=== PATIENT | male | born 1950 | race Caucasian/White ===

== ENCOUNTER 2017-03-16 08:22 | Emergency (ER) | payer OTHER ==
[~2017-03-16] VITALS: Ht 185.4 cm; Wt 96.0 kg
[~2017-03-16 08:22] MED LIST: CYAN100048 PO; FOLI1POW10 PO; LEVO50TA PO; LOSA1TAB PO; METO25TA56 PO; SPIR25TA PO; TORS20TA2 PO; VTMD400 PO; WARF5TAB90 PO
[2017-03-16 08:26] VITALS: TEMP 36.7; Ht 185.4 cm; Wt 96.0 kg
[2017-03-16] MEDS ORDERED: MPRUDL PO (08:55)
[2017-03-16] MEDS ORDERED: OMEP40CA41 PO (08:55)
[2017-03-16] MEDS ORDERED: MYCO500T4 PO (08:55)
[2017-03-16] MEDS ORDERED: AMLO-110 PO (08:55)
[2017-03-16] MEDS ORDERED: TACR1CAP14 PO (08:55)
[2017-03-16] MEDS ORDERED: PRAV40TA PO (09:01)
[2017-03-16] MEDS ORDERED: WARF2.5T8 PO (09:01)
[2017-03-16] MEDS ORDERED: HYDROmorphone INJ 0.5 MG/0.5 ML SYR IV STA ×2 (09:14→10:59)
[2017-03-16 09:39] LABS: HEMATOCRIT 34.1 % (42-52); MEAN CELL VOLUME 89.7 fL (80-100); MEAN CORPUSCULAR HEMOGLOBIN 28.7 pg (25-34); PLATELET COUNT 322 K/uL (130-400)
[2017-03-16 09:52] LABS: INR 2.2 (0.9-1.1); PARTIAL THROMBOPLASTIN RATIO 1.7; PROTHROMBIN TIME (PATIENT) 24.2 SECONDS (9.0-12.0)
[2017-03-16] MEDS ORDERED: SODIUM CHLORIDE 0.9% 1000ML 1,000 ML IV STA (09:54)
[2017-03-16 09:56] LABS: BUN/CREATININE RATIO 14.5 (10-20); C-REACTIVE PROTEIN 8.86 mg/dl (0-0.29); CREATININE 2.6 mg/dl (0.60-1.40)
[2017-03-16 09:59] LABS: ALB/GLOB RATIO 0.8 (0.9-2)
--- NOTE | 2017-03-16 10:00 | EMERGENCY ROOM VISIT NOTE ---
History First contact with patient: 08:29 Chief Complaint: FALL Stated Complaint: FALL X 3 DAYS, RT HIP AND LEG PAIN History of Present Illness The patient is a 66 year old male who presents to the Emergency Room with complaints of right leg pain. The patient tripped and fell 3 days ago. The patient states that he landed on his hip and right knee. He states that he has had significant and increasing pain in the right knee over the last 3 days. He states that he has been so painful he is not able to bear weight or walk. He states that there is redness, swelling and pain. He rates his discomfort a 10/ 10. He denies any fevers. He states he has also had some low back pain. He also reports some pain in the right hip. The patient denies any loss of bowel or bladder control, saddle paresthesias. The patient had a heart transplant and does take immunosuppressants. The patient also takes Coumadin for coagulopathy and history of PE. He denies any headache, dizziness. He denies any pain in his chest or trouble breathing. He denies any numbness, tingling, weakness. He denies any swelling or pain in the calf. Review of Systems A 10 system review of systems was completed with positives and pertinent negatives listed in the HPI. 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 (6) Depression (7) DVT, lower extremity (8) Dyslipidemia (9) Hypothyroidism (10) Left ventricular hypertrophy (11) Prothrombin gene mutation (12) Pulmonary embolism (13) Pulmonary hypertension (14) RBBB Surgical Problems: (1) Heart transplanted (2) History of carpal tunnel surgery of right wrist (3) S/p removal of knee cartilage (4) Status post total knee replacement Social History Smoking Status: Never Smoker Alcohol Use: occasionally Drug Use: none Marital Status: Housing Status: lives with significant other Occupation Status: employed Current/Historical Medications Scheduled Amlodipine (Norvasc), 5 MG PO DAILY Atovaquone (Mepron), 10 ML PO QAM Cholecalciferol (Vitamin D3), 1 TAB PO DAILY Levothyroxine Sodium (Synthroid), 50 MCG PO DAILY Mycophenolate Mofetil (Cellcept), 1,000 MG PO BID Omeprazole (Prilosec), 40 MG PO DAILY Pravastatin Sodium (Pravachol), 40 MG PO DAILY Tacrolimus (Tacrolimus), 6 MG PO BID Warfarin Sod (Jantoven), 2.5 MG PO UD Warfarin Sodium (Coumadin), 5 MG PO DIRECTED Scheduled PRN Oxycodone/Acetaminophen 5MG/325MG (Percocet 5MG/325MG), 1-2 TABS PO Q4 PRN for Pain Allergies Coded Allergies: Morphine (Unverified Allergy, Unknown, Nausea/vomiting, 03/16/17) Physical Exam Vital Signs Date Time Temp Pulse Resp B/P (MAP) Pulse Ox O2 Delivery O2 Flow Rate FiO2 03/16/17 15:15 122 21 148/101 97 Room Air 03/16/17 14:31 118 20 155/107 03/16/17 13:59 117 16 163/102 03/16/17 13:23 120 03/16/17 13:00 118 20 146/108 03/16/17 11:30 119 20 162/102 03/16/17 10:18 119 20 150/104 98 Room Air 03/16/17 09:36 123 03/16/17 09:33 120 16 97 Room Air 03/16/17 08:26 36.7 131 18 131/81 96 Room Air Physical Exam VITALS: Vitals are noted on the nurse's note and reviewed by myself. Vital signs stable. GENERAL: This is a 66-year-old male, in no acute distress, nondiaphoretic, well- developed well-nourished. SKIN: There is effusion, erythema, warmth and tenderness to the right knee, particularly on the lateral aspect. There is no tenting of the skin. Capillary reflex less than 2 seconds. HEAD: Normocephalic atraumatic. EARS: The external ears are normal in appearance. EYES: Pupils equal round and reactive to light and accommodation. Conjunctivae without injection, sclerae without icterus. Extraocular movements intact. NOSE: Patent, turbinates without inflammation or discharge. MOUTH: Mucous membranes moist. Tonsils are not enlarged. Pharynx without erythema or exudate. Uvula midline. Airway patent. Tongue does not deviate. NECK: Supple without nuchal rigidity. No JVD. HEART: Fast, Regular rate and rhythm without murmurs gallops or rubs. LUNGS: Clear to auscultation bilaterally without wheezes, rales or rhonchi. No retractions or accessory muscle use. MUSCULOSKELETAL: There is effusion, erythema, warmth, and edema to the right knee. There is pain with joint loading. The patient is able to extend the leg off the bed. There is tenderness to palpation over the left foot there is no erythema, ecchymosis or edema to the left foot. There is no significant tenderness to the right hip. There is mild tenderness to palpation to the lumbar spine. There are many extremities are otherwise unremarkable. NEURO: Patient was alert and oriented to person place and time. No focal neurological deficits. Medical Decision & Procedures ER Provider Diagnostic Interpretation: RIGHT FEMUR 2 VIEWS ROUTINE CLINICAL HISTORY: Right leg pain following fall. COMPARISON: None FINDINGS: Incidental note is made of scrotal surgical clips. Alignment of the right hip is anatomic. There is no right femur fracture. There is joint space narrowing within the medial compartment of the right knee. There is moderate vascular calcification. IMPRESSION: No acute fracture of the right femur. LEFT FOOT 3 VIEWS CLINICAL HISTORY: Left foot pain. FINDINGS: 3 views of left foot are obtained. No prior studies are available for comparison at the time of dictation. The skeletal structures are well mineralized. No fracture is seen. Mild arthritic change is present at the first metatarsophalangeal joint. The joint spaces are otherwise maintained. The overlying soft tissues are within normal limits. Atherosclerotic calcification is noted in the regional arteries. Linear calcifications are seen along the course of the plantar fascia an at the Achilles tendon insertion. IMPRESSION: No acute bony abnormality is seen in the left foot. LUMBAR SPINE 5 VIEWS CLINICAL HISTORY: Fall with low back pain. FINDINGS: Five views of the lumbar spine are obtained. No prior studies are available for comparison at the time of dictation. The skeletal structures are osteopenic. There is no radiographic evidence of fracture or malalignment. Vertebral body height is maintained throughout the lumbar spine. There is minimal anterolisthesis at L4-L5. Alignment is otherwise preserved. Small anterior osteophytes are seen throughout. The transverse and spinous processes appear intact. There is no evidence of spondylolysis. Facet arthropathy is seen in the mid to lower lumbar region. The disc spaces appear preserved. The bony pelvis is intact as imaged. Mild sclerotic change is noted in the sacroiliac joints. There is atherosclerotic calcification of the abdominal aorta. The abdominal bowel gas pattern is nonobstructed. IMPRESSION: 1. No acute bony abnormality is seen involving the lumbosacral spine. 2. Osteopenia and spondylosis as above. [~ rep ct add3]] PELVIS 1 OR 2 VIEW ROUTINE CLINICAL HISTORY: Fall. Right hip pain. COMPARISON STUDY: No previous studies for comparison. FINDINGS: There are scrotal surgical clips. The sacroiliac joints and symphysis pubis are intact. There is no acute fracture within the pelvis or hips. There is mild joint space narrowing and osteophytosis of both hips with chondrocalcinosis. IMPRESSION: 1. No acute fracture within the pelvis or hips. 2. Mild osteoarthritis of the hips. Laboratory Results 03/16/17 09:19 Red Blood Count 3.80, Mean Corpuscular Volume 89.7, Mean Corpuscular Hemoglobin 28.7, Mean Corpuscular Hemoglobin Concent 32.0, Mean Platelet Volume 10.0, Neutrophils (%) (Auto) 56.6, Lymphocytes (%) (Auto) 17.1, Monocytes (%) (Auto) 24.3, Eosinophils (%) (Auto) 0.6, Basophils (%) (Auto) 0.4, Neutrophils # (Auto ) 4.76, Lymphocytes # (Auto) 1.44, Monocytes # (Auto) 2.04, Eosinophils # (Auto ) 0.05, Basophils # (Auto) 0.03 03/16/17 09:19 Test 03/16/17 09:19 03/16/17 12:05 White Blood Count 8.40 K/uL (4.8-10.8) Red Blood Count 3.80 M/uL (4.7-6.1) Hemoglobin 10.9 g/dL (14.0-18.0) Hematocrit 34.1 % (42-52) Mean Corpuscular Volume 89.7 fL (80-100) Mean Corpuscular Hemoglobin 28.7 pg (25-34) Mean Corpuscular Hemoglobin Concent 32.0 g/dl (32-36) Platelet Count 322 K/uL (130-400) Mean Platelet Volume 10.0 fL (7.4-10.4) Neutrophils (%) (Auto) 56.6 % Lymphocytes (%) (Auto) 17.1 % Monocytes (%) (Auto) 24.3 % Eosinophils (%) (Auto) 0.6 % Basophils (%) (Auto) 0.4 % Neutrophils # (Auto) 4.76 K/uL (1.4-6.5) Lymphocytes # (Auto) 1.44 K/uL (1.2-3.4) Monocytes # (Auto) 2.04 K/uL (0.11-0.59) Eosinophils # (Auto) 0.05 K/uL (0-0.5) Basophils # (Auto) 0.03 K/uL (0-0.2) RDW Standard Deviation 48.0 fL (36.4-46.3) RDW Coefficient of Variation 14.6 % (11.5-14.5) Immature Granulocyte % (Auto) 1.0 % Immature Granulocyte # (Auto) 0.08 K/uL (0.00-0.02) Giant Platelets 1+ Tear Drop Cells 1+ Echinocytes 1+ Erythrocyte Sedimentation Rate 88 mm/hr (0-14) Prothrombin Time 24.2 SECONDS (9.0-12.0) Prothromb Time International Ratio 2.2 (0.9-1.1) Activated Partial Thromboplast Time 44.1 SECONDS (21.0-31.0) Partial Thromboplastin Ratio 1.7 Anion Gap 13.0 mmol/L (3-11) Est Creatinine Clear Calc Drug Dose 34.1 ml/min Estimated GFR () 28.5 Estimated GFR (Non- 24.6 BUN/Creatinine Ratio 14.5 (10-20) Lactic Acid Level 1.1 mmol/L (0.4-2.0) Calcium Level 9.6 mg/dl (8.5-10.1) Total Bilirubin 0.5 mg/dl (0.2-1) Aspartate Amino Transf (AST/SGOT) 14 U/L (15-37) Alanine Aminotransferase (ALT/SGPT) 20 U/L (12-78) Alkaline Phosphatase 96 U/L (45-117) C-Reactive Protein 8.86 mg/dl (0-0.29) Total Protein 7.9 gm/dl (6.4-8.2) Albumin 3.5 gm/dl (3.4-5.0) Globulin 4.4 gm/dl (2.5-4.0) Albumin/Globulin Ratio 0.8 (0.9-2) Synovial Fluid Source KNEE Synovial Fluid Color YELLOW Synovial Fluid Appearance HAZY Synovial Fluid WBC 4696 /uL (0-200) Synovial Fluid RBC 4000 /uL Synovial Fluid Polynuclear WBCs % 91.8 % Synovial Fluid Mononuclear WBCs % 8.2 % Synovial Fluid Crystals Medications Administered Medications (Trade) Dose Ordered Sig/Rosette Route Start Time Stop Time Status Last Admin Dose Admin Hydromorphone HCl (Dilaudid Inj) 0.5 mg ONE STAT IV 03/16/17 09:14 03/16/17 09:15 DC 03/16/17 09:33 0.5 MG Sodium Chloride 1,000 ml @ 125 mls/hr Q8H STAT IV 03/16/17 09:54 03/16/17 15:55 DC 03/16/17 10:20 125 MLS/HR Hydromorphone HCl (Dilaudid Inj) 0.5 mg NOW STAT IV 03/16/17 10:59 03/16/17 11:00 DC 03/16/17 11:09 0.5 MG ED Course The patient was seen and examined. Previous visits were reviewed. The patient does not have a fever. He does not have a leukocytosis. He has a very mild anemia. His sedimentation rate is elevated at 88 and his CRP is also elevated. His BUN/creatinine creatinine are 38 and 2.6, respectively. He believes that this is near baseline for him and states that he is in need of a kidney transplant. Lactic acid was not elevated. INR was 2.2. The patient does take Coumadin. Imaging was obtained as above. The patient was given a total of 1 mg IV Dilaudid. The patient presents to the emergency department with pain, redness, swelling, warmth in the right knee. He does have elevated inflammatory markers. He is immunocompromised. I am not certain if this represents an inflammatory, infectious process or a hematoma. I discussed the case [facility] as he has seen them in the past. The patient was evaluated by Benito Kong PA-C in the emergency department. He performed joint aspiration. [facility] Christiana Mcdaniel PA-C. I felt that the patient will require inpatient management if this represents a septic joint. She reviewed the patient's previous EKG and an EKG from today. It was very similar compared to the most recent EKG performed after the heart transplant. The patient has been tachycardic but he states that his baseline heart rate is between 110 and 120 since the transplant. The patient has also had hypertension. He states that it has also been elevated since the transplant. He states he is not taking any of his medications today. He was advised to take his medications as prescribed and follow-up with his family doctor for further evaluation and management of his blood pressure. The joint aspiration revealed approximately 5000 white blood cells. There are also calcium pyrophosphate crystals. This likely represents a pseudogout and not truly a septic joint. I again spoke with orthopedics. The patient cannot take NSAIDs. He is already on his own. They recommend trying pain medication and a follow-up in the office. The patient was given a prescription for Percocet. Case management was able to make an appointment for him with orthopedics tomorrow. The patient was advised of this. The patient should return to the ER with any chest pain, trouble breathing, fever, worsening pain, worsening swelling. The patient was also seen and examined by who agrees with the assessment and treatment plan. Medication Reconciliation: I attest that I have personally reviewed the patient' s current medication list. Blood pressure screening: The patient was found to have an elevated blood pressure and was referred to their primary care doctor for recheck and further treatment Medical Decision The differential diagnosis includes septic arthritis, gout, traumatic effusion, bursitis, sepsis, dehydration, Lumbar strain, degenerative disc disease, spondylolisthesis, herniated disc, spinal stenosis, osteoporosis, fracture, cauda equina syndrome, neoplasm, infection, inflammatory arthritis, among others. [place] Drug Monitoring Program Search Results: patient reviewed within database, no issues identified Impression Primary Impression: Pseudogout Additional Impressions: Knee effusion, right Fall Low back pain Departure Information Dispostion Home / Self-Care Condition GOOD Prescriptions Oxycodone/Acetaminophen 5MG/325MG (PERCOCET 5MG/325MG) Tab 1-2 TABS PO Q4 Y for Pain, #36 TAB For Initial Treatment Prov: Monica Leo PA-C 03/16/17 Referrals Chavez Enciso D.OAida (PCP) Choco Guerrier D.O. Patient Instructions ED Diet Gout, ED Effusion Knee, My [facility] Additional Instructions Continue your current medications as prescribed Percocet 1-2 tablet every 4-6 hours as needed for severe pain. No driving or alcohol use with Percocet and do not take with Tylenol. Follow-up with orthopedics tomorrow as scheduled for further evaluation and management Return with any fevers or worsening symptoms Problem Qualifiers
[2017-03-16 10:02] LABS: BASO % 0.4 %; BASO ABS # 0.03 K/uL (0-0.2); COMPLETE YES; ECHINOCYTES 1+; EOS % 0.6 %; GIANT PLATELETS 1+; LYMPH % 17.1 %; LYMPH ABS # 1.44 K/uL (1.2-3.4); MONO % 24.3 %; NEUT % 56.6 %; TEAR DROP CELLS 1+
--- NOTE | 2017-03-16 10:22 | DIAGNOSTIC IMAGING REPORT ---
PELVIS 1 OR 2 VIEW ROUTINE CLINICAL HISTORY: Fall. Right hip pain. COMPARISON STUDY: No previous studies for comparison. FINDINGS: There are scrotal surgical clips. The sacroiliac joints and symphysis pubis are intact. There is no acute fracture within the pelvis or hips. There is mild joint space narrowing and osteophytosis of both hips with chondrocalcinosis. IMPRESSION: 1. No acute fracture within the pelvis or hips. 2. Mild osteoarthritis of the hips. Electronically signed by: Nomi Meneses M.D. 03/16/2017 10:17 AM Dictated Date/Time: 03/16/2017 10:16 AM
--- NOTE | 2017-03-16 10:22 | DIAGNOSTIC IMAGING REPORT ---
RIGHT FEMUR 2 VIEWS ROUTINE CLINICAL HISTORY: Right leg pain following fall. COMPARISON: None FINDINGS: Incidental note is made of scrotal surgical clips. Alignment of the right hip is anatomic. There is no right femur fracture. There is joint space narrowing within the medial compartment of the right knee. There is moderate vascular calcification. IMPRESSION: No acute fracture of the right femur. Electronically signed by: Nomi Meneses M.D. 03/16/2017 10:18 AM Dictated Date/Time: 03/16/2017 10:17 AM
--- NOTE | 2017-03-16 10:22 | DIAGNOSTIC IMAGING REPORT ---
LEFT FOOT 3 VIEWS CLINICAL HISTORY: Left foot pain. FINDINGS: 3 views of left foot are obtained. No prior studies are available for comparison at the time of dictation. The skeletal structures are well mineralized. No fracture is seen. Mild arthritic change is present at the first metatarsophalangeal joint. The joint spaces are otherwise maintained. The overlying soft tissues are within normal limits. Atherosclerotic calcification is noted in the regional arteries. Linear calcifications are seen along the course of the plantar fascia an at the Achilles tendon insertion. IMPRESSION: No acute bony abnormality is seen in the left foot. Electronically signed by: Henri Reynolds M.D. 03/16/2017 10:17 AM Dictated Date/Time: 03/16/2017 10:16 AM
--- NOTE | 2017-03-16 10:22 | EMERGENCY ROOM VISIT NOTE ---
ED Visit Note First contact with patient: 08:29 This Patient was discussed with the physician assistant branch operations manager, Leelee Leo PA-C. The pertinent historical and physical exam findings were confirmed. I agree with the studies ordered and with the interpretations of these studies. I agree with the disposition and care plan.
--- NOTE | 2017-03-16 11:06 | DIAGNOSTIC IMAGING REPORT ---
LUMBAR SPINE 5 VIEWS CLINICAL HISTORY: Fall with low back pain. FINDINGS: Five views of the lumbar spine are obtained. No prior studies are available for comparison at the time of dictation. The skeletal structures are osteopenic. There is no radiographic evidence of fracture or malalignment. Vertebral body height is maintained throughout the lumbar spine. There is minimal anterolisthesis at L4-L5. Alignment is otherwise preserved. Small anterior osteophytes are seen throughout. The transverse and spinous processes appear intact. There is no evidence of spondylolysis. Facet arthropathy is seen in the mid to lower lumbar region. The disc spaces appear preserved. The bony pelvis is intact as imaged. Mild sclerotic change is noted in the sacroiliac joints. There is atherosclerotic calcification of the abdominal aorta. The abdominal bowel gas pattern is nonobstructed. IMPRESSION: 1. No acute bony abnormality is seen involving the lumbosacral spine. 2. Osteopenia and spondylosis as above. Dictated: 03/16/2017 10:18 AM Transcribed: 03/16/2017 11:06 AM Joi Electronically signed by: Herni Reynolds M.D. 03/16/2017 11:14 AM Dictated Date/Time: 03/16/2017 10:18 AM
[2017-03-16] MEDS ORDERED: ETHYL CHLORIDE AER PER SPRAY 100 ML CAN ONE (11:36)
[2017-03-16 12:08] LABS: CALCIUM 9.6 mg/dl (8.5-10.1)
--- NOTE | 2017-03-16 13:11 | Orthopedic Progress Note ---
Orthopedic Progress Note Date of Service Mar 16, 2017. Subjective Additional Notes: 66 yo wm know to our practice who came to the ER today due to right knee pain. The patient has a h/o heart transplant and being on Immunosuppressant drugs. Also h/o coagulopathy on Coumadin with h/o PE. Also h/o CKD with need for Kidney transplant, AFib, Dyslipidemia, and LVH. Pt states that he fell at home approximately 3 days ago hurting his right hip and knee. He fell mostly onto the lateral aspect of both. He had just started taking his Coumadin at that time. He initially was able to ambulate at home without much difficulty but as the days passed, he noticed increased pain and swelling in the right knee that continued to worsen. He was having a lot of difficulty getting around the house and felt he should come to the ER to be seen. He denies fevers , chills, N/V. He has some residual pain in the right hip but nothing like the knee. Denies CP/SOB. PMH - as noted above, h/o gout in past due to certain medications given. [place]KA [place] [address] Guerrier. Current/Historical Medications Scheduled Amlodipine (Norvasc), 5 MG PO DAILY Atovaquone (Mepron), 10 ML PO QAM Cholecalciferol (Vitamin D3), 1 TAB PO DAILY Levothyroxine Sodium (Synthroid), 50 MCG PO DAILY Mycophenolate Mofetil (Cellcept), 1,000 MG PO BID Omeprazole (Prilosec), 40 MG PO DAILY Pravastatin Sodium (Pravachol), 40 MG PO DAILY Tacrolimus (Tacrolimus), 6 MG PO BID Warfarin Sod (Jantoven), 2.5 MG PO UD Warfarin Sodium (Coumadin), 5 MG PO DIRECTED Allergies - Morphine Objective On entering the room, patient is lying on his right side with the right knee flexed to approximately 80 degrees. Hip is flexed to about the same. He looks comfortable but just received some pain medication prior to my visit. On examination of the right knee, he is capable of actively flexing and extending the knee although he has some loss of ROM. He is unable to fully extend the knee. Hip ROM essentially normal with mild discomfort. The itself is notably swollen compared to the left knee. Effusion is not tense but moderate. I am able to palpate the area which causes some pain in the knee but not overtly so. Active flexion/extension does not cause overt pain. He states it hurts but not grossly so. The knee is warm to touch, more so than the left. Slight erythema? over the lateral aspect? Palpation of the patella is nontender. He has more tenderness around the medial joint line on palpation. Suprapatellar pouch has a moderate effusion. Collateral ligaments feel stable. ACL/PCL seem to have a solid end point. General knee discomfort with ROM. NV intact Date Time Temp Pulse Resp B/P (MAP) Pulse Ox O2 Delivery O2 Flow Rate FiO2 03/16/17 11:30 119 20 162/102 03/16/17 10:18 119 20 150/104 98 Room Air 03/16/17 09:36 123 03/16/17 09:33 120 16 97 Room Air 03/16/17 08:26 36.7 131 18 131/81 96 Room Air Laboratory Results 24 Hours: Test 03/16/17 09:19 White Blood Count 8.40 K/uL Red Blood Count 3.80 M/uL Hemoglobin 10.9 g/dL Hematocrit 34.1 % Mean Corpuscular Volume 89.7 fL Mean Corpuscular Hemoglobin 28.7 pg Mean Corpuscular Hemoglobin Concent 32.0 g/dl Platelet Count 322 K/uL Mean Platelet Volume 10.0 fL Neutrophils (%) (Auto) 56.6 % Lymphocytes (%) (Auto) 17.1 % Monocytes (%) (Auto) 24.3 % Eosinophils (%) (Auto) 0.6 % Basophils (%) (Auto) 0.4 % Neutrophils # (Auto) 4.76 K/uL Lymphocytes # (Auto) 1.44 K/uL Monocytes # (Auto) 2.04 K/uL Eosinophils # (Auto) 0.05 K/uL Basophils # (Auto) 0.03 K/uL Prothromb Time International Ratio 2.2 Prothrombin Time 24.2 SECONDS Last 24 Hours Test 03/16/17 09:19 03/16/17 12:05 White Blood Count 8.40 K/uL Red Blood Count 3.80 M/uL Hemoglobin 10.9 g/dL Hematocrit 34.1 % Mean Corpuscular Volume 89.7 fL Mean Corpuscular Hemoglobin 28.7 pg Mean Corpuscular Hemoglobin Concent 32.0 g/dl Platelet Count 322 K/uL Mean Platelet Volume 10.0 fL Neutrophils (%) (Auto) 56.6 % Lymphocytes (%) (Auto) 17.1 % Monocytes (%) (Auto) 24.3 % Eosinophils (%) (Auto) 0.6 % Basophils (%) (Auto) 0.4 % Neutrophils # (Auto) 4.76 K/uL Lymphocytes # (Auto) 1.44 K/uL Monocytes # (Auto) 2.04 K/uL Eosinophils # (Auto) 0.05 K/uL Basophils # (Auto) 0.03 K/uL RDW Standard Deviation 48.0 fL RDW Coefficient of Variation 14.6 % Immature Granulocyte % (Auto) 1.0 % Immature Granulocyte # (Auto) 0.08 K/uL Giant Platelets 1+ Tear Drop Cells 1+ Echinocytes 1+ Erythrocyte Sedimentation Rate 88 mm/hr Prothrombin Time 24.2 SECONDS Prothromb Time International Ratio 2.2 Activated Partial Thromboplast Time 44.1 SECONDS Partial Thromboplastin Ratio 1.7 Sodium Level 138 mmol/L Potassium Level 4.0 mmol/L Chloride Level 107 mmol/L Carbon Dioxide Level 18 mmol/L Anion Gap 13.0 mmol/L Blood Urea Nitrogen 38 mg/dl Creatinine 2.60 mg/dl Est Creatinine Clear Calc Drug Dose 34.1 ml/min Estimated GFR () 28.5 Estimated GFR (Non- 24.6 BUN/Creatinine Ratio 14.5 Random Glucose 99 mg/dl Lactic Acid Level 1.1 mmol/L Calcium Level 9.6 mg/dl Total Bilirubin 0.5 mg/dl Aspartate Amino Transf (AST/SGOT) 14 U/L Alanine Aminotransferase (ALT/SGPT) 20 U/L Alkaline Phosphatase 96 U/L C-Reactive Protein 8.86 mg/dl Total Protein 7.9 gm/dl Albumin 3.5 gm/dl Globulin 4.4 gm/dl Albumin/Globulin Ratio 0.8 Additional Notes: RIGHT FEMUR 2 VIEWS ROUTINE CLINICAL HISTORY: Right leg pain following fall. COMPARISON: None FINDINGS: Incidental note is made of scrotal surgical clips. Alignment of the right hip is anatomic. There is no right femur fracture. There is joint space narrowing within the medial compartment of the right knee. There is moderate vascular calcification. IMPRESSION: No acute fracture of the right femur. LEFT FOOT 3 VIEWS CLINICAL HISTORY: Left foot pain. FINDINGS: 3 views of left foot are obtained. No prior studies are available for comparison at the time of dictation. The skeletal structures are well mineralized. No fracture is seen. Mild arthritic change is present at the first metatarsophalangeal joint. The joint spaces are otherwise maintained. The overlying soft tissues are within normal limits. Atherosclerotic calcification is noted in the regional arteries. Linear calcifications are seen along the course of the plantar fascia an at the Achilles tendon insertion. IMPRESSION: No acute bony abnormality is seen in the left foot. PELVIS 1 OR 2 VIEW ROUTINE CLINICAL HISTORY: Fall. Right hip pain. COMPARISON STUDY: No previous studies for comparison. FINDINGS: There are scrotal surgical clips. The sacroiliac joints and symphysis pubis are intact. There is no acute fracture within the pelvis or hips. There is mild joint space narrowing and osteophytosis of both hips with chondrocalcinosis. IMPRESSION: 1. No acute fracture within the pelvis or hips. 2. Mild osteoarthritis of the hips. LUMBAR SPINE 5 VIEWS CLINICAL HISTORY: Fall with low back pain. FINDINGS: Five views of the lumbar spine are obtained. No prior studies are available for comparison at the time of dictation. The skeletal structures are osteopenic. There is no radiographic evidence of fracture or malalignment. Vertebral body height is maintained throughout the lumbar spine. There is minimal anterolisthesis at L4-L5. Alignment is otherwise preserved. Small anterior osteophytes are seen throughout. The transverse and spinous processes appear intact. There is no evidence of spondylolysis. Facet arthropathy is seen in the mid to lower lumbar region. The disc spaces appear preserved. The bony pelvis is intact as imaged. Mild sclerotic change is noted in the sacroiliac joints. There is atherosclerotic calcification of the abdominal aorta. The abdominal bowel gas pattern is nonobstructed. IMPRESSION: 1. No acute bony abnormality is seen involving the lumbosacral spine. 2. Osteopenia and spondylosis as above. Assessment & Plan Assessment: r/o infected right knee; possible hemarthrosis; possible gouty flare. Plan: Currently, his white count is normal and ESR/CRP are elevated. INR 2.2. Normal temp. Tachycardic which patient states is normal for him. He doesn't examine as a true joint infection. I've discussed the case with Dr Guerrier. Aspiration of the knee is warranted. Risks were explained to the patient including but not inclusive to bleeding, infection of the knee joint. He agreed to the aspiration. Pt was placed lying supine on his bed. An aspiration site was chose at the suprapatellar pouch and marked. This area was cleansed with 2 alcohol swabs and 3 betadine swabs and let to dry. Ethyl Chloride was used on the site for skin anesthesia. An 18 ga needle was inserted into the suprapatellar pouch without difficulty and 42 cc of straw colored fluid was removed. The needle was removed and pressure was placed over the site for approximately one minute. A bandaid was placed over the injection site. Pt tolerated the procedure well. Aspirate will be sent for Cell count with diff; Crystal analysis; and Gram stain with Aerobic/Anaerobic cultures. If this is a gouty flare, the patient is already on daily prednisone and will be treated conservatively with pain medication; ice pack and or heat packs as needed. He is unable to take NSAID's due to his CKD. If gram stain is positive , he obviously will need to be admitted for IV antibx and likely arthroscopic washout. Pat Travis PA-C aware and has reviewed his EKG. Plan will be to wait on current labs to see what they show and proceed from there. Inhouse Planning Pain Management: Aleshia
[2017-03-16 13:35] LABS: SYNOVIAL FLUID APPEARANCE HAZY; SYNOVIAL FLUID COLOR YELLOW
[2017-03-16 13:36] LABS: SYNOVIAL FLUID MONONUC RELAT 8.2 %; SYNOVIAL FLUID POLYNUC RELAT 91.8 %
[2017-03-16] MEDS ORDERED: OXYC-57 PO (14:29)
[2017-03-16 15:15] VITALS: BP 148/101; PULSE 122; O2SAT 97
== END 2017-03-16 15:26 | disposition home or self-care (01) ==
LOC: C.EDB 08:25 → C.EDA 15:26
DX: M11.261 Other chondrocalcinosis, right knee (principal); M25.461 Effusion, right knee; M54.5 Low back pain; W01.0XXA Fall on same level from slipping, tripping and stumbling without subsequent striking against object, initial encounter; I48.91 Unspecified atrial fibrillation; N18.3 Chronic kidney disease, stage 3 (moderate); E78.5 Hyperlipidemia, unspecified; E03.9 Hypothyroidism, unspecified; F32.9 Major depressive disorder, single episode, unspecified; Z86.711 Personal history of pulmonary embolism; Z86.718 Personal history of other venous thrombosis and embolism; Z96.659 Presence of unspecified artificial knee joint; Z94.1 Heart transplant status; Z79.01 Long term (current) use of anticoagulants; Z79.899 Other long term (current) drug therapy; Z88.5 Allergy status to narcotic agent

== ENCOUNTER 2017-04-21 21:50 | Inpatient (IN) | payer OTHER ==
[~2017-04-21] VITALS: Ht 185.4 cm; Wt 99.2 kg
[~2017-04-21 21:50] MED LIST changes: +AMLO-110 PO; -CYAN100048 PO; -FOLI1POW10 PO; -LOSA1TAB PO; -METO25TA56 PO; +MPRUDL PO; +MYCO500T4 PO; +OMEP40CA41 PO; +OXYC-57 PO; +PRAV40TA PO; +PRG1 PO; -SPIR25TA PO; -TORS20TA2 PO; +WARF2.5T8 PO
[2017-04-21] MEDS ORDERED: WARF-280 PO (22:32)
[2017-04-21] MEDS ORDERED: VALG1TAB PO (22:32)
[2017-04-21] MEDS ORDERED: HYDROmorphone INJ 2 MG/ML SYR/VIAL IV STA (23:20)
[2017-04-22] VITALS (18 sets, daily range): BP systolic 125–171; BP diastolic 76–101; PULSE 98–110; TEMP 36.6–36.9; O2SAT 93–99; Ht 185.4 cm; Wt 99.2 kg
[2017-04-22 00:07] LABS: URINE APPEARANCE CLEAR (CLEAR); URINE COLOR YELLOW; URINE SPECIFIC GRAVITY 1.024 (1.000-1.030)
[2017-04-22 00:08] LABS: URINE BILIRUBIN NEG (NEG); URINE NITRITE NEG (NEG); UROBILINOGEN NEG (NEG)
[2017-04-22 00:09] LABS: MANUAL MICROSCOPIC REQUIRED? NO; REVIEW REQ? NO
--- NOTE | 2017-04-22 01:11 | EMERGENCY ROOM VISIT NOTE ---
History Report prepared by Yung: Aden Rosenberg Under the Supervision of: Dr. Ana Rosa Vargas D.O. First contact with patient: 23:03 Chief Complaint: SYNCOPE Stated Complaint: KNEE PAIN Nursing Triage Summary: patient brought in by ems patient reports syncopial episode around [id number] patient reports left knee pain patient reports heart transplant in may 2016 History of Present Illness The patient is a 66 year old male who presents to the Emergency Room with complaints of a sudden syncopal episode that occurred around 1500 today. He rates his discomfort as a 7/10 in severity. The patient states that he was by his sink when he felt a "strange feeling happening in my head". He states that he had never had this feeling or experience before. He is accompanied his who states that about three seconds after he reported this he fell onto the ground on his knees due to a syncopal episode. She states that she tried to catch him, but he still hit "hard" on the ground. The reports that he was passed out for about three seconds when he suddenly opened his eyes with the eyes rolling to the back of his head. She states that about ten seconds following this incident he was able to talk and return his eyes to normal again. His states that during his syncopal episode he appeared to not be able to breathe, causing her to breathe into his nose. The patient states that following the incident he felt pain in his knees and feels as if his muscles are tight. He states that he felt lethargic following the episode, which caused him to sleep for a couple of hours. The patient states that after his nap, he tried to ice his knees to alleviate the pain for a couple of hours. He reports that he was not able to alleviate pain, which prompted him to visit the ED. The patient states that he still is experiencing knee pain and rates it as a 10/10 in severity in his left knee and a 9/10 in severity in his right knee. The patient admits that his pain is better with rest and worsened with movement. He states that he has not been able to ambulate or put weight on his legs due to the pain. The patient states that he felt fine throughout the day and had eaten breakfast early in the morning, but denies eating any lunch. He states that he usually eats lunch and tries not to skip meals. The patient states that he has a history of injuries to his knee, which occurred about a month ago. He states that during this incident, he was at the bottom of the steps and went to step, but fell over onto his knees. The patient states that he had severe knee pain and had to get his knee drained. He states that he was able to return to normal shortly after the incident. The patient states that he is also concerned that he has neuropathy in his feet bilaterally due to his constant feet pain. He states that the pain is relieved with walking barefoot. 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 He states that he has a biopsy appointment on May 04 due to a large nodule in his lungs. The patient also admits that his left knee is normally more swollen than his right and his heart rate is normally in the 100s following the transplant. He admits that he can not take aspirin due to his current medication and can not take Morphine due to an allergy. He denies any abnormal activities or dehydration. Source of History: patient Onset: 1499 Position: other (global) Symptom Intensity: 03/29 Timing: other (sudden) Modifying Factors (Relieving): rest Review of Systems See HPI for pertinent positives & negatives. A total of 10 systems reviewed and were otherwise negative. 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 Social History Smoking Status: Unknown if Ever Smoked Alcohol Use: occasionally Drug Use: none Marital Status: Housing Status: lives with significant other Occupation Status: employed Current/Historical Medications Scheduled Amlodipine (Norvasc), 5 MG PO DAILY Atovaquone (Mepron), 10 ML PO QAM Cholecalciferol (Vitamin D3), 1 TAB PO DAILY Levothyroxine Sodium (Synthroid), 50 MCG PO DAILY Mycophenolate Mofetil (Cellcept), 1,000 MG PO BID Omeprazole (Prilosec), 40 MG PO DAILY Pravastatin Sodium (Pravachol), 40 MG PO DAILY Tacrolimus (Tacrolimus), 6 MG PO BID Valganciclovir HCl (Valganciclovir), 1 CAP PO BID Warfarin Sodium (Warfarin Sodium), 1 TAB PO DAILY Scheduled PRN Oxycodone/Acetaminophen 5MG/325MG (Percocet 5MG/325MG), 1-2 TABS PO Q4 PRN for Pain Allergies Coded Allergies: Morphine (Unverified Allergy, Unknown, Nausea/vomiting, 04/21/17) Physical Exam Vital Signs Date Time Temp Pulse Resp B/P (MAP) Pulse Ox O2 Delivery O2 Flow Rate FiO2 04/22/17 02:08 100 04/22/17 02:00 97 18 165/108 96 Room Air 04/22/17 01:00 100 18 140/99 95 Room Air 04/22/17 00:00 102 18 155/99 94 Room Air 04/21/17 23:04 104 20 132/87 98 Room Air 04/21/17 22:08 36.8 111 18 138/94 95 Room Air 04/21/17 22:04 105 Physical Exam HEENT: Head - normocephalic and atraumatic Pupils are equal, round, and reactive to light. Extraocular eye muscles are intact, and sclera are anicteric. Nose - moist nasal mucosa without discharge. Mouth - moist buccal mucosa. Oropharynx is nonerythematous and there is no tonsillar exudate or edema noted. Neck: Supple; no JVD, nuchal rigidity, cervical lymphadenopathy, or auscultated bruits. Heart: Tachycardic rate and Regular rhythm. There is a normal S1 and S2 with no murmurs, clicks, or gallops appreciated. Lungs: Clear to auscultation bilaterally with no wheezes, rales, or rhonchi. Abdomen: Soft, completely nontender, nondistended, with good bowel sounds. There are no palpable pulsatile masses or hepatosplenomegaly. There is no guarding, rigidity, or rebound noted. Extremities: No evidence of cyanosis, clubbing. Edema to superior aspect of left knee There are easily palpable peripheral pulses. Skin: warm and dry with good turgor and no rashes. Medical Decision & Procedures ER Provider Diagnostic Interpretation: X-ray results as stated below per interpretation by me: CHEST: Cardiomegaly. No pulmonary infiltrate or pleural effusions. Sternotomy wires in place. KNEE: Hardware in place no obvious loosening, No obvious fracture. RIGHT KNEE: No obvious fracture. Mild degenerative changes. Laboratory Results 04/21/17 22:04 Red Blood Count 3.71, Mean Corpuscular Volume 87.1, Mean Corpuscular Hemoglobin 26.1, Mean Corpuscular Hemoglobin Concent 30.0, Mean Platelet Volume 10.5, Neutrophils (%) (Auto) 83.9, Lymphocytes (%) (Auto) 8.6, Monocytes (%) (Auto) 6.2, Eosinophils (%) (Auto) 0.3, Basophils (%) (Auto) 0.2, Neutrophils # (Auto) 7.98, Lymphocytes # (Auto) 0.82, Monocytes # (Auto) 0.59, Eosinophils # (Auto) 0.03, Basophils # (Auto) 0.02 04/21/17 22:04 Test 04/21/17 22:04 04/21/17 23:40 White Blood Count 9.52 K/uL (4.8-10.8) Red Blood Count 3.71 M/uL (4.7-6.1) Hemoglobin 9.7 g/dL (14.0-18.0) Hematocrit 32.3 % (42-52) Mean Corpuscular Volume 87.1 fL (80-100) Mean Corpuscular Hemoglobin 26.1 pg (25-34) Mean Corpuscular Hemoglobin Concent 30.0 g/dl (32-36) Platelet Count 326 K/uL (130-400) Mean Platelet Volume 10.5 fL (7.4-10.4) Neutrophils (%) (Auto) 83.9 % Lymphocytes (%) (Auto) 8.6 % Monocytes (%) (Auto) 6.2 % Eosinophils (%) (Auto) 0.3 % Basophils (%) (Auto) 0.2 % Neutrophils # (Auto) 7.98 K/uL (1.4-6.5) Lymphocytes # (Auto) 0.82 K/uL (1.2-3.4) Monocytes # (Auto) 0.59 K/uL (0.11-0.59) Eosinophils # (Auto) 0.03 K/uL (0-0.5) Basophils # (Auto) 0.02 K/uL (0-0.2) RDW Standard Deviation 46.0 fL (36.4-46.3) RDW Coefficient of Variation 14.3 % (11.5-14.5) Immature Granulocyte % (Auto) 0.8 % Immature Granulocyte # (Auto) 0.08 K/uL (0.00-0.02) Prothrombin Time 24.2 SECONDS (9.0-12.0) Prothromb Time International Ratio 2.2 (0.9-1.1) Activated Partial Thromboplast Time 32.0 SECONDS (21.0-31.0) Partial Thromboplastin Ratio 1.2 Anion Gap 10.0 mmol/L (3-11) Est Creatinine Clear Calc Drug Dose 29.1 ml/min Estimated GFR () 23.0 Estimated GFR (Non- 19.9 BUN/Creatinine Ratio 15.6 (10-20) Calcium Level 9.1 mg/dl (8.5-10.1) Total Bilirubin 0.3 mg/dl (0.2-1) Aspartate Amino Transf (AST/SGOT) 15 U/L (15-37) Alanine Aminotransferase (ALT/SGPT) 19 U/L (12-78) Alkaline Phosphatase 95 U/L (45-117) Total Creatine Kinase 63 U/L (39-308) Creatine Kinase MB 1.0 ng/ml (0.5-3.6) Creatine Kinase MB Ratio 1.6 (0-3.0) Troponin I < 0.015 ng/ml (0-0.045) Total Protein 7.2 gm/dl (6.4-8.2) Albumin 3.6 gm/dl (3.4-5.0) Globulin 3.6 gm/dl (2.5-4.0) Albumin/Globulin Ratio 1.0 (0.9-2) Urine Color YELLOW Urine Appearance CLEAR (CLEAR) Urine pH 5.0 (4.5-7.5) Urine Specific [place] 1.024 (1.000-1.030) Urine Protein 1+ (NEG) Urine Glucose (UA) NEG (NEG) Urine Ketones NEG (NEG) Urine Occult Blood NEG (NEG) Urine Nitrite NEG (NEG) Urine Bilirubin NEG (NEG) Urine Urobilinogen NEG (NEG) Urine Leukocyte Esterase NEG (NEG) Urine WBC (Auto) 1-5 /hpf (0-5) Urine RBC (Auto) 5-10 /hpf (0-4) Urine Hyaline Casts (Auto) 1-5 /lpf (0-5) Urine Epithelial Cells (Auto) 10-20 /lpf (0-5) Urine Bacteria (Auto) NEG (NEG) Laboratory results per my review. Medications Administered Medications (Trade) Dose Ordered Sig/Rosette Route Start Time Stop Time Status Last Admin Dose Admin Hydromorphone HCl (Dilaudid Inj) 2 mg NOW STAT IV 04/21/17 23:20 04/21/17 23:21 DC 04/21/17 23:41 2 MG Sodium Chloride 500 ml @ 999 mls/hr Q31M STAT IV 04/22/17 02:12 04/22/17 02:42 DC 04/22/17 02:26 999 MLS/HR Procedure Dilaudid Injection 2 mg IV, Sodium Chloride 1000 ml @ 250 mls/hr IV, Sodium Chloride 500 ml @ 999 mls/hr IV. ECG Indication: syncope Rate (beats per minute): 109 Rhythm: sinus tachycardia Findings: RBBB, no ectopy Comparison ECG Date: 03/16/17 Change: no significant change ED Course 2305: Past medical records reviewed. The patient was evaluated in room A09B. A complete history and physical exam was performed. Laboratory studies were drawn as above. A twelve-lead EKG was obtained as described above. 2320: Dilaudid Injection 2 mg IV. The patient went for plain x-rays of both knees as well as a chest x-ray. He was observing the front desk monitor and pulse oximeter. He had no further episodes of near syncope. 0157: I reevaluated the patient and he is feeling fine. His knees feel better after the Dilaudid. 0158: I discussed the patient's case with Dr. Smalls, [facility]. He understands the patient's condition and agrees to accept the patient. The patient will be further evaluated. 0212: Sodium chloride 1000 ml @ 250 mls/hr IV, Sodium Chloride 500 ml @ 999 mls/ hr IV. Medical Decision The patient is a 66 year old male who presents to the ED with complaints of a sudden syncopal episode that occurred around 1500. Differential diagnosis includes syncope, cardiac dysrhythmia, dehydration, seizure. Labs showed: Hemoglobin 9.7 down from 10.9 one month ago, no leukocytosis, BUN 48, Creatinine 3.1, Glucose 115, LFTs normal, Cardiac enzymes negative, INR 2.2 , Urine is unremarkable. Patient had a heart transplant less than 1 year ago in [place]. He denies any previous history of syncope. He did have a syncopal event earlier today. His creatinine has elevated above 3. He believes this may be secondary to the medications that he is currently taking for CMV. Also, the patient is anemic. His hemoglobin has dropped by more than 1 g in the past month. Both of these findings could have contributed to his episode of syncope today. The patient does complain of severe knee pain bilaterally but no obvious fractures were identified. I have discussed the case with the [facility] Hospitalist and they will evaluate for further management. Medication Reconcilliation Current Medication List: was personally reviewed by me Blood Pressure Screening Patient's blood pressure: Elevated blood pressure Blood pressure disposition: Elevated BP felt to be situational Consults Time Called: 0158 Consulting Physician: Dr. Smalls, [facility] Returned Call: [phone] I discussed the patient's case with Dr. Smalls, [facility]. He understands the patient's condition and agrees to accept the patient. The patient will be further evaluated. Impression Primary Impression: Syncope Additional Impressions: Anemia Renal insufficiency Scribe Attestation The scribe's documentation has been prepared under my direction and personally reviewed by me in its entirety. I confirm that the note above accurately reflects all work, treatment, procedures, and medical decision making performed by me. Departure Information Dispostion Being Evaluated By Hospitalist (Dr. Smalls) Referrals Chavez Enciso D.O. (PCP) Patient Instructions [facility] Problem Qualifiers Primary Impression: Syncope Syncope type: unspecified Qualified Codes: R55 - Syncope and collapse Additional Impressions: Anemia Anemia type: unspecified type Qualified Codes: D64.9 - Anemia, unspecified
[2017-04-22 01:13] LABS: INR 2.2 (0.9-1.1); PARTIAL THROMBOPLASTIN RATIO 1.2; PROTHROMBIN TIME (PATIENT) 24.2 SECONDS (9.0-12.0)
[2017-04-22 01:14] LABS: BASO % 0.2 %; BASO ABS # 0.02 K/uL (0-0.2); COMPLETE YES; EOS % 0.3 %; HEMATOCRIT 32.3 % (42-52); IG% 0.8 %; LYMPH % 8.6 %; LYMPH ABS # 0.82 K/uL (1.2-3.4); MEAN CELL VOLUME 87.1 fL (80-100); MEAN CORPUSCULAR HEMOGLOBIN 26.1 pg (25-34); MEAN PLATELET VOLUME 10.5 fL (7.4-10.4); MONO % 6.2 %; NEUT % 83.9 %; PLATELET COUNT 326 K/uL (130-400); RED BLOOD COUNT 3.71 M/uL (4.7-6.1); WHITE BLOOD COUNT 9.52 K/uL (4.8-10.8)
[2017-04-22 01:22] LABS: ALT/SGPT 19 U/L (12-78); AST/SGOT 15 U/L (15-37); BLOOD UREA NITROGEN 48 mg/dl (7-18); BUN/CREATININE RATIO 15.6 (10-20); CALCIUM 9.1 mg/dl (8.5-10.1); CARBON DIOXIDE 21 mmol/L (21-32); CHLORIDE 110 mmol/L (98-107); GLUCOSE 115 mg/dl (70-99); POTASSIUM 3.7 mmol/L (3.5-5.1); SODIUM 141 mmol/L (136-145)
[2017-04-22 01:27] LABS: ALKALINE PHOSPHATASE 95 U/L (45-117); CKMB/CK RATIO 1.6 (0-3.0)
[2017-04-22] MEDS ORDERED: SODIUM CHLORIDE 0.9% 500ML 500 ML IV STA (02:12)
[2017-04-22] MEDS ORDERED: SODIUM CHLORIDE 0.9% 1000ML 1,000 ML IV STA (02:12)
[2017-04-22] MEDS ORDERED: ONDANSETRON INJ 2 MG/ML 2 ML VIAL IV PRN (04:00)
[2017-04-22] MEDS ORDERED: NITROGLYCERIN 0.4 MG SL PER TAB CHARGE SL PRN (04:00)
[2017-04-22] MEDS ORDERED: LACTATED RINGER'S 1000ML 1,000 ML IV ONE (04:00)
[2017-04-22] MEDS ORDERED: ACETAMINOPHEN 325 MG TAB PO PRN (04:00)
[2017-04-22] MEDS ORDERED: IV FLUIDS COMPLETED PRN (04:00)
[2017-04-22] MEDS: HYDROmorphone INJ 0.5 MG/0.5 ML SYR IV PRN ×2 (04:53→19:49)
[2017-04-22 05:51] LABS: BASO % 0.3 %; BASO ABS # 0.02 K/uL (0-0.2); COMPLETE YES; EOS % 0.9 %; HEMATOCRIT 29.8 % (42-52); IG% 0.6 %; LYMPH % 10.9 %; LYMPH ABS # 0.86 K/uL (1.2-3.4); MEAN CELL VOLUME 87.9 fL (80-100); MEAN CORPUSCULAR HEMOGLOBIN 27.4 pg (25-34); MEAN CORPUSCULAR HGB CONC 31.2 g/dl (32-36); MEAN PLATELET VOLUME 10.1 fL (7.4-10.4); NEUT % 78.3 %; PLATELET COUNT 286 K/uL (130-400); RED BLOOD COUNT 3.39 M/uL (4.7-6.1)
[2017-04-22] MEDS: LEVOTHYROXINE 50 MCG TAB PO SCH (06:08)
[2017-04-22 06:09] LABS: INR 2.4 (0.9-1.1); PROTHROMBIN TIME (PATIENT) 26.1 SECONDS (9.0-12.0)
[2017-04-22 06:21] LABS: BLOOD UREA NITROGEN 44 mg/dl (7-18); BUN/CREATININE RATIO 16.4 (10-20); CALCIUM 8.9 mg/dl (8.5-10.1); CARBON DIOXIDE 22 mmol/L (21-32); CHLORIDE 112 mmol/L (98-107); GLUCOSE 92 mg/dl (70-99); POTASSIUM 3.7 mmol/L (3.5-5.1); SODIUM 142 mmol/L (136-145)
[2017-04-22 06:26] LABS: FERRITIN 39.1 ng/ml (8.0-388.0); TOTAL IRON BINDING CAPACITY 339 mcg/dl (250-450)
[2017-04-22] MEDS ORDERED: POTASSIUM CHLORIDE 10 MEQ TABCR PO ONE (07:00)
--- NOTE | 2017-04-22 07:14 | DIAGNOSTIC IMAGING REPORT ---
SINGLE VIEW CHEST CLINICAL HISTORY: Syncope. FINDINGS: 2 AP, portable, upright chest radiographs are compared to study dated 10/02/2013 and correlated with chest CT dated 10/02/2013. The patient is status post midline sternotomy. The heart is mildly enlarged. The pulmonary vasculature is noncongested. Enlargement of the central pulmonary arteries suggests pulmonary artery hypertension. Chronic interstitial thickening is similar to previous. No airspace consolidation or large pleural effusion is identified. No pneumothorax is seen. The bony thorax is grossly intact. IMPRESSION: Cardiomegaly with no acute cardiopulmonary abnormality. Electronically signed by: Henri Reynolds M.D. 04/22/2017 7:13 AM Dictated Date/Time: 04/22/2017 7:11 AM
--- NOTE | 2017-04-22 07:20 | DIAGNOSTIC IMAGING REPORT ---
LEFT KNEE 2 VIEWS CLINICAL HISTORY: Left knee pain. FINDINGS: AP and crosstable lateral views of the left knee are obtained. No prior studies are available for comparison at the time of dictation. The skeletal structures are osteopenic. There is no radiographic evidence of fracture. A left knee arthroplasty is in near-anatomic alignment. There has been undersurface remodeling of the patella. No periprosthetic lucency is suggested. A calcified fabella is incidentally noted. There is a joint effusion. Several calcified joint bodies are suspected. A bone island is incidentally noted in the fibular head. Mild soft tissue swelling is noted around the knee. IMPRESSION: 1. Mild soft tissue swelling with no no acute bony abnormality seen in the left knee. 2. Joint effusion and suspect calcified joint bodies. 3. A left knee arthroplasty is in near-anatomic alignment. Electronically signed by: Henri Reynolds M.D. 04/22/2017 7:19 AM Dictated Date/Time: 04/22/2017 7:17 AM
--- NOTE | 2017-04-22 07:46 | DIAGNOSTIC IMAGING REPORT ---
RIGHT KNEE 2 VIEWS CLINICAL HISTORY: Right knee injury. FINDINGS: AP and crosstable lateral views of the right knee are obtained. No prior studies are available for comparison at the time of dictation. The skeletal structures are osteopenic. No fracture is seen. There is moderate tricompartmental degenerative joint space narrowing, greatest in the medial and patellofemoral compartments. There are marginal osteophytes, patellar enthesophytes, and degenerative beaking of the tibial spine. A calcified fabella is incidentally noted. There is chondrocalcinosis of the medial and lateral compartments. A joint effusion is identified. Mild overlying soft tissue edema is noted. Atherosclerotic calcification is observed in the popliteal artery. IMPRESSION: 1. Soft tissue swelling and joint effusion. There is no radiographic evidence of right knee fracture. 2. Osteopenia, arthritic change, and chondrocalcinosis as above. Electronically signed by: Henri Reynolds M.D. 04/22/2017 7:45 AM Dictated Date/Time: 04/22/2017 7:43 AM
[2017-04-22] MEDS: OXYCODONE/ACETAMINOPHEN 5-325 TAB PO PRN ×4 (08:36→20:28)
--- NOTE | 2017-04-22 09:08 | HISTORY & PHYSICAL EXAMINATION ---
DATE OF ADMISSION: 04/22/2017 PRIMARY CARE PHYSICIAN: Dr. Enciso (Although patient has not met him.) CHIEF COMPLAINT: Syncope. HISTORY OF PRESENT ILLNESS: History obtained from patient and records. 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 as per 11/2016 [facility] records) Hx recurrent CMV infection ongoing ganciclovir Rx, chronic anemia (baseline hemoglobin 8.9 from November, [facility] ) HCV as per records , hypothyroidism Patient underwent cardiac transplantation for amyloidosis at [facility] last [address] Steven Kingston. Subsequently discharged on tacrolimus, prednisone, CellCept. Subsequent admission at [facility] last November 2016 for 2 weeks hx of diarrhea, poor p.o. intake and acute kidney injury. Found to be CMV positive. Started on IV ganciclovir. Two new lung nodules also discovered on workup. PTLD versus infection. Lung biopsy attempted but nodule size increased. Subsequently discharged. About 2 months ago patient was seen at the Emergency Room for increased pain, swelling on the right knee after a fall. Hemoglobin noted to be 10.9 at that time, creatinine noted to be 2.6. Px seen by Orthopedics in the Emergency Room. Right knee x-ray just showed joint space narrowing. Orthopedics impression was right knee pain, hemarthrosis versus gouty flare. Straw colored fluid removed. WBC noted to be 4696, yellow and hazy. Patient subsequently discharged from the emergency room. Improved right knee pain after outpatient follow-up with Orthopedics. Last week, patient restarted on Gancyclovir with increasing CMV levels. Last night the patient was walking around the kitchen. Px felt dizzy, lightheadedness. Subsequently passed out for a few moments, witnessed by partner. No chest pain, no shortness of breath. No incontinence. Complaining of bilateral knee pain more on the left after falling at the Emergency Room. MEDICAL HISTORY: As above. SURGERIES: Cardiac transplant, knee surgery, carpal tunnel surgery. HOME MEDICATIONS: Include Mepron, Norvasc, Synthroid, CellCept, Prilosec, Pravachol, tacrolimus, Coumadin. ALLERGIES: MORPHINE. FAMILY HISTORY: Diabetes. PERSONAL AND SOCIAL HISTORY: Nonsmoker. No chronic EtOH intake. 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 REVIEW OF SYSTEMS: As per HPI, bilateral foot numbness, pain of one month duration. all other ROS negative. PHYSICAL EXAMINATION: VITAL SIGNS: Blood pressure was noted to be 140/99, pulse rate 100, RR 18, temperature 37, sats 95 on room air. GENERAL: Noted to be slightly uncomfortable, no respiratory distress. SKIN: Pallor. HEAD, EYES, EARS, NOSE, AND THROAT: Pale palpebral conjunctivae. Dry mucosa. NECK: Supple. CHEST: Clear to auscultation. HEART: Regular rate and rhythm. ABDOMEN: Soft. RECTAL EXAMINATION: Intact sphincter. Brown stool, heme negative. EXTREMITIES: Tender swelling on both knees, left greater than right. Some limitation in ROM, Superficial incisional scar scar on the left knee. NEUROLOGIC EXAMINATION: No gross focality. LABORATORY DATA: Hemoglobin was noted to be 9.7, platelets 326 Sodium 137, K 3.7, chloride 110, CO2 21, BUN 48, creatinine 3.1, glucose 115. INR was noted to be 2.2. trop 0 Chest x-ray as per my interpretation, atelectasis, hilar prominence. EKG as per my interpretation, rate 110, sinus tachycardia, right bundle branch block, T-wave inversion in inferolateral leads UA RBC 5-10 hyaline casts, epithelial cells. R/L Knee x-rays. Possible joint effusions. ASSESSMENT AND PLAN: 1. Syncope possible orthostasis. Rule out cardiac dysfunction. 2. Acute renal failure on chronic renal insufficiency Mild clinical dehydration ? meds as a contributory factor (ganciclovir recently initiated outpatient for recurrent CMV infection) 3. Cardiac amyloidosis sp cardiac transplantation (May 2016) on chronic immunosuppression/prophylaxis for opportunistic infections. 5. Bilateral knee pain, left worse than right secondary to fall. 6. chronic anemia possibly from CKD Hemoglobin better than baseline of 8.26 November 2016 [facility] 7. HTN, slightly elevated 8. Pulmonary thrombo-embolism, hypercoagulable state on Coumadin, INR therapeutic. 9. History of PAF, patient normal sinus rhythm status post cardioversion. 10. Chronic systolic/diastolic failure. Patient on dry side. 11. Chronic diarrhea. Rule out C. diff. 12. HCV as per records 13. Bipedal pain of one month duration possible neuropathy ? secondary to home meds initiated following organ transplant ? HCV neuropathy OBS PCU orthostatic vitals 2D echo RE syncope monitor creatinine response to IV fluids. Renal dosing for Ganciclovir Consider renal ultrasound, Nephrology eval if no improvement of kidney function. Orthopedics consult. RE bilateral post traumatic knee pain, left greater than the right (Px known to Dr. Guerrier, [facility].) Anemia workup, follow H&H, transfuse packed RBC if hemoglobin less than 7 and/ or symptomatic anemia Stool C. difficile Inpatient Neurology consult as per patient request RE bipedal pain of one month , possible neuropathy Further management pending workup results. DVT prophylaxis, Coumadin INR 2-3 if no concerns from Orthopedics. FULL CODE. (The patient has provided contact number for his foot orthopedist at [facility] for any queries regarding his cardiac regimen : Dr. Pat Macias at [phone]) [facility]
--- NOTE | 2017-04-22 09:58 | ECHOCARDIOGRAM REPORT ---
*NOTICE TO RECEIVING [employer] AGENCY This information is strictly Confidential and protected under [place] law. [place] law prohibits you from making any further disclosure of this information unless further disclosure is expressly permitted by the written consent of the person to whom it pertains or is authorized by law. A general authorization for the release of medical or other information is not sufficient for this purpose. Hospital accepts no responsibility if the information is made available to any other person, INCLUDING THE PATIENT. Interpretation Summary * Name: SLAVA BROWN Study Date: 04/22/2017 06:34 AM BP: 171/91 mmHg * Patient Location: C.2T\S\S229\S\2 HR: 100 * : 1950 (M/d/yyyy) Gender: Male Height: 73 in * Age: 66 yrs Ethnicity: [place] Weight: 219 lb * Ordering Physician: Diogo Smalls * Referring Physician: Self, Referred * Performed By: Patricia Newman RCS * * Reason For Study: SYNCOPE * BSA: 2.2 m2 * -- Conclusions -- * Normal LV chamber size with mild concentric LVH. * Hyperdynamic LV systolic function, EF >70%. * No segmental left ventricular wall motion abnormalities are noted. * Normal RV chamber size and systolic function. * No significant valvular pathology. * Mild left atrial enlargement. Procedure Details * A complete two-dimensional transthoracic echocardiogram was performed (2D, M-mode, Doppler and color flow Doppler). Left Ventricle * The left ventricle is normal in size. * There is mild concentric left ventricular hypertrophy. * The left ventricle is hyperdynamic. * No segmental left ventricular wall motion abnormalities are noted. * Ejection Fraction = >70 %. * The left ventricular wall motion is normal. Right Ventricle * The right ventricular cavity size is normal (basal dimension <4.2 cm in right ventricular apical 4-chamber view). * The right ventricular systolic function is normal. Atria * The left atrium is mildly dilated. * Right atrial size is normal. * No ASD detected; PFO is not assessed. Mitral Valve * The mitral valve is normal in structure and function. Tricuspid Valve * The tricuspid valve is normal in structure and function. Aortic Valve * The aortic valve is normal in structure and function. Pulmonic Valve * The pulmonary valve is not well seen, but the Doppler examination is normal without significant regurgitation or stenosis. Great Vessels * The aortic root and proximal ascending aorta are normal sized. Pericardium/Pleural * There is no pericardial effusion. Left Ventricular Diastolic Function * Pulse wave TDI of the anterior and posterior mitral annulas demonstrates normal LV relaxation MMode 2D Measurements and Calculations IVSd 1.9 cm IVSs 2.5 cm LVIDd 3.2 cm LVIDs 2.0 cm LVPWd 1.6 cm LVPWs 1.7 cm IVS/LVPW 1.2 FS 37.6 % EDV(Teich) 41.9 ml ESV(Teich) 13.0 ml EF(Teich) 69.0 % EDV(cubed) 33.7 ml ESV(cubed) 8.2 ml EF(cubed) 75.7 % % IVS thick 30.1 % % LVPW thick 10.7 % LV mass(C)d 223.0 grams LV mass(C)dI 99.7 grams/m\S\2 LV mass(C)s 195.1 grams LV mass(C)sI 87.2 grams/m\S\2 SV(Teich) 28.9 ml SI(Teich) 12.9 ml/m\S\2 SV(cubed) 25.5 ml SI(cubed) 11.4 ml/m\S\2 Ao root diam 3.3 cm Ao root area 8.4 cm\S\2 ACS 2.5 cm LA dimension 5.0 cm LA/Ao 1.5 LVOT diam 2.2 cm LVOT area 3.8 cm\S\2 LVAd ap4 45.6 cm\S\2 LVLd ap4 9.6 cm EDV(MOD-sp4) 175.6 ml EDV(sp4-el) 183.3 ml LVAs ap4 29.0 cm\S\2 LVLs ap4 8.5 cm ESV(MOD-sp4) 84.7 ml ESV(sp4-el) 84.0 ml EF(MOD-sp4) 51.8 % EF(sp4-el) 54.1 % LVAd ap2 43.5 cm\S\2 LVLd ap2 9.6 cm EDV(MOD-sp2) 157.9 ml EDV(sp2-el) 167.8 ml LVAs ap2 29.9 cm\S\2 LVLs ap2 8.8 cm ESV(MOD-sp2) 82.8 ml ESV(sp2-el) 86.4 ml EF(MOD-sp2) 47.5 % EF(sp2-el) 48.5 % LVLd %diff -0.78 % EDV(MOD-bp) 165.9 ml LVLs %diff 2.9 % ESV(MOD-bp) 84.9 ml EF(MOD-bp) 48.8 % SV(MOD-sp4) 90.9 ml SI(MOD-sp4) 40.6 ml/m\S\2 SV(MOD-sp2) 75.1 ml SI(MOD-sp2) 33.6 ml/m\S\2 SV(MOD-bp) 81.0 ml SI(MOD-bp) 36.2 ml/m\S\2 SV(sp4-el) 99.2 ml SI(sp4-el) 44.4 ml/m\S\2 SV(sp2-el) 81.4 ml SI(sp2-el) 36.4 ml/m\S\2 Doppler Measurements and Calculations MV E max cathy 101.4 cm/sec MV P1/2t max cathy 136.5 cm/sec MV P1/2t 61.6 msec MVA(P1/2t) 3.6 cm\S\2 MV dec slope 649.7 cm/sec\S\2 MV dec time 0.23 sec Ao V2 max 111.8 cm/sec Ao max PG 5.0 mmHg Ao max PG (full) 2.0 mmHg JOY(V,A) 2.9 cm\S\2 JOY(V,D) 2.9 cm\S\2 LV V1 max PG 3.0 mmHg LV V1 max 86.1 cm/sec PA V2 max 134.2 cm/sec PA max PG 7.2 mmHg TR max cathy 254.2 cm/sec
[2017-04-22] MEDS ORDERED: POTASSIUM CHLORIDE 10 MEQ TABCR PO STA (10:28)
[2017-04-22 10:31] LABS: HEMATOCRIT 28.9 % (42-52)
[2017-04-22] MEDS: PRAVASTATIN SOD 40 MG TAB PO SCH (11:08)
[2017-04-22] MEDS: AMLODIPINE BESYLATE 5 MG TAB PO SCH (11:08)
[2017-04-22] MEDS: ATOVAQUONE 750 MG/5 ML UDC PO SCH (11:08)
[2017-04-22] MEDS: TACROLIMUS 1 MG CAP PO SCH ×2 (11:09→21:20)
[2017-04-22] MEDS: PANTOprazole SOD 40 MG TAB PO SCH (11:09)
[2017-04-22] MEDS: MYCOPHENOLATE MOFETIL 250 MG CAP (CELLCEPT) PO SCH ×2 (11:09→21:21)
--- NOTE | 2017-04-22 11:15 | Critical Care Consultation ---
Critical Care Consultation Date of Consultation: Apr 22, 2017. Attending Physician: Chris Gleason MD Reason for Consultation: Syncope History of Present Illness 66 yo M w/ hx of Amyloidosis s/p Heart Transplant 05/2016( [facility]), currently on Prednisone, Cellcept, Tacrolimus , hx of CKD Stage III, CMV, HTN, DVT on Coumadin at home, presented with syncopal episode. Patient was walking around in his kitchen around 3 pm on 04/21/16 and felt sensation of lightheadedness that lasted about 3 seconds followed by LOC x 5 secs during the process in which he grabbed hold of the kitchen counter and fell on his knees. He was assisted by his girlfriends. Patient denies preceding Chest pain, palpitation, SOB, . He denies any previous syncopal episode in the past . Patient does report 5 days worth of non-bloody diarrhea that he attributes to CMV. Patient denied previous fever, chills, N/V, abdominal pain, urinary symptoms.. He denies any numbness, weakness or tingling, RODRIGUEZ. Patient has not had any major medication changes other Valacyclovir which was added to his regimen on 04/17. He continues to follow with [facility] in [place] for ongoing care s /p heart transplant. His local Loadmaster is Dr. Oconnor. Patient went to ED overnight and was afebrile with sinus tachycardia with RBBB. CXR showed cardiomegaly with no acute changes. Garrett Knee XR showed Joint effusion on Left Knee w/o bony abnormality or fx. Following admission to telemetry had a second syncopal episode this morning while on Telemetry. Patient was found to have complete heart block x 12 s duration on his rhythm strip. Cardiology, Critical care was consulted at the time. Past Medical/Surgical History PMHx: Amyloidosis s/p Heart transplant Atrial Fibrillation s/p cardioversion (2009) [facility] HTN CKD Stage II DVT PSHx Heart Transplant (05/2016) L Knee Replacement Family History Patient reports no known family medical history. Social History Smoking Status: Never Smoker Alcohol Use: occasionally Drug Use: none Marital Status: Housing Status: lives with significant other Occupation Status: employed Allergies Coded Allergies: Morphine (Unverified Allergy, Unknown, Nausea/vomiting, 04/21/17) Home Medications Scheduled Amlodipine (Norvasc), 5 MG PO DAILY Atovaquone (Mepron), 10 ML PO QAM Cholecalciferol (Vitamin D3), 1 TAB PO DAILY Levothyroxine Sodium (Synthroid), 50 MCG PO DAILY Mycophenolate Mofetil (Cellcept), 1,000 MG PO BID Omeprazole (Prilosec), 40 MG PO DAILY Pravastatin Sodium (Pravachol), 40 MG PO DAILY Tacrolimus (Tacrolimus), 6 MG PO BID Valganciclovir HCl (Valganciclovir), 1 CAP PO BID Warfarin Sodium (Warfarin Sodium), 1 TAB PO DAILY Scheduled PRN Oxycodone/Acetaminophen 5MG/325MG (Percocet 5MG/325MG), 1-2 TABS PO Q4 PRN for Pain Current Inpatient Medications Current Inpatient Medications Medications (Trade) Dose Ordered Sig/Rosette Route Start Time Stop Time Status Last Admin Dose Admin Miscellaneous (Iv Fluids Completed) 1 ea PRN PRN N/A 04/22/17 04:00 04/22/18 03:59 Acetaminophen (Tylenol Tab) 650 mg Q4H PRN PO 04/22/17 04:00 05/22/17 03:59 Nitroglycerin (Nitrostat Tab) 0.4 mg UD PRN SL 04/22/17 04:00 05/22/17 03:59 Hydromorphone HCl (Dilaudid Inj) 0.5 mg Q3H PRN IV 04/22/17 04:00 05/06/17 03:59 04/22/17 04:53 0.5 MG Ondansetron HCl (Zofran Inj) 4 mg Q6H PRN IV 04/22/17 04:00 05/22/17 03:59 Amlodipine Besylate (Norvasc Tab) 5 mg DAILY PO 04/22/17 09:00 05/22/17 08:59 Levothyroxine Sodium (Synthroid Tab) 50 mcg DAILYBB PO 04/22/17 06:00 05/22/17 05:59 04/22/17 06:08 50 MCG Mycophenolate Mofetil (Cellcept Cap) 1,000 mg BID PO 04/22/17 09:00 05/22/17 08:59 Oxycodone/ Acetaminophen (Percocet 5-325mg Tab) Q4 PRN PO 04/22/17 04:00 05/06/17 03:59 8/3/17 08:36 2 TAB Pravastatin Sodium (Pravachol Tab) 40 mg DAILY PO 04/22/17 09:00 05/22/17 08:59 Tacrolimus (Prograf Cap) 6 mg BID PO 04/22/17 09:00 05/22/17 08:59 Atovaquone (Mepron Susp) 1,500 mg DAILY PO 04/22/17 09:00 05/22/17 08:59 Pantoprazole Sodium (Protonix Tab) 40 mg QAM PO 04/22/17 09:00 05/22/17 08:59 Lactated Ringer's 1,000 ml @ 75 mls/hr [id number] ONCE IV 04/22/17 04:00 04/22/17 17:19 04/22/17 04:52 75 MLS/HR Miscellaneous Information (Order Awaiting Action) 1 ea QS N/A 04/22/17 08:00 05/22/17 07:59 Review of Systems Constitutional: + weakness, No fever, No chills Eyes: No worsening of vision, No diplopia Respiratory: No cough, No sputum, No shortness of breath Cardiovascular: No chest pain, No edema, No palpitations Abdomen: + diarrhea, No pain, No nausea, No vomiting Musculoskeletal: + joint pain (Garrett Knee) Genitourinary - Male: No dysuria, No urinary frequency, No urinary urgency Neurologic: No paralysis, No numbness/tingling, No vertigo Psychiatric: No substance abuse Endocrine: No excessive thirst, No excessive urination Integumentary: No rash Allergic / Immunologic: No environmental allergies, No seasonal allergies, No food allergies Physical Exam Date Time Temp Pulse Resp B/P (MAP) Pulse Ox O2 Delivery O2 Flow Rate FiO2 04/22/17 08:00 Room Air 04/22/17 06:58 36.6 98 20 131/79 (96) 97 Room Air 04/22/17 04:43 163/99 (120) 156/94 (114) 171/91 (117) 04/22/17 04:31 36.9 99 20 163/99 99 Room Air 04/22/17 04:25 101 18 166/115 96 04/22/17 02:08 100 04/22/17 02:00 97 18 165/108 96 Room Air 04/22/17 01:00 100 18 140/99 95 Room Air 04/22/17 00:00 102 18 155/99 94 Room Air 04/21/17 23:04 104 20 132/87 98 Room Air 04/21/17 22:08 36.8 111 18 138/94 95 Room Air 04/21/17 22:04 105 GENERAL: alert, well appearing, well nourished, no distress, non-toxic EYE EXAM: normal conjunctiva, PERRL and EOM's grossly intact OROPHARYNX: no exudate, no erythema, lips, buccal mucosa, and tongue normal and mucous membranes are moist NECK: supple, no nuchal rigidity, no adenopathy, non-tender LUNGS: Clear to auscultation. Normal chest wall mechanics HEART: no murmurs, S1 normal and S2 normal ABDOMEN: abdomen soft, non-tender, normo-active bowel sounds, no masses, no rebound or guarding. BACK: Back is symmetrical on inspection and there is no deformity, no midline tenderness, no CVA tenderness. SKIN: no rashes and no bruising UPPER EXTREMITIES: upper extremities are grossly normal. LOWER EXTREMITIES: Left Knee edematous, superior to patella, with associated tenderness to palpation, no erythema, dec'd ROM secondary to pain garrett. NEURO EXAM: Normal sensorium, cranial nerves II-XII grossly intact, normal speech, no gross weakness of arms, no gross weakness of legs. Laboratory Results Last 24 Hours Test 04/21/17 22:04 04/21/17 23:40 04/22/17 05:15 04/22/17 08:55 White Blood Count 9.52 K/uL 7.90 K/uL Red Blood Count 3.71 M/uL 3.39 M/uL Hemoglobin 9.7 g/dL 9.3 g/dL Hematocrit 32.3 % 29.8 % Mean Corpuscular Volume 87.1 fL 87.9 fL Mean Corpuscular Hemoglobin 26.1 pg 27.4 pg Mean Corpuscular Hemoglobin Concent 30.0 g/dl 31.2 g/dl Platelet Count 326 K/uL 286 K/uL Mean Platelet Volume 10.5 fL 10.1 fL Neutrophils (%) (Auto) 83.9 % 78.3 % Lymphocytes (%) (Auto) 8.6 % 10.9 % Monocytes (%) (Auto) 6.2 % 9.0 % Eosinophils (%) (Auto) 0.3 % 0.9 % Basophils (%) (Auto) 0.2 % 0.3 % Neutrophils # (Auto) 7.98 K/uL 6.19 K/uL Lymphocytes # (Auto) 0.82 K/uL 0.86 K/uL Monocytes # (Auto) 0.59 K/uL 0.71 K/uL Eosinophils # (Auto) 0.03 K/uL 0.07 K/uL Basophils # (Auto) 0.02 K/uL 0.02 K/uL RDW Standard Deviation 46.0 fL 46.5 fL RDW Coefficient of Variation 14.3 % 14.4 % Immature Granulocyte % (Auto) 0.8 % 0.6 % Immature Granulocyte # (Auto) 0.08 K/uL 0.05 K/uL Prothrombin Time 24.2 SECONDS 26.1 SECONDS Prothromb Time International Ratio 2.2 2.4 Activated Partial Thromboplast Time 32.0 SECONDS Partial Thromboplastin Ratio 1.2 Sodium Level 141 mmol/L 142 mmol/L Potassium Level 3.7 mmol/L 3.7 mmol/L Chloride Level 110 mmol/L 112 mmol/L Carbon Dioxide Level 21 mmol/L 22 mmol/L Anion Gap 10.0 mmol/L 8.0 mmol/L Blood Urea Nitrogen 48 mg/dl 44 mg/dl Creatinine 3.10 mg/dl 2.70 mg/dl Est Creatinine Clear Calc Drug Dose 29.1 ml/min 33.4 ml/min Estimated GFR () 23.0 27.2 Estimated GFR (Non- 19.9 23.5 BUN/Creatinine Ratio 15.6 16.4 Random Glucose 115 mg/dl 92 mg/dl Calcium Level 9.1 mg/dl 8.9 mg/dl Total Bilirubin 0.3 mg/dl Aspartate Amino Transf (AST/SGOT) 15 U/L Alanine Aminotransferase (ALT/SGPT) 19 U/L Alkaline Phosphatase 95 U/L Total Creatine Kinase 63 U/L Creatine Kinase MB 1.0 ng/ml Creatine Kinase MB Ratio 1.6 Troponin I < 0.015 ng/ml < 0.015 ng/ml Total Protein 7.2 gm/dl Albumin 3.6 gm/dl Globulin 3.6 gm/dl Albumin/Globulin Ratio 1.0 Urine Color YELLOW Urine Appearance CLEAR Urine pH 5.0 Urine Specific [place]ourt 1.024 Urine Protein 1+ Urine Glucose (UA) NEG Urine Ketones NEG Urine Occult Blood NEG Urine Nitrite NEG Urine Bilirubin NEG Urine Urobilinogen NEG Urine Leukocyte Esterase NEG Urine WBC (Auto) 1-5 /hpf Urine RBC (Auto) 5-10 /hpf Urine Hyaline Casts (Auto) 1-5 /lpf Urine Epithelial Cells (Auto) 10-20 /lpf Urine Bacteria (Auto) NEG Absolute Reticulocyte Count 0.04 10^6/uL Percent Reticulocyte Count 1.1 % Iron Level 29 mcg/dl Total Iron Binding Capacity 339 mcg/dl Transferrin 259 mg/dl Transferrin % Saturation 8 % Ferritin 39.1 ng/ml Vitamin B12 Level 410 pg/mL Folate 6.06 ng/mL Assessment & Plan 66 yo M w/ hx of Amyloidosis s/p Heart Transplant 05/2016( [facility]), currently on Prednisone, Cellcept, Tacrolimus , hx of CKD Stage III, CMV, HTN, DVT on Coumadin at home, presented with syncopal episode x2 second of which correlated with Complete heart block ( 12 sec duration) [employer]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 Afib Hx of heart Transplant Seen by Cardiology ( Dr. 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 Dr. Perez discussed case with [facility] , Patient Will need transfer to outside facility for further management. HTN: Continue Amlodipine, CV drips: None EKG: NSR, RBBB, QTc 487; Telemetry strip 8:17AM: 12 sec Complete Heart Block ECHO: Echo dated 04/22/17 : -Normal LV chamber size with mild concentric LVH. -Hyperdynamic LV systolic function, EF >70%. -Mild left atrial enlargement. Fluids/Renal: Acute on CKD stage III ( on Kidney transplant list) s/p 500 ml bolus , 1L maintenance fluids in ED IV Fluids: LR 75 mls/hr maintenance fluids GI/Nutrition: Feeding: NPO Prophylaxis: None Endocrine: Last 24 hour glucose: Ranging 92 to115 Insulin protocol: Yes; Drip: No Hematology: Anemia , normocytic already on warfarin for Atrial Fib. Hemoglobin 9.3 DVT prophylaxis: Heparin 5000 3 times a day Infectious Disease/Immunology: s/p Heart Transplant continue Tacrolimus, Cellcept Tmax: 36.9 Resident Physician Supervision Note: Dr. Minor was resident physician during care of patient. I separately evaluated patient and did history and exam. I discussed the case with the resident and generally agree with the findings and plan. Patient asymptomatic during my evaluation. Temporary pacer pads in place, however, not required at this time. Discussed with Dr. Perez, patient will be emergently transferred for transplant cardiology evaluation and per report team does not want temporary transvenous pacemaker placement. Patient having transient heart block, requiring ICU monitoring, this is a life threatening event. Documented By: Herbert De Leon DO Resident Tracking Resident Involvement: Resident Care Provided Care Provided: Adult Hospital Medicine
[2017-04-22 11:43] LABS: LYME DISEASE AB IGG NEG (NEG); LYME DISEASE AB IGM NEG (NEG)
--- NOTE | 2017-04-22 12:07 | CARDIOLOGY CONSULTATION ---
DATE OF CONSULTATION: 04/22/2017 CONSULTATION REQUESTED BY: Dr. Gleason. REASON FOR CONSULTATION: Complete heart block. HISTORY OF PRESENT ILLNESS: Mr. Alcocer is a very pleasant yet medically complex 66-year-old gentleman who is status post heart transplant. He presented to [facility] late in the evening of 04/21/2017 with a complaint of a syncopal episode. The patient states he was at home, he was in his normal state of health; however, he was a little agitated while being in an argument with his girlfriend. He states that while they were arguing he suddenly got lightheaded. He felt woozy and the next thing he knows he woke up on the floor. This event was witnessed by his girlfriend. She states he was out for a little over 10 seconds. When he fell he did land on his knees and he had significant knee pain. He was then transported via EMS to the Emergency Department with a complaint of knee pain. Initial evaluation in the ER was negative. He was admitted to telemetry and orthopedics was consulted. The patient was actually being evaluated by Benito Kong, the orthopedics physician process assistant on telemetry when he had another event. He states that while he was talking he suddenly became very lightheaded and lost consciousness. He woke up without any other complaints, feeling right back to normal; however, this event did correlate with a 12-second run of complete heart block on telemetry. At that point, I was emergently consulted. The patient was seen and examined at bedside. Pacer pads were placed and the patient was transferred to the ICU. At that point he had no complaints clinically. The external pacemaker was tested for capture and was successful and the patient tolerated it well. The patient gave me his contact information for [facility] transplant [facility]. I was able to talk to a Keren LEWIS of the practice and she recommended immediate transfer for urgent biopsy there to rule out rejection. PAST SURGICAL HISTORY: 1. Heart transplant May 2016. 2. Multiple followup cardiac biopsies. 3. Left total knee replacement. 4. Carpal tunnel surgery. 5. Colonoscopy. MEDICAL ILLNESSES: 1. 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 2. Mild rejection followed closely at [facility]. 3. 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 4. Prothrombin mutation on chronic anticoagulation. 5. Paroxysmal atrial fibrillation. 6. Hypothyroidism. 7. CMV positive. 8. Hypertension. 9. Hyperlipidemia. 10. Chronic renal insufficiency. FAMILY HISTORY: Noncontributory. SOCIAL HISTORY: The patient denies tobacco use. Drinks rare alcohol. Denies any recreational drug use. He is . He lives at home with his girlfriend. He just recently moved back to the [facility]. He has not reestablished with our cardiology practice since transplant. ALLERGIES: 1. MORPHINE. 2. BUPRENORPHINE. MEDICATIONS AN OUTPATIENT: 1. Amlodipine 5 mg daily. 2. Mepron 150 mg daily. 3. CellCept 1000 mg b.i.d. 4. Prednisone 7.5 mg daily. 5. Prograf as directed. 6. Prilosec daily. 7. Pravastatin 40 mg daily. 8. Levoxyl 50 mcg daily. REVIEW OF SYSTEMS: As per HPI, all other review of systems reviewed and negative at this time. PHYSICAL EXAMINATION: VITALS: T-max of 36.9, heart rate 105, respiratory rate 12, blood pressure 148/90. GENERAL: Awake, alert, oriented x3 in no acute distress. HEENT: Normocephalic, atraumatic. Pupils equal, round, and reactive to light and accommodation. Extraocular muscles intact. Anicteric sclerae. Moist mucous membranes. NECK: No JVD, no bruit. CARDIOVASCULAR: Regular. No S4. Normal S1 and S2. No S3. No murmurs, rubs or gallops. PULMONARY: Clear to auscultation bilaterally. No rales, rhonchi, or wheezing. ABDOMEN: Bowel sounds x4, soft. No rebound, guarding, tenderness. No organomegaly. EXTREMITIES: No clubbing, cyanosis or edema. +2 pedal pulses bilaterally. SKIN: Warm and dry. TEST RESULTS: Again review of telemetry monitoring shows a 12-second run of complete heart block at 8:12 a.m. that correlated with symptoms. A 12-lead EKG performed in the Emergency Department upon arrival independently reviewed at this time shows sinus tachycardia at 109 beats per minute, right bundle branch block, questionable inferior infarct, no significant change compared to previous study. A 2D echocardiogram was read as normal LV chamber size with mild concentric LVH, hyperdynamic LV systolic function, EF greater than 70%, no segmental left ventricular wall motion abnormalities were noted, normal RV chamber size and systolic function. No significant valvular pathology, mild left atrial enlargement. LABORATORY STUDIES OF SIGNIFICANCE: White count 7.9, hemoglobin 9.3, platelet count of 286. INR of 2.4. Sodium 142, potassium 3.7, BUN 44, creatinine 2.7, troponin is negative. RPR is pending. Lyme titer is pending. IMPRESSION: 1. Transient complete heart block in a patient 10 months status post heart transplant. 2. Worsening renal function. 3. Chronic immunocompromise secondary to antirejection medications. 4. Pulmonary nodules. 5. History of restrictive cardiomyopathy secondary to amyloidosis. RECOMMENDATIONS: It was my pleasure to see Mr. Alcocer in consultation today. Upon discussing with the heart transplant team, specifically Keren LEWIS at [facility] it was recommended he be transferred as soon as possible to [facility] for further care. In terms of protecting him from the heart block it was recommended we maintain external pacer pads, but hold off on permanent pacemaker or temporary pacemaker placement at this time. So currently I am discussing with the transfer center to facilitate transport; bed is available and the patient will be transferred out as soon as transport is available. The patient does understand the above recommendations and agrees with transport.
[2017-04-22] MEDS: VALGANCICLOVIR HCL 450 MG PO SCH (12:59)
--- NOTE | 2017-04-22 13:41 | Discharge Instructions ---
Discharge Instructions Date of Service Apr 22, 2017. Admission Reason for Admission: Knee Pain Discharge Discharge Diagnosis / Problem: syncope. Transient complete heart block Discharge Goals Goal(s): Decrease discomfort Activity Recommendations Activity Level: Up Ad Dory . Additional Information Patient informed of condition: Yes Advance Directives: Yes DNR: No Level of Care: Other (Transferred to acute care facility. [facility]) Communicable Disease: No Prognosis: Other (transfer to acute care facility) [place] Catheter: No Instructions / Follow-Up Instructions / Follow-Up FOLLOWUP [id number] BY [facility] Current Hospital Diet Patient's current hospital diet: Clear Liquid Diet Discharge Diet Recommended Diet: Clear Liquid Diet Pending Studies Studies pending at discharge: no Physician Orders On Transfer Vital Signs: EVERY 8HRS Medical Emergencies . Who to Call and When: Medical Emergencies: If at any time you feel your situation is an emergency, please call 911 immediately. . Non-Emergent Contact Non-Emergency issues call your: Primary Care Provider . . "Provider Documentation" section prepared by Chris Gleason. . Core Measure Problem Core Measures: None
--- NOTE | 2017-04-22 17:06 | Progress Note ---
Internal Med Progress Note Date of Service: Apr 22, 2017. Provider Documentation: SUBJECTIVE: patient had an episode of syncope and passed out for moments in am and monitor showed transient complete heart block after the episode patient is asymptomatic denies any chest pain or sob afebrile no nausea OBJECTIVE: Vital Signs-as noted below Exam: General-alert and oriented. Not in distress ENT-Normal hearing Neck-no neck masses supple Lungs-cta b/l no wheezing no crackles present Heart-s1 and s2 heard regular rate and rhythm no murmurs Abdomen-soft bowel sounds present non tender no distension Extremities- no pedal edema present no erythema Neuro-alert and oriented moves extremities Lab data as noted below. ASSESSMENT & PLAN: 1. Syncope Transient 12 second complete heart block on monitor when rashad had syncope today morning s/p heart transplant for amyloid cardiomyopathy at [facility] 10 months ago emergently seen by cardiology pacer pads were placed and transferred to ICU patient remained stable after Cardiology called [facility] and was advised to emergentkly transfer there for biopsy for question of transplant rejection] patient will be life flighted with pacers on.. Greatly appreciate cardiology help. 2. Acute renal failure on chronic renal insufficiency Mild clinical dehydration ? meds as a contributory factor (ganciclovir recently initiated outpatient for recurrent CMV infection) Cr 3.1 on admission cr 2.7 today f/u labs. 3. Cardiac amyloidosis sp cardiac transplantation (May 2016) on chronic immunosuppression/prophylaxis for opportunistic infections. 5. Bilateral knee pain, left worse than right secondary to fall. f/u with ortho when stable. 6. chronic anemia possibly from CKD Hemoglobin better than baseline of 8.26 November 2016 [facility] . 7. HTN, slightly elevated 8. Pulmonary thrombo-embolism, hypercoagulable state on Coumadin, INR therapeutic at 2.4. 9. History of PAF, patient normal sinus rhythm status post cardioversion. 10. Chronic systolic/diastolic failure. Patient on dry side. 11. Chronic diarrhea. Rule out C. diff. 12. HCV as per records 13. Bipedal pain of one month duration possible neuropathy ? secondary to home meds initiated following organ transplant ? HCV neuropathy . f/u with neurology Transferred to [facility]. Vital Signs: Date Time Temp Pulse Resp B/P (MAP) Pulse Ox O2 Delivery O2 Flow Rate FiO2 04/22/17 16:00 Room Air 04/22/17 14:00 100 18 137/91 (106) 96 Room Air 04/22/17 13:01 101 17 146/92 (110) 97 Room Air 04/22/17 12:02 100 18 125/76 (92) 98 Room Air 04/22/17 12:00 Room Air 04/22/17 11:02 103 17 135/94 (108) 04/22/17 10:01 36.7 105 18 148/90 (109) 96 Room Air 04/22/17 09:05 108 22 145/96 (112) 04/22/17 08:00 Room Air 04/22/17 06:58 36.6 98 20 131/79 (96) 97 Room Air 04/22/17 04:43 163/99 (120) 156/94 (114) 171/91 (117) 04/22/17 04:31 36.9 99 20 163/99 99 Room Air 04/22/17 04:25 101 18 166/115 96 04/22/17 02:08 100 04/22/17 02:00 97 18 165/108 96 Room Air 04/22/17 01:00 100 18 140/99 95 Room Air 04/22/17 00:00 102 18 155/99 94 Room Air 04/21/17 23:04 104 20 132/87 98 Room Air 04/21/17 22:08 36.8 111 18 138/94 95 Room Air 04/21/17 22:04 105 Lab Results: Results Past 24 Hours Test 04/21/17 22:04 04/21/17 23:40 04/22/17 05:15 04/22/17 10:04 Range/Units White Blood Count 9.52 7.90 4.8-10.8 K/uL Red Blood Count 3.71 3.39 4.7-6.1 M/uL Hemoglobin 9.7 9.3 9.2 14.0-18.0 g/dL Hematocrit 32.3 29.8 28.9 42-52 % Mean Corpuscular Volume 87.1 87.9 80-100 fL Mean Corpuscular Hemoglobin 26.1 27.4 25-34 pg Mean Corpuscular Hemoglobin Concent 30.0 31.2 32-36 g/dl Platelet Count 326 286 130-400 K/uL Mean Platelet Volume 10.5 10.1 7.4-10.4 fL Neutrophils (%) (Auto) 83.9 78.3 % Lymphocytes (%) (Auto) 8.6 10.9 % Monocytes (%) (Auto) 6.2 9.0 % Eosinophils (%) (Auto) 0.3 0.9 % Basophils (%) (Auto) 0.2 0.3 % Neutrophils # (Auto) 7.98 6.19 1.4-6.5 K/uL Lymphocytes # (Auto) 0.82 0.86 1.2-3.4 K/uL Monocytes # (Auto) 0.59 0.71 0.11-0.59 K/uL Eosinophils # (Auto) 0.03 0.07 0-0.5 K/uL Basophils # (Auto) 0.02 0.02 0-0.2 K/uL RDW Standard Deviation 46.0 46.5 36.4-46.3 fL RDW Coefficient of Variation 14.3 14.4 11.5-14.5 % Immature Granulocyte % (Auto) 0.8 0.6 % Immature Granulocyte # (Auto) 0.08 0.05 0.00-0.02 K/uL Prothrombin Time 24.2 26.1 9.0-12.0 SECONDS Prothromb Time International Ratio 2.2 2.4 0.9-1.1 Activated Partial Thromboplast Time 32.0 21.0-31.0 SECONDS Partial Thromboplastin Ratio 1.2 Sodium Level 141 142 136-145 mmol/L Potassium Level 3.7 3.7 3.5-5.1 mmol/L Chloride Level 110 112 98-107 mmol/L Carbon Dioxide Level 21 22 21-32 mmol/L Anion Gap 10.0 8.0 3-11 mmol/L Blood Urea Nitrogen 48 44 7-18 mg/dl Creatinine 3.10 2.70 0.60-1.40 mg/dl Est Creatinine Clear Calc Drug Dose 29.1 33.4 ml/min Estimated GFR () 23.0 27.2 Estimated GFR (Non- 19.9 23.5 BUN/Creatinine Ratio 15.6 16.4 10-20 Random Glucose 115 92 70-99 mg/dl Calcium Level 9.1 8.9 8.5-10.1 mg/dl Total Bilirubin 0.3 0.2-1 mg/dl Aspartate Amino Transf (AST/SGOT) 15 15-37 U/L Alanine Aminotransferase (ALT/SGPT) 19 12-78 U/L Alkaline Phosphatase 95 45-117 U/L Total Creatine Kinase 63 39-308 U/L Creatine Kinase MB 1.0 0.5-3.6 ng/ml Creatine Kinase MB Ratio 1.6 0-3.0 Troponin I < 0.015 < 0.015 0-0.045 ng/ml Total Protein 7.2 6.4-8.2 gm/dl Albumin 3.6 3.4-5.0 gm/dl Globulin 3.6 2.5-4.0 gm/dl Albumin/Globulin Ratio 1.0 0.9-2 Urine Color YELLOW Urine Appearance CLEAR CLEAR Urine pH 5.0 4.5-7.5 Urine Specific [place] 1.024 1.000-1.030 Urine Protein 1+ NEG Urine Glucose (UA) NEG NEG Urine Ketones NEG NEG Urine Occult Blood NEG NEG Urine Nitrite NEG NEG Urine Bilirubin NEG NEG Urine Urobilinogen NEG NEG Urine Leukocyte Esterase NEG NEG Urine WBC (Auto) 1-5 0-5 /hpf Urine RBC (Auto) 5-10 0-4 /hpf Urine Hyaline Casts (Auto) 1-5 0-5 /lpf Urine Epithelial Cells (Auto) 10-20 0-5 /lpf Urine Bacteria (Auto) NEG NEG Absolute Reticulocyte Count 0.04 0.02-0.10 10^6/uL Percent Reticulocyte Count 1.1 0.5-2.0 % Iron Level 29 35-175 mcg/dl Total Iron Binding Capacity 339 250-450 mcg/dl Transferrin 259 200-360 mg/dl Transferrin % Saturation 8 20-50 % Ferritin 39.1 8.0-388.0 ng/ml Vitamin B12 Level 410 211-911 pg/mL Folate 6.06 >5.38 ng/mL Lyme Disease IgG Antibody NEG NEG Lyme Disease IgM Antibody NEG NEG
--- NOTE | 2017-04-22 17:08 | Discharge Summary ---
Discharge Summary Date of Service Apr 22, 2017. Discharge Summary Admission Date: Apr 22, 2017 at 02:52 Discharge Date: Apr 22, 2017 Discharge Disposition: Acute care facility Principal Diagnosis: SYNCOPE TRANSIENT COMPLETE HEART BLOCK Secondary Diagnoses/Problems: pulmonary thromboembolism/hypercoaguable state on anticoagulation, chronic systolic/diastolic heart failure secondary to cardiac amyloidosis sp cardiac transplantation (May 2016 at [facility]) (EF of 73% from 2D echo done June 2016) on chronic immunosuppression/ infection prophylaxis, paroxysmal Afib, status post cardioversion, hypertension, hyperlipidemia, chronic renal insufficiency (baseline creatinine of 1.5 to 2.2. as per 11/2016 [facility] records) Hx recurrent CMV infection Procedures: KNEE XRAY: 1. Soft tissue swelling and joint effusion. There is no radiographic evidence of right knee fracture. 2. Osteopenia, arthritic change, and chondrocalcinosis as above. CHEST XRAY: Cardiomegaly with no acute cardiopulmonary abnormality. ECHO: Normal LV chamber size with mild concentric LVH. * Hyperdynamic LV systolic function, EF >70%. * No segmental left ventricular wall motion abnormalities are noted. * Normal RV chamber size and systolic function. * No significant valvular pathology. * Mild left atrial enlargement. Consultations: CARDIOLOGY CRITICAL CARE Medication Reconciliation Continued Medications: Amlodipine (Norvasc) 5 Mg Tab 5 MG PO DAILY, TAB Atovaquone (Mepron) 750 Mg/5 Ml Susp 10 ML PO QAM Cholecalciferol (Vitamin D3) 400 Inter.unit Tab 1 TAB PO DAILY Levothyroxine Sodium (Synthroid) 50 Mcg Tab 50 MCG PO DAILY, TAB Mycophenolate Mofetil (Cellcept) 500 Mg Tab 1000 MG PO BID, TAB Omeprazole (Prilosec) 40 Mg Cap 40 MG PO DAILY, CAP Oxycodone/Acetaminophen 5MG/325MG (Percocet 5MG/325MG) Tab 1-2 TABS PO Q4 PRN for Pain, #36 TAB For Initial Treatment Pravastatin Sodium (Pravachol) 40 Mg Tab 40 MG PO DAILY Tacrolimus (Tacrolimus) 1 Mg Cap 6 MG PO BID 6MG AM AND 5MG PM Valganciclovir HCl (Valganciclovir) 450 Mg Tab 1 CAP PO BID Warfarin Sodium (Warfarin Sodium) 2.5 Mg Tab 1 TAB PO DAILY PT THINKS HE IS ALTERNATING 2.5MG AND 1.5MG 8-2-17 Admission Information HPI (per Admitting provider): Medical history significant for pulmonary thromboembolism/hypercoaguable state on anticoagulation, chronic systolic/diastolic heart failure secondary to cardiac amyloidosis sp cardiac transplantation (May 2016 at [facility]) (EF of 73% from 2D echo done June 2016) on chronic immunosuppression/ infection prophylaxis, paroxysmal Afib, status post cardioversion, hypertension, hyperlipidemia, chronic renal insufficiency (baseline creatinine of 1.5 to 2.2. as per 11/2016 [facility] records) Hx recurrent CMV infection ongoing ganciclovir Rx, chronic anemia (baseline hemoglobin 8.9 from November, [facility] ) HCV as per records , hypothyroidism Patient underwent cardiac transplantation for amyloidosis at [facility] last May [address] Steven Kingston. Subsequently discharged on tacrolimus, prednisone, CellCept. Subsequent admission at [facility] last November 2016 for 2 weeks hx of diarrhea, poor p.o. intake and acute kidney injury. Found to be CMV positive. Started on IV ganciclovir. Two new lung nodules also discovered on workup. PTLD versus infection. Lung biopsy attempted but nodule size increased. Subsequently discharged. About 2 months ago patient was seen at the Emergency Room for increased pain, swelling on the right knee after a fall. Hemoglobin noted to be 10.9 at that time, creatinine noted to be 2.6. Px seen by Orthopedics in the Emergency Room. Right knee x-ray just showed joint space narrowing. Orthopedics impression was right knee pain, hemarthrosis versus gouty flare. Straw colored fluid removed. WBC noted to be 4696, yellow and hazy. Patient subsequently discharged from the emergency room. Improved right knee pain after outpatient follow-up with Orthopedics. Last week, patient restarted on Gancyclovir with increasing CMV levels. Last night the patient was walking around the kitchen. Px felt dizzy, lightheadedness. Subsequently passed out for a few moments, witnessed by partner. No chest pain, no shortness of breath. No incontinence. Complaining of bilateral knee pain more on the left after falling at the Emergency Room. Physical Exam (per Admitting): VITAL SIGNS: Blood pressure was noted to be 140/99, pulse rate 100, RR 18, temperature 37, sats 95 on room air. GENERAL: Noted to be slightly uncomfortable, no respiratory distress. SKIN: Pallor. HEAD, EYES, EARS, NOSE, AND THROAT: Pale palpebral conjunctivae. Dry mucosa. NECK: Supple. CHEST: Clear to auscultation. HEART: Regular rate and rhythm. ABDOMEN: Soft. RECTAL EXAMINATION: Intact sphincter. Brown stool, heme negative. EXTREMITIES: Tender swelling on both knees, left greater than right. Some limitation in ROM, Superficial incisional scar scar on the left knee. NEUROLOGIC EXAMINATION: No gross focality. Hospital Course 1. Syncope Transient 12 second complete heart block on monitor when rashad had syncope today morning s/p heart transplant for amyloid cardiomyopathy at [facility] 10 months ago emergently seen by cardiology pacer pads were placed and transferred to ICU patient remained stable after Cardiology called [facility] [place], operated by [facility] and was advised to emergentkly transfer there for biopsy for question of transplant rejection] patient will be life flighted with pacers on.. Greatly appreciate cardiology help. 2. Acute renal failure on chronic renal insufficiency Mild clinical dehydration ? meds as a contributory factor (ganciclovir recently initiated outpatient for recurrent CMV infection) Cr 3.1 on admission cr 2.7 today f/u labs. 3. Cardiac amyloidosis sp cardiac transplantation (May 2016) on chronic immunosuppression/prophylaxis for opportunistic infections. 5. Bilateral knee pain, left worse than right secondary to fall. f/u with ortho when stable. 6. chronic anemia possibly from CKD Hemoglobin better than baseline of 8.26 November 2016 [facility] . 7. HTN, slightly elevated 8. Pulmonary thrombo-embolism, hypercoagulable state on Coumadin, INR therapeutic at 2.4. 9. History of PAF, patient normal sinus rhythm status post cardioversion. 10. Chronic systolic/diastolic failure. Patient on dry side. 11. Chronic diarrhea. Rule out C. diff. 12. HCV as per records 13. Bipedal pain of one month duration possible neuropathy ? secondary to home meds initiated following organ transplant ? HCV neuropathy . f/u with neurology Transferred to [facility]. Total time spent on discharge = 35MINUTES This includes examination of the patient, discharge planning, medication reconciliation, and communication with other providers. Discharge Instructions Discharge Instructions Date of Service Apr 22, 2017. Admission Reason for Admission: Knee Pain Discharge Discharge Diagnosis / Problem: syncope. Transient complete heart block Discharge Goals Goal(s): Decrease discomfort Activity Recommendations Activity Level: Up Ad Dory . Additional Information Patient informed of condition: Yes Advance Directives: Yes DNR: No Level of Care: Other (Transferred to acute care facility. [facility]) Communicable Disease: No Prognosis: Other (transfer to acute care facility) [place] Catheter: No Instructions / Follow-Up Instructions / Follow-Up FOLLOWUP [id number] BY [facility] Current Hospital Diet Patient's current hospital diet: Clear Liquid Diet Discharge Diet Recommended Diet: Clear Liquid Diet Pending Studies Studies pending at discharge: no Physician Orders On Transfer Vital Signs: EVERY 8HRS Medical Emergencies . Who to Call and When: Medical Emergencies: If at any time you feel your situation is an emergency, please call 911 immediately. . Non-Emergent Contact Non-Emergency issues call your: Primary Care Provider . . "Provider Documentation" section prepared by Chris Gleason. . Core Measure Problem Core Measures: None
[2017-04-23] VITALS (10 sets, daily range): BP systolic 126–163; BP diastolic 90–103; PULSE 107–117; TEMP 36.7–36.9; O2SAT 94–98
[2017-04-23] MEDS: HYDROmorphone INJ 0.5 MG/0.5 ML SYR IV PRN ×2 (00:22→05:03)
[2017-04-23] MEDS: OXYCODONE/ACETAMINOPHEN 5-325 TAB PO PRN ×2 (00:22→05:03)
[2017-04-23] MEDS: LEVOTHYROXINE 50 MCG TAB PO SCH (05:02)
[2017-04-23 05:45] LABS: BASO % 0.5 %; BASO ABS # 0.04 K/uL (0-0.2); COMPLETE YES; IG% 0.9 %; LYMPH % 9.6 %; LYMPH ABS # 0.74 K/uL (1.2-3.4); MEAN CELL VOLUME 88.7 fL (80-100); MEAN CORPUSCULAR HEMOGLOBIN 27.7 pg (25-34); MEAN CORPUSCULAR HGB CONC 31.2 g/dl (32-36); MEAN PLATELET VOLUME 10.5 fL (7.4-10.4); MONO % 5.3 %; NEUT % 82.7 %; PLATELET COUNT 295 K/uL (130-400); RED BLOOD COUNT 3.72 M/uL (4.7-6.1); WHITE BLOOD COUNT 7.72 K/uL (4.8-10.8)
[2017-04-23 05:56] LABS: INR 2.4 (0.9-1.1); PROTHROMBIN TIME (PATIENT) 27.1 SECONDS (9.0-12.0)
[2017-04-23 06:22] LABS: BUN/CREATININE RATIO 13.7 (10-20); CALCIUM 9.3 mg/dl (8.5-10.1); CREATININE 2.1 mg/dl (0.60-1.40); MAGNESIUM 1.4 mg/dl (1.8-2.4); PHOSPHORUS 2.6 mg/dl (2.5-4.9); POTASSIUM 3.9 mmol/L (3.5-5.1)
--- NOTE | 2017-04-23 07:55 | Critical Care Progress Note ---
Critical Care Progress Note Date of Service Apr 23, 2017. ICU Day ICU Day Number: [address] De Leon Subjective NO acute events overnight, Patient has been complaining of Bill knee pain stemming from his fall. He was given Percocet , IV Dilaudid overnight. Objective GENERAL: alert, well appearing, well nourished, no distress, non-toxic NECK: supple, mild JVD elevation, no nuchal rigidity, no adenopathy, non-tender LUNGS: Clear to auscultation. Normal chest wall mechanics HEART: no murmurs, S1 normal and S2 normal ABDOMEN: abdomen soft, non-tender, normo-active bowel sounds, no masses, no rebound or guarding. SKIN: no rashes and no bruising UPPER EXTREMITIES: upper extremities are grossly normal. LOWER EXTREMITIES: Left/Right Knee swelling, R>L, garrett knee tenderness, limited ROM secondary to pain tender. No pitting edema. NEURO EXAM: Normal sensorium, cranial nerves II-XII grossly intact, normal speech, no gross weakness of arms, no gross weakness of legs. 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 Afib Hx of heart Transplant Seen by Cardiology ( Dr. 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 Dr. Perez discussed case with [facility] Plan for Transfer to [facility] today HTN: Sys 140's to 160's, Continue Amlodipine, Sinus Tachycardia: 100's to 110's, patient reports this is typical since transplant CV drips: None EKG: NSR, RBBB, QTc 487; Telemetry strip 8:17AM: 12 sec Complete Heart Block ECHO: Echo dated 04/22/17 : -Normal LV chamber size with mild concentric LVH. -Hyperdynamic LV systolic function, EF >70%. -Mild left atrial enlargement. Fluids/Renal: Acute on CKD stage III ( on Kidney transplant list) IV Fluids: LR maintenance fluids d/c'd GI/Nutrition: Feeding: NPO Prophylaxis: None Endocrine: Last 24 hour glucose: Ranging 130's to 170's Hematology: Anemia , normocytic already on warfarin for Atrial Fib. Hemoglobin 8.8<--8.9 Infectious Disease/Immunology: s/p Heart Transplant continue Tacrolimus, Cellcept Tmax: 36.9 Disposition: Transfer to Outside facility Resident Physician Supervision Note: Dr. Minor was resident physician during care of patient. I separately evaluated patient and did history and exam. I discussed the case with the resident and generally agree with the findings and plan. Transfer to transplant center. In AM patient was slightly bradycardic. Had temporary transcutaneous pacing for short period and HR recovered. Documented By: Herbert De Leon DO Consults & Procedures Consultants: Cardiology Procedures: N/A Data Medications: Current Inpatient Medications Medications (Trade) Dose Ordered Sig/Rosette Route Start Time Stop Time Status Last Admin Dose Admin Miscellaneous (Iv Fluids Completed) 1 ea PRN PRN N/A 04/22/17 04:00 04/22/18 03:59 Acetaminophen (Tylenol Tab) 650 mg Q4H PRN PO 04/22/17 04:00 05/22/17 03:59 Nitroglycerin (Nitrostat Tab) 0.4 mg UD PRN SL 04/22/17 04:00 05/22/17 03:59 Hydromorphone HCl (Dilaudid Inj) 0.5 mg Q3H PRN IV 04/22/17 04:00 05/06/17 03:59 04/23/17 05:03 0.5 MG Ondansetron HCl (Zofran Inj) 4 mg Q6H PRN IV 04/22/17 04:00 05/22/17 03:59 Amlodipine Besylate (Norvasc Tab) 5 mg DAILY PO 04/22/17 09:00 05/22/17 08:59 04/22/17 11:08 5 MG Levothyroxine Sodium (Synthroid Tab) 50 mcg DAILYBB PO 04/22/17 06:00 05/22/17 05:59 04/23/17 05:02 50 MCG Mycophenolate Mofetil (Cellcept Cap) 1,000 mg BID PO 04/22/17 09:00 05/22/17 08:59 04/22/17 21:21 1,000 MG Oxycodone/ Acetaminophen (Percocet 5-325mg Tab) Q4 PRN PO 04/22/17 04:00 05/06/17 03:59 04/23/17 05:03 2 TAB Pravastatin Sodium (Pravachol Tab) 40 mg DAILY PO 04/22/17 09:00 05/22/17 08:59 04/22/17 11:08 40 MG Tacrolimus (Prograf Cap) 6 mg BID PO 04/22/17 09:00 05/22/17 08:59 04/22/17 21:20 6 MG Atovaquone (Mepron Susp) 1,500 mg DAILY PO 04/22/17 09:00 05/22/17 08:59 04/22/17 11:08 1,500 MG Pantoprazole Sodium (Protonix Tab) 40 mg QAM PO 04/22/17 09:00 05/22/17 08:59 04/22/17 11:09 40 MG Magnesium Sulfate 1 gm/Prmx 100 ml @ 100 mls/hr Q1H IV 04/23/17 07:30 04/23/17 09:29 Vital Signs: Date Time Temp Pulse Resp B/P (MAP) Pulse Ox O2 Delivery O2 Flow Rate FiO2 04/23/17 06:00 114 17 163/94 (117) 97 Room Air 04/23/17 05:00 110 10 161/95 (117) 97 Room Air 04/23/17 04:00 36.8 109 17 141/93 (109) 98 Room Air 04/23/17 04:00 Room Air 04/23/17 03:08 113 15 151/103 (119) 97 Room Air 04/23/17 03:00 109 14 157/102 (120) 95 Room Air 04/23/17 02:00 110 14 155/91 (112) 94 Room Air 04/23/17 01:00 112 18 143/93 (110) 94 Room Air 04/23/17 00:01 Room Air 04/23/17 00:00 36.7 107 18 134/93 (107) 95 Room Air 04/22/17 23:40 106 15 150/94 (112) 94 Room Air 04/22/17 22:00 107 18 128/92 (104) 93 Room Air 04/22/17 21:19 108 16 149/92 (111) 97 Room Air 04/22/17 21:00 105 14 149/92 (111) 94 Room Air 04/22/17 20:00 36.6 102 16 139/101 (114) 97 Room Air 04/22/17 20:00 Room Air 04/22/17 18:00 110 16 138/88 (105) 97 Room Air 04/22/17 17:25 105 14 141/92 (108) 98 Room Air 04/22/17 16:00 Room Air 04/22/17 16:00 36.9 98 16 156/96 (116) 97 Room Air 04/22/17 15:01 101 17 125/76 (92) 99 Room Air 04/22/17 14:00 100 18 137/91 (106) 96 Room Air 04/22/17 13:01 101 17 146/92 (110) 97 Room Air 04/22/17 12:02 100 18 125/76 (92) 98 Room Air 04/22/17 12:00 Room Air 04/22/17 11:02 103 17 135/94 (108) 04/22/17 10:01 36.7 105 18 148/90 (109) 96 Room Air 04/22/17 09:05 108 22 145/96 (112) 04/22/17 08:00 Room Air Laboratory Results: Last 24 Hours Test 04/22/17 10:04 04/23/17 00:27 04/23/17 05:08 Hemoglobin 9.2 g/dL 10.3 g/dL Hematocrit 28.9 % 33.0 % Lyme Disease IgG Antibody NEG Lyme Disease IgM Antibody NEG Bedside Glucose 77 mg/dl White Blood Count 7.72 K/uL Red Blood Count 3.72 M/uL Mean Corpuscular Volume 88.7 fL Mean Corpuscular Hemoglobin 27.7 pg Mean Corpuscular Hemoglobin Concent 31.2 g/dl Platelet Count 295 K/uL Mean Platelet Volume 10.5 fL Neutrophils (%) (Auto) 82.7 % Lymphocytes (%) (Auto) 9.6 % Monocytes (%) (Auto) 5.3 % Eosinophils (%) (Auto) 1.0 % Basophils (%) (Auto) 0.5 % Neutrophils # (Auto) 6.38 K/uL Lymphocytes # (Auto) 0.74 K/uL Monocytes # (Auto) 0.41 K/uL Eosinophils # (Auto) 0.08 K/uL Basophils # (Auto) 0.04 K/uL RDW Standard Deviation 47.2 fL RDW Coefficient of Variation 14.5 % Immature Granulocyte % (Auto) 0.9 % Immature Granulocyte # (Auto) 0.07 K/uL Prothrombin Time 27.1 SECONDS Prothromb Time International Ratio 2.4 Sodium Level 141 mmol/L Potassium Level 3.9 mmol/L Chloride Level 111 mmol/L Carbon Dioxide Level 23 mmol/L Anion Gap 7.0 mmol/L Blood Urea Nitrogen 29 mg/dl Creatinine 2.10 mg/dl Est Creatinine Clear Calc Drug Dose 42.9 ml/min Estimated GFR () 36.9 Estimated GFR (Non- 31.8 BUN/Creatinine Ratio 13.7 Random Glucose 88 mg/dl Calcium Level 9.3 mg/dl Phosphorus Level 2.6 mg/dl Magnesium Level 1.4 mg/dl Resident Tracking Resident Involvement: Resident Care Provided Care Provided: Adult Hospital Medicine
[2017-04-23] MEDS ORDERED: HYDROmorphone INJ 1 MG/ML SYR ONE (08:30)
[2017-04-23] MEDS ORDERED: HYDROmorphone INJ 1 MG/ML SYR IV PRN (08:30)
[2017-04-23] MEDS: MAGNESIUM SULFATE 1GM / D5W 1 GM in PREMIXED IN D5W 100 ML IV SCH ×2 (08:40→09:51)
[2017-04-23] MEDS ORDERED: ETHYL CHLORIDE AER SPR 100 ML CAN EXT STA (08:52)
[2017-04-23] MEDS: MYCOPHENOLATE MOFETIL 250 MG CAP (CELLCEPT) PO SCH (09:00)
[2017-04-23] MEDS: TACROLIMUS 1 MG CAP PO SCH (09:00)
[2017-04-23] MEDS: PRAVASTATIN SOD 40 MG TAB PO SCH (09:00)
[2017-04-23] MEDS: PANTOprazole SOD 40 MG TAB PO SCH (09:00)
[2017-04-23] MEDS: ATOVAQUONE 750 MG/5 ML UDC PO SCH (09:01)
[2017-04-23] MEDS: VALGANCICLOVIR HCL 450 MG PO SCH (09:01)
[2017-04-23] MEDS: AMLODIPINE BESYLATE 5 MG TAB PO SCH (09:01)
--- NOTE | 2017-04-23 11:14 | Cardiology Follow-Up ---
Subjective Subjective Date of Service: Apr 23, 2017. Pt evaluation today including: conversation w/ patient, physical exam, chart review, lab review, review of studies, conversation w/ excellence consultant, review of inpatient medication list Additional Details: Pt seen and examined, states that he feels ok, main complaint is that of continued knee pain. Otherwise, no pacing overnight. No recurrence of syncope. Did have an approx 8 second run of 2:1 heart block this AM, asymptomatic. Transfer has been delayed due to insurance/transport issue. I spoke with cardiac transplant team including Dr. Pat Macias at [facility] throughout the day yesterday to keep them up to speed on patient's status. Updated this AM as well in regards to transient 2:1. Tele reviewed: sinus tach with underlying RBBB overnight. 8 second episode of 2: 1 heart block this AM at 0810. Problem List Medical Problems: (1) Anemia Status: Acute (2) Knee effusion, right Status: Acute (3) Pseudogout Status: Acute (4) Renal insufficiency Status: Acute Review of Systems Respiratory: No see HPI, No cough, No sputum, No wheezing, No shortness of breath, No dyspnea on exertion, No dyspnea at rest, No hemoptysis, No problem reported Cardiac: No see HPI, No chest pain, No orthopnea, No PND, No edema, No claudication, No palpitations, No problem reported Musculoskeletal: + joint pain Objective Vital Signs Last Vital Signs Documentation Date Time Temp Pulse Resp B/P (MAP) Pulse Ox O2 Delivery O2 Flow Rate FiO2 04/23/17 10:00 36.9 117 16 126/99 (108) 96 Room Air Physical Exam: General Appearance: WD/WN, no apparent distress Eyes: bilateral eyes normal inspection, bilateral eyes PERRL, bilateral eyes EOMI ENT: normal ENT inspection, hearing grossly normal, pharynx normal Neck: supple, no adenopathy, thyroid normal, no JVD, no carotid bruits, trachea midline Respiratory/Chest: chest non-tender, lungs clear, normal breath sounds, no respiratory distress, no accessory muscle use Cardiovascular: regular rate, rhythm, no edema, no gallop, no JVD, no murmur, + tachycardia Abdomen: normal bowel sounds, non tender, soft, no organomegaly, no pulsatile mass Extremities: normal inspection, no pedal edema, no calf tenderness 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 syncope documented episode of complete heart block on monitor given heart transplant the concern is for possible rejection transcutaneous pacer pads in place patient requiring evaluation at [facility] where he is known and all of his care has been provided transplant team is up to date on patient's condition and findings for transport via fixed wing air today coumadin held npo
--- NOTE | 2017-04-23 11:26 | ORTHOPEDIC CONSULTATION REPORT ---
DATE OF CONSULTATION: 04/23/2017 REASON FOR CONSULT: Bilateral knee pain. HISTORY OF PRESENT ILLNESS: The patient is a 66-year-old white male, known to our practice, who has a history of left total knee arthroplasty and was seen by myself at the end of February for right knee aspiration due to severe pain and swelling, which was due to pseudogout. I initially saw the patient on the morning of 04/22/2017. We began discussing his history; however, the patient then stated that he was getting that feeling again that he was going to pass out and he did indeed pass out. At that time, I called for a nurse and came back relatively quickly. By that time, the patient was cognizant and asking if he just passed out. He remembered where he was and who he was and stated he had no chest pain or shortness of breath prior to passing out. The rhythm strip showed a 12-second complete heart block and at that point in time, the orthopedic evaluation was held off and the patient was transported down to the surgical ICU for close monitoring. Basically, the patient states that prior to coming in, he was standing in his kitchen, preparing dinner with his girlfriend and he states he got a funny feeling in his head and ended up passing out. His girlfriend was present as noted and states that he dropped straight down onto the floor. She states that the impact was mainly on both knees . He came to relatively quickly, but was now having some increased knee pain and some swelling. He eventually came into the Emergency Room and then was seen by the medicine service and admitted for further care. He states currently that compared to yesterday when I first saw him that his pain has worsened on the right, but is about the same on the left. He denies any fevers or chills and states that he just has pain with range of motion of both knees, right greater than left. PAST MEDICAL HISTORY: History of restrictive cardiomyopathy with amyloidosis of the heart, status post heart transplant at [facility] in May 2017. Mild rejection followed closely at [facility]. History of DVT and PE, on chronic anticoagulation. Prothrombin mutation on chronic anticoagulation, paroxysmal atrial fibrillation, hypothyroidism, CMV positive hypertension, hyperlipidemia, and chronic renal insufficiency. PAST SURGICAL HISTORY: Heart transplant as noted above in May 2016, multiple followup cardiac biopsies, left total knee replacement, carpal tunnel surgery, and colonoscopy. FAMILY HISTORY: Noncontributory. SOCIAL HISTORY: The patient does not use tobacco. Alcohol rarely. The patient is and lives with his girlfriend. MEDICATIONS: Amlodipine 5 mg p.o. daily, Mepron 150 mg p.o. daily, CellCept 1000 mg p.o. b.i.d., prednisone 7.5 mg p.o. daily, Prograf as directed, Prilosec daily, pravastatin 40 mg p.o. daily, and Levoxyl 50 mcg p.o. daily. ALLERGIES: MORPHINE AND BUPRENORPHINE. REVIEW OF SYSTEMS: As per admitting history and physical. PHYSICAL EXAMINATION: GENERAL: This morning, the patient is awake, alert and oriented x3. The patient is very conversant and in good mood, but states that his pain has obviously worsened than his right knee compared to the left. EXTREMITIES: On examination of both knees, left knee has a well-healed scar from his previous left TKA. He does appear to have a mild to moderate effusion, which on palpation is not tense and does not seem to be painful on palpation whenever the patient is undergoing examination. The right knee, however, appeared to be swollen as last time I saw him when he was in the Emergency Room. He has a very large effusion in the right knee now compared to when I saw yesterday. It is fairly tense and is very tender on palpation. He has limited range of motion due to this effusion at this time and has pain with range of motion. Left knee has better range of motion at this time, but is somewhat painful off and on. There is no erythema over either area. He does have some mild heat in the right knee compared to the left, but not overtly so. Sensation appears to be intact. X-RAY EXAMINATION: X-rays of both knees show no fractures that I can appreciate. The left knee prosthesis appears to be in alignment and no gross loosening that I can detect at this time. He does have some calcified nodules that appear to be in and around the quadriceps tendon, but otherwise the film appears benign. The right knee film shows no evidence of fracture, but does show a joint effusion. ASSESSMENT: Traumatic effusions, right greater than left, status post syncopal fall. PLAN: At this time, the patient's right knee effusion is much larger today than it was yesterday and much more tense. The left knee as noted has a smaller effusion and seems less tender on palpation. At this point in time, I felt it was okay to go ahead and aspirate the right knee. The patient was hoping that it could be aspirated. INR was 2.4, but with the tenseness of the effusion, it was felt that aspiration is warranted. At that point in time, a superolateral aspiration site was marked and then swabbed with 2 alcohol swabs and 3 Betadine swabs and let to dry. Then, an 18-gauge needle was inserted into the suprapatellar pouch area and 95 mL of light bloody fluid was retrieved from the right knee. At that point in time, the needle was removed and a 4 x 4 gauze was placed over the injection site and pressure was held for approximately 1 minute. The area was then covered with 4 x 4 gauze and an Raj wrap. Ethyl chloride was used for skin anesthesia prior to aspiration. The aspirate will be sent down for cell count and culture, although the patient is going to be transferred to [facility] shortly to undergo further testing for his heart. Any results noted would be sent to them. The patient tolerated the procedure well and when the patient returns to the area, he can follow up with Dr. Guerrier in the office for any further problems with the right knee or left knee. LASHAY
[2017-04-23 12:00] LABS: SYNOVIAL FLUID APPEARANCE BLOODY; SYNOVIAL FLUID COLOR RED; SYNOVIAL FLUID MONONUC RELAT 8.9 %; SYNOVIAL FLUID POLYNUC RELAT 91.1 %
[2017-04-25 16:32] LABS: HEPATITIS C RNA TMA QUAL Not detected
== END 2017-04-23 11:15 | disposition short-term general hospital (02) | DRG 309 ==
LOC: EDBD 21:50 → C.EDA 21:53 → C.2T 04-22 02:52 → ENRESERV 04-22 03:07 → C.MSICU 04-22 09:00 → OBSVTOIN 04-22 18:19
PROVIDERS: ADMIT Internal Medicine; ATTEND Internal Medicine
DX: I44.2 Atrioventricular block, complete (principal); N17.9 Acute kidney failure, unspecified; E85.4 Organ-limited amyloidosis; I43 Cardiomyopathy in diseases classified elsewhere; I13.0 Hypertensive heart and chronic kidney disease with heart failure and stage 1 through stage 4 chronic kidney disease, or unspecified chronic kidney disease; Z94.1 Heart transplant status; I50.42 Chronic combined systolic (congestive) and diastolic (congestive) heart failure; A04.7 Enterocolitis due to Clostridium difficile; E72.12 Methylenetetrahydrofolate reductase deficiency; B25.9 Cytomegaloviral disease, unspecified; D68.52 Prothrombin gene mutation; R55 Syncope and collapse; N18.3 Chronic kidney disease, stage 3 (moderate); Z96.652 Presence of left artificial knee joint; M25.562 Pain in left knee; M25.561 Pain in right knee; D63.1 Anemia in chronic kidney disease; I48.0 Paroxysmal atrial fibrillation; Z86.711 Personal history of pulmonary embolism; Z86.718 Personal history of other venous thrombosis and embolism; E78.5 Hyperlipidemia, unspecified; E03.9 Hypothyroidism, unspecified; T50.905A Adverse effect of unspecified drugs, medicaments and biological substances, initial encounter; G62.9 Polyneuropathy, unspecified; I45.10 Unspecified right bundle-branch block; R91.8 Other nonspecific abnormal finding of lung field; M25.462 Effusion, left knee; M25.461 Effusion, right knee; D89.9 Disorder involving the immune mechanism, unspecified; W18.30XA Fall on same level, unspecified, initial encounter; Y92.010 Kitchen of single-family (private) house as the place of occurrence of the external cause; Z79.899 Other long term (current) drug therapy; Z79.52 Long term (current) use of systemic steroids; Z79.891 Long term (current) use of opiate analgesic; Z79.01 Long term (current) use of anticoagulants

== ENCOUNTER → 2017-09-23 | Outpatient (CLI) | payer OTHER ==
[~2017-09-23] MED LIST changes: +ACET300T3 PO; -AMLO-110 PO; +AMLO10TA3 PO; +AMLO5TAB3 PO; +CALC-354 PO; +ENOX40IN SQ; +FERR1TAB13 PO; +MAGN400T7 PO; +PRED-301 PO; -PRG1 PO; +PRLSR20 PO; +SENN-61 PO; +TACR1CAP PO; +TACR1CAP3 PO; +TRAM-10 PO; +VALG1TAB PO; +WARF-280 PO; +WARF1TAB6 PO; -WARF5TAB90 PO
[2017-09-23 11:28] LABS: BASO % 0.6 %; BASO ABS # 0.05 K/uL (0-0.2); EOS ABS # 0.09 K/uL (0-0.5); HEMATOCRIT 36.9 % (42-52); HEMOGLOBIN 11.4 g/dL (14.0-18.0); IG# 0.03 K/uL (0.00-0.02); LYMPH % 12.4 %; MEAN CELL VOLUME 80.4 fL (80-100); MEAN CORPUSCULAR HEMOGLOBIN 24.8 pg (25-34); MEAN CORPUSCULAR HGB CONC 30.9 g/dl (32-36); MEAN PLATELET VOLUME 10.4 fL (7.4-10.4); MONO % 11.8 %; MONO ABS # 1.04 K/uL (0.11-0.59); NEUT % 73.9 %; NEUT ABS # 6.53 K/uL (1.4-6.5); PLATELET COUNT 267 K/uL (130-400); RED CELL DISTRIBUTION WIDTH CV 16.2 % (11.5-14.5); RED CELL DISTRIBUTION WIDTH SD 47.8 fL (36.4-46.3); WHITE BLOOD COUNT 8.84 K/uL (4.8-10.8)
[2017-09-23 15:44] LABS: ALBUMIN 3.8 gm/dl (3.4-5.0); ALKALINE PHOSPHATASE 142 U/L (45-117); AST/SGOT 17 U/L (15-37); BLOOD UREA NITROGEN 36 mg/dl (7-18); CALCIUM 9.7 mg/dl (8.5-10.1); CARBON DIOXIDE 24 mmol/L (21-32); CHOLESTEROL 201 mg/dl (0-200); CREATININE 2.64 mg/dl (0.60-1.40); GLUCOSE 85 mg/dl (70-99); PHOSPHORUS 3.5 mg/dl (2.5-4.9); POTASSIUM 4.2 mmol/L (3.5-5.1); SODIUM 137 mmol/L (136-145)
[2017-09-23 15:55] LABS: ALT/SGPT 35 U/L (12-78); LDL CHOLESTEROL CALCULATED 136 mg/dl; TOTAL PROTEIN 8.1 gm/dl (6.4-8.2); TRANSFERRIN 290 mg/dl (200-360)
== END | disposition home or self-care (01) ==
LOC: C.LAB 10:17
PROVIDERS: ATTEND Internal Medicine
DX: N18.3 Chronic kidney disease, stage 3 (moderate) (principal); D50.8 Other iron deficiency anemias; Z94.1 Heart transplant status

== ENCOUNTER 2017-10-10 09:46 | Inpatient (IN) | payer OTHER ==
[~2017-10-10] VITALS: Ht 185.4 cm; Wt 92.8 kg
[~2017-10-10 09:46] MED LIST changes: -ACET300T3 PO; +AMLO-110 PO; -AMLO10TA3 PO; -AMLO5TAB3 PO; -CALC-354 PO; -ENOX40IN SQ; -FERR1TAB13 PO; -MAGN400T7 PO; -OXYC-57 PO; -PRED-301 PO; -PRLSR20 PO; -SENN-61 PO; -TACR1CAP PO; +TACR1CAP14 PO; -TACR1CAP3 PO; -TRAM-10 PO; -WARF1TAB6 PO; -WARF2.5T8 PO
[2017-10-10] MEDS ORDERED: SENN-61 PO (10:13)
[2017-10-10] MEDS ORDERED: TRAM-10 PO (10:13)
--- NOTE | 2017-10-10 10:30 | EMERGENCY ROOM VISIT NOTE ---
History Report prepared by Yung: Thelma Quintero Under the Supervision of: Dr. Reese Larson M.D. First contact with patient: 10:14 Chief Complaint: BACK PAIN Stated Complaint: LOWER BACK PAIN, R KNEE PAIN History of Present Illness The patient is a 67 year old male who presents to the Emergency Room with complaints of intermittent lower back pain beginning 1 week ago. The patient reports that the pain radiates down his back and to his right leg and right knee. He rates his pain at a 9/10. The patient states that six months ago he had his knee drained and had cortisone in it, which helped to alleviate his pain. He reports that after this, his knee began to swell again, so he had his knee drained again and more cortisone put in. The patient states that his knee pain came back again, along with lower back pain. He rated his back pain at this time at an 8/10 and states that it also radiated down his right leg. He reports that he also has a lump in his right inguinal region and that it resurfaced again 4 days ago. He reports that he is on steroids for a heart transplant that was done on June 07, 2016. The patient denies a history of diabetes. Source of History: patient Onset: 1 week ago Position: back (lower) Symptom Intensity: rated at a 9/10 Timing: intermittent Note: additional symptom: right leg and right knee pain Review of Systems See HPI for pertinent positives & negatives. A total of 10 systems reviewed and were otherwise negative. Past Medical & Surgical Medical Problems: (1) Atrial fibrillation (2) Cardiac amyloidosis (3) Chronic anticoagulation (4) CKD (chronic kidney disease), stage III (5) Compound heterozygous MTHFR mutation [id number] (6) Depression (7) DVT, lower extremity (8) Dyslipidemia (9) Heart block (10) Hypothyroidism (11) Left ventricular hypertrophy (12) Prothrombin gene mutation (13) Pulmonary embolism (14) Pulmonary hypertension (15) RBBB (16) Syncope Surgical Problems: (1) Heart transplanted (2) History of carpal tunnel surgery of right wrist (3) S/p removal of knee cartilage (4) Status post total knee replacement Family History Patient reports no known family medical history. Social History Smoking Status: Never Smoker Alcohol Use: occasionally Drug Use: none Marital Status: Housing Status: lives with significant other Occupation Status: employed Current/Historical Medications Scheduled Amlodipine (Norvasc), 10 MG PO DAILY Atovaquone (Mepron), 10 ML PO QAM Calcium Carbonate-Cholecalcife (Caltrate 600+D), 1 TAB PO BID Levothyroxine Sodium (Synthroid), 50 MCG PO DAILY Mycophenolate Mofetil (Cellcept), 1,000 MG PO BID Omeprazole (Prilosec), 20 MG PO DAILY Pravastatin Sodium (Pravachol), 40 MG PO DAILY Prednisone (Prednisone), 7.5 MG PO Q2D Prednisone (Prednisone), 5 MG PO Q2D Senna (Senokot), 2 TAB PO DAILY Tacrolimus (Prograf), 4 MG PO AMPM Warfarin Sod (Jantoven), 3.5 MG PO Q2D Warfarin Sod (Jantoven), 2.5 MG PO Q2D Scheduled PRN Tramadol (Ultram), 50-100 MG PO Q6H PRN for Pain Allergies Coded Allergies: Morphine (Unverified Allergy, Unknown, Nausea/vomiting, 04/21/17) Physical Exam Vital Signs Date Time Temp Pulse Resp B/P (MAP) Pulse Ox O2 Delivery O2 Flow Rate FiO2 10/10/17 14:20 101 16 127/84 96 Room Air 10/10/17 13:17 104 10/10/17 12:41 107 18 104/72 95 Room Air 10/10/17 11:06 115 18 132/93 97 Room Air 10/10/17 09:52 37.2 120 18 116/77 97 Room Air Physical Exam GENERAL: Patient is a healthy-appearing well-nourished male HEAD: Normocephalic atraumatic EYES: Ocular movements intact pupils equal and react to light OROPHARYNX mucous membranes are moist no exudates present no erythema or edema present NECK: Supple no nuchal rigidity CHEST: Good equal expansion LUNGS: Clear and equal to auscultation CARDIAC: Normal S1 and S2 ABDOMEN: Soft nontender no guarding BACK: No CVA tenderness EXTREMITIES: Tender to right SI joint, right lump in right groin area, able to walk on tip toes, normal muscle strength in all groups no clubbing cyanosis or edema NEURO: Patient is following commands and answering questions appropriately. Alert and oriented x3 Cranial Nerves 2-12 grossly intact Medical Decision & Procedures ER Provider Diagnostic Interpretation: Radiology results as stated below per my review and radiologist interpretation: PELVIS 1 OR 2 VIEW ROUTINE HISTORY: 67 years-old Male Pt c/o low back pain acute low back pain COMPARISON: Lumbar spine radiographs of same day TECHNIQUE: AP view of the pelvis FINDINGS: The bones appear mildly demineralized. Mild to moderate degenerative changes of the bilateral femoral acetabular joints. No pelvic ring fracture identified. Sacrum appears intact. Degenerative changes of the lower lumbar spine. No acute fracture or subluxation identified. IMPRESSION: 1. Mild bone demineralization without acute fracture or subluxation. 2. Mild to moderate degenerative changes of the bilateral femoral acetabular joints. The above report was generated using voice recognition software. It may contain grammatical, syntax or spelling errors. Electronically signed by: Eloy Dela Cruz M.D. 10/10/2017 11:34 AM Dictated Date/Time: 10/10/2017 11:33 AM L-SPINE MIN 4 VIEWS ROUTINE HISTORY: 67 years-old Male Pt c/o low back pain acute low back pain COMPARISON: Lumbar spine radiographs 03/16/2017, pelvis radiographs of same day TECHNIQUE: 5 views of the lumbar spine FINDINGS: Mild convex left curvature of the lumbar spine. The bones appear mildly demineralized. Ribs at T12 are hypoplastic. There is no acute fracture or subluxation identified. Severe facet arthrosis is noted at L4-L5 and L5-S1. 7 mm anterolisthesis L4 on L5 is again noted which appears unchanged. Moderate intervertebral disc space narrowing at T12-L1. Multilevel facet arthrosis throughout the remaining lumbar spine also noted which appears mostly mild and moderate. Multilevel endplate spurring. Atherosclerosis of the aorta. IMPRESSION: 1. No acute fracture or subluxation of the lumbar spine. 2. Severe facet arthrosis at L4-L5 and L5-S1. Grade 1 anterolisthesis L4 on L5 appears unchanged, likely secondary to long-standing facet disease. 3. Additional degenerative changes as above. The above report was generated using voice recognition software. It may contain grammatical, syntax or spelling errors. Electronically signed by: Eloy Del aCruz M.D. 10/10/2017 11:32 AM Dictated Date/Time: 10/10/2017 11:30 AM (TESTICULAR) SCROTUM-CONT CLINICAL HISTORY: 67 years-old Male with Pt c/o Rt testicular pain . Acute right-sided testicular pain COMPARISON STUDY: None available TECHNIQUE: Real-time, grayscale, and color Doppler sonography of the testes and scrotum is performed. Images are reviewed in the transverse and longitudinal planes. FINDINGS: RIGHT HEMISCROTUM: The right testis measures 4.4 x 2.2 x 2.9 cm and the parenchyma appears unremarkable. No intratesticular mass is seen. Normal-appearing arterial inflow is present within the right testicle. There are two subcentimeter right epididymal head cysts noted, largest measuring up to 8 mm. No varicocele or hydrocele is identified. LEFT HEMISCROTUM: The left testis measures 3.4 x 3.3 x 2.6 cm and the parenchyma appears unremarkable. No intratesticular mass is seen. Normal-appearing arterial inflow is present within the left testicle. The left epididymal head appears normal. No varicocele or hydrocele is identified. The epididymides are not well seen bilaterally. IMPRESSION: 1. Unremarkable sonographic appearance of the bilateral testicles. 2. Subcentimeter right epididymal head cysts measure up to 8 mm. The above report was generated using voice recognition software. It may contain grammatical, syntax or spelling errors. Electronically signed by: Eloy Dela Cruz M.D. 10/10/2017 12:19 PM Dictated Date/Time: 10/10/2017 12:16 PM ABDOMEN FOR HERNIA HISTORY: 67 years-old Male Pt point tender at suprapubic area on Right acute right groin and back pain COMPARISON: None available TECHNIQUE: Multiple real-time sonographic images of the right groin soft tissues and vascular structures were obtained assessing grayscale appearance, color and spectral flow FINDINGS: No right-sided inguinal hernia identified. Within the right groin inguinal tissues there is a focal round hypoechoic structure measuring 6.6 x 5.3 x 6.2 cm which demonstrates a thin neck with the adjacent common femoral artery. There are elevated peak systolic velocities with bidirectional internal flow (Yin-stringer sign) within this lesion with elevated peak systolic velocities internally measuring up to 333 cm/s. IMPRESSION: 1. 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 This may be secondary to iatrogenic or penetrating trauma. 2. No inguinal hernia identified. The above report was generated using voice recognition software. It may contain grammatical, syntax or spelling errors. Electronically signed by: Eloy Dela Cruz M.D. 10/10/2017 12:26 PM Dictated Date/Time: 10/10/2017 12:19 PM A[address]OMEN AND PELVIS CT WITH IV CONTRAST CT DOSE: 843.86 mGy.cm HISTORY: Follow-up study to assess pseudoaneurysm of the right groin psuedoaneurism R groin TECHNIQUE: Multiaxial CT images of the abdomen and pelvis were performed following the use of intravenous contrast. A dose lowering technique was utilized adhering to the principles of ALARA. COMPARISON STUDY: Abdominal ultrasound of same day at 11:39 AM, scrotal ultrasound of same day, CT chest 12/10/2016. FINDINGS: Mild dependent subsegmental bibasilar atelectasis. There is a spiculated irregular centrally necrotic mass of the basal right lower lobe abutting the pleural surface containing central foci of air overall measuring 3.1 x 2.1 cm, previously measuring 3.0 x 1.9 cm and study dated 12/10/2016. The central necrosis and central air are new from prior study. 4 mm solid nodule of the right lower lobe seen on image 67 series 3 appears new from prior study. Imaged inferior cardiac chambers are moderately enlarged. Pacer wires are noted overlying the right atrium and right ventricle. Prior median sternotomy. No pneumatosis or pneumoperitoneum identified. The liver, spleen, gallbladder, pancreas and adrenal glands are within normal limits. There is trace perisplenic fluid noted. Cleft of the mid spleen appears unchanged. Nonspecific mild perinephric edema. Areas of cortical scarring noted within the inferior pole left kidney. Low attenuating 1.8 cm lesion of the inferior pole right kidney suggests renal cyst. Punctate nonobstructing calculus of the inferior pole left kidney. No ureteral calculi or obstructive uropathy. Urinary bladder is partially decompressed with circumferential wall thickening. Prostate is mildly enlarged. Surgical clips of the upper scrotum suggest prior vascectomy. Moderate mixed plaquing of the abdominal aorta without aneurysm or dissection. No pathologic-appearing adenopathy identified. Hyperattenuating ovoid mass of the right inguinal region correlating with pseudoaneurysm seen on comparison ultrasound measures 6.3 x 5.2 x 5.4 cm and appears to be contiguous with the right femoral artery in the region of the distal common femoral and proximal portion of the superficial femoral artery. Femoral arteries appear patent with moderate atherosclerosis. Mild soft tissue swelling is noted surrounding the aneurysm which appears partially thrombosed lung the superior margin of less than 10%. No retroperitoneal hemorrhage. There is no bowel obstruction or focal bowel wall thickening. Moderate colonic diverticulosis without diverticulitis. Probable lipoma involving a loop of distal ileum measures 1.0 cm. Normal appendix. Soft tissues are otherwise unremarkable. Subcortical cystic changes involve the hips, left greater the right. Multilevel degenerative changes of the spine with grade 1 anterolisthesis L4 on L5 likely secondary to long-standing facet disease. IMPRESSION: 1. Large pseudoaneurysm of the right inguinal region measures up to 6.3 cm and appears to be contiguous with the common femoral artery just proximal to the origin of the superficial femoral artery. There is partial thrombosis of the pseudoaneurysm along the superior margin of less than 10%. Mild surrounding soft tissue edema without evidence of aneurysm rupture. No retroperitoneal hematoma. 2. Spiculated pleural-based soft tissue attenuating mass of the right lower lobe measuring up to 3.1 x 2.1 cm appears only slightly increased in size from comparison study 12/10/2016, however now demonstrates central process and central air focus. Correlate with prior pathology results. 3. Moderate colonic diverticulosis without CT evidence of acute diverticulitis. 4. Moderate wall thickening of the decompressed urinary bladder. Correlate with urinalysis to exclude cystitis. 5. Mild prostamegaly. Electronically signed by: Eloy Dela Cruz M.D. 10/10/2017 1:36 PM Dictated Date/Time: 10/10/2017 1:23 PM Laboratory Results Test 10/10/17 10:13 10/10/17 12:50 Total Bilirubin 0.5 mg/dl (0.2-1) Direct Bilirubin 0.2 mg/dl (0-0.2) Aspartate Amino Transf (AST/SGOT) 18 U/L (15-37) Alanine Aminotransferase (ALT/SGPT) 24 U/L (12-78) Alkaline Phosphatase 142 U/L (45-117) Total Protein 7.7 gm/dl (6.4-8.2) Albumin 3.5 gm/dl (3.4-5.0) Lipase 357 U/L (73-393) Urine Color DK YELLOW Urine Appearance CLOUDY (CLEAR) Urine pH 5.0 (4.5-7.5) Urine Specific [place] 1.027 (1.000-1.030) Urine Protein 1+ (NEG) Urine Glucose (UA) NEG (NEG) Urine Ketones TRACE (NEG) Urine Occult Blood 3+ (NEG) Urine Nitrite NEG (NEG) Urine Bilirubin NEG (NEG) Urine Urobilinogen NEG (NEG) Urine Leukocyte Esterase TRACE (NEG) Urine WBC (Auto) 1-5 /hpf (0-5) Urine RBC (Auto) 10-30 /hpf (0-4) Urine Hyaline Casts (Auto) /lpf (0-5) Urine Epithelial Cells (Auto) 20-30 /lpf (0-5) Urine Bacteria (Auto) NEG (NEG) Urine Crystals CALCIUM OXALATE (NONE Urine Pathogenic Casts 1-5 GRANULAR CASTS /lpf (0) Urine Yeast (Auto) (NONE PRSENT) Labs reviewed by ED physician. Medications Administered Medications (Trade) Dose Ordered Sig/Rosette Route Start Time Stop Time Status Last Admin Dose Admin Oxycodone/ Acetaminophen (Percocet 5-325mg Tab) 2 tab NOW ONCE PO 10/10/17 10:45 10/10/17 10:46 DC 10/10/17 11:05 2 TAB Sodium Chloride 1,000 ml @ 999 mls/hr Q1H1M STAT IV 10/10/17 13:05 10/10/17 14:05 DC 10/10/17 13:11 999 MLS/HR ED Course 1022: Past medical records reviewed. The patient was evaluated in room B9. A complete history and physical examination was performed. 1045: Ordered Oxycodone/Acetaminophen 2 tab PO. 1305: Ordered Sodium Chloride 1,000 ml @ 999 mls/hr IV. 1313: I discussed the patient's case with Dr. Soni, he said that the patient needs to be admitted. 1321: Upon reexamination the patient is resting. I discussed results and treatment plan with the patient. He verbalizes agreement and understanding. [facility] The patient will be evaluated for further management. Medical Decision Differential diagnosis: Etiologies such as appendicitis, diverticulitis, PUD, biliary pathology, UTI, pancreatitis, obstruction, mesenteric ischemia, aortic pathology, infections, inflammatory bowel disease, renal colic, as well as others were entertained. This is a 67-year-old male who presents to the department multiple complaints. The patient is complaining of a large amount of pain that began running down his leg along with a lump in his groin. He was sent for an ultrasound of the groin and found to have a pseudoaneurysm that is remarkably large in size. Based on this finding he was sent for CAT scan of the abdomen and pelvis. The patient is complicated due to his heart transplant. He was given IV fluid to rehydrate him to his kidney disease. I did discuss the case with the hospitalist service who agreed to admit the patient. Patient was in agreement with the treatment plan. Medication Reconcilliation Current Medication List: was personally reviewed by me Blood Pressure Screening Patient's blood pressure: Normal blood pressure Consults Time Called: 1310 Consulting Physician: Dr. Soni-[facility] Returned Call: 1313 I discussed the patient's case with Dr. Soni, he said that the patient needs to be admitted. Additional Consults: Time Called: 1320 [facility] Additional Comments: I discussed the patient's case with Dr. Gleason, he has agreed to evaluate the patient for further management and care. Impression Primary Impression: Leg pain Additional Impression: Pseudoaneurysm Scribe Attestation The scribe's documentation has been prepared under my direction and personally reviewed by me in its entirety. I confirm that the note above accurately reflects all work, treatment, procedures, and medical decision making performed by me. Departure Information Dispostion Being Evaluated By Hospitalist Referrals Chavez Enciso, Edelmira.OAida (PCP) Patient Instructions My [facility] Problem Qualifiers Primary Impression: Leg pain Laterality: right Qualified Codes: M79.604 - Pain in right leg
[2017-10-10] MEDS ORDERED: PRLSR20 PO (10:39)
[2017-10-10] MEDS ORDERED: CALC-354 PO (10:39)
[2017-10-10] MEDS ORDERED: WARF2.5T8 PO (10:39)
[2017-10-10] MEDS ORDERED: AMLO-114 PO (10:39)
[2017-10-10] MEDS ORDERED: PRED-301 PO (10:39)
[2017-10-10] MEDS ORDERED: WARF1TAB6 PO (10:39)
[2017-10-10] MEDS ORDERED: TACR1CAP PO (10:39)
[2017-10-10] MEDS ORDERED: OXYCODONE/ACETAMINOPHEN 5-325 TAB PO ONE (10:45)
--- NOTE | 2017-10-10 11:34 | DIAGNOSTIC IMAGING REPORT ---
L-SPINE MIN 4 VIEWS ROUTINE HISTORY: 67 years-old Male Pt c/o low back pain acute low back pain COMPARISON: Lumbar spine radiographs 03/16/2017, pelvis radiographs of same day TECHNIQUE: 5 views of the lumbar spine FINDINGS: Mild convex left curvature of the lumbar spine. The bones appear mildly demineralized. Ribs at T12 are hypoplastic. There is no acute fracture or subluxation identified. Severe facet arthrosis is noted at L4-L5 and L5-S1. 7 mm anterolisthesis L4 on L5 is again noted which appears unchanged. Moderate intervertebral disc space narrowing at T12-L1. Multilevel facet arthrosis throughout the remaining lumbar spine also noted which appears mostly mild and moderate. Multilevel endplate spurring. Atherosclerosis of the aorta. IMPRESSION: 1. No acute fracture or subluxation of the lumbar spine. 2. Severe facet arthrosis at L4-L5 and L5-S1. Grade 1 anterolisthesis L4 on L5 appears unchanged, likely secondary to long-standing facet disease. 3. Additional degenerative changes as above. The above report was generated using voice recognition software. It may contain grammatical, syntax or spelling errors. Electronically signed by: Eloy Dela Cruz M.D. 10/10/2017 11:32 AM Dictated Date/Time: 10/10/2017 11:30 AM
--- NOTE | 2017-10-10 11:35 | DIAGNOSTIC IMAGING REPORT ---
PELVIS 1 OR 2 VIEW ROUTINE HISTORY: 67 years-old Male Pt c/o low back pain acute low back pain COMPARISON: Lumbar spine radiographs of same day TECHNIQUE: AP view of the pelvis FINDINGS: The bones appear mildly demineralized. Mild to moderate degenerative changes of the bilateral femoral acetabular joints. No pelvic ring fracture identified. Sacrum appears intact. Degenerative changes of the lower lumbar spine. No acute fracture or subluxation identified. IMPRESSION: 1. Mild bone demineralization without acute fracture or subluxation. 2. Mild to moderate degenerative changes of the bilateral femoral acetabular joints. The above report was generated using voice recognition software. It may contain grammatical, syntax or spelling errors. Electronically signed by: Eloy Dela Cruz M.D. 10/10/2017 11:34 AM Dictated Date/Time: 10/10/2017 11:33 AM
--- NOTE | 2017-10-10 12:20 | DIAGNOSTIC IMAGING REPORT ---
(TESTICULAR) SCROTUM-CONT CLINICAL HISTORY: 67 years-old Male with Pt c/o Rt testicular pain . Acute right-sided testicular pain COMPARISON STUDY: None available TECHNIQUE: Real-time, grayscale, and color Doppler sonography of the testes and scrotum is performed. Images are reviewed in the transverse and longitudinal planes. FINDINGS: RIGHT HEMISCROTUM: The right testis measures 4.4 x 2.2 x 2.9 cm and the parenchyma appears unremarkable. No intratesticular mass is seen. Normal-appearing arterial inflow is present within the right testicle. There are two subcentimeter right epididymal head cysts noted, largest measuring up to 8 mm. No varicocele or hydrocele is identified. LEFT HEMISCROTUM: The left testis measures 3.4 x 3.3 x 2.6 cm and the parenchyma appears unremarkable. No intratesticular mass is seen. Normal-appearing arterial inflow is present within the left testicle. The left epididymal head appears normal. No varicocele or hydrocele is identified. The epididymides are not well seen bilaterally. IMPRESSION: 1. Unremarkable sonographic appearance of the bilateral testicles. 2. Subcentimeter right epididymal head cysts measure up to 8 mm. The above report was generated using voice recognition software. It may contain grammatical, syntax or spelling errors. Electronically signed by: Eloy Dela Cruz M.D. 10/10/2017 12:19 PM Dictated Date/Time: 10/10/2017 12:16 PM
--- NOTE | 2017-10-10 12:27 | DIAGNOSTIC IMAGING REPORT ---
ABDOMEN FOR HERNIA HISTORY: 67 years-old Male Pt point tender at suprapubic area on Right acute right groin and back pain COMPARISON: None available TECHNIQUE: Multiple real-time sonographic images of the right groin soft tissues and vascular structures were obtained assessing grayscale appearance, color and spectral flow FINDINGS: No right-sided inguinal hernia identified. Within the right groin inguinal tissues there is a focal round hypoechoic structure measuring 6.6 x 5.3 x 6.2 cm which demonstrates a thin neck with the adjacent common femoral artery. There are elevated peak systolic velocities with bidirectional internal flow (Yin-stringer sign) within this lesion with elevated peak systolic velocities internally measuring up to 333 cm/s. IMPRESSION: 1. 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 This may be secondary to iatrogenic or penetrating trauma. 2. No inguinal hernia identified. The above report was generated using voice recognition software. It may contain grammatical, syntax or spelling errors. Electronically signed by: Eloy Dela Cruz M.D. 10/10/2017 12:26 PM Dictated Date/Time: 10/10/2017 12:19 PM
[2017-10-10] MEDS ORDERED: OPTIRAY 320 IV PRN (12:45)
[2017-10-10 12:49] LABS: BASO % 0.4 %; BASO ABS # 0.03 K/uL (0-0.2); EOS % 0.6 %; EOS ABS # 0.04 K/uL (0-0.5); HEMATOCRIT 35.5 % (42-52); HEMOGLOBIN 11.3 g/dL (14.0-18.0); IG# 0.02 K/uL (0.00-0.02); LYMPH % 11.9 %; LYMPH ABS # 0.84 K/uL (1.2-3.4); MEAN CELL VOLUME 76.5 fL (80-100); MEAN CORPUSCULAR HEMOGLOBIN 24.4 pg (25-34); MEAN CORPUSCULAR HGB CONC 31.8 g/dl (32-36); MEAN PLATELET VOLUME 10.7 fL (7.4-10.4); MONO ABS # 0.99 K/uL (0.11-0.59); NEUT % 72.8 %; NEUT ABS # 5.16 K/uL (1.4-6.5); PLATELET COUNT 229 K/uL (130-400); RED CELL DISTRIBUTION WIDTH CV 16.1 % (11.5-14.5); RED CELL DISTRIBUTION WIDTH SD 44.5 fL (36.4-46.3); WHITE BLOOD COUNT 7.08 K/uL (4.8-10.8)
[2017-10-10 13:01] LABS: ALBUMIN 3.5 gm/dl (3.4-5.0); CALCIUM 9.9 mg/dl (8.5-10.1); CREATININE 2.44 mg/dl (0.60-1.40); POTASSIUM 3.6 mmol/L (3.5-5.1)
[2017-10-10 13:04] LABS: TOTAL PROTEIN 7.7 gm/dl (6.4-8.2)
[2017-10-10] MEDS ORDERED: SODIUM CHLORIDE 0.9% 1000ML 1,000 ML IV STA ×2 (13:05→22:55)
--- NOTE | 2017-10-10 13:37 | DIAGNOSTIC IMAGING REPORT ---
ABDOMEN AND PELVIS CT WITH IV CONTRAST CT DOSE: 843.86 mGy.cm HISTORY: Follow-up study to assess pseudoaneurysm of the right groin psuedoaneurism R groin TECHNIQUE: Multiaxial CT images of the abdomen and pelvis were performed following the use of intravenous contrast. A dose lowering technique was utilized adhering to the principles of ALARA. COMPARISON STUDY: Abdominal ultrasound of same day at 11:39 AM, scrotal ultrasound of same day, CT chest 12/10/2016. FINDINGS: Mild dependent subsegmental bibasilar atelectasis. There is a spiculated irregular centrally necrotic mass of the basal right lower lobe abutting the pleural surface containing central foci of air overall measuring 3.1 x 2.1 cm, previously measuring 3.0 x 1.9 cm and study dated 12/10/2016. The central necrosis and central air are new from prior study. 4 mm solid nodule of the right lower lobe seen on image 67 series 3 appears new from prior study. Imaged inferior cardiac chambers are moderately enlarged. Pacer wires are noted overlying the right atrium and right ventricle. Prior median sternotomy. No pneumatosis or pneumoperitoneum identified. The liver, spleen, gallbladder, pancreas and adrenal glands are within normal limits. There is trace perisplenic fluid noted. Cleft of the mid spleen appears unchanged. Nonspecific mild perinephric edema. Areas of cortical scarring noted within the inferior pole left kidney. Low attenuating 1.8 cm lesion of the inferior pole right kidney suggests renal cyst. Punctate nonobstructing calculus of the inferior pole left kidney. No ureteral calculi or obstructive uropathy. Urinary bladder is partially decompressed with circumferential wall thickening. Prostate is mildly enlarged. Surgical clips of the upper scrotum suggest prior vascectomy. Moderate mixed plaquing of the abdominal aorta without aneurysm or dissection. No pathologic-appearing adenopathy identified. Hyperattenuating ovoid mass of the right inguinal region correlating with pseudoaneurysm seen on comparison ultrasound measures 6.3 x 5.2 x 5.4 cm and appears to be contiguous with the right femoral artery in the region of the distal common femoral and proximal portion of the superficial femoral artery. Femoral arteries appear patent with moderate atherosclerosis. Mild soft tissue swelling is noted surrounding the aneurysm which appears partially thrombosed lung the superior margin of less than 10%. No retroperitoneal hemorrhage. There is no bowel obstruction or focal bowel wall thickening. Moderate colonic diverticulosis without diverticulitis. Probable lipoma involving a loop of distal ileum measures 1.0 cm. Normal appendix. Soft tissues are otherwise unremarkable. Subcortical cystic changes involve the hips, left greater the right. Multilevel degenerative changes of the spine with grade 1 anterolisthesis L4 on L5 likely secondary to long-standing facet disease. IMPRESSION: 1. Large pseudoaneurysm of the right inguinal region measures up to 6.3 cm and appears to be contiguous with the common femoral artery just proximal to the origin of the superficial femoral artery. There is partial thrombosis of the pseudoaneurysm along the superior margin of less than 10%. Mild surrounding soft tissue edema without evidence of aneurysm rupture. No retroperitoneal hematoma. 2. Spiculated pleural-based soft tissue attenuating mass of the right lower lobe measuring up to 3.1 x 2.1 cm appears only slightly increased in size from comparison study 12/10/2016, however now demonstrates central process and central air focus. Correlate with prior pathology results. 3. Moderate colonic diverticulosis without CT evidence of acute diverticulitis. 4. Moderate wall thickening of the decompressed urinary bladder. Correlate with urinalysis to exclude cystitis. 5. Mild prostamegaly. Electronically signed by: Eloy Dela Cruz M.D. 10/10/2017 1:36 PM Dictated Date/Time: 10/10/2017 1:23 PM
[2017-10-10 13:47] LABS: INR 4.7 (0.9-1.1)
[2017-10-10] MEDS ORDERED: PHYTONADIONE 5 MG TAB PO STA (14:19)
[2017-10-10] MEDS ORDERED: NITROGLYCERIN 0.4 MG SL PER TAB CHARGE SL PRN (14:30)
[2017-10-10] MEDS ORDERED: ONDANSETRON INJ 2 MG/ML 2 ML VIAL IV PRN (14:30)
[2017-10-10] MEDS ORDERED: PHYTONADIONE PED PO SCH ×3 (14:45)
[2017-10-10] MEDS ORDERED: [UNRECOGNIZED DRUG - OTHER] PO SCH ×3 (14:45)
[2017-10-10] MEDS ORDERED: ORA PO SCH ×3 (14:45)
[2017-10-10] MEDS ORDERED: ORA SWEET PO SCH ×3 (14:45)
[2017-10-10 16:21] VITALS: BP 145/95; PULSE 101; TEMP 36.7; O2SAT 96; Ht 185.4 cm; Wt 92.8 kg
--- NOTE | 2017-10-10 18:31 | HISTORY & PHYSICAL EXAMINATION ---
DATE OF ADMISSION: 10/10/2017 CHIEF COMPLAINT: Right groin pain radiating to the back. 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 The patient underwent cardiac transplantation for amyloidosis in [facility] in May 2016, currently on tacrolimus, CellCept, Prednisone. He was again admitted at [facility] in November 2016 for 2 weeks for diarrhea, poor oral intake and kidney failure and found to be CMV positive, received IV ganciclovir and 2 new lung nodules also discovered in workup. It was thought to be PTLA versus infection. His lung biopsy was attempted twice, but could not be done. He also has knee pain and is status post shots to his knee and he was seen in April here in the hospital with syncope. At that time, he was transferred back to [facility] for possible rejection, but patient says he was placed pacemaker and is doing okay since then but last 10 days he has noticed pain in his left groin radiating to back, 7-8/10 in severity. No increase in pain while ambulation. Denies any fever, chills, no cough, no chest pain, no shortness of breath, no nausea, no vomiting, no abdominal pain, no headaches, no blurred vision, no dizziness, no sore throat, no difficulty swallowing. No ear pain. Normal bowel and bladder movements. Appetite is okay. Ambulation okay. No swelling in the legs. No skin rash. Currently resting comfortably and hemodynamically stable. ALLERGIES: MORPHINE AND LIQUID BUPRENORPHINE. PAST MEDICAL HISTORY: As mentioned above. PAST SURGICAL HISTORY: Cardiac transplant, knee surgery, carpal tunnel surgery, status post pacemaker. MEDICATIONS: Currently the patient is on iron plus Vitamin C 1 tablet daily, diltiazem ER 240 mg p.o. daily, tacrolimus 4 mg p.o. b.i.d., Coumadin alternates with 3.5 mg and 2.5 mg, prednisone 5 mg alternates with 7.5 mg, omeprazole 20 mg p.o. daily, calcium carbonate plus vitamin D 2 tablets p.o. b.i.d., Mepron 1500 mg p.o. daily, CellCept 1000 mg p.o. b.i.d., pravastatin 40 mg p.o. daily, statin swish and sallow 15,000 units b.i.d., vitamin D 400 units p.o. daily, levothyroxine 50 mcg p.o. daily. FAMILY HISTORY: Significant for diabetes. SOCIAL HISTORY: Nonsmoker, no alcohol use. REVIEW OF SYMPTOMS: As per HPI. Rest of review of systems negative. PHYSICAL EXAMINATION: GENERAL: The patient is of moderate build, not in distress. VITAL SIGNS: Temperature 37.1, pulse 101, respiratory rate 16, blood pressure 127/84, oxygen 96% room air. HEENT: No pallor, no icterus. Pupils equal, round, and reactive to light. NECK: No JVD, no neck masses, no carotid bruits. CARDIOVASCULAR: S1, S2 heard, regular rate and rhythm, no murmur, no gallop. RESPIRATORY SYSTEM: Clear to auscultation bilaterally. No wheezing, no crackles. ABDOMEN: Soft, bowel sounds present, nontender, some tenderness in right groin region. No distention. CENTRAL NERVOUS SYSTEM: Cranial nerves II-XII grossly intact. Nonfocal. EXTREMITIES: No edema, no erythema. LABORATORY DATA: WBC 7, hemoglobin 11.3, hematocrit 35.5, platelets 229. Sodium 131, potassium 3.6, chloride 99, BUN 39, creatinine 2.4, serum glucose 95, calcium 9.9, total bilirubin 0.5, direct bilirubin 0.2, AST 18, ALT 24, alkaline phosphatase 142, lipase 357. PT 47.5, INR 4.7. Urinalysis reveals trace leukocyte esterase. His imaging studies shows testicular ultrasound unremarkable. Subcentimeter right epididymal head cyst of 7.8 mm. Pelvis x-ray, mild bone demineralization without acute fracture or subluxation. Lumbar spine x-ray, no acute fracture or subluxation of the lumber spine, some degenerative changes, abdominal ultrasound 6.6 cm pseudoaneurysm of the right common femoral artery demonstrates turbulent internal bidirectional flow. This seems to be secondary to iatrogenic or penetrating trauma. No inguinal hernia identified. CT of the abdomen and pelvis, large pseudoaneurysm of the right inguinal region measuring up to 6.3 cm and appears to be contagious with the common femoral artery just proximal to the origin of the superficial femoral artery. There is a partial thrombosis of the pseudoaneurysm along the superior margin of less than 10%, mild surrounding soft tissue edema without evidence of aneurysm rupture. No retroperitoneal hematoma. Spiculated pleural based soft tissue attenuating mass of the right lower lobe measuring up to 3.1 and 2.1 cm, appears only slight increase in size from compression study of November 2016, however now demonstrates central process and central air focus, mild prostatomegaly. ASSESSMENT AND PLAN: This is 67-year-old male presents with right groin pain found to have pseudoaneurysm. 1. Pseudoaneurysm, 6.3 cm, contagious with common femoral artery just proximal to the original superficial femoral artery with partial thrombosis of the pseudoaneurysm along with superior margin of less than 10%. No evidence of aneurysm rupture. No retroperitoneal hematoma on the CAT scan. The patient has an INR of 4.7. Plan to give small doses of vitamin K and place him on IV heparin when INR is less than 2. Discussed with vascular surgery. Plan for procedure on Wednesday if INR comes down. Pain control. 2. History of heart transplant secondary to amyloidosis. Continue his home transplant medications. 3. History of pulmonary embolism, deep venous thrombosis and hypercoagulable state, on Coumadin. Holding Coumadin for above. We will place on IV heparin when INR level comes below 2. 4. History of atrial fibrillation on diltiazem. Coumadin held for above reasons . 5. Lung nodules. He has had lung nodules in the past but is slightly increased from previous size. Attempted biopsy in the past but could not be done. We will consult pulmonary for further recommendations. 6. History of hepatitis C virus infection as per records. 7, HX of CMV s/p treatment 8. Hypertension on diltiazem. We will monitor the blood pressure. 9. Gastroesophageal reflux disease, Prilosec. 10. Hyperlipidemia. Continue statin. 11. History of complete heart block status post pacemaker. 12. Bilateral knee pains. Follows with orthopedics. Pain control. 13. Chronic systolic and diastolic heart failure, last echo was okay with ejection fraction of 70%. 14. Chronic kidney disease stage III, creatinine in the 2s. Creatinine of 2.4 today, seems at baseline. We will follow the labs. 15. Anemia of chronic disease. Hemoglobin stable. We will follow the labs. 16.. Deep venous thrombosis prophylaxis on Coumadin, INR therapeutic, SCDs. 17. Disposition: Admit to tele floor. Close monitor. Level 1 full code. MTDD
[2017-10-10 20:00] VITALS: BP 158/106; PULSE 124; TEMP 39.5; O2SAT 96
[2017-10-10] MEDS: CALCIUM 600MG + VIT D 400 IU TAB PO SCH (21:00)
[2017-10-10 21:08] VITALS: BP 136/84; TEMP 39.3
[2017-10-10] MEDS: ACETAMINOPHEN 325 MG TAB PO PRN (22:16)
[2017-10-10] MEDS: TRAMADOL HCL 50 MG TAB PO PRN (22:17)
[2017-10-10] MEDS: MYCOPHENOLATE MOFETIL 250 MG CAP (CELLCEPT) PO SCH (22:19)
[2017-10-10] MEDS: TACROLIMUS 1 MG CAP PO SCH (22:19)
[2017-10-10 22:27] VITALS: TEMP 38.8
[2017-10-10] MEDS ORDERED: PROCHLORPERAZINE INJ 5 MG in SYRINGE 4 ML IV PRN (23:00)
[2017-10-10] MEDS ORDERED: CEFEPIME CONSULT ACTIVE PRN (23:30)
[2017-10-10 23:31] LABS: BASO % 0.4 %; BASO ABS # 0.02 K/uL (0-0.2); EOS % 0.4 %; EOS ABS # 0.02 K/uL (0-0.5); IG# 0.01 K/uL (0.00-0.02); LYMPH % 9.4 %; MEAN CELL VOLUME 76.4 fL (80-100); MEAN CORPUSCULAR HGB CONC 31.4 g/dl (32-36); MEAN PLATELET VOLUME 10.2 fL (7.4-10.4); MONO % 15.6 %; MONO ABS # 0.83 K/uL (0.11-0.59); NEUT ABS # 3.95 K/uL (1.4-6.5); PLATELET COUNT 206 K/uL (130-400); RED CELL DISTRIBUTION WIDTH SD 44.2 fL (36.4-46.3); WHITE BLOOD COUNT 5.33 K/uL (4.8-10.8)
[2017-10-10 23:39] LABS: INR 2.8 (0.9-1.1)
[2017-10-10] MEDS: HYDROmorphone INJ 0.5 MG/0.5 ML SYR IV PRN (23:43)
[2017-10-10] MEDS: CEFEPIME IV 2,000 MG in SYRINGE 7.5 ML IV SCH (23:45)
[2017-10-10 23:46] LABS: CALCIUM 9.4 mg/dl (8.5-10.1); CREATININE 2.17 mg/dl (0.60-1.40); POTASSIUM 3.9 mmol/L (3.5-5.1)
[2017-10-11] VITALS (8 sets, daily range): BP systolic 106–156; BP diastolic 70–99; PULSE 86–123; TEMP 36.6–38.6; O2SAT 94–97
[2017-10-11] MEDS ORDERED: MAGNESIUM SULFATE 1GM / D5W 1 GM in PREMIXED IN D5W 100 ML IV ONE
--- NOTE | 2017-10-11 00:54 | Progress Note ---
Internal Med Progress Note Date of Service: Oct 11, 2017. Provider Documentation: Made aware by RN of worsening right groin pain. Persistent fever, tachycardia noted. AP Worsening right groin pain Hx right femoral pseudoaneurysm Rule out rupture/bleed Sepsis possibly secondary to complicated UTI Cystitis, prostate enlargement on admission CT report Repeat CT abdomen pelvis CS, lactic acid IVF, IV Cefepime for now Will relay to AM provider. Vital Signs: Date Time Temp Pulse Resp B/P (MAP) Pulse Ox O2 Delivery O2 Flow Rate FiO2 10/11/17 04:00 Room Air 10/11/17 03:47 37.1 103 17 108/78 (88) 94 Room Air 10/11/17 00:02 Room Air 10/11/17 00:00 38.6 123 19 127/87 (100) 94 Room Air 10/10/17 22:27 38.8 10/10/17 21:08 39.3 136/84 (101) 10/10/17 20:00 39.5 124 18 158/106 (123) 96 Room Air 10/10/17 20:00 Room Air 10/10/17 16:21 36.7 101 18 145/95 96 Room Air 10/10/17 14:20 101 16 127/84 96 Room Air 10/10/17 13:17 104 10/10/17 12:41 107 18 104/72 95 Room Air 10/10/17 11:06 115 18 132/93 97 Room Air 10/10/17 09:52 37.2 120 18 116/77 97 Room Air Lab Results: Results Past 24 Hours Test 10/10/17 10:13 10/10/17 12:50 10/10/17 23:16 Range/Units White Blood Count 7.08 5.33 4.8-10.8 K/uL Red Blood Count 4.64 4.58 4.7-6.1 M/uL Hemoglobin 11.3 11.0 14.0-18.0 g/dL Hematocrit 35.5 35.0 42-52 % Mean Corpuscular Volume 76.5 76.4 80-100 fL Mean Corpuscular Hemoglobin 24.4 24.0 25-34 pg Mean Corpuscular Hemoglobin Concent 31.8 31.4 32-36 g/dl Platelet Count 229 206 130-400 K/uL Mean Platelet Volume 10.7 10.2 7.4-10.4 fL Neutrophils (%) (Auto) 72.8 74.0 % Lymphocytes (%) (Auto) 11.9 9.4 % Monocytes (%) (Auto) 14.0 15.6 % Eosinophils (%) (Auto) 0.6 0.4 % Basophils (%) (Auto) 0.4 0.4 % Neutrophils # (Auto) 5.16 3.95 1.4-6.5 K/uL Lymphocytes # (Auto) 0.84 0.50 1.2-3.4 K/uL Monocytes # (Auto) 0.99 0.83 0.11-0.59 K/uL Eosinophils # (Auto) 0.04 0.02 0-0.5 K/uL Basophils # (Auto) 0.03 0.02 0-0.2 K/uL RDW Standard Deviation 44.5 44.2 36.4-46.3 fL RDW Coefficient of Variation 16.1 16.0 11.5-14.5 % Immature Granulocyte % (Auto) 0.3 0.2 % Immature Granulocyte # (Auto) 0.02 0.01 0.00-0.02 K/uL Prothrombin Time 47.5 28.8 9.0-12.0 SECONDS Prothromb Time International Ratio 4.7 2.8 0.9-1.1 Sodium Level 131 132 136-145 mmol/L Potassium Level 3.6 3.9 3.5-5.1 mmol/L Chloride Level 99 101 98-107 mmol/L Carbon Dioxide Level 22 21 21-32 mmol/L Anion Gap 10.0 10.0 3-11 mmol/L Blood Urea Nitrogen 39 36 7-18 mg/dl Creatinine 2.44 2.17 0.60-1.40 mg/dl Est Creatinine Clear Calc Drug Dose 33.2 37.3 ml/min Estimated GFR () 30.6 35.2 Estimated GFR (Non- 26.4 30.4 BUN/Creatinine Ratio 16.0 16.7 10-20 Random Glucose 95 107 70-99 mg/dl Calcium Level 9.9 9.4 8.5-10.1 mg/dl Total Bilirubin 0.5 0.2-1 mg/dl Direct Bilirubin 0.2 0-0.2 mg/dl Aspartate Amino Transf (AST/SGOT) 18 15-37 U/L Alanine Aminotransferase (ALT/SGPT) 24 12-78 U/L Alkaline Phosphatase 142 45-117 U/L Total Protein 7.7 6.4-8.2 gm/dl Albumin 3.5 3.4-5.0 gm/dl Lipase 357 73-393 U/L Urine Color DK YELLOW Urine Appearance CLOUDY CLEAR Urine pH 5.0 4.5-7.5 Urine Specific [place] 1.027 1.000-1.030 Urine Protein 1+ NEG Urine Glucose (UA) NEG NEG Urine Ketones TRACE NEG Urine Occult Blood 3+ NEG Urine Nitrite NEG NEG Urine Bilirubin NEG NEG Urine Urobilinogen NEG NEG Urine Leukocyte Esterase TRACE NEG Urine WBC (Auto) 1-5 0-5 /hpf Urine RBC (Auto) 10-30 0-4 /hpf Urine Hyaline Casts (Auto) 0-5 /lpf Urine Epithelial Cells (Auto) 20-30 0-5 /lpf Urine Bacteria (Auto) NEG NEG Urine Crystals CALCIUM OXALATE NONE PRSENT Urine Pathogenic Casts 1-5 GRANULAR CASTS 0 /lpf Urine Yeast (Auto) NONE PRSENT Lactic Acid Level 0.7 0.4-2.0 mmol/L Magnesium Level 1.6 1.8-2.4 mg/dl Procalcitonin 0.49 0-0.5 ng/ml Thyroid Stimulating Hormone (TSH) 2.630 0.300-4.500 uIu/ml Microbiology Results 10/10/17 Blood Culture, Received Pending 10/10/17 Blood Culture, Received Pending 10/10/17 Urine Culture, Received Pending
[2017-10-11] MEDS ORDERED: ACETAMINOPHEN 325 MG TAB PO ONE (02:40)
[2017-10-11 06:13] LABS: BASO % 0.6 %; BASO ABS # 0.03 K/uL (0-0.2); EOS % 0.2 %; EOS ABS # 0.01 K/uL (0-0.5); HEMATOCRIT 30.4 % (42-52); HEMOGLOBIN 9.6 g/dL (14.0-18.0); IG# 0.02 K/uL (0.00-0.02); LYMPH % 19.6 %; LYMPH ABS # 0.93 K/uL (1.2-3.4); MEAN CELL VOLUME 77.2 fL (80-100); MEAN CORPUSCULAR HEMOGLOBIN 24.4 pg (25-34); MEAN CORPUSCULAR HGB CONC 31.6 g/dl (32-36); MEAN PLATELET VOLUME 10.2 fL (7.4-10.4); MONO % 11.4 %; MONO ABS # 0.54 K/uL (0.11-0.59); NEUT % 67.8 %; NEUT ABS # 3.21 K/uL (1.4-6.5); PLATELET COUNT 185 K/uL (130-400); RED CELL DISTRIBUTION WIDTH CV 16.2 % (11.5-14.5); RED CELL DISTRIBUTION WIDTH SD 45.2 fL (36.4-46.3); WHITE BLOOD COUNT 4.74 K/uL (4.8-10.8)
[2017-10-11 06:23] LABS: INR 1.7 (0.9-1.1)
[2017-10-11] MEDS: LEVOTHYROXINE 50 MCG TAB PO SCH (06:23)
[2017-10-11] MEDS: HYDROmorphone INJ 0.5 MG/0.5 ML SYR IV PRN ×5 (06:32→21:54)
--- NOTE | 2017-10-11 06:43 | DIAGNOSTIC IMAGING REPORT ---
CHEST ONE VIEW PORTABLE CLINICAL HISTORY: Fever. COMPARISON STUDY: Chest radiograph April 21, 2017. FINDINGS: A dual lead left-sided pacemaker and median sternotomy wires are noted. There is no evidence for pulmonary edema. Mild cardiomegaly is unchanged. There is no consolidation to suggest pneumonia. No pneumothorax or pleural effusion is present. IMPRESSION: No acute cardiopulmonary findings. Electronically signed by: Nomi Meneses M.D. 10/11/2017 6:42 AM Dictated Date/Time: 10/11/2017 6:40 AM
[2017-10-11 06:45] LABS: CALCIUM 8.9 mg/dl (8.5-10.1); CREATININE 2.21 mg/dl (0.60-1.40); POTASSIUM 3.7 mmol/L (3.5-5.1)
[2017-10-11] MEDS ORDERED: NSS + 20MEQ KCL 1000ML 1,000 ML IV ONE (07:15)
--- NOTE | 2017-10-11 07:33 | DIAGNOSTIC IMAGING REPORT ---
ABDOMEN AND PELVIS CT WITHOUT CONTRAST CT DOSE: 789.00 mGy.cm HISTORY: worsening R groin pain; ffup study TECHNIQUE: Multiaxial CT images of the abdomen and pelvis were performed without contrast. A dose lowering technique was utilized adhering to the principles of ALARA. COMPARISON STUDY: Right groin ultrasound 10/10/2017 and abdomen and pelvis CT 10/10/2017. FINDINGS: No change in size within the 6.3 cm pseudoaneurysm within the right femoral/inguinal location. Residual intravenous contrast within the urinary system from the prior CT examination. Cavitary 2.8 cm mass lesion within the right lower lobe is again noted. Pacemaker wires are present. There are poststernotomy changes. The unenhanced liver, gallbladder, spleen, left adrenal gland, and pancreas are unremarkable. Stable 1.2 cm right adrenal adenoma. No retroperitoneal lymphadenopathy. Small duodenal diverticulum. Bilateral cortical renal scarring. No hydronephrosis. There is a 1.8 cm hypodense lesion within the lower pole of the right kidney. Prostate gland is mildly enlarged. No definite bowel wall thickening or obstruction. Colonic diverticulosis. Normal appendix. IMPRESSION: 1. No change in size in the 6.3 cm right inguinal/femoral pseudoaneurysm. 2. No bowel wall thickening or obstruction. 3. Colonic diverticulosis. 4. Redemonstration of the 2.8 cm cavitary mass lesion within the right lower lobe. Electronically signed by: Mihir Chang M.D. 10/11/2017 7:32 AM Dictated Date/Time: 10/11/2017 7:26 AM
[2017-10-11] MEDS: ATOVAQUONE 750 MG/5 ML UDC PO SCH (09:00)
--- NOTE | 2017-10-11 09:29 | Surgery Consultation ---
Consultation Date of Service Oct 11, 2017. Chief Complaint R groin pseudoaneurysm History of Present Illness The patient is a 67 year old male with multiple medical problems, including DVT/ PE on coumadin, heart block s/p pacemaker, s/p heart transplant d/t amyloidosis , recurrent CMV infection, HCV, CKD stage III, admitted d/t R groin pseudoaneurysm noted on imaging after arrival in ED c/o R low back pain, seen in consultation today for eval. Pt denies prior knowledge of this pseudoaneurysm. States he noted an area of swelling that began about 2 wks ago. Low back pain started about 1 week prior to arrival at [facility]. Pain controlled with medication presently. Denies numbness or tingling in foot, also denies pain in foot. Denies RODRIGUEZ, fever at home, chest pain, SOB, abd pain, N/V, rest pain ,claudication, other complaints. Pt states it has been over a year since last femoral art access. CT imaging demonstrates 6.3cm R comm fem art pseudoaneurysm. Vitals Vital Signs Past 12 Hours Date Time Temp Pulse Resp B/P (MAP) Pulse Ox O2 Delivery O2 Flow Rate FiO2 10/11/17 08:10 37.1 103 15 121/85 (97) 96 Room Air 10/11/17 04:00 Room Air 10/11/17 03:47 37.1 103 17 108/78 (88) 94 Room Air 10/11/17 00:02 Room Air 10/11/17 00:00 38.6 123 19 127/87 (100) 94 Room Air 10/10/17 22:27 38.8 Allergies Coded Allergies: Morphine (Unverified Allergy, Unknown, Nausea/vomiting, 04/21/17) Home Medications Scheduled Amlodipine (Norvasc), 10 MG PO DAILY Atovaquone (Mepron), 10 ML PO QAM Calcium Carbonate-Cholecalcife (Caltrate 600+D), 1 TAB PO BID Levothyroxine Sodium (Synthroid), 50 MCG PO DAILY Mycophenolate Mofetil (Cellcept), 1,000 MG PO BID Omeprazole (Prilosec), 20 MG PO DAILY Pravastatin Sodium (Pravachol), 40 MG PO DAILY Prednisone (Prednisone), 7.5 MG PO Q2D Prednisone (Prednisone), 5 MG PO Q2D Senna (Senokot), 2 TAB PO DAILY Tacrolimus (Prograf), 4 MG PO AMPM Warfarin Sod (Jantoven), 3.5 MG PO Q2D Warfarin Sod (Jantoven), 2.5 MG PO Q2D Scheduled PRN Tramadol (Ultram), 50-100 MG PO Q6H PRN for Pain Problem List Medical Problems: (1) Atrial fibrillation (2) Cardiac amyloidosis (3) Chronic anticoagulation (4) CKD (chronic kidney disease), stage III (5) 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 (6) Depression (7) DVT, lower extremity (8) Dyslipidemia (9) Heart block (10) Hypothyroidism (11) Left ventricular hypertrophy (12) Prothrombin gene mutation (13) Pulmonary embolism (14) Pulmonary hypertension (15) RBBB (16) Syncope Surgical Problems: (1) Heart transplanted (2) History of carpal tunnel surgery of right wrist (3) S/p removal of knee cartilage (4) Status post total knee replacement Surgical / Medical History Hx Cardiac Surgery: Yes (heart transplant/pacer ) Hx Abdominal Surgery: No Hx Cancer Surgery: No Hx Thoracic Surgery: No Hx Orthopedic: Yes (left TKA ) Hx Urinary Tract Surgery: No HX Other Surgery: Yes Past Medical/Surgical History: Chronic Steroid Use, Hypertension, Kidney Disease, Thyroid Disease, Other (cardiac transplant, pacemaker) Family History Patient reports no known family medical history. Social History Smoking Status: Never Smoker Hx Tobacco Use In Past Year?: No Hx Alcohol Use - Type & Amnt: Yes (occasionally ) Hx Substance Use -Type & Amnt: No Review of Systems Constitutional: No chills, No fever, No malaise Skin: No change in color Eyes: No visual changes ENMT: No sore throat Respiratory: No cough, No ALY, No hemoptysis, No short of breath Cardiovascular: No chest pain, No palpitations, No syncope, No edema, No intermittent claudication Gastrointestinal: No abdominal pain, No nausea, No vomiting Musculoskeletal: + back pain (R side) Neurologic: No dizziness, No headache, No numbness, No tingling Physical Exam Constitutional: General Apperance: heathly-appearing, well-nourished, well-developed Level of Distress: NAD Ambulation: ambulating normally Psychiatric: Mental Status: active & alert, normal mood, normal affect Orientation: oriented except where noted, to time, to place, to person Memory: recent memory normal, remote memory normal Head: normocephalic, atraumatic Eyes: EOM: EOMI ENMT: normal ENT inspection, hearing grossly normal Neck: supple, trachea midline Lungs: Respiratory effort: no dyspnea Auscultation: no rales/crackles, no rhonchi, decreased breath sounds Cardiovascular: Apical Impulse: not displaced Heart Auscultation: RRR, no rubs, no gallops Peripheral Pulses: Pulses: full and equal, in all extremities except if noted Bruits: none appreciated Carotid Pulse: normal on the left, normal on the right Brachial Pulses: normal on the left, normal on the right Radial Pulse: normal on the left, normal on the right Femoral Pulse: normal on the left, normal on the right, pertinent finding ( R groin large pulsatile mass noted, nontender, no erythema.) Posterior Tibialis Pulse: decreased on the left, decreased on the right Dorsalis Pedis Pulse: normal on the left, decreased on the right Abdomen: Bowel Sounds: normal Inspection & Palpation: soft, non-distended, no tenderness, guarding & rebound Musculoskeletal: normal strength (5/5 throughout), normal tone Extremities: Upper Right: no cyanosis, no edema, no varicosities Upper Left: no cyanosis, no edema, no varicosities Lower Right: no cyanosis, no edema, no varicosities Lower Left: no cyanosis, no edema, no varicosities Neurologic: Cranial Nerves: grossly intact Sensation: grossly intact Assessment and Plan ASSESSMENT and PLAN: R groin pseudoaneurysm Pt also seen by Dr Soni today, recommends surgical repair of R groin pseudoaneurysm in OR, planning on WED. Recommend pt remain anticoagulated with heparin until time of surgery. Pt understands plan and is agreeable.
--- NOTE | 2017-10-11 09:30 | PULMONARY CONSULTATION ---
DATE OF CONSULTATION: 10/11/2017 REASON FOR CONSULTATION: Cavitating right lower lobe pleural based nodule. HISTORY OF PRESENT ILLNESS: A 67-year-old white male was admitted on 10/10/2017 with 2-day history of severe progressive right groin pain radiating to the right scrotal area as well as to the right SI region. The patient carries with him the diagnosis of systemic cardiac amyloidosis and a status post heart transplant, May of 2016. He is followed locally by Dr. Vincent Oconnor. He has had a history of DVT, pulmonary emboli, hypercoagulable state, dyslipidemia, paroxysmal atrial fibrillation, pulmonary hypertension as well as chronic renal disease stage III with a baseline creatinine in the 2 range, hypothyroidism and in complete heart block status post pacemaker. 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 He has also been chronically anemic. As stated earlier underwent his cardiac transplant in May 2016 for refractory CHF and is currently on tacrolimus, CellCept, and prednisone therapy. He was admitted to [facility] in November 2016 for 2 weeks of diarrhea, poor intake and worsening renal status and apparently had high CMV titers, was started on ganciclovir. Two new lung nodules were discovered at that time, 1 involving the right lower lobe and he states on 2 separate occasions discussion was held to needle biopsy this lesion but he is not sure why it was not carried out. He was taken down the second time and anesthetized with local anesthesia in the right posterior back area but needle biopsy was not attempted. He has a negative smoking history with some secondary exposure. He denies cough or pleuritic pain currently. No hemoptysis has been noted. Interestingly now he was admitted with a fever, although feels much better today than he did on the day of admission. The pain has been in the right groin area and apparently a pacemaker was inserted with a puncture in the right groin as the access area. Denies meningismus, shortness of breath or pleuritic pain currently. For details of his past medical history, current medication including Coumadin dosing, I refer you to Dr. Gleason's admitting H&P. PHYSICAL EXAMINATION: GENERAL: Reveals a well-developed, well-nourished white male appearing stable and comfortable. VITAL SIGNS: His temperature is 37.7, pulse 103 and regular, respiratory rate 51, blood pressure 121/85 and O2 sat 96% on room air. SKIN: Without lesion. HEENT: Atraumatic, normocephalic. PERRLA. EOMI. Conjunctivae pale. Sclerae nonicteric. Fundi poorly visualized. NECK: Veins not distended at 45 degrees. LUNGS: Distant P&A. No audible wheezes or evidence for consolidation. CARDIAC: Sinus tachycardia. I do not appreciate a gallop. ABDOMEN: Soft, scaphoid. EXTREMITIES: Trace pedal edema. No clubbing. Peripheral cyanosis. The right groin was palpated gently and patient is tender over the right testicular/groin area without a palpable mass? pulsatile area in the right femoral region. The distal pulses are palpable. NEUROLOGIC: Intact. LABORATORY DATA: EKG on admission shows sinus tachycardia, right bundle branch block with slight prolongation of the QT interval. Blood cultures and urine culture pending. White count 4700, H&H 9.6 and 30.4 with hypochromic microcytic indices, platelet count adequate. BUN 33, creatinine 2.2, which is stable. His PT/INR on admission was 4.7 and now it is 1.7. CMV antibodies are pending. The rest of the lab data is pending. Abdominal pelvic CT scan done on admission without contrast shows that there has been no change in the size of the 6.3 cm right inguinal/femoral pseudoaneurysm with no other abnormalities seen except redemonstration of a 2.8 cm cavitary mass lesion within the right lower lobe. A dedicated CT scan of the chest was not ordered. A chest film does not reveal this abnormality or additional nodular densities. Chest CT in 2009 showed only infiltrate involving the right upper, middle and lower lobes at that time with shotty lymphadenopathy. OVERALL ASSESSMENT: A 67-year-old with a history of systemic amyloidosis, status post cardiac transplant in May 2016 with chronic renal disease, past history of chronic systolic and diastolic heart failure, hypertension, now with a pseudoaneurysm involving the right groin that has been giving patient a great deal of pain. Dr. Soni was seen and evaluated the patient today and considered taking him to surgery on Wednesday with possible repair. The temperature elevation may be a result of this aneurysm that could very well be infected. I doubt the right lower lobe cavitary process is giving him this fever, though possible. This lesion will need evaluation either during this admission following repair of the pseudoaneurysm or as an outpatient. We need to obtain all old films for comparison, although there was a comment that there has been slightl increase in growth of this lesion when compared to November of 2016. I told the patient there are 3 categories of diseases, infection, inflammation and cancer that could explain the findings. Given his immunosuppressed, infection and inflammation are high up on the list and it gets critical that this lesion either be needled or biopsied with cultures obtained as well at some point in time. We will discuss more with the primary service and I have asked the patient to sign a release for records to be forthcoming from the [facility].
[2017-10-11] MEDS: PRAVASTATIN SOD 40 MG TAB PO SCH (10:13)
[2017-10-11] MEDS: CALCIUM 600MG + VIT D 400 IU TAB PO SCH ×2 (10:13→21:00)
[2017-10-11] MEDS: MYCOPHENOLATE MOFETIL 250 MG CAP (CELLCEPT) PO SCH ×2 (10:13→21:00)
[2017-10-11] MEDS: TACROLIMUS 1 MG CAP PO SCH ×2 (10:14→21:00)
--- NOTE | 2017-10-11 10:34 | CARDIOLOGY CONSULTATION ---
DATE OF CONSULTATION: 10/11/2017 CONSULTATION REQUESTED BY: Chris Gleason MD. REASON FOR CONSULTATION: Preop risk assessment. HISTORY OF PRESENT ILLNESS: Mr. Alcocer is a very pleasant yet medically complex 67-year-old gentleman who was just recently established Dr. Oconnor of our cardiology practice for his history of cardiac transplant. Mr. Alcocer presented to [facility] on 10/10/2017 with a complaint of right groin pain. The patient states that the pain has been going on for several days now and he did notice a lump down there. He finally came into the Emergency Department on the and he was found to have a 6.3 cm pseudoaneurysm present. At that time, he was admitted to telemetry. His INR was reversed and he was evaluated for pseudoaneurysm repair. From a cardiac standpoint, the patient states he has been feeling great lately. He denies any chest pain, shortness of breath, palpitations, lightheadedness, dizziness or syncope. He has been taking his medications as directed without issue. There were some issues with healing at his pacemaker pocket site but it has been progressing appropriately. Of note, the patient was previously following with [facility] cardiac transplant team but is currently undergoing transfer to [facility] transplant, but has not established care with them yet. He was last seen in [facility] when he was transferred from here in April for fear of rejection and a permanent pacemaker was placed, but there was no sign of rejection at that time. He also reportedly had a cardiac catheterization which showed no significant coronary artery disease or vasculopathy and echocardiogram at that time showed normal systolic function as well. I did speak with Dr. Cruz Christopher at [facility] of the cardiac transplant team and he offered any further questions be directed to him at the [facility] number [phone]. PAST SURGICAL HISTORY: 1. Status post orthotopic cardiac transplant 06/07/2016 at [facility]. 2. [facility] permanent pacemaker placement April 2017. 3. History of multiple cardiac catheterizations and biopsies performed. 4. Carpal tunnel surgery. 5. Total knee replacement. 6. Colonoscopy. MEDICAL ILLNESSES: 1. 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 2. History of hypercoagulable state with positive prothrombin gene and heterozygous MTHFR mutation on chronic anticoagulation. 3. Chronic renal insufficiency. 4. History of CMV viremia on chronic immunosuppression. 5. History of post-cardiac transplant heart block status post dual-chamber permanent pacemaker placement. 6. History of post-cardiac transplant hypertension. 7. Remote paroxysmal atrial fibrillation. FAMILY HISTORY: Noncontributory. SOCIAL HISTORY: The patient denies any tobacco use. Drinks rare alcohol. Denies any recreational drug use. He is , currently lives at home with his girlfriend. ALLERGIES: 1. MORPHINE. 2. BUPRENORPHINE. MEDICATIONS AN OUTPATIENT: 1. Diltiazem ER 240 mg daily. 2. Tacrolimus 4 mg b.i.d. 3. Coumadin alternating 3.5 and 2.5 mg daily. 4. Prednisone 7.5 mg daily. 5. Prilosec daily. 6. CellCept 1000 mg b.i.d. 7. Mepron 1500 mg daily. 8. Pravachol 40 mg daily. 9. Levoxyl daily. PHYSICAL EXAMINATION: VITALS: T-max of 39.5, pulse 103, respiratory rate 12, blood pressure 121/85, saturating 96% on room air. GENERAL: Awake, alert, oriented x3 in no acute distress. HEENT: Normocephalic, atraumatic. Pupils equal, round, and reactive to light and accommodation. Extraocular muscles intact. Anicteric sclerae. Moist mucous membranes. NECK: No JVD, no bruit. CARDIOVASCULAR: Regular. Positive S4. Normal S1 and S2. No S3. No murmurs or rubs. PULMONARY: Clear to auscultation bilaterally. No rales, rhonchi, or wheezing. ABDOMEN: Bowel sounds x4, soft. No rebound, guarding, tenderness. No organomegaly. EXTREMITIES: No clubbing, cyanosis or edema. +2 pedal pulses bilaterally. SKIN: Warm and dry. TEST RESULTS: CT of the abdomen and pelvis with IV contrast was read as large pseudoaneurysm of the right inguinal region measuring up to 6.3 cm and appears to be contiguous with a common femoral artery just proximal to the origin of the superficial femoral artery. There is partial thrombosis of the pseudoaneurysm along the superior margin of less than 10%, spiculated pleural based soft tissue attenuating mass of the right lower lobe, slightly increased from prior previous study. IMPRESSION: 1. Preop risk assessment prior to undergoing pseudoaneurysm repair. 2. 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 3. History of hypercoagulable state, on chronic Coumadin therapy. 4. Remote paroxysmal atrial fibrillation. 5. Complete heart block status post permanent pacemaker placement. 6. Chronic CMV infection. RECOMMENDATIONS: It was my pleasure to see Mr. Alcocer in consultation today. Given the fact that the patient is asymptomatic from a cardiac standpoint and his most recent studies at [facility] were unremarkable, I did discuss the case with transplant supervisor silvering department at [facility] and it was recommended that no special recommendations are necessary for a preop standpoint given his history of transplant. So the patient was counseled that I have placed him at a moderate risk for any adverse perioperative cardiovascular event with the risk being approximately less than 5%. He states he understands, he is accepting of this risk, and wishes to proceed with the surgery, so there is no need to delay from a cardiac standpoint. The patient will also be seen by pulmonary medicine as well as nephrology and I will follow him closely during his postoperative care as well. Thank you very much for allowing me to participate in the care of your patient.
--- NOTE | 2017-10-11 10:56 | ECHOCARDIOGRAM REPORT ---
*NOTICE TO RECEIVING CONSTITUTION PARTY AGENCY This information is strictly Confidential and protected under [place] law. [place] law prohibits you from making any further disclosure of this information unless further disclosure is expressly permitted by the written consent of the person to whom it pertains or is authorized by law. A general authorization for the release of medical or other information is not sufficient for this purpose. Hospital accepts no responsibility if the information is made available to any other person, INCLUDING THE PATIENT. Interpretation Summary * Name: SLAVA BROWN Study Date: 10/11/2017 09:30 AM BP: 121/85 mmHg * Patient Location: C.2E\S\E210\S\1 HR: 103 * : 1950 (M/d/yyyy) Gender: Male Height: 73 in * Age: 67 yrs Ethnicity: CA Weight: 196 lb * Ordering Physician: Jonathan Perez * Referring Physician: Self, Referred * Performed By: Esther Galaviz RCS * * Reason For Study: Pre-Op Clearance, Hx of Heart Transplant * BSA: 2.1 m2 * -- Conclusions -- * Normal LV chamber size with mild concentric LVH. * Normal LV systolic function, EF 60-65%. * No segmental left ventricular wall motion abnormalities are noted. * Grade I diastolic dysfunction. * Normal RV chamber size and systolic function. * No significant valvular pathology. * Small, loculated posterior pericardial effusion without hemodynamic significance. Procedure Details * A complete two-dimensional transthoracic echocardiogram was performed (2D, M-mode, Doppler and color flow Doppler). Left Ventricle * The left ventricle is normal in size. * There is mild concentric left ventricular hypertrophy. * Left ventricular systolic function is normal. * No segmental left ventricular wall motion abnormalities are noted. * Ejection Fraction = 60-65%. * The left ventricular wall motion is normal. Right Ventricle * The right ventricular cavity size is normal (basal dimension <4.2 cm in right ventricular apical 4-chamber view). * The right ventricular systolic function is normal as assessed by tricuspid annular plane systolic excursion (TAPSE) (normal >1.5 cm). Atria * The left atrium is mildly dilated. * Right atrial size is normal. * No ASD detected; PFO is not assessed. Mitral Valve * The mitral valve is normal in structure and function. Tricuspid Valve * The tricuspid valve is normal in structure and function. Aortic Valve * The aortic valve is normal in structure and function. Pulmonic Valve * The pulmonary valve is not well seen, but the Doppler examination is normal without significant regurgitation or stenosis. Great Vessels * The aortic root is normal size. Pericardium/Pleural * Small pericardial effusion. * A loculated pericardial effusion is noted. * There are no echocardiographic indications of cardiac tamponade. MMode 2D Measurements and Calculations IVSd 1.1 cm IVSs 1.5 cm LVIDd 4.3 cm LVIDs 1.6 cm LVPWd 0.97 cm LVPWs 1.2 cm IVS/LVPW 1.1 FS 62.8 % EDV(Teich) 81.0 ml ESV(Teich) 7.0 ml EF(Teich) 91.4 % EDV(cubed) 77.0 ml ESV(cubed) 4.0 ml EF(cubed) 94.8 % % IVS thick 42.5 % % LVPW thick 19.7 % LV mass(C)d 144.5 grams LV mass(C)dI 67.7 grams/m\S\2 LV mass(C)s 62.3 grams LV mass(C)sI 29.2 grams/m\S\2 SV(Teich) 74.0 ml SI(Teich) 34.7 ml/m\S\2 SV(cubed) 73.0 ml SI(cubed) 34.2 ml/m\S\2 Ao root diam 3.6 cm Ao root area 10.0 cm\S\2 ACS 2.3 cm LA dimension 5.1 cm asc Aorta Diam 2.9 cm LA/Ao 1.4 EDV(MOD-sp4) 192.4 ml ESV(MOD-sp4) 75.1 ml EF(MOD-sp4) 61.0 % EDV(MOD-sp2) 147.5 ml ESV(MOD-sp2) 54.3 ml EF(MOD-sp2) 63.2 % SV(MOD-sp4) 117.3 ml SI(MOD-sp4) 55.0 ml/m\S\2 SV(MOD-sp2) 93.2 ml SI(MOD-sp2) 43.7 ml/m\S\2 Doppler Measurements and Calculations MV E max cathy 90.6 cm/sec MV P1/2t max cathy 102.2 cm/sec MV P1/2t 57.3 msec MVA(P1/2t) 3.8 cm\S\2 MV dec slope 522.8 cm/sec\S\2 MV dec time 0.23 sec Ao V2 max 106.2 cm/sec Ao max PG 4.5 mmHg Ao max PG (full) 2.4 mmHg LV V1 max PG 2.1 mmHg LV V1 max 72.0 cm/sec PA V2 max 99.2 cm/sec PA max PG 3.9 mmHg PI max cathy 188.9 cm/sec PI max PG 14.3 mmHg PI dec slope 182.5 cm/sec\S\2 PI P1/2t 303.3 msec TR max cathy 209.6 cm/sec
[2017-10-11] MEDS: PANTOprazole SOD 40 MG TAB PO SCH (13:22)
--- NOTE | 2017-10-11 17:09 | PULMONARY CONSULTATION ---
DATE OF CONSULTATION: 10/11/2017 ADDENDUM PROGRESS NOTE: At 1400. I had the chance to review both the abdominal CT scan that was performed during this admission and compared it to a downloaded CT scan of the chest done at [facility] on November of 2016. They attempted at that point to needle biopsy under CT guidance, a right lower lobe pleural based lesion, but for reasons that were unclear, perhaps because they could not get around the rib in that area, they did not follow through with the needle biopsy. At that time, there was a left lower lobe nodular density that seems improved compared to the most current CT scan of the abdomen and pelvis. However, the approximate 3.1 cm lesion that is pleural based involving the right lower lobe now appears to be cavitating and certainly is suspicious for slow growing bronchogenic neoplasm. Given his immunocompromised and immunosuppressive status, certainly an inflammatory or infectious etiology cannot be ruled out, just from the appearance on x-ray. I have spoken with the patient and once the pseudoaneurysm involving his right femoral artery is addressed and repaired, hopefully on Wednesday with Dr. Soin and then we would consider an outpatient CT-guided biopsy of his right lower lobe pleural based mass/nodule appears to be essentially cavitating.
[2017-10-11 17:38] LABS: HEMATOCRIT 29.6 % (42-52); HEMOGLOBIN 9.3 g/dL (14.0-18.0); MEAN CELL VOLUME 77.1 fL (80-100); MEAN CORPUSCULAR HEMOGLOBIN 24.2 pg (25-34); MEAN CORPUSCULAR HGB CONC 31.4 g/dl (32-36); MEAN PLATELET VOLUME 9.8 fL (7.4-10.4); PLATELET COUNT 161 K/uL (130-400); RED CELL DISTRIBUTION WIDTH CV 16.2 % (11.5-14.5); RED CELL DISTRIBUTION WIDTH SD 45.5 fL (36.4-46.3); WHITE BLOOD COUNT 4.94 K/uL (4.8-10.8)
[2017-10-11 17:49] LABS: INR 1.3 (0.9-1.1); PTT PATIENT 34.9 SECONDS (21.0-31.0)
--- NOTE | 2017-10-11 17:58 | Progress Note ---
Subjective Date of Service: Oct 11, 2017. Subjective Pt evaluation today including: conversation w/ patient, physical exam, lab review, review of studies, review of inpatient medication list Saw/examined the patient in room 210 Doing well, no issues to note as of this time, Vishal CHAMBERS doing okay no fevers/chills, no chest pain/shortness of breath Problem List Medical Problems: (1) Anemia Status: Acute (2) Knee effusion, right Status: Acute (3) Leg pain Status: Acute (4) Pseudoaneurysm Status: Acute (5) Pseudogout Status: Acute (6) Renal insufficiency Status: Acute Review of Systems Constitutional: No fever, No chills Respiratory: No cough, No sputum, No shortness of breath Cardiac: No chest pain Abdomen: No pain, No nausea, No vomiting, No diarrhea Heme: No abnormal bleeding/bruising Medications Current Inpatient Medications Medications (Trade) Dose Ordered Sig/Rosette Route Start Time Stop Time Status Last Admin Dose Admin Ioversol (Optiray 320) 100 ml UD PRN IV 10/10/17 12:45 10/14/17 12:44 Acetaminophen (Tylenol Tab) 650 mg Q4H PRN PO 10/10/17 14:30 11/09/17 14:29 10/10/17 22:16 650 MG Ondansetron HCl (Zofran Inj) 4 mg Q6H PRN IV 10/10/17 14:30 11/09/17 14:29 Nitroglycerin (Nitrostat Tab) 0.4 mg UD PRN SL 10/10/17 14:30 11/09/17 14:29 Levothyroxine Sodium (Synthroid Tab) 50 mcg DAILYBB PO 10/11/17 06:00 11/10/17 05:59 10/11/17 06:23 50 MCG Mycophenolate Mofetil (Cellcept Cap) 1,000 mg BID PO 10/10/17 21:00 11/09/17 20:59 10/11/17 10:13 1,000 MG Pravastatin Sodium (Pravachol Tab) 40 mg DAILY PO 10/11/17 09:00 11/10/17 08:59 10/11/17 10:13 40 MG Prednisone (PredniSONE TAB) 5 mg Q2D@0900 PO 10/12/17 09:00 11/11/17 08:59 Prednisone (PredniSONE TAB) 7.5 mg Q2D@0900 PO 10/11/17 09:00 11/10/17 08:59 10/11/17 10:13 7.5 MG Tacrolimus (Prograf Cap) 4 mg BID PO 10/10/17 21:00 11/09/17 20:59 10/11/17 10:14 4 MG Tramadol HCl (Ultram Tab) 50 mg Q6H PRN PO 10/10/17 14:30 11/09/17 14:29 10/10/17 22:17 50 MG Atovaquone (Mepron Susp) 1,500 mg QAM PO 10/11/17 09:00 11/10/17 08:59 10/11/17 09:00 1,500 MG Calcium/Vitamin D (Caltrate Plus Tab) 1 tab BID PO 10/10/17 21:00 11/09/17 20:59 10/11/17 10:13 1 TAB Pantoprazole Sodium (Protonix Tab) 40 mg QAM PO 10/11/17 09:00 11/10/17 08:59 10/11/17 13:22 40 MG Hydromorphone HCl (Dilaudid Inj) 0.5 mg Q3H PRN IV 10/10/17 23:00 10/24/17 22:59 10/11/17 13:23 0.5 MG Prochlorperazine Edisylate 5 mg/ Syringe 5 ml @ 5 mls/min Q6H PRN IV 10/10/17 23:00 11/09/17 22:59 Cefepime HCl 2000 mg/Syringe 20 ml @ 5 mls/min Q24H IV 10/10/17 23:30 10/20/17 23:29 10/10/17 23:45 5 MLS/MIN Cefepime HCl (Consult) 1 ea UD PRN N/A 10/10/17 23:30 11/09/17 23:29 Potassium Chloride/Sodium Chloride 1,000 ml @ 75 mls/hr [id number] ONCE IV 10/11/17 07:15 10/11/17 20:34 10/11/17 10:12 75 MLS/HR Heparin Sodium/ Dextrose 500 ml @ 30 mls/hr [id number] PRN IV 10/11/17 17:30 11/10/17 17:29 Objective Vital Signs Date Time Temp Pulse Resp B/P (MAP) Pulse Ox O2 Delivery O2 Flow Rate FiO2 10/11/17 16:25 Room Air 10/11/17 15:45 37.2 107 22 113/79 (90) 95 Room Air 10/11/17 12:45 37.9 113 14 156/99 (118) 96 Room Air 10/11/17 12:18 Room Air 10/11/17 08:10 37.1 103 15 121/85 (97) 96 Room Air 10/11/17 08:01 Room Air 10/11/17 04:00 Room Air 10/11/17 03:47 37.1 103 17 108/78 (88) 94 Room Air 10/11/17 00:02 Room Air 10/11/17 00:00 38.6 123 19 127/87 (100) 94 Room Air 10/10/17 22:27 38.8 10/10/17 21:08 39.3 136/84 (101) 10/10/17 20:00 39.5 124 18 158/106 (123) 96 Room Air 10/10/17 20:00 Room Air Physical Exam General Appearance: WD/WN, no apparent distress Respiratory/Chest: lungs clear, normal breath sounds, no respiratory distress, no accessory muscle use Cardiovascular: regular rate, rhythm, no edema, no murmur Extremities: normal inspection, no pedal edema Neurologic/Psychiatric: no motor/sensory deficits, alert, normal mood/affect Laboratory Results Last 24 Hours Test 10/10/17 23:16 10/11/17 05:53 10/11/17 07:12 10/11/17 17:27 White Blood Count 5.33 K/uL 4.74 K/uL 4.94 K/uL Red Blood Count 4.58 M/uL 3.94 M/uL 3.84 M/uL Hemoglobin 11.0 g/dL 9.6 g/dL 9.3 g/dL Hematocrit 35.0 % 30.4 % 29.6 % Mean Corpuscular Volume 76.4 fL 77.2 fL 77.1 fL Mean Corpuscular Hemoglobin 24.0 pg 24.4 pg 24.2 pg Mean Corpuscular Hemoglobin Concent 31.4 g/dl 31.6 g/dl 31.4 g/dl Platelet Count 206 K/uL 185 K/uL 161 K/uL Mean Platelet Volume 10.2 fL 10.2 fL 9.8 fL Neutrophils (%) (Auto) 74.0 % 67.8 % Lymphocytes (%) (Auto) 9.4 % 19.6 % Monocytes (%) (Auto) 15.6 % 11.4 % Eosinophils (%) (Auto) 0.4 % 0.2 % Basophils (%) (Auto) 0.4 % 0.6 % Neutrophils # (Auto) 3.95 K/uL 3.21 K/uL Lymphocytes # (Auto) 0.50 K/uL 0.93 K/uL Monocytes # (Auto) 0.83 K/uL 0.54 K/uL Eosinophils # (Auto) 0.02 K/uL 0.01 K/uL Basophils # (Auto) 0.02 K/uL 0.03 K/uL RDW Standard Deviation 44.2 fL 45.2 fL 45.5 fL RDW Coefficient of Variation 16.0 % 16.2 % 16.2 % Immature Granulocyte % (Auto) 0.2 % 0.4 % Immature Granulocyte # (Auto) 0.01 K/uL 0.02 K/uL Prothrombin Time 28.8 SECONDS 17.5 SECONDS 13.6 SECONDS Prothromb Time International Ratio 2.8 1.7 1.3 Sodium Level 132 mmol/L 134 mmol/L Potassium Level 3.9 mmol/L 3.7 mmol/L Chloride Level 101 mmol/L 103 mmol/L Carbon Dioxide Level 21 mmol/L 22 mmol/L Anion Gap 10.0 mmol/L 9.0 mmol/L Blood Urea Nitrogen 36 mg/dl 33 mg/dl Creatinine 2.17 mg/dl 2.21 mg/dl Est Creatinine Clear Calc Drug Dose 37.3 ml/min 36.6 ml/min Estimated GFR () 35.2 34.5 Estimated GFR (Non- 30.4 29.7 BUN/Creatinine Ratio 16.7 14.9 Random Glucose 107 mg/dl 92 mg/dl Lactic Acid Level 0.7 mmol/L Calcium Level 9.4 mg/dl 8.9 mg/dl Magnesium Level 1.6 mg/dl 1.9 mg/dl Procalcitonin 0.49 ng/ml Thyroid Stimulating Hormone (TSH) 2.630 uIu/ml Activated Partial Thromboplast Time 34.9 SECONDS Partial Thromboplastin Ratio 1.3 Assessment and Plan R Inguinal Pseudoaneurysm appreciate vascular input for now, will plan on OR on October 13 currently on IV heparin Hx. of Heart Transplant has had a hx. of amyloidosis continue current medications cardiac clearance appreciated - moderate risk Hx. of PE Hypercoagulable State off of Coumadin for potential surgery on IV heparin Hx. of A. Fib continue Cardizem; currently sinus tachycardic IV heparin for now Cavitary Lesion Lung Nodules pulm input appreciated likely outpatient w/up, CT guided biopsy of lung nodules Hx. of complete heart block s/p pacemaker interrogation pending CKD stage 3 baseline creatinine, monitor and avoid nephrotoxic agents when able DVT ppx IV heparin FULL CODE
[2017-10-11] MEDS: HEPARIN 25,000 UNIT/500ML D5W 500 ML IV PRN (18:35)
[2017-10-11] MEDS: CEFEPIME IV 2,000 MG in SYRINGE 7.5 ML IV SCH (23:31)
[2017-10-12 00:05] VITALS: O2SAT 96
[2017-10-12 01:35] LABS: PTT PATIENT 64.8 SECONDS (21.0-31.0)
[2017-10-12] MEDS ORDERED: NURSING VERBAL MED ORDER ONE (02:00)
[2017-10-12] MEDS: HYDROmorphone INJ 0.5 MG/0.5 ML SYR IV PRN ×8 (02:13→23:41)
[2017-10-12 04:13] VITALS: BP 104/60; PULSE 82; TEMP 37.1; O2SAT 98
[2017-10-12] MEDS: LEVOTHYROXINE 50 MCG TAB PO SCH (06:05)
[2017-10-12 07:27] LABS: BASO % 0.5 %; BASO ABS # 0.03 K/uL (0-0.2); EOS % 1.2 %; EOS ABS # 0.07 K/uL (0-0.5); HEMATOCRIT 30.5 % (42-52); HEMOGLOBIN 9.5 g/dL (14.0-18.0); IG# 0.02 K/uL (0.00-0.02); LYMPH ABS # 0.68 K/uL (1.2-3.4); MEAN CELL VOLUME 77.4 fL (80-100); MEAN CORPUSCULAR HEMOGLOBIN 24.1 pg (25-34); MEAN CORPUSCULAR HGB CONC 31.1 g/dl (32-36); MONO % 14.3 %; MONO ABS # 0.81 K/uL (0.11-0.59); NEUT % 71.6 %; NEUT ABS # 4.07 K/uL (1.4-6.5); PLATELET COUNT 179 K/uL (130-400); RED CELL DISTRIBUTION WIDTH CV 16.2 % (11.5-14.5); WHITE BLOOD COUNT 5.68 K/uL (4.8-10.8)
[2017-10-12] MEDS: CALCIUM 600MG + VIT D 400 IU TAB PO SCH ×2 (07:37→20:49)
[2017-10-12] MEDS: MYCOPHENOLATE MOFETIL 250 MG CAP (CELLCEPT) PO SCH ×2 (07:37→20:49)
[2017-10-12] MEDS: PANTOprazole SOD 40 MG TAB PO SCH (07:38)
[2017-10-12] MEDS: ATOVAQUONE 750 MG/5 ML UDC PO SCH (07:38)
[2017-10-12] MEDS: PRAVASTATIN SOD 40 MG TAB PO SCH (07:38)
[2017-10-12] MEDS: TACROLIMUS 1 MG CAP PO SCH ×2 (07:38→20:50)
[2017-10-12 07:39] VITALS: BP 100/52; PULSE 86; TEMP 37.8; O2SAT 94
[2017-10-12 07:45] LABS: INR 1.2 (0.9-1.1)
[2017-10-12 07:48] LABS: PTT PATIENT 62.6 SECONDS (21.0-31.0)
[2017-10-12 07:59] LABS: CALCIUM 9.9 mg/dl (8.5-10.1); CREATININE 1.9 mg/dl (0.60-1.40); POTASSIUM 3.7 mmol/L (3.5-5.1)
[2017-10-12] MEDS: HEPARIN 25,000 UNIT/500ML D5W 500 ML IV PRN (11:14)
--- NOTE | 2017-10-12 11:25 | Cardiology Follow-Up ---
Subjective Subjective Date of Service: Oct 12, 2017. Pt evaluation today including: conversation w/ patient, physical exam, chart review, lab review, review of studies, review of inpatient medication list Additional Details: Pt seen and examined, states that he feels well. Still some groin discomfort but controlled with pain meds. Denies cp, sob, palpitations, lightheadedness or dizziness. Tele reviewed: sinus rhythm/tachycardia in low 100's. no arrhythmias Problem List Medical Problems: (1) Anemia Status: Acute (2) Knee effusion, right Status: Acute (3) Leg pain Status: Acute (4) Pseudoaneurysm Status: Acute (5) Pseudogout Status: Acute (6) Renal insufficiency Status: Acute Review of Systems Constitutional: No fever, No chills Respiratory: No cough, No sputum, No shortness of breath Cardiac: No chest pain Abdomen: No pain, No nausea, No vomiting, No diarrhea Musculoskeletal: + joint pain Heme: No abnormal bleeding/bruising Objective Vital Signs Last Vital Signs Documentation Date Time Temp Pulse Resp B/P (MAP) Pulse Ox O2 Delivery O2 Flow Rate FiO2 10/12/17 08:01 Room Air 10/12/17 07:39 37.8 86 24 100/52 (68) 94 Physical Exam: General Appearance: WD/WN, no apparent distress Eyes: bilateral eyes normal inspection, bilateral eyes PERRL, bilateral eyes EOMI ENT: normal ENT inspection, hearing grossly normal, pharynx normal Neck: supple, no adenopathy, thyroid normal, no JVD, no carotid bruits, trachea midline Respiratory/Chest: chest non-tender, lungs clear, normal breath sounds, no respiratory distress, no accessory muscle use Cardiovascular: regular rate, rhythm, no edema, no JVD, no murmur, + tachycardia, + gallop/S4 Abdomen: normal bowel sounds, non tender, soft, no organomegaly, no pulsatile mass Extremities: normal inspection, no pedal edema, no calf tenderness Neurologic/Psychiatric: microstrategy bi developer II-XII nml as tested, no motor/sensory deficits, alert, normal mood/affect, oriented x 3 Skin: normal color, warm/dry, no rash Lymphatic: no adenopathy Assessment and Plan 1. Preop cardiac risk assessment as discussed on full consult moderate risk, no reason to delay surgery or further work up from cardiac standpoint 2. Hx of heart transplant cont antirejection drugs: cellcept, prednisone and tacrolimus has been having some resting tachycardia and start on cardizem will consider uptitration after surgery 3. Hx of hypercoaguable state coumadin held on heparin for now
--- NOTE | 2017-10-12 13:29 | Anesthesiology Progress Note ---
Anesthesia Progress Note Date of Service Oct 12, 2017. Progress Notes Mr. Alcocer is scheduled for pseudoaneurysm repair with Dr. Soni on 10/13/17. Allergies to morphine (N/V). PSH significant for HEART transplant (May 2016), Pacemaker (Apr 2017 for intermittent complete heart block), L TKA, CTR and multiple heart caths (for heart biopsy). Heart transplant done at [facility] 2 /2 amyloidosis. 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 Patient does not smoke and is active and walks several miles a day. Pacemaker last checked 10/11/17 (DDD). Cardiology consulted on patient and they spoke to [facility] transplant team with no special recommendations preop and patient is moderate risk for peripoperative CV events. EKG shows sinus tach (HR 104) with RBBB. Airway MP 2, FROM of neck. Tachy without significant M/R/G. Lungs CTA. Patient appears optimized for surgery tomorrow with Dr. Soni. Consented for GETA with possible arterial line monitoring. All questions answered.
[2017-10-12 16:11] VITALS: BP 122/87; PULSE 92; TEMP 36.5; O2SAT 96
--- NOTE | 2017-10-12 17:10 | Progress Note ---
Internal Med Progress Note Date of Service: Oct 12, 2017. Provider Documentation: SUBJECTIVE: Patient is comfortable. On heparin drip. No acute distress. Denies new concerns. OBJECTIVE: Exam: General- no acute distress Eyes- EOMI Neck- midline trachea, no JVD Lungs- CTABL, no wheezing Heart- RRR Abdomen- soft, nontender, + bowel movements Extremities- no pedal pulses intact, no edema Neuro- awake and alert and oriented ASSESSMENT & PLAN: This is 67-year-old male presents with right groin pain found to have pseudoaneurysm. 6.3 cm right inguinal/femoral pseudoaneurysm NPO after midnight for vascular procedure on WednesdayOctober 13 currently on IV heparin Hx. of Heart Transplant has had a hx. of amyloidosis cont antirejection drugs: cellcept, prednisone and tacrolimus Hx. of A. Fib has been having some resting tachycardia and has been started on cardizem Hx. of complete heart block s/p pacemaker interrogation pending Hx. of PE Hypercoagulable State off of Coumadin for vascular procedure and is on on IV heparin 2.8 cm cavitary mass lesion within the right lower lobe / history of lung nodules pulmonary consult: This lesion will need evaluation either during this admission following repair of the pseudoaneurysm or as an outpatient. CKD stage 3 baseline creatinine, monitor and avoid nephrotoxic agents when able DVT ppx IV heparin FULL CODE Vital Signs: Date Time Temp Pulse Resp B/P (MAP) Pulse Ox O2 Delivery O2 Flow Rate FiO2 10/12/17 16:11 36.5 92 18 122/87 (99) 96 Room Air 10/12/17 16:09 Room Air 10/12/17 12:09 Room Air 10/12/17 08:01 Room Air 10/12/17 07:39 37.8 86 24 100/52 (68) 94 10/12/17 04:13 37.1 82 18 104/60 (75) 98 Nasal Cannula 10/12/17 04:00 Room Air 10/12/17 00:05 96 Room Air 10/11/17 23:50 36.6 86 17 106/70 (82) 97 Room Air 10/11/17 20:00 96 Room Air 10/11/17 19:16 37.1 97 19 112/77 (89) 96 Room Air Lab Results: Results Past 24 Hours Test 1/22/18 17:27 10/12/17 00:56 10/12/17 07:00 Range/Units White Blood Count 4.94 5.68 4.8-10.8 K/uL Red Blood Count 3.84 3.94 4.7-6.1 M/uL Hemoglobin 9.3 9.5 14.0-18.0 g/dL Hematocrit 29.6 30.5 42-52 % Mean Corpuscular Volume 77.1 77.4 80-100 fL Mean Corpuscular Hemoglobin 24.2 24.1 25-34 pg Mean Corpuscular Hemoglobin Concent 31.4 31.1 32-36 g/dl RDW Standard Deviation 45.5 46.0 36.4-46.3 fL RDW Coefficient of Variation 16.2 16.2 11.5-14.5 % Platelet Count 161 179 130-400 K/uL Mean Platelet Volume 9.8 10.0 7.4-10.4 fL Prothrombin Time 13.6 13.0 9.0-12.0 SECONDS Prothromb Time International Ratio 1.3 1.2 0.9-1.1 Activated Partial Thromboplast Time 34.9 64.8 62.6 21.0-31.0 SECONDS Partial Thromboplastin Ratio 1.3 2.5 2.4 Neutrophils (%) (Auto) 71.6 % Lymphocytes (%) (Auto) 12.0 % Monocytes (%) (Auto) 14.3 % Eosinophils (%) (Auto) 1.2 % Basophils (%) (Auto) 0.5 % Neutrophils # (Auto) 4.07 1.4-6.5 K/uL Lymphocytes # (Auto) 0.68 1.2-3.4 K/uL Monocytes # (Auto) 0.81 0.11-0.59 K/uL Eosinophils # (Auto) 0.07 0-0.5 K/uL Basophils # (Auto) 0.03 0-0.2 K/uL Immature Granulocyte % (Auto) 0.4 % Immature Granulocyte # (Auto) 0.02 0.00-0.02 K/uL Sodium Level 134 136-145 mmol/L Potassium Level 3.7 3.5-5.1 mmol/L Chloride Level 103 98-107 mmol/L Carbon Dioxide Level 24 21-32 mmol/L Anion Gap 7.0 3-11 mmol/L Blood Urea Nitrogen 29 7-18 mg/dl Creatinine 1.90 0.60-1.40 mg/dl Est Creatinine Clear Calc Drug Dose 42.6 ml/min Estimated GFR () 41.4 Estimated GFR (Non- 35.7 BUN/Creatinine Ratio 15.3 10-20 Random Glucose 95 70-99 mg/dl Calcium Level 9.9 8.5-10.1 mg/dl Magnesium Level 1.7 1.8-2.4 mg/dl
[2017-10-12 19:39] VITALS: BP 128/86; PULSE 95; TEMP 37; O2SAT 98
[2017-10-12] MEDS: TRAMADOL HCL 50 MG TAB PO PRN (20:48)
[2017-10-12] MEDS: CEFEPIME IV 2,000 MG in SYRINGE 7.5 ML IV SCH (23:43)
[2017-10-13] VITALS (14 sets, daily range): BP systolic 102–152; BP diastolic 69–94; PULSE 82–112; TEMP 36.7–38; O2SAT 95–99
[2017-10-13] MEDS: HYDROmorphone INJ 0.5 MG/0.5 ML SYR IV PRN ×4 (03:29→15:55)
[2017-10-13] MEDS: ACETAMINOPHEN 325 MG TAB PO PRN (04:32)
[2017-10-13] MEDS: LEVOTHYROXINE 50 MCG TAB PO SCH (04:32)
[2017-10-13] MEDS: HEPARIN 25,000 UNIT/500ML D5W 500 ML IV PRN (05:33)
[2017-10-13] MEDS ORDERED: CEFAZOLIN SOD 2000MG/10 ML IV PUSH IV SCH (06:00)
[2017-10-13] MEDS ORDERED: HYDROCORTISONE IV 100 MG in SYRINGE 0 ML IV SCH (06:00)
[2017-10-13] MEDS ORDERED: MIDAZOLAM HCL 1 MG/ML 2ML VIAL ONE (06:49)
[2017-10-13] MEDS ORDERED: FENTANYL CITRATE INJ 50 MCG/1 ML 2 ML VIAL ONE (06:49)
[2017-10-13 06:50] LABS: BASO % 0.3 %; BASO ABS # 0.02 K/uL (0-0.2); EOS % 1.1 %; EOS ABS # 0.07 K/uL (0-0.5); HEMATOCRIT 30.6 % (42-52); HEMOGLOBIN 9.3 g/dL (14.0-18.0); IG# 0.02 K/uL (0.00-0.02); LYMPH % 14.9 %; LYMPH ABS # 0.93 K/uL (1.2-3.4); MEAN CELL VOLUME 77.3 fL (80-100); MEAN CORPUSCULAR HEMOGLOBIN 23.5 pg (25-34); MEAN CORPUSCULAR HGB CONC 30.4 g/dl (32-36); MEAN PLATELET VOLUME 10.1 fL (7.4-10.4); MONO % 8.8 %; MONO ABS # 0.55 K/uL (0.11-0.59); NEUT % 74.6 %; NEUT ABS # 4.65 K/uL (1.4-6.5); PLATELET COUNT 195 K/uL (130-400); RED CELL DISTRIBUTION WIDTH CV 16.2 % (11.5-14.5); RED CELL DISTRIBUTION WIDTH SD 45.6 fL (36.4-46.3); WHITE BLOOD COUNT 6.24 K/uL (4.8-10.8)
--- NOTE | 2017-10-13 06:59 | Progress Note ---
Progress Note Date of Service Oct 13, 2017. Progress Note Patient for repair of right femoral artery pseudoaneurysm. I have discussed the risks options and benefits of the procedure with the patient. The patient understands the risks options and benefits and agrees to the procedure. I have examined the patient, reviewed the History & Physical and in the interval since the performance of the History & Physical I have noted the following changes of clinical significance: No changes noted
[2017-10-13] MEDS ORDERED: THROMBIN 5000 UNITS KIT ONE (07:02)
[2017-10-13] MEDS ORDERED: HEPARIN SOD (PORCINE) 1000 UNIT/ML 10 ML VIAL ONE ×2 (07:02→09:00)
[2017-10-13] MEDS ORDERED: CEFAZOLIN SOD 1 GM VIAL ONE (07:03)
[2017-10-13] MEDS ORDERED: LIDOCAINE HCL 1% 20 ML VIAL ONE (07:04)
[2017-10-13] MEDS ORDERED: BUPIVACAINE/EPINEPHRINE 0.5% MPF 1:200,000 30 ML VIAL ONE (07:04)
[2017-10-13] MEDS ORDERED: LIDOCAINE HCL 2% 2 ML VIAL (20MG/ML) ONE (07:05)
[2017-10-13] MEDS ORDERED: PAPAVERINE HCL INJ 30 MG/ML 2 ML VIAL ONE (07:05)
[2017-10-13] MEDS ORDERED: PROPOFOL IV EMULSION 10 MG/ML 20 ML VIAL IV ONE (07:05)
[2017-10-13] MEDS ORDERED: ONDANSETRON INJ 2 MG/ML 2 ML VIAL ONE (07:05)
[2017-10-13] MEDS ORDERED: EpHEDrine SULFATE 50MG/5ML SYR ONE (07:05)
[2017-10-13 07:06] LABS: INR 1.3 (0.9-1.1)
[2017-10-13] MEDS ORDERED: IODIXANOL (VISIPAQUE) 270 MG/ML 50ML ONE (07:06)
[2017-10-13 07:07] LABS: PTT PATIENT 60.5 SECONDS (21.0-31.0)
[2017-10-13 07:26] LABS: CALCIUM 9.6 mg/dl (8.5-10.1); CREATININE 1.84 mg/dl (0.60-1.40)
[2017-10-13] MEDS ORDERED: PROMETHAZINE HCL INJ 6.25 MG in SODIUM CHLORIDE 0.9% 50ML 50 ML IV PRN (08:30)
[2017-10-13] MEDS ORDERED: HYDROmorphone INJ 1 MG/ML SYR IV PRN (08:30)
[2017-10-13] MEDS ORDERED: ONDANSETRON INJ 2 MG/ML 2 ML VIAL IV PRN (08:30)
--- NOTE | 2017-10-13 10:26 | [facility] Post Operative Brief Note ---
Immediate Operative Summary Operative Date Oct 13, 2017. Pre-Operative Diagnosis Pseudoaneurysm right groin Post-Operative Diagnosis Pseudoaneurysm of right superfical femoral artery Procedure(s) Performed Repair of right superficial femoral artery pseudoaneurysm with bovine graft Surgeon Dr. Adam Soni Traveling Phlebotomist Surgeon(s) Shantel Finch PA-C Estimated Blood Loss 140cc Findings Consistent with Post-Op Diagnosis Specimens Culture #1: Right groin for routine gram stain, culture & sensitivity, anaerobic/aerobic. Out of room at 1002 by Cassidy Huff RN. Culture #2: Right groin tissue for routine gram stain, culture & sensitivity, anaerobic/aerobic. Out of room at 1002 by Cassidy Huff RN. Drains None Anesthesia Type General Complication(s) none Disposition Disposition: Recovery Room / PACU
[2017-10-13] MEDS ORDERED: WARFARIN SOD 1 MG TAB PO SCH (10:30)
[2017-10-13] MEDS: GELATIN SPONGE SZ 100 ONE ×2 (10:41→10:59)
[2017-10-13] MEDS: FENTANYL CITRATE INJ 50 MCG/1 ML 2 ML VIAL IV PRN ×2 (11:10→11:15)
--- NOTE | 2017-10-13 11:43 | Anesthesiology Progress Note ---
Anesthesia Post Op Note Date & Time Oct 13, 2017 at 11:43 Vital Signs Pain Intensity: 4 Vital Signs Past 12 Hours Date Time Temp Pulse Resp B/P (MAP) Pulse Ox O2 Delivery O2 Flow Rate FiO2 10/13/17 11:20 99 16 156/94 97 Nasal Cannula 3 165/79 (97) 10/13/17 11:10 99 16 156/95 97 Oxymask 3 147/80 (101) 10/13/17 11:00 100 16 170/95 98 Oxymask 5 10/13/17 10:53 36.6 102 16 142/79 98 Oxymask 5 10/13/17 04:10 38.0 112 17 130/89 (103) 96 Room Air 10/13/17 04:00 Room Air 10/13/17 00:14 37.3 99 20 133/93 (106) 96 Room Air 10/13/17 00:01 Room Air Notes Mental Status: alert / awake / arousable, participated in evaluation Pt Amnestic to Procedure: Yes Nausea / Vomiting: adequately controlled Pain: adequately controlled Airway Patency, RR, SpO2: stable & adequate BP & HR: stable & adequate Hydration State: stable & adequate Anesthetic Complications: no major complications apparent
[2017-10-13 12:12] LABS: BASO % 0.3 %; BASO ABS # 0.02 K/uL (0-0.2); EOS % 1.2 %; EOS ABS # 0.07 K/uL (0-0.5); HEMATOCRIT 27.9 % (42-52); HEMOGLOBIN 8.6 g/dL (14.0-18.0); IG# 0.03 K/uL (0.00-0.02); LYMPH % 13.8 %; LYMPH ABS # 0.81 K/uL (1.2-3.4); MEAN CELL VOLUME 77.3 fL (80-100); MEAN CORPUSCULAR HEMOGLOBIN 23.8 pg (25-34); MEAN CORPUSCULAR HGB CONC 30.8 g/dl (32-36); MEAN PLATELET VOLUME 9.9 fL (7.4-10.4); MONO ABS # 0.59 K/uL (0.11-0.59); NEUT % 74.2 %; NEUT ABS # 4.36 K/uL (1.4-6.5); PLATELET COUNT 182 K/uL (130-400); RED CELL DISTRIBUTION WIDTH CV 16.2 % (11.5-14.5); WHITE BLOOD COUNT 5.88 K/uL (4.8-10.8)
[2017-10-13] MEDS: D5W AND 1/2NSS 1,000 ML IV SCH ×2 (12:22→15:41)
[2017-10-13] MEDS: HYDROCORTISONE IV 100 MG in SYRINGE 0 ML IV SCH ×2 (12:22→17:20)
[2017-10-13] MEDS ORDERED: [UNRECOGNIZED DRUG - REMARK] SCH (13:00)
[2017-10-13] MEDS: OXYCODONE/ACETAMINOPHEN 5-325 TAB PO PRN ×2 (14:08→19:06)
--- NOTE | 2017-10-13 14:45 | [facility] Operative Report ---
Operative Report Operative Date Oct 13, 2017. Pre-Operative Diagnosis Pseudoaneurysm right groin Post-Operative Diagnosis Pseudoaneurysm of right superfical femoral artery Procedure(s) Performed Repair of right superficial femoral artery pseudoaneurysm with bovine graft Surgeon Dr. Adam Soni [id number] Programmer Analyst Surgeon(s) Shantel Finch PA-C Estimated Blood Loss 140cc Findings Pseudoaneurysm of right superficial femoral artery Specimens Culture #1: Right groin for routine gram stain, culture & sensitivity, anaerobic/aerobic. Out of room at 1002 by Cassidy Huff RN. Culture #2: Right groin tissue for routine gram stain, culture & sensitivity, anaerobic/aerobic. Out of room at 1002 by Cassidy Huff RN. Anesthesia Gen Complication(s) None Disposition Recovery Room / PACU Indications This 67-year-old gentleman who was found to have a pseudoaneurysm in his right groin. This proximal a 6 cm in size. Repair was recommended. I have discussed the risks options and benefits of the procedure with the patient. The patient understands the risks options and benefits and agrees to the procedure. Description of Procedure The patient was taken to the operating room and placed in the supine position. The right groin and lower abdomen and the leg down to the knee were prepped and draped in a sterile manner. A longitudinal incision was made in through the right groin. A large 6 cm pseudoaneurysm was seen of the femoral artery. Dissection was done proximally. Proximal control of the common femoral artery was obtained. We then started dissecting distally. Due to the the adhesions present the aneurysm sac was entered. Digital pressure to the bottom of the sac was applied. The rest the sac was then dissected free. The superficial femoral artery was found distally and then clamped. We then found the profunda femoral artery which was also clamped. No further bleeding was seen from the artery. The patient was heparinized at that time. The aneurysm sac was then excised. Cultures were sent and a piece of the sac was also sent for culture. The pseudoaneurysm appeared to originate from the superficial femoral artery. The superficial femoral artery at this point just beyond its origin was totally transected from the pseudoaneurysm except for a small band posteriorly. It was decided to replace this piece with a bovine graft. The arteriotomy was then carried upward onto the common femoral artery. Superficial femoral artery distally was transected in an area with no inflammation seen. Mild plaque was noted. An 8 mm bovine graft was then brought to the operative field. It was beveled proximally. The proximal anastomosis was done with an end to side anastomosis of the bovine graft to the common femoral artery using a 5 0 Prolene suture. After this was completed a clamp was placed on the graft and the clamps removed from the common femoral and profunda femoral artery. At this point the graft was pulled the appropriate length and transected. An end- to-end anastomosis was accomplished between the bovine graft and the superficial femoral artery using a 6-0 Prolene suture in the usual vascular fashion. Prior to completing the closure back bleeding and fore bleeding was allowed to occur. The final few sutures were then placed and securely tied. Clamps were removed from the superficial femoral artery distally and from th graft proximally. Excellent flow was seen through the graft there was a good palpable pulse distally. Adequate hemostasis was then obtained. Once adequate hemostasis was noted the wound was irrigated with Ancef solution. The wound was then closed with a running 2-0 Vicryl for the femoral sheath and a 3-0 Vicryl suture for the subcutaneous layer. Skin edges were then approximated with a 4-0 Vicryl suture in a subcuticular fashion. Sterile dressings were applied.The patient left the operation room in satisfactory condition and tolerated the procedure well. All needle and sponge counts were correct at the end of the procedure. Shantel Finch Pac assisted due to lack of resident availability and was necessary for prepping, draping, retraction, wound closure deep layers, subcutaneous tissue, and skin closure and was necessary for assisting with the case.. I attest to the content of the Intraoperative Record and any orders documented therein. Any exceptions are noted below.
--- NOTE | 2017-10-13 14:48 | Cardiology Follow-Up ---
Subjective Subjective Date of Service: Oct 13, 2017. Pt evaluation today including: conversation w/ patient, physical exam, chart review, lab review, review of studies, review of inpatient medication list Additional Details: Pt seen and examined post-operatively. States that he's feeling well except for incision site discomfort. Denies cp, sob, palpitations, lightheadedness or dizziness. Tele reviewed: sinus rhythm in 90's. Problem List Medical Problems: (1) Anemia Status: Acute (2) Knee effusion, right Status: Acute (3) Leg pain Status: Acute (4) Pseudoaneurysm Status: Acute (5) Pseudogout Status: Acute (6) Renal insufficiency Status: Acute Review of Systems Constitutional: No fever, No chills Respiratory: No cough, No sputum, No shortness of breath Cardiac: No chest pain Abdomen: No pain, No nausea, No vomiting, No diarrhea Musculoskeletal: + joint pain Heme: No abnormal bleeding/bruising Objective Vital Signs Last Vital Signs Documentation Date Time Temp Pulse Resp B/P (MAP) Pulse Ox O2 Delivery O2 Flow Rate FiO2 10/13/17 13:00 95 20 139/86 (103) 99 Nasal Cannula 2.0 152/73 (99) 10/13/17 10:53 36.6 Physical Exam: General Appearance: WD/WN, no apparent distress Eyes: bilateral eyes normal inspection, bilateral eyes PERRL, bilateral eyes EOMI ENT: normal ENT inspection, hearing grossly normal, pharynx normal Neck: supple, no adenopathy, thyroid normal, no JVD, no carotid bruits, trachea midline Respiratory/Chest: chest non-tender, lungs clear, normal breath sounds, no respiratory distress, no accessory muscle use Cardiovascular: regular rate, rhythm, no edema, no JVD, no murmur, + tachycardia, + gallop/S4 Abdomen: normal bowel sounds, non tender, soft, no organomegaly, no pulsatile mass Extremities: normal inspection, no pedal edema, no calf tenderness Neurologic/Psychiatric: rrt II-XII nml as tested, no motor/sensory deficits, alert, normal mood/affect, oriented x 3 Skin: normal color, warm/dry, no rash Lymphatic: no adenopathy Assessment and Plan 1. Preop cardiac risk assessment as discussed on full consult moderate risk, no reason to delay surgery or further work up from cardiac standpoint 2. Hx of heart transplant cont antirejection drugs: cellcept, prednisone and tacrolimus previously on cardizem er 240 mg daily as outpatient will follow vitals closely in post-operative state to determine when to restart 3. Hx of hypercoaguable state coumadin restarted on heparin bridge for now
[2017-10-13] MEDS ORDERED: WARFARIN PO SCH ×2 (16:00)
[2017-10-13] MEDS: TACROLIMUS 1 MG CAP PO SCH ×2 (17:15→21:03)
[2017-10-13] MEDS: PANTOprazole SOD 40 MG TAB PO SCH (17:15)
[2017-10-13] MEDS: ATOVAQUONE 750 MG/5 ML UDC PO SCH (17:15)
[2017-10-13] MEDS: MYCOPHENOLATE MOFETIL 250 MG CAP (CELLCEPT) PO SCH ×2 (17:16→21:03)
[2017-10-13] MEDS: CALCIUM 600MG + VIT D 400 IU TAB PO SCH ×2 (17:17→21:02)
[2017-10-13] MEDS: PRAVASTATIN SOD 40 MG TAB PO SCH (17:18)
--- NOTE | 2017-10-13 18:00 | Progress Note ---
Internal Med Progress Note Date of Service: Oct 13, 2017. Provider Documentation: SUBJECTIVE: Patient is comfortable. s/p vascular procedure OBJECTIVE: Exam: General- no acute distress Eyes- EOMI Neck- midline trachea, no JVD Lungs- CTABL, no wheezing Heart- RRR Abdomen- soft, nontender, + bowel movements Extremities- pedal pulses intact, no edema, there is dressing over the medial right thigh Neuro- awake and alert and oriented ASSESSMENT & PLAN: This is 67-year-old male presents with right groin pain found to have pseudoaneurysm. 6.3 cm right inguinal/femoral pseudoaneurysm / Pseudoaneurysm of right superficial femoral artery has been on cefepime antibiotic pre-op s/p Repair of right superficial femoral artery pseudoaneurysm with bovine graft on 10/13/17 Hx. of PE Hypercoagulable State Had been off of Coumadin for vascular procedure and was transitioned to IV heparin, now post op and can go back to coumadin therapy Hx. of Heart Transplant has had a hx. of amyloidosis cont antirejection drugs: cellcept, prednisone and tacrolimus Hx. of A. Fib had been having some resting tachycardia and has on cardizem Hx. of complete heart block s/p pacemaker interrogation pending 2.8 cm cavitary mass lesion within the right lower lobe / history of lung nodules pulmonary consult: This lesion will need evaluation either during this admission following repair of the pseudoaneurysm or as an outpatient. CKD stage 3 baseline creatinine, monitor and avoid nephrotoxic agents when able DVT ppx: coumadin FULL CODE Vital Signs: Date Time Temp Pulse Resp B/P (MAP) Pulse Ox O2 Delivery O2 Flow Rate FiO2 10/13/17 13:00 95 20 139/86 (103) 99 Nasal Cannula 2.0 152/73 (99) 10/13/17 12:00 95 Nasal Cannula 2.0 10/13/17 11:20 99 16 156/94 97 Nasal Cannula 3 165/79 (97) 10/13/17 11:10 99 16 156/95 97 Oxymask 3 147/80 (101) 10/13/17 11:00 100 16 170/95 98 Oxymask 5 10/13/17 10:53 36.6 102 16 142/79 98 Oxymask 5 10/13/17 04:10 38.0 112 17 130/89 (103) 96 Room Air 10/13/17 04:00 Room Air 10/13/17 00:14 37.3 99 20 133/93 (106) 96 Room Air 10/13/17 00:01 Room Air 10/12/17 20:00 Room Air 10/12/17 19:39 37.0 95 18 128/86 (100) 98 Room Air Lab Results: Results Past 24 Hours Test 10/13/17 06:18 10/13/17 12:00 Range/Units White Blood Count 6.24 5.88 4.8-10.8 K/uL Red Blood Count 3.96 3.61 4.7-6.1 M/uL Hemoglobin 9.3 8.6 14.0-18.0 g/dL Hematocrit 30.6 27.9 42-52 % Mean Corpuscular Volume 77.3 77.3 80-100 fL Mean Corpuscular Hemoglobin 23.5 23.8 25-34 pg Mean Corpuscular Hemoglobin Concent 30.4 30.8 32-36 g/dl Platelet Count 195 182 130-400 K/uL Mean Platelet Volume 10.1 9.9 7.4-10.4 fL Neutrophils (%) (Auto) 74.6 74.2 % Lymphocytes (%) (Auto) 14.9 13.8 % Monocytes (%) (Auto) 8.8 10.0 % Eosinophils (%) (Auto) 1.1 1.2 % Basophils (%) (Auto) 0.3 0.3 % Neutrophils # (Auto) 4.65 4.36 1.4-6.5 K/uL Lymphocytes # (Auto) 0.93 0.81 1.2-3.4 K/uL Monocytes # (Auto) 0.55 0.59 0.11-0.59 K/uL Eosinophils # (Auto) 0.07 0.07 0-0.5 K/uL Basophils # (Auto) 0.02 0.02 0-0.2 K/uL RDW Standard Deviation 45.6 46.0 36.4-46.3 fL RDW Coefficient of Variation 16.2 16.2 11.5-14.5 % Immature Granulocyte % (Auto) 0.3 0.5 % Immature Granulocyte # (Auto) 0.02 0.03 0.00-0.02 K/uL Prothrombin Time 13.5 9.0-12.0 SECONDS Prothromb Time International Ratio 1.3 0.9-1.1 Activated Partial Thromboplast Time 60.5 21.0-31.0 SECONDS Partial Thromboplastin Ratio 2.3 Sodium Level 135 136-145 mmol/L Potassium Level 4.0 3.5-5.1 mmol/L Chloride Level 103 98-107 mmol/L Carbon Dioxide Level 23 21-32 mmol/L Anion Gap 9.0 3-11 mmol/L Blood Urea Nitrogen 23 7-18 mg/dl Creatinine 1.84 0.60-1.40 mg/dl Est Creatinine Clear Calc Drug Dose 44.0 ml/min Estimated GFR () 43.0 Estimated GFR (Non- 37.1 BUN/Creatinine Ratio 12.4 10-20 Random Glucose 84 70-99 mg/dl Calcium Level 9.6 8.5-10.1 mg/dl Magnesium Level 1.5 1.8-2.4 mg/dl Poikilocytosis PRESENT Anisocytosis PRESENT Microcytosis PRESENT Microbiology Results 10/13/17 Gram Stain, Received Pending 10/13/17 Bacterial Culture, Received Pending 10/13/17 Gram Stain, Received Pending 10/13/17 Bacterial Culture, Received Pending
--- NOTE | 2017-10-13 19:10 | Critical Care Consultation ---
Critical Care Consultation Date of Consultation: Oct 13, 2017. Attending Physician: Harry Seth M.D. Reason for Consultation: Postop management of the vascular procedure in a patient with a heart transplant. 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 The patient has been maintained on prednisone, Prograf, CellCept and has been followed closely by the transplant team. The patient presented previously to the hospital with syncope requiring pacemaker placement. The patient did not have history of heart block but he did have history of rapid A. fib and he has been maintained on Coumadin. The patient on this presentation was found to have pseudoaneurysm of the right femoral artery, he was taken to the OR by Dr. Soni and underwent femoral artery graft placement. Uneventful procedure. The patient brought back again to the ICU after the procedure and he was completely stable. He was started on heparin drip as well as hydrocortisone. The patient continued on his oral medications may need immunosuppressant. The patient also continued on his prophylactic antibiotics. He denies any shortness of breath, no chest pain or palpitation, his vitals has been monitored and has been followed stable. No nausea or vomiting, minimal understandable pain at the site of the procedure, appeared very stable answered questions and follow commands properly. 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 fib status post pacemaker in place and on Coumadin, history of pulmonary nodule likely related to cardiac transplant and PTLA, peripheral arterial disease status post right femoral graft. Family History Patient reports no known family medical history. Social History Smoking Status: Never Smoker Drug Use: none Marital Status: Housing Status: lives with significant other Occupation Status: employed Allergies Coded Allergies: Morphine (Unverified Allergy, Unknown, Nausea/vomiting, 04/21/17) Home Medications Scheduled Amlodipine (Norvasc), 10 MG PO DAILY Atovaquone (Mepron), 10 ML PO QAM Calcium Carbonate-Cholecalcife (Caltrate 600+D), 1 TAB PO BID Levothyroxine Sodium (Synthroid), 50 MCG PO DAILY Mycophenolate Mofetil (Cellcept), 1,000 MG PO BID Omeprazole (Prilosec), 20 MG PO DAILY Pravastatin Sodium (Pravachol), 40 MG PO DAILY Prednisone (Prednisone), 7.5 MG PO Q2D Prednisone (Prednisone), 5 MG PO Q2D Senna (Senokot), 2 TAB PO DAILY Tacrolimus (Prograf), 4 MG PO AMPM Warfarin Sod (Jantoven), 3.5 MG PO Q2D Warfarin Sod (Jantoven), 2.5 MG PO Q2D Scheduled PRN Tramadol (Ultram), 50-100 MG PO Q6H PRN for Pain Current Inpatient Medications Current Inpatient Medications Medications (Trade) Dose Ordered Sig/Rosette Route Start Time Stop Time Status Last Admin Dose Admin Ioversol (Optiray 320) 100 ml UD PRN IV 10/10/17 12:45 10/14/17 12:44 Acetaminophen (Tylenol Tab) 650 mg Q4H PRN PO 10/10/17 14:30 11/09/17 14:29 10/13/17 04:32 650 MG Ondansetron HCl (Zofran Inj) 4 mg Q6H PRN IV 10/10/17 14:30 11/09/17 14:29 Nitroglycerin (Nitrostat Tab) 0.4 mg UD PRN SL 10/10/17 14:30 11/09/17 14:29 Levothyroxine Sodium (Synthroid Tab) 50 mcg DAILYBB PO 10/11/17 06:00 11/10/17 05:59 10/13/17 04:32 50 MCG Mycophenolate Mofetil (Cellcept Cap) 1,000 mg BID PO 10/10/17 21:00 11/09/17 20:59 10/13/17 17:16 1,000 MG Pravastatin Sodium (Pravachol Tab) 40 mg DAILY PO 10/11/17 09:00 11/10/17 08:59 10/13/17 17:18 40 MG Prednisone (PredniSONE TAB) 5 mg Q2D@0900 PO 10/12/17 09:00 11/11/17 08:59 10/12/17 07:38 5 MG Prednisone (PredniSONE TAB) 7.5 mg Q2D@0900 PO 10/11/17 09:00 11/10/17 08:59 10/11/17 10:13 7.5 MG Tacrolimus (Prograf Cap) 4 mg BID PO 10/10/17 21:00 11/09/17 20:59 10/13/17 17:15 4 MG Tramadol HCl (Ultram Tab) 50 mg Q6H PRN PO 10/10/17 14:30 11/09/17 14:29 10/12/17 20:48 50 MG Atovaquone (Mepron Susp) 1,500 mg QAM PO 10/11/17 09:00 11/10/17 08:59 10/13/17 17:15 1,500 MG Calcium/Vitamin D (Caltrate Plus Tab) 1 tab BID PO 10/10/17 21:00 11/09/17 20:59 10/13/17 17:17 1 TAB Pantoprazole Sodium (Protonix Tab) 40 mg QAM PO 10/11/17 09:00 11/10/17 08:59 10/13/17 17:15 40 MG Hydromorphone HCl (Dilaudid Inj) 0.5 mg Q3H PRN IV 10/10/17 23:00 10/24/17 22:59 10/13/17 15:55 0.5 MG Prochlorperazine Edisylate 5 mg/ Syringe 5 ml @ 5 mls/min Q6H PRN IV 10/10/17 23:00 11/09/17 22:59 Cefepime HCl 2000 mg/Syringe 20 ml @ 5 mls/min Q24H IV 10/10/17 23:30 10/20/17 23:29 10/12/17 23:43 5 MLS/MIN Cefepime HCl (Consult) 1 ea UD PRN N/A 10/10/17 23:30 11/09/17 23:29 Heparin Sodium/ Dextrose 500 ml @ 30 mls/hr [id number] PRN IV 10/11/17 17:30 11/10/17 17:29 Future Hold 10/13/17 05:33 30 MLS/HR Oxycodone/ Acetaminophen (Percocet 5-325mg Tab) `1-2 TABS FOR MODER... Q4H PRN PO 10/13/17 10:30 10/27/17 10:29 10/13/17 14:08 1 TAB Hydrocortisone Sodium Succinate 100 mg/Syringe 2 ml @ 4 mls/min Q6 IV 10/13/17 12:00 10/14/17 00:01 10/13/17 17:20 4 MLS/MIN Warfarin Sodium (Coumadin Tab) 2.5 mg Q2D@1600 PO 10/14/17 16:00 11/13/17 15:59 Warfarin Sodium (Coumadin Tab) 3.5 mg Q2D@1600 PO 10/13/17 16:00 11/12/17 15:59 10/13/17 17:19 3.5 MG Review of Systems Constitutional: + fever Eyes: No worsening of vision, No eye pain, No redness, No discharge, No diplopia, No problem reported Respiratory: No cough, No sputum, No wheezing, No shortness of breath, No dyspnea on exertion, No dyspnea at rest, No hemoptysis, No problem reported Cardiovascular: No chest pain, No orthopnea, No PND, No edema, No claudication , No palpitations, No problem reported Abdomen: No pain, No nausea, No vomiting, No diarrhea, No constipation, No GI bleeding, No problem reported Neurologic: No memory loss, No paralysis, No weakness, No numbness/tingling, No vertigo, No balance problems, No problem reported Hematologic / Lymphatic: No abnormal bleeding/bruising, No clotting problems, No swollen lymph nodes, No night sweats, No problem reported Integumentary: No rash, No itch, No new/changing skin lesions, No color change , No bleeding, No problem reported Physical Exam Date Time Temp Pulse Resp B/P (MAP) Pulse Ox O2 Delivery O2 Flow Rate FiO2 10/13/17 18:01 93 16 105/69 (81) 97 10/13/17 17:01 106 18 121/86 (98) 95 10/13/17 16:01 96 18 116/82 (93) 95 10/13/17 16:00 95 Room Air 10/13/17 16:00 37.0 97 20 131/74 (93) 95 Room Air 10/13/17 13:00 95 20 139/86 (103) 99 Nasal Cannula 2.0 152/73 (99) 10/13/17 12:00 95 Nasal Cannula 2.0 10/13/17 11:20 99 16 156/94 97 Nasal Cannula 3 165/79 (97) 10/13/17 11:10 99 16 156/95 97 Oxymask 3 147/80 (101) 10/13/17 11:00 100 16 170/95 98 Oxymask 5 10/13/17 10:53 36.6 102 16 142/79 98 Oxymask 5 10/13/17 04:10 38.0 112 17 130/89 (103) 96 Room Air 10/13/17 04:00 Room Air 10/13/17 00:14 37.3 99 20 133/93 (106) 96 Room Air 10/13/17 00:01 Room Air 10/12/17 20:00 Room Air 10/12/17 19:39 37.0 95 18 128/86 (100) 98 Room Air General Appearance: well-appearing, WD/WN, no apparent distress Eyes: PERRLA, EOMI ENT: normal mouth exam, normal throat exam Neck: normal range of motion, no tenderness, trachea midline Respiratory: breath sounds normal, clear to auscultation, clear to percussion Cardiovasular: regular rate/rhythm, normal S1S2, no murmur Abdomen: non tender, no rebound, no masses Upper Extremities: no edema Lower Extremities: other (right groin postop changes.) Pulses: dorsalis pedis (R) (2+), dorsalis pedis (L) (2+), posterior tibial (R) (2+), posterior tibial (L) (2+) Neuro: alert, oriented x 3, normal motor exam, normal sensation Psychiatric: normal affect Laboratory Results Last 24 Hours Test 10/13/17 06:18 10/13/17 12:00 White Blood Count 6.24 K/uL 5.88 K/uL Red Blood Count 3.96 M/uL 3.61 M/uL Hemoglobin 9.3 g/dL 8.6 g/dL Hematocrit 30.6 % 27.9 % Mean Corpuscular Volume 77.3 fL 77.3 fL Mean Corpuscular Hemoglobin 23.5 pg 23.8 pg Mean Corpuscular Hemoglobin Concent 30.4 g/dl 30.8 g/dl Platelet Count 195 K/uL 182 K/uL Mean Platelet Volume 10.1 fL 9.9 fL Neutrophils (%) (Auto) 74.6 % 74.2 % Lymphocytes (%) (Auto) 14.9 % 13.8 % Monocytes (%) (Auto) 8.8 % 10.0 % Eosinophils (%) (Auto) 1.1 % 1.2 % Basophils (%) (Auto) 0.3 % 0.3 % Neutrophils # (Auto) 4.65 K/uL 4.36 K/uL Lymphocytes # (Auto) 0.93 K/uL 0.81 K/uL Monocytes # (Auto) 0.55 K/uL 0.59 K/uL Eosinophils # (Auto) 0.07 K/uL 0.07 K/uL Basophils # (Auto) 0.02 K/uL 0.02 K/uL RDW Standard Deviation 45.6 fL 46.0 fL RDW Coefficient of Variation 16.2 % 16.2 % Immature Granulocyte % (Auto) 0.3 % 0.5 % Immature Granulocyte # (Auto) 0.02 K/uL 0.03 K/uL Prothrombin Time 13.5 SECONDS Prothromb Time International Ratio 1.3 Activated Partial Thromboplast Time 60.5 SECONDS Partial Thromboplastin Ratio 2.3 Sodium Level 135 mmol/L Potassium Level 4.0 mmol/L Chloride Level 103 mmol/L Carbon Dioxide Level 23 mmol/L Anion Gap 9.0 mmol/L Blood Urea Nitrogen 23 mg/dl Creatinine 1.84 mg/dl Est Creatinine Clear Calc Drug Dose 44.0 ml/min Estimated GFR () 43.0 Estimated GFR (Non- 37.1 BUN/Creatinine Ratio 12.4 Random Glucose 84 mg/dl Calcium Level 9.6 mg/dl Magnesium Level 1.5 mg/dl Poikilocytosis PRESENT Anisocytosis PRESENT Microcytosis PRESENT Diagnostic Results Chest x-ray without active pulmonary disease. Pacemaker in place, no cardiomegaly . Assessment & Plan #1 cardiac myopathy secondary to amyloidosis status post heart transplant nonrelated donor CMV positive. May 2016. #2 peripheral arterial disease status post right femoral artery graft. #3 no history of chronic rejection. #4 CMV converting to CMV positive by serum. #5 endocardial biopsy was planned for 11/01/2017. #6 A. fib on Coumadin. Plan: #1 continue with prednisone, Prograf and CellCept. #2 agree with heparin and bridging him to Coumadin was appropriate by Dr. Soni. #3 one monitor in the ICU for postop observation. #4 continue prophylactic antibiotic. #5 oral intake. #6 PPI. #7 patient is in normal sinus rhythm and rate controlled. #8 post vascular procedure care. #9 continue with peripheral pulse check. Case discussed with the staff on rounds and details. Critical care time spent with the patient was 45 minutes.
[2017-10-14] VITALS (7 sets, daily range): BP systolic 101–132; BP diastolic 68–87; PULSE 85–96; TEMP 36.5–36.8; O2SAT 94–98
[2017-10-14] MEDS: CEFEPIME IV 2,000 MG in SYRINGE 7.5 ML IV SCH (00:04)
[2017-10-14] MEDS: HYDROCORTISONE IV 100 MG in SYRINGE 0 ML IV SCH (00:04)
[2017-10-14] MEDS: OXYCODONE/ACETAMINOPHEN 5-325 TAB PO PRN (01:14)
[2017-10-14] MEDS: HEPARIN 25,000 UNIT/500ML D5W 500 ML IV PRN ×2 (04:41→07:13)
[2017-10-14 05:55] LABS: HEMATOCRIT 27.3 % (42-52); HEMOGLOBIN 8.4 g/dL (14.0-18.0); MEAN CELL VOLUME 77.8 fL (80-100); MEAN CORPUSCULAR HEMOGLOBIN 23.9 pg (25-34); MEAN CORPUSCULAR HGB CONC 30.8 g/dl (32-36); PLATELET COUNT 194 K/uL (130-400); RED CELL DISTRIBUTION WIDTH CV 16.4 % (11.5-14.5); RED CELL DISTRIBUTION WIDTH SD 46.3 fL (36.4-46.3); WHITE BLOOD COUNT 7.51 K/uL (4.8-10.8)
[2017-10-14] MEDS: LEVOTHYROXINE 50 MCG TAB PO SCH (06:13)
[2017-10-14 06:19] LABS: INR 1.5 (0.9-1.1)
[2017-10-14 06:35] LABS: CALCIUM 8.8 mg/dl (8.5-10.1); CREATININE 2.12 mg/dl (0.60-1.40); POTASSIUM 4.2 mmol/L (3.5-5.1)
[2017-10-14 06:39] LABS: PTT PATIENT 98.3 SECONDS (21.0-31.0)
[2017-10-14 06:57] LABS: BASO % 0.1 %; BASO ABS # 0.01 K/uL (0-0.2); IG# 0.03 K/uL (0.00-0.02); LYMPH % 7.1 %; LYMPH ABS # 0.53 K/uL (1.2-3.4); NEUT % 88.4 %; NEUT ABS # 6.64 K/uL (1.4-6.5)
[2017-10-14] MEDS: CALCIUM 600MG + VIT D 400 IU TAB PO SCH (07:43)
[2017-10-14] MEDS: PRAVASTATIN SOD 40 MG TAB PO SCH (07:44)
[2017-10-14] MEDS: ATOVAQUONE 750 MG/5 ML UDC PO SCH (07:44)
[2017-10-14] MEDS: MYCOPHENOLATE MOFETIL 250 MG CAP (CELLCEPT) PO SCH (07:44)
[2017-10-14] MEDS: TACROLIMUS 1 MG CAP PO SCH (07:45)
[2017-10-14] MEDS: PANTOprazole SOD 40 MG TAB PO SCH (07:45)
[2017-10-14] MEDS ORDERED: MAGNESIUM SULFATE 1GM / D5W 1 GM in PREMIXED IN D5W 100 ML IV ONE (07:45)
--- NOTE | 2017-10-14 08:41 | Progress Note ---
Progress Note Date of Service: Oct 14, 2017. Subjective Awake and alert. No complaints Problem List Medical Problems: (1) Anemia Status: Acute (2) Knee effusion, right Status: Acute (3) Leg pain Status: Acute (4) Pseudoaneurysm Status: Acute (5) Pseudogout Status: Acute (6) Renal insufficiency Status: Acute Objective Vital Signs Vital Signs Past 12 Hours Date Time Temp Pulse Resp B/P (MAP) Pulse Ox O2 Delivery O2 Flow Rate FiO2 10/14/17 08:00 36.8 96 18 124/87 (99) 94 Room Air 10/14/17 08:00 94 Room Air 10/14/17 06:01 91 16 132/86 (101) 96 Room Air 10/14/17 04:02 94 11 119/77 (91) 98 Room Air 10/14/17 04:00 Room Air 10/14/17 03:01 93 12 110/87 (95) 97 Room Air 10/14/17 02:01 89 16 101/68 (79) 98 Room Air 10/14/17 00:01 36.5 85 16 118/87 (97) 96 Room Air 10/14/17 00:00 Room Air 10/13/17 23:01 82 14 127/94 (105) 99 Room Air 10/13/17 22:01 85 14 118/79 (92) 97 10/13/17 21:01 85 20 102/72 (82) 97 Exam Afebrile. VSS. Incision dry and clean. Good distal pulses. Laboratory and Microbiology Results Past 24 Hours Test 10/13/17 12:00 10/13/17 17:29 10/13/17 21:07 10/14/17 05:39 Range/Units White Blood Count 5.88 7.51 4.8-10.8 K/uL Red Blood Count 3.61 3.51 4.7-6.1 M/uL Hemoglobin 8.6 8.4 14.0-18.0 g/dL Hematocrit 27.9 27.3 42-52 % Mean Corpuscular Volume 77.3 77.8 80-100 fL Mean Corpuscular Hemoglobin 23.8 23.9 25-34 pg Mean Corpuscular Hemoglobin Concent 30.8 30.8 32-36 g/dl Platelet Count 182 194 130-400 K/uL Mean Platelet Volume 9.9 10.0 7.4-10.4 fL Neutrophils (%) (Auto) 74.2 88.4 % Lymphocytes (%) (Auto) 13.8 7.1 % Monocytes (%) (Auto) 10.0 4.0 % Eosinophils (%) (Auto) 1.2 0.0 % Basophils (%) (Auto) 0.3 0.1 % Neutrophils # (Auto) 4.36 6.64 1.4-6.5 K/uL Lymphocytes # (Auto) 0.81 0.53 1.2-3.4 K/uL Monocytes # (Auto) 0.59 0.30 0.11-0.59 K/uL Eosinophils # (Auto) 0.07 0.00 0-0.5 K/uL Basophils # (Auto) 0.02 0.01 0-0.2 K/uL RDW Standard Deviation 46.0 46.3 36.4-46.3 fL RDW Coefficient of Variation 16.2 16.4 11.5-14.5 % Immature Granulocyte % (Auto) 0.5 0.4 % Immature Granulocyte # (Auto) 0.03 0.03 0.00-0.02 K/uL Poikilocytosis PRESENT Anisocytosis PRESENT PRESENT Microcytosis PRESENT Bedside Glucose 196 209 70-99 mg/dl Ovalocytes 1+ Acanthocytes 1+ Prothrombin Time 15.3 9.0-12.0 SECONDS Prothromb Time International Ratio 1.5 0.9-1.1 Activated Partial Thromboplast Time 98.3 21.0-31.0 SECONDS Partial Thromboplastin Ratio 3.8 Sodium Level 134 136-145 mmol/L Potassium Level 4.2 3.5-5.1 mmol/L Chloride Level 103 98-107 mmol/L Carbon Dioxide Level 25 21-32 mmol/L Anion Gap 6.0 3-11 mmol/L Blood Urea Nitrogen 26 7-18 mg/dl Creatinine 2.12 0.60-1.40 mg/dl Est Creatinine Clear Calc Drug Dose 38.2 ml/min Estimated GFR () 36.2 Estimated GFR (Non- 31.3 BUN/Creatinine Ratio 12.4 10-20 Random Glucose 146 70-99 mg/dl Calcium Level 8.8 8.5-10.1 mg/dl Magnesium Level 1.6 1.8-2.4 mg/dl Microbiology Results 10/13/17 Gram Stain - Final, Resulted 10/13/17 Bacterial Culture, Resulted Pending 10/13/17 Gram Stain, Received Pending 10/13/17 Bacterial Culture, Received Pending Imp: Post pseudoaneurysm of right femoral artery Plan: Doing well. D/C today.
[2017-10-14] MEDS ORDERED: ENOX40IN SQ (08:44)
[2017-10-14] MEDS ORDERED: OXYC-57 PO (08:44)
--- NOTE | 2017-10-14 08:52 | Discharge Instructions ---
Discharge Instructions Date of Service Oct 14, 2017. Admission Reason for Admission: Heart Transplanted; Pseudoaneurysm Discharge Discharge Diagnosis / Problem: Psuedoaneursym right femoral artery Discharge Goals Goal(s): Therapeutic intervention Activity Recommendations Activity Limitations: per Instructions/Follow-up section Lifting Limitations: no more than 10 pounds Exercise/Sports Limitations: gradually increase as tolerated Shower/Bathe: tomorrow Driving or Machine Use: resume 3 days after discharge . Instructions / Follow-Up Instructions / Follow-Up Call [phone] to schedule a follow up appointment if one not already scheduled. Take lovenox 40mg q 12 hours till seen by Family MD on Wednesday Cover wound with dry dressing if drainage. ACTIVITY RECOMMENDATIONS: See Above SPECIAL CARE INSTRUCTIONS: Call your doctor if: * Temperature above 101 degrees * Pain not relieved by pain medicine ordered * There is increased drainage or redness from any incision * You have any unanswered questions or concerns. Current Hospital Diet Patient's current hospital diet: AHA Diet (Heart Healthy) Discharge Diet Recommended Diet: AHA Diet (Heart Healthy) Procedures Procedures Performed: Repair of right superficial femoral artery pseudoaneurysm with bovine graft Pending Studies Studies pending at discharge: no Laboratory Results Lipid Panel Test 09/23/17 10:38 Range/Units Triglycerides Level 171 H 0-150 mg/dl Cholesterol Level 201 H 0-200 mg/dl HDL Cholesterol 31 mg/dl Cholesterol/HDL Ratio 6.5 LDL Cholesterol, Calculated 136 mg/dl Medical Emergencies . Who to Call and When: Medical Emergencies: If at any time you feel your situation is an emergency, please call 911 immediately. . Non-Emergent Contact Non-Emergency issues call your: Surgeon Call Non-Emergent contact if: temperature is above 101.5, your pain is not controlled, your pain is worsening, wound has increased drainage, wound has increased pain, you have any medication questions . "Provider Documentation" section prepared by Adam Soni. . VTE Core Measure Inpt VTE Proph given/why not?: Warfarin (Coumadin), Other Anticoagulation
[2017-10-14] MEDS ORDERED: ENOXAPARIN 40 MG/0.4 ML SYR SQ ONE (09:30)
--- NOTE | 2017-10-14 09:34 | Progress Note ---
Internal Med Progress Note Date of Service: Oct 14, 2017. Provider Documentation: SUBJECTIVE: Patient is comfortable. s/p vascular procedure on 10/13/17 OBJECTIVE: Exam: General- no acute distress Eyes- EOMI Neck- midline trachea, no JVD Lungs- CTABL, no wheezing Heart- RRR Abdomen- soft, nontender, + bowel movements Extremities- pedal pulses intact, no edema, there is dressing over the medial right thigh Neuro- awake and alert and oriented ASSESSMENT & PLAN: This is 67-year-old male presents with right groin pain found to have pseudoaneurysm. 6.3 cm right inguinal/femoral pseudoaneurysm / Pseudoaneurysm of right superficial femoral artery has been on cefepime antibiotic pre-op s/p Repair of right superficial femoral artery pseudoaneurysm with bovine graft on 10/13/17 Hx. of PE Hypercoagulable State Had been off of Coumadin for vascular procedure and was transitioned to IV heparin, now post op and can go back to coumadin therapy Hx. of Heart Transplant has had a hx. of amyloidosis cont antirejection drugs: cellcept, prednisone and tacrolimus Hx. of A. Fib had been having some resting tachycardia and has on cardizem Hx. of complete heart block s/p pacemaker interrogation pending CKD stage 3 2.8 cm cavitary mass lesion within the right lower lobe / history of lung nodules pulmonary consult: This lesion will need evaluation either during this admission following repair of the pseudoaneurysm or as an outpatient. Hypomagnesemia Serum magnesium 1.6 on 10/14/17 and given 1 gram of magnesium IV and 400 mg magnesium PO Patient has follow up appointment to check INR levels and serum magnesium on Patient has follow up to primary care doctor on 10/25/17 Take lovenox 40mg q 12 hours till seen by Family MD on Wednesday Call [phone] to schedule a follow up appointment if one not already scheduled for vascular clinic follow up Other discharge instructions Activity Recommendations Activity Limitations: per Instructions/Follow-up section Lifting Limitations: no more than 10 pounds Exercise/Sports Limitations: gradually increase as tolerated Shower/Bathe: tomorrow Driving or Machine Use: resume 3 days after discharge Cover wound with dry dressing if drainage. Vital Signs: Date Time Temp Pulse Resp B/P (MAP) Pulse Ox O2 Delivery O2 Flow Rate FiO2 10/14/17 08:55 36.8 96 18 94 Room Air 10/14/17 08:00 36.8 96 18 124/87 (99) 94 Room Air 10/14/17 08:00 94 Room Air 10/14/17 06:01 91 16 132/86 (101) 96 Room Air 10/14/17 04:02 94 11 119/77 (91) 98 Room Air 10/14/17 04:00 Room Air 10/14/17 03:01 93 12 110/87 (95) 97 Room Air 10/14/17 02:01 89 16 101/68 (79) 98 Room Air 10/14/17 00:01 36.5 85 16 118/87 (97) 96 Room Air 10/14/17 00:00 Room Air 10/13/17 23:01 82 14 127/94 (105) 99 Room Air 10/13/17 22:01 85 14 118/79 (92) 97 10/13/17 21:01 85 20 102/72 (82) 97 10/13/17 20:01 36.7 86 21 110/73 (85) 98 Room Air 10/13/17 20:00 95 Room Air 10/13/17 19:01 91 15 102/72 (82) 98 10/13/17 18:01 93 16 105/69 (81) 97 10/13/17 17:01 106 18 121/86 (98) 95 10/13/17 16:01 96 18 116/82 (93) 95 10/13/17 16:00 95 Room Air 10/13/17 16:00 37.0 97 20 131/74 (93) 95 Room Air 10/13/17 13:00 95 20 139/86 (103) 99 Nasal Cannula 2.0 152/73 (99) 10/13/17 12:00 95 Nasal Cannula 2.0 10/13/17 11:20 99 16 156/94 97 Nasal Cannula 3 165/79 (97) 10/13/17 11:10 99 16 156/95 97 Oxymask 3 147/80 (101) 10/13/17 11:00 100 16 170/95 98 Oxymask 5 10/13/17 10:53 36.6 102 16 142/79 98 Oxymask 5 Lab Results: Results Past 24 Hours Test 10/13/17 12:00 10/13/17 17:29 1/24/18 21:07 10/14/17 05:39 Range/Units White Blood Count 5.88 7.51 4.8-10.8 K/uL Red Blood Count 3.61 3.51 4.7-6.1 M/uL Hemoglobin 8.6 8.4 14.0-18.0 g/dL Hematocrit 27.9 27.3 42-52 % Mean Corpuscular Volume 77.3 77.8 80-100 fL Mean Corpuscular Hemoglobin 23.8 23.9 25-34 pg Mean Corpuscular Hemoglobin Concent 30.8 30.8 32-36 g/dl Platelet Count 182 194 130-400 K/uL Mean Platelet Volume 9.9 10.0 7.4-10.4 fL Neutrophils (%) (Auto) 74.2 88.4 % Lymphocytes (%) (Auto) 13.8 7.1 % Monocytes (%) (Auto) 10.0 4.0 % Eosinophils (%) (Auto) 1.2 0.0 % Basophils (%) (Auto) 0.3 0.1 % Neutrophils # (Auto) 4.36 6.64 1.4-6.5 K/uL Lymphocytes # (Auto) 0.81 0.53 1.2-3.4 K/uL Monocytes # (Auto) 0.59 0.30 0.11-0.59 K/uL Eosinophils # (Auto) 0.07 0.00 0-0.5 K/uL Basophils # (Auto) 0.02 0.01 0-0.2 K/uL RDW Standard Deviation 46.0 46.3 36.4-46.3 fL RDW Coefficient of Variation 16.2 16.4 11.5-14.5 % Immature Granulocyte % (Auto) 0.5 0.4 % Immature Granulocyte # (Auto) 0.03 0.03 0.00-0.02 K/uL Poikilocytosis PRESENT Anisocytosis PRESENT PRESENT Microcytosis PRESENT Bedside Glucose 196 209 70-99 mg/dl Ovalocytes 1+ Acanthocytes 1+ Prothrombin Time 15.3 9.0-12.0 SECONDS Prothromb Time International Ratio 1.5 0.9-1.1 Activated Partial Thromboplast Time 98.3 21.0-31.0 SECONDS Partial Thromboplastin Ratio 3.8 Sodium Level 134 136-145 mmol/L Potassium Level 4.2 3.5-5.1 mmol/L Chloride Level 103 98-107 mmol/L Carbon Dioxide Level 25 21-32 mmol/L Anion Gap 6.0 3-11 mmol/L Blood Urea Nitrogen 26 7-18 mg/dl Creatinine 2.12 0.60-1.40 mg/dl Est Creatinine Clear Calc Drug Dose 38.2 ml/min Estimated GFR () 36.2 Estimated GFR (Non- 31.3 BUN/Creatinine Ratio 12.4 10-20 Random Glucose 146 70-99 mg/dl Calcium Level 8.8 8.5-10.1 mg/dl Magnesium Level 1.6 1.8-2.4 mg/dl Microbiology Results 10/13/17 Gram Stain - Final, Resulted 10/13/17 Bacterial Culture, Resulted Pending 10/13/17 Gram Stain - Final, Resulted 10/13/17 Bacterial Culture, Resulted Pending
--- NOTE | 2017-10-14 09:37 | Discharge Summary ---
Discharge Summary Date of Service Oct 14, 2017. Discharge Summary Admission Date: Oct 10, 2017 at 14:29 Discharge Date: Oct 14, 2017 Discharge Disposition: Home Principal Diagnosis: 6.3 cm right inguinal/femoral pseudoaneurysm Secondary Diagnoses/Problems: 2.8 cm cavitary mass lesion within the right lower lobe / history of lung nodules, hypomagnesemia Procedures: s/p Repair of right superficial femoral artery pseudoaneurysm with bovine graft Medication Reconciliation New Medications: Enoxaparin (Lovenox) 40 Mg/0.4 Ml Inj 40 MG SQ Q12H for 4 Days, SYR Oxycodone/Acetaminophen 5MG/325MG (Percocet 5MG/325MG) Tab 1 TABLET PO Q4H PRN for Pain, #30 TAB Continued Medications: Amlodipine (Norvasc) 10 Mg Tab 10 MG PO DAILY, TAB Atovaquone (Mepron) 750 Mg/5 Ml Susp 10 ML PO QAM Calcium Carbonate-Cholecalcife (Caltrate 600+D) 1 Tab Tab 1 TAB PO BID Levothyroxine Sodium (Synthroid) 50 Mcg Tab 50 MCG PO DAILY, TAB Mycophenolate Mofetil (Cellcept) 500 Mg Tab 1000 MG PO BID, TAB Omeprazole (Prilosec) 20 Mg Capcr 20 MG PO DAILY, CAP Pravastatin Sodium (Pravachol) 40 Mg Tab 40 MG PO DAILY Prednisone (Prednisone) 5 Mg Tab 7.5 MG PO Q2D, #1 PKT Prednisone (Prednisone) 5 Mg Tab 5 MG PO Q2D, TAB Senna (Senokot) 8.6 Mg Tab 2 TAB PO DAILY, TAB Tacrolimus (Prograf) 1 Mg Cap 4 MG PO AMPM, CAP Tramadol (Ultram) 50 Mg Tab 50-100 MG PO Q6H PRN for Pain, TAB Warfarin Sod (Jantoven) 1 Mg Tab 3.5 MG PO Q2D, TAB Warfarin Sod (Jantoven) 2.5 Mg Tab 2.5 MG PO Q2D, TAB Admission Information HPI (per Admitting provider): CHIEF COMPLAINT: Right groin pain radiating to the back. 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 The patient underwent cardiac transplantation for amyloidosis in [facility] in May 2016, currently on tacrolimus, CellCept, Prednisone. He was again admitted at [facility] in November 2016 for 2 weeks for diarrhea, poor oral intake and kidney failure and found to be CMV positive, received IV ganciclovir and 2 new lung nodules also discovered in workup. It was thought to be PTLA versus infection. His lung biopsy was attempted twice, but could not be done. He also has knee pain and is status post shots to his knee and he was seen in April here in the hospital with syncope. At that time, he was transferred back to [facility] for possible rejection, but patient says he was placed pacemaker and is doing okay since then but last 10 days he has noticed pain in his left groin radiating to back, 7-8/10 in severity. No increase in pain while ambulation. Denies any fever, chills, no cough, no chest pain, no shortness of breath, no nausea, no vomiting, no abdominal pain, no headaches, no blurred vision, no dizziness, no sore throat, no difficulty swallowing. No ear pain. Normal bowel and bladder movements. Appetite is okay. Ambulation okay. No swelling in the legs. No skin rash. Currently resting comfortably and hemodynamically stable. Physical Exam (per Admitting): PHYSICAL EXAMINATION: GENERAL: The patient is of moderate build, not in distress. VITAL SIGNS: Temperature 37.1, pulse 101, respiratory rate 16, blood pressure 127/84, oxygen 96% room air. HEENT: No pallor, no icterus. Pupils equal, round, and reactive to light. NECK: No JVD, no neck masses, no carotid bruits. CARDIOVASCULAR: S1, S2 heard, regular rate and rhythm, no murmur, no gallop. RESPIRATORY SYSTEM: Clear to auscultation bilaterally. No wheezing, no crackles. ABDOMEN: Soft, bowel sounds present, nontender, some tenderness in right groin region. No distention. CENTRAL NERVOUS SYSTEM: Cranial nerves II-XII grossly intact. Nonfocal. EXTREMITIES: No edema, no erythema. Hospital Course This is 67-year-old male presents with right groin pain found to have pseudoaneurysm. 6.3 cm right inguinal/femoral pseudoaneurysm / Pseudoaneurysm of right superficial femoral artery has been on cefepime antibiotic pre-op s/p Repair of right superficial femoral artery pseudoaneurysm with bovine graft on 10/13/17 Hx. of PE Hypercoagulable State Had been off of Coumadin for vascular procedure and was transitioned to IV heparin, now post op and can go back to coumadin therapy Hx. of Heart Transplant has had a hx. of amyloidosis cont antirejection drugs: cellcept, prednisone and tacrolimus Hx. of A. Fib had been having some resting tachycardia and has on cardizem Hx. of complete heart block s/p pacemaker interrogation pending CKD stage 3 2.8 cm cavitary mass lesion within the right lower lobe / history of lung nodules pulmonary consult: This lesion will need evaluation either during this admission following repair of the pseudoaneurysm or as an outpatient. Hypomagnesemia Serum magnesium 1.6 on 10/14/17 and given 1 gram of magnesium IV and 400 mg magnesium PO Patient has follow up appointment to check INR levels and serum magnesium on Patient has follow up to primary care doctor on 10/25/17 Take lovenox 40mg q 12 hours till seen by Family MD on Wednesday Call [phone] to schedule a follow up appointment if one not already scheduled for vascular clinic follow up Other discharge instructions Activity Recommendations Activity Limitations: per Instructions/Follow-up section Lifting Limitations: no more than 10 pounds Exercise/Sports Limitations: gradually increase as tolerated Shower/Bathe: tomorrow Driving or Machine Use: resume 3 days after discharge Cover wound with dry dressing if drainage. Total time spent on discharge = This includes examination of the patient, discharge planning, medication reconciliation, and communication with other providers. Discharge Instructions see above
[2017-10-14] MEDS ORDERED: MAGNESIUM OXIDE 400 MG TAB PO ONE (09:45)
[2017-10-14] MEDS ORDERED: WARFARIN SOD 2.5 MG TAB PO SCH (16:00)
--- NOTE | 2017-10-15 09:57 | Progress Note ---
Progress Note Date of Service Oct 15, 2017. Progress Note I assisted Dr Soni with Mitchel Alcocer's Repair of right superficial femoral artery pseudoaneurysm with bovine graft on 10/13/17, d/t lack of resident availability.
== END 2017-10-14 10:15 | disposition home or self-care (01) | DRG 252 ==
LOC: C.EDB 09:47 → C.2E 14:29 → ENRESERV 15:05 → EDBEDREQ 10-13 11:22 → ENRESERV 10-13 11:25 → C.MSICU 10-13 11:35
PROVIDERS: ADMIT Family Medicine; ATTEND Hospitalist
PROC: 04QK0ZZ Repair Right Femoral Artery, Open Approach (ICD-10-PCS; principal; 2017-10-13 08:00)
DX: I72.4 Aneurysm of artery of lower extremity (principal); I50.43 Acute on chronic combined systolic (congestive) and diastolic (congestive) heart failure; Z94.1 Heart transplant status; I48.91 Unspecified atrial fibrillation; N18.3 Chronic kidney disease, stage 3 (moderate); F32.9 Major depressive disorder, single episode, unspecified; E78.5 Hyperlipidemia, unspecified; I45.9 Conduction disorder, unspecified; D63.1 Anemia in chronic kidney disease; K21.9 Gastro-esophageal reflux disease without esophagitis; E03.9 Hypothyroidism, unspecified; Z86.711 Personal history of pulmonary embolism; Z96.653 Presence of artificial knee joint, bilateral; Z79.01 Long term (current) use of anticoagulants

== ENCOUNTER 2017-10-23 15:37 | Inpatient (IN) | payer OTHER ==
[~2017-10-23] VITALS: Ht 185.4 cm; Wt 93.5 kg
[~2017-10-23 15:37] MED LIST changes: -AMLO-110 PO; +AMLO-114 PO; +CALC-354 PO; -OMEP40CA41 PO; +OXYC-57 PO; +PRED-301 PO; +PRLSR20 PO; +SENN-61 PO; +TACR1CAP PO; -TACR1CAP14 PO; +TRAM-10 PO; -VALG1TAB PO; -VTMD400 PO; -WARF-280 PO; +WARF1TAB6 PO; +WARF2.5T8 PO
[2017-10-23] MEDS ORDERED: OXYC-57 PO (16:25)
[2017-10-23] MEDS ORDERED: MYCOPHENOLATE MOFETIL 250 MG CAP (CELLCEPT) PO STA (16:26)
[2017-10-23] MEDS ORDERED: ONDANSETRON INJ 2 MG/ML 2 ML VIAL IV STA (16:26)
[2017-10-23] MEDS ORDERED: TACROLIMUS 1 MG CAP PO STA (16:26)
[2017-10-23] MEDS ORDERED: HYDROmorphone INJ 1 MG/ML SYR IV STA (16:26)
[2017-10-23] MEDS ORDERED: WARFARIN SOD 5 MG TAB PO ONE (16:30)
[2017-10-23 16:58] LABS: HEMATOCRIT 35.7 % (42-52); HEMOGLOBIN 11.2 g/dL (14.0-18.0); MEAN CELL VOLUME 77.6 fL (80-100); MEAN CORPUSCULAR HEMOGLOBIN 24.3 pg (25-34); MEAN CORPUSCULAR HGB CONC 31.4 g/dl (32-36); PLATELET COUNT 299 K/uL (130-400); RED CELL DISTRIBUTION WIDTH CV 16.4 % (11.5-14.5); RED CELL DISTRIBUTION WIDTH SD 46.8 fL (36.4-46.3); WHITE BLOOD COUNT 7.15 K/uL (4.8-10.8)
[2017-10-23 17:16] LABS: INR 1.3 (0.9-1.1); PTT PATIENT 29.9 SECONDS (21.0-31.0)
[2017-10-23 17:20] LABS: BASO % 0.4 %; BASO ABS # 0.03 K/uL (0-0.2); EOS % 0.6 %; EOS ABS # 0.04 K/uL (0-0.5); IG# 0.04 K/uL (0.00-0.02); LYMPH % 14.5 %; LYMPH ABS # 1.04 K/uL (1.2-3.4); MONO % 7.3 %; MONO ABS # 0.52 K/uL (0.11-0.59); NEUT % 76.6 %; NEUT ABS # 5.48 K/uL (1.4-6.5)
[2017-10-23 17:25] LABS: CALCIUM 10.2 mg/dl (8.5-10.1); CREATININE 2.7 mg/dl (0.60-1.40); POTASSIUM 4.1 mmol/L (3.5-5.1)
[2017-10-23] MEDS ORDERED: SODIUM CHLORIDE 0.9% 1000ML 1,000 ML IV STA (17:33)
--- NOTE | 2017-10-23 18:19 | DIAGNOSTIC IMAGING REPORT ---
RIGHT LOWER EXTREMITY VENOUS DOPPLER CLINICAL HISTORY: Right leg pain. Lower back pain. Recent pseudoaneurysm repair. COMPARISON STUDY: Bilateral lower extremity venous Doppler October 03, [address] of the abdomen and pelvis October 10, 2017. TECHNIQUE: Sonography of the deep venous system of the right lower extremity was performed. Compression and augmentation were evaluated. FINDINGS: Note is made of a complex right groin fluid collection that measures 7 x 5.9 x 3.3 cm. This contains no color flow. This has a lace-like appearance and suggests a hematoma. An adjacent 2.7 cm more simple appearing fluid collection may reflect a resolving hematoma or seroma. Evaluation for residual pseudoaneurysm was difficult given overlying bandages but no definite residual pseudoaneurysm is identified. Evaluation of the right common femoral vein was difficult however this vessel was patent. There is no thrombus within the right superficial femoral and popliteal veins. However, there is deep venous thrombus within one of 2 paired right posterior tibial veins as well as one of two paired right peroneal veins. There is also superficial thrombus within the right greater saphenous vein that extended from the thigh to the right popliteal fossa. This thrombus was occlusive. IMPRESSION: 1. Deep venous thrombus within right posterior tibial and peroneal veins. No above the knee deep venous thrombus. 2. Superficial thrombus within the right greater saphenous vein which extends from the level of the thigh to the popliteal fossa. 3. 7 x 5.9 x 3.3 cm complex right groin fluid collection suggestive of a hematoma. Adjacent 2.7 cm fluid collection may reflect a resolving hematoma or seroma. No convincing residual pseudoaneurysm identified although evaluation is difficult on this exam. Electronically signed by: Nomi Meneses M.D. 10/23/2017 6:17 PM Dictated Date/Time: 10/23/2017 6:07 PM
[2017-10-23] MEDS ORDERED: ONDANSETRON INJ 2 MG/ML 2 ML VIAL IV PRN (19:30)
[2017-10-23] MEDS ORDERED: WARFARIN SOD 1 MG TAB PO SCH (19:45)
[2017-10-23] MEDS ORDERED: TRAMADOL HCL 50 MG TAB PO PRN (19:45)
[2017-10-23 20:20] VITALS: BP 118/72; PULSE 115; TEMP 36.7; O2SAT 96; Ht 185.4 cm; Wt 93.5 kg
--- NOTE | 2017-10-23 20:32 | History and Physical ---
History & Physical Date & Time of Service: Oct 23, 2017 at 19:53 Chief Complaint: Pain In Lwr Back Primary Care Physician: Chavez Enciso D.OAida History of Present Illness Source: patient, clinic records, hospital records This is a 67 year old male with a recent admission to [facility] for R common femoral pseudoaneurysm repair - with a PMH of heart transplantation secondary to amyloidosis on chronic immunosuppressive therapy, hx. of DVTs and PE, hx. of hypercoagulable state on long-term anticoagulation, hx. of A. Fib, sick sinus syndrome s/p pacemaker, hx. of chronic mixed systolic/diastolic CHF, CKD stage 3 , pulmonary HTN, hypothyroidism - presents with worsening R LE pain. States that he was doing well after being discharged on October 14. He was seen by primary care physician and Coumadin clinic on Wednesday, October 18. He stopped using his Lovenox due to therapeutic INR. States that one 2/2, he developed weakness, nausea, pain on the R LE. He did not know what to do, so he stopped taking all of his medications, including his Coumadin and his immunosuppressives. States he thought this would help him feel better. Presented to the ER due to worsening R LE pain. On presentation, R LE doppler performed, showing acute LE DVT. Currently denies all symptoms. 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 Status: Chronic (6) Depression Status: Chronic (7) DVT, lower extremity Status: Resolved (8) Dyslipidemia Status: Chronic (9) Hypothyroidism Status: Chronic (10) Left ventricular hypertrophy Status: Chronic (11) Prothrombin gene mutation Status: Chronic (12) Pulmonary embolism Status: Resolved (13) Pulmonary hypertension Status: Chronic (14) RBBB Status: Chronic Surgical Problems: (1) Heart transplanted Status: Chronic (2) History of carpal tunnel surgery of right wrist Status: Chronic (3) S/p removal of knee cartilage Status: Chronic (4) Status post total knee replacement Permanent Comment: left2009, Dr. Guerrier Status: Resolved Family History Patient reports no known family medical history. Social History Smoking Status: Never Smoker Drug Use: none Marital Status: Housing status: lives alone Occupational Status: employed Immunizations History of Influenza Vaccine: No History of Tetanus Vaccine?: No History of Pneumococcal: No History of Hepatitis B Vaccine: No Multi-Drug Resistant Organisms History of MDRO: No Allergies Coded Allergies: Morphine (Verified Allergy, Unknown, Nausea/vomiting, 10/23/17) Home Medications Scheduled Amlodipine (Norvasc), 10 MG PO DAILY Atovaquone (Mepron), 10 ML PO QAM Calcium Carbonate-Cholecalcife (Caltrate 600+D), 1 TAB PO BID Levothyroxine Sodium (Synthroid), 50 MCG PO DAILY Mycophenolate Mofetil (Cellcept), 1,000 MG PO BID Omeprazole (Prilosec), 20 MG PO DAILY Pravastatin Sodium (Pravachol), 40 MG PO DAILY Prednisone (Prednisone), 7.5 MG PO Q2D Prednisone (Prednisone), 5 MG PO Q2D Senna (Senokot), 2 TAB PO DAILY Tacrolimus (Prograf), 4 MG PO AMPM Warfarin Sod (Jantoven), 3.5 MG PO Q2D Warfarin Sod (Jantoven), 2.5 MG PO Q2D Scheduled PRN Oxycodone/Acetaminophen 5MG/325MG (Percocet 5MG/325MG), 1 TABLET PO Q4H PRN for Pain Tramadol (Ultram), 50-100 MG PO Q6H PRN for Pain Review of Systems Constitutional: + problem reported (decreased PO intake), No fever, No chills, No weakness Respiratory: No cough, No sputum, No wheezing, No shortness of breath, No dyspnea on exertion, No dyspnea at rest, No hemoptysis Cardiovascular: No chest pain, No edema, No palpitations Abdomen: + nausea, No pain, No vomiting, No diarrhea, No constipation, No GI bleeding Musculoskeletal: + joint pain, + muscle pain (R LE) Genitourinary - Male: No hematuria, No dysuria, No urinary frequency, No urinary urgency Neurologic: + weakness, + balance problems, No numbness/tingling, No vertigo Psychiatric: No depression symptoms, No anxiety, No insomnia Endocrine: No fatigue Hematologic / Lymphatic: No abnormal bleeding/bruising Integumentary: No rash Allergic / Immunologic: No environmental allergies, No seasonal allergies Physical Exam Vital Signs Date Time Temp Pulse Resp B/P (MAP) Pulse Ox O2 Delivery O2 Flow Rate FiO2 10/23/17 18:09 126 16 106/76 98 Room Air 10/23/17 17:17 128 18 134/76 99 Room Air 10/23/17 16:45 128 10/23/17 15:42 36.8 137 18 120/75 99 Room Air General Appearance: WD/WN, no apparent distress Head: normocephalic, atraumatic Eyes: normal inspection ENT: hearing grossly normal Neck: supple Respiratory/Chest: lungs clear, normal breath sounds, no respiratory distress, no accessory muscle use Cardiovascular: regular rate, rhythm, no edema, no murmur Abdomen/GI: normal bowel sounds, non tender, soft Extremities/Musculoskelatal: normal capillary refill, no pedal edema, + calf tenderness, + pertinent finding Neurologic/Psych: 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, no motor/sensory deficits, alert, normal mood/affect, oriented x 3 Skin: normal color Lymphatic: no adenopathy Diagnostics Laboratory Results Results Past 24 Hours Test 10/23/17 16:40 Range/Units White Blood Count 7.15 4.8-10.8 K/uL Red Blood Count 4.60 4.7-6.1 M/uL Hemoglobin 11.2 14.0-18.0 g/dL Hematocrit 35.7 42-52 % Mean Corpuscular Volume 77.6 80-100 fL Mean Corpuscular Hemoglobin 24.3 25-34 pg Mean Corpuscular Hemoglobin Concent 31.4 32-36 g/dl Platelet Count 299 130-400 K/uL Mean Platelet Volume 10.0 7.4-10.4 fL Neutrophils (%) (Auto) 76.6 % Lymphocytes (%) (Auto) 14.5 % Monocytes (%) (Auto) 7.3 % Eosinophils (%) (Auto) 0.6 % Basophils (%) (Auto) 0.4 % Neutrophils # (Auto) 5.48 1.4-6.5 K/uL Lymphocytes # (Auto) 1.04 1.2-3.4 K/uL Monocytes # (Auto) 0.52 0.11-0.59 K/uL Eosinophils # (Auto) 0.04 0-0.5 K/uL Basophils # (Auto) 0.03 0-0.2 K/uL RDW Standard Deviation 46.8 36.4-46.3 fL RDW Coefficient of Variation 16.4 11.5-14.5 % Immature Granulocyte % (Auto) 0.6 % Immature Granulocyte # (Auto) 0.04 0.00-0.02 K/uL Giant Platelets 1+ Poikilocytosis PRESENT Microcytosis PRESENT Prothrombin Time 13.4 9.0-12.0 SECONDS Prothromb Time International Ratio 1.3 0.9-1.1 Activated Partial Thromboplast Time 29.9 21.0-31.0 SECONDS Partial Thromboplastin Ratio 1.2 Sodium Level 131 136-145 mmol/L Potassium Level 4.1 3.5-5.1 mmol/L Chloride Level 98 98-107 mmol/L Carbon Dioxide Level 24 21-32 mmol/L Anion Gap 9.0 3-11 mmol/L Blood Urea Nitrogen 34 7-18 mg/dl Creatinine 2.70 0.60-1.40 mg/dl Est Creatinine Clear Calc Drug Dose 30.0 ml/min Estimated GFR () 27.0 Estimated GFR (Non- 23.3 BUN/Creatinine Ratio 12.4 10-20 Random Glucose 103 70-99 mg/dl Calcium Level 10.2 8.5-10.1 mg/dl Diagnostic Radiology RIGHT LOWER EXTREMITY VENOUS DOPPLER CLINICAL HISTORY: Right leg pain. Lower back pain. Recent pseudoaneurysm repair. COMPARISON STUDY: Bilateral lower extremity venous Doppler October 03, [address] of the abdomen and pelvis October 10, 2017. TECHNIQUE: Sonography of the deep venous system of the right lower extremity was performed. Compression and augmentation were evaluated. FINDINGS: Note is made of a complex right groin fluid collection that measures 7 x 5.9 x 3.3 cm. This contains no color flow. This has a lace-like appearance and suggests a hematoma. An adjacent 2.7 cm more simple appearing fluid collection may reflect a resolving hematoma or seroma. Evaluation for residual pseudoaneurysm was difficult given overlying bandages but no definite residual pseudoaneurysm is identified. Evaluation of the right common femoral vein was difficult however this vessel was patent. There is no thrombus within the right superficial femoral and popliteal veins. However, there is deep venous thrombus within one of 2 paired right posterior tibial veins as well as one of two paired right peroneal veins. There is also superficial thrombus within the right greater saphenous vein that extended from the thigh to the right popliteal fossa. This thrombus was occlusive. IMPRESSION: 1. Deep venous thrombus within right posterior tibial and peroneal veins. No above the knee deep venous thrombus. 2. Superficial thrombus within the right greater saphenous vein which extends from the level of the thigh to the popliteal fossa. 3. 7 x 5.9 x 3.3 cm complex right groin fluid collection suggestive of a hematoma. Adjacent 2.7 cm fluid collection may reflect a resolving hematoma or seroma. No convincing residual pseudoaneurysm identified although evaluation is difficult on this exam. Impression Assessment and Plan This is a 67 year old male with a recent admission to [facility] for R common femoral pseudoaneurysm repair - with a PMH of heart transplantation secondary to amyloidosis on chronic immunosuppressive therapy, hx. of DVTs and PE, hx. of hypercoagulable state on long-term anticoagulation, hx. of A. Fib, sick sinus syndrome s/p pacemaker, hx. of chronic mixed systolic/diastolic CHF, CKD stage 3 , pulmonary HTN, hypothyroidism - presents with worsening R LE pain. Acute R LE DVT Deep venous thrombus within right posterior tibial and peroneal veins patient stopped taking Coumadin he is okay with IV heparin ER doc spoke with vascular surgery, regarding hematoma - should anticoagulate patient will start IV heparin continue Coumadin check INR, goal of 2-3 R Inguinal Pseudoaneurysm will consult vascular surgery due to recent surgery hematoma noted on doppler LETTY superimposed on CKD stage 3 creatinine up to 2.7, baseline is closer to 2.3 or so gentle IV hydration monitor and avoid nephrotoxic agents when able Hx. of Heart Transplant has had a hx. of amyloidosis restart immunosuppressives Hx. of A. Fib currently sinus tachycardic IV heparin for now Cavitary Lesion Lung Nodules outpatient w/up, CT guided biopsy of lung nodules Hx. of complete heart block s/p pacemaker DVT ppx IV heparin DNR VTE Prophylaxis VTE Risk Assessment Done? Y/N: Yes Risk Level: High Given or contraindicated: Other Anticoagulation
[2017-10-23] MEDS ORDERED: HEPARIN IV BOLUS 7,000 UNIT in SYRINGE 0 ML IV ONE (21:15)
[2017-10-23] MEDS ORDERED: SODIUM CHLORIDE 0.9% 1000ML 1,000 ML IV SCH (22:00)
[2017-10-23] MEDS: HYDROmorphone INJ 1 MG/ML SYR IV PRN (22:12)
[2017-10-23] MEDS: HEPARIN 25,000 UNIT/500ML D5W 500 ML IV PRN (22:14)
[2017-10-23] MEDS: CALCIUM 600MG + VIT D 400 IU TAB PO SCH (23:10)
[2017-10-23] MEDS: TACROLIMUS 1 MG CAP PO SCH (23:11)
[2017-10-23] MEDS: MYCOPHENOLATE MOFETIL 250 MG CAP (CELLCEPT) PO SCH (23:11)
--- NOTE | 2017-10-23 23:23 | EMERGENCY ROOM VISIT NOTE ---
History Report prepared by Yung: Nicole Linder Under the Supervision of: Dr. Choco Lennon M.D. First contact with patient: 16:03 Chief Complaint: BACK PAIN Stated Complaint: PAIN IN LWR BACK History of Present Illness The patient is a 67 year old male who presents to the Emergency Room with complaints of lower back pain above his hips and right leg pain radiating to the ankle beginning three to four weeks ago. Ambulating is a worsening factor as when he walks he feels a stabbing pain on the inside of his thigh but, he feels no pain in his left leg. The patient describes the back pain as throbbing and equal on both sides. He notes he has weakness and numbness in both legs and associated diarrhea. He describes the numbness as a tingling sensation and he also has baseline neuropathy. He also feels nausea that he attributed to taking his medications, so he stopped taking them all one day ago including his anticoagulants and antirejection drugs. He also denies any fevers. The patient had a 6 cm right femoral pseudoaneurysm surgery October [address] Soni of [facility] vascular surgery. The patient was discharged one day after his surgery and woke up that morning and felt "really good." When asked if he had pain before the surgery, the patient states he had pain for three to four weeks prior to surgery. However, the patient did not know if the pseudoaneurysm was what was causing the pain. When asked if Dr. Soni told the patient the if the pseudoaneurysm surgery would take away the pain, the patient could not recall the answer. He states that when he started to try to get up out of bed is when the pain returned. He thinks he was feeling well after surgery because he was lying down and on pain medications. He states the oxycodone was helping a little bit. The patient last took his Lovenox shot approximately two days ago. He denies any fecal or urinary incontinence. Source of History: patient Onset: three to four weeks ago Position: back (lower, above hips), leg (right leg radiating to the ankle) Quality: stabbing, other (throbbing) Modifying Factors (Worsening): movement Associated Symptoms: + nausea, + diarrhea, + weakness, + numbness (both legs ), No fevers Note: No left leg pain Review of Systems See HPI for pertinent positives & negatives. A total of 10 systems reviewed and were otherwise negative. Past Medical & Surgical Medical Problems: (1) Acute DVT (deep venous thrombosis) (2) Atrial fibrillation (3) Cardiac amyloidosis (4) Chronic anticoagulation (5) CKD (chronic kidney disease), stage III (6) Compound heterozygous MTHFR mutation [id number] (7) Depression (8) DVT, lower extremity (9) Dyslipidemia (10) Heart block (11) Hypothyroidism (12) Left ventricular hypertrophy (13) Prothrombin gene mutation (14) Pulmonary embolism (15) Pulmonary hypertension (16) RBBB (17) Syncope Surgical Problems: (1) Heart transplanted (2) History of carpal tunnel surgery of right wrist (3) S/p removal of knee cartilage (4) Status post total knee replacement Family History Patient reports no known family medical history. Social History Smoking Status: Never Smoker Alcohol Use: occasionally Drug Use: none Marital Status: Housing Status: lives with significant other Occupation Status: employed Current/Historical Medications Scheduled Amlodipine (Norvasc), 10 MG PO DAILY Atovaquone (Mepron), 10 ML PO QAM Calcium Carbonate-Cholecalcife (Caltrate 600+D), 1 TAB PO BID Levothyroxine Sodium (Synthroid), 50 MCG PO DAILY Mycophenolate Mofetil (Cellcept), 1,000 MG PO BID Omeprazole (Prilosec), 20 MG PO DAILY Pravastatin Sodium (Pravachol), 40 MG PO DAILY Prednisone (Prednisone), 7.5 MG PO Q2D Prednisone (Prednisone), 5 MG PO Q2D Senna (Senokot), 2 TAB PO DAILY Tacrolimus (Prograf), 4 MG PO AMPM Warfarin Sod (Jantoven), 3.5 MG PO Q2D Warfarin Sod (Jantoven), 2.5 MG PO Q2D Scheduled PRN Oxycodone/Acetaminophen 5MG/325MG (Percocet 5MG/325MG), 1 TABLET PO Q4H PRN for Pain Tramadol (Ultram), 50-100 MG PO Q6H PRN for Pain Allergies Coded Allergies: Morphine (Verified Allergy, Unknown, Nausea/vomiting, 10/23/17) Physical Exam Vital Signs Date Time Temp Pulse Resp B/P (MAP) Pulse Ox O2 Delivery O2 Flow Rate FiO2 10/23/17 19:30 120 19 10/23/17 19:15 119 13 10/23/17 19:00 119 13 10/23/17 18:45 118 13 10/23/17 18:09 126 16 106/76 98 Room Air 10/23/17 17:17 128 18 134/76 99 Room Air 10/23/17 16:45 128 10/23/17 15:42 36.8 137 18 120/75 99 Room Air Physical Exam Constitutional: Vital signs reviewed. Eyes: Pupils are equal round reactive to light. Conjunctiva are noninjected. ENT: Pharynx is clear without erythema or exudate. Mucous membranes are moist. Neck supple without meningeal signs. Respiratory: Clear to auscultation bilaterally. Breath sounds are equal bilaterally. Cardiovascular: Tachycardic and rhythm. No rubs or gallops. GI: Soft, nondistended and nontender. Bowel sounds are present. Musculoskeletal: Incision to the right groin with bushra intact. Minimal erythema without any significant tenderness to discharge or dehiscence. Normal distal dorsalis pedis pulse. No excessive warmth, coldness or discoloration to the leg. Integumentary: No cyanosis. Neurological: The patient is awake and alert. Motor strength intact in the lower extremities although difficult to assess proximal right leg secondary to pain. Sensation intact throughout lower extremities to light touch but complains of dysesthesia with history of neuropathy. No saddle anesthesia. Psychiatric: Normal affect. Medical Decision & Procedures ER Provider Diagnostic Interpretation: Radiology results as stated below per my review and the radiologist's interpretation: RIGHT LOWER EXTREMITY VENOUS DOPPLER CLINICAL HISTORY: Right leg pain. Lower back pain. Recent pseudoaneurysm repair. COMPARISON STUDY: Bilateral lower extremity venous Doppler October 03, [address] of the abdomen and pelvis October 10, 2017. TECHNIQUE: Sonography of the deep venous system of the right lower extremity was performed. Compression and augmentation were evaluated. FINDINGS: Note is made of a complex right groin fluid collection that measures 7 x 5.9 x 3.3 cm. This contains no color flow. This has a lace-like appearance and suggests a hematoma. An adjacent 2.7 cm more simple appearing fluid collection may reflect a resolving hematoma or seroma. Evaluation for residual pseudoaneurysm was difficult given overlying bandages but no definite residual pseudoaneurysm is identified. Evaluation of the right common femoral vein was difficult however this vessel was patent. There is no thrombus within the right superficial femoral and popliteal veins. However, there is deep venous thrombus within one of 2 paired right posterior tibial veins as well as one of two paired right peroneal veins. There is also superficial thrombus within the right greater saphenous vein that extended from the thigh to the right popliteal fossa. This thrombus was occlusive. IMPRESSION: 1. Deep venous thrombus within right posterior tibial and peroneal veins. No above the knee deep venous thrombus. 2. Superficial thrombus within the right greater saphenous vein which extends from the level of the thigh to the popliteal fossa. 3. 7 x 5.9 x 3.3 cm complex right groin fluid collection suggestive of a hematoma. Adjacent 2.7 cm fluid collection may reflect a resolving hematoma or seroma. No convincing residual pseudoaneurysm identified although evaluation is difficult on this exam. Electronically signed by: Nomi Meneses M.D. 10/23/2017 6:17 PM Dictated Date/Time: 10/23/2017 6:07 PM Laboratory Results 10/23/17 16:40 Red Blood Count 4.60, Mean Corpuscular Volume 77.6, Mean Corpuscular Hemoglobin 24.3, Mean Corpuscular Hemoglobin Concent 31.4, Mean Platelet Volume 10.0, Neutrophils (%) (Auto) 76.6, Lymphocytes (%) (Auto) 14.5, Monocytes (%) (Auto) 7.3, Eosinophils (%) (Auto) 0.6, Basophils (%) (Auto) 0.4, Neutrophils # (Auto) 5.48, Lymphocytes # (Auto) 1.04, Monocytes # (Auto) 0.52, Eosinophils # (Auto) 0.04, Basophils # (Auto) 0.03 10/23/17 16:40 Test 10/23/17 16:40 White Blood Count 7.15 K/uL (4.8-10.8) Red Blood Count 4.60 M/uL (4.7-6.1) Hemoglobin 11.2 g/dL (14.0-18.0) Hematocrit 35.7 % (42-52) Mean Corpuscular Volume 77.6 fL (80-100) Mean Corpuscular Hemoglobin 24.3 pg (25-34) Mean Corpuscular Hemoglobin Concent 31.4 g/dl (32-36) Platelet Count 299 K/uL (130-400) Mean Platelet Volume 10.0 fL (7.4-10.4) Neutrophils (%) (Auto) 76.6 % Lymphocytes (%) (Auto) 14.5 % Monocytes (%) (Auto) 7.3 % Eosinophils (%) (Auto) 0.6 % Basophils (%) (Auto) 0.4 % Neutrophils # (Auto) 5.48 K/uL (1.4-6.5) Lymphocytes # (Auto) 1.04 K/uL (1.2-3.4) Monocytes # (Auto) 0.52 K/uL (0.11-0.59) Eosinophils # (Auto) 0.04 K/uL (0-0.5) Basophils # (Auto) 0.03 K/uL (0-0.2) RDW Standard Deviation 46.8 fL (36.4-46.3) RDW Coefficient of Variation 16.4 % (11.5-14.5) Immature Granulocyte % (Auto) 0.6 % Immature Granulocyte # (Auto) 0.04 K/uL (0.00-0.02) Giant Platelets 1+ Poikilocytosis PRESENT Microcytosis PRESENT Prothrombin Time 13.4 SECONDS (9.0-12.0) Prothromb Time International Ratio 1.3 (0.9-1.1) Activated Partial Thromboplast Time 29.9 SECONDS (21.0-31.0) Partial Thromboplastin Ratio 1.2 Anion Gap 9.0 mmol/L (3-11) Est Creatinine Clear Calc Drug Dose 30.0 ml/min Estimated GFR () 27.0 Estimated GFR (Non- 23.3 BUN/Creatinine Ratio 12.4 (10-20) Calcium Level 10.2 mg/dl (8.5-10.1) Laboratory results as reviewed by me. Medications Administered Medications (Trade) Dose Ordered Sig/Rosette Route Start Time Stop Time Status Last Admin Dose Admin Hydromorphone HCl (Dilaudid Inj) 1 mg NOW STAT IV 10/23/17 16:26 10/23/17 16:36 DC 10/23/17 17:04 1 MG Ondansetron HCl (Zofran Inj) 4 mg NOW STAT IV 10/23/17 16:26 10/23/17 16:36 DC 10/23/17 17:05 4 MG Mycophenolate Mofetil (Cellcept Cap) 1,000 mg NOW STAT PO 10/23/17 16:26 10/23/17 16:36 DC 10/23/17 17:17 1,000 MG Prednisone (PredniSONE TAB) 5 mg NOW ONCE PO 10/23/17 16:30 10/23/17 16:36 DC 10/23/17 17:06 5 MG Tacrolimus (Prograf Cap) 4 mg NOW STAT PO 10/23/17 16:26 10/23/17 16:36 DC 10/23/17 17:17 4 MG Warfarin Sodium (Coumadin Tab) 2.5 mg NOW ONCE PO 10/23/17 16:30 10/23/17 16:36 DC 10/23/17 17:05 2.5 MG Sodium Chloride 1,000 ml @ 999 mls/hr Q1H1M STAT IV 10/23/17 17:33 10/23/17 18:33 DC 10/23/17 17:33 999 MLS/HR Hydromorphone HCl (Dilaudid Inj) 1 mg Q4 PRN IV 10/23/17 19:30 11/06/17 19:29 10/23/17 22:12 1 MG Ondansetron HCl (Zofran Inj) 4 mg Q6H PRN IV 10/23/17 19:30 11/22/17 19:29 10/23/17 22:12 4 MG ED Course 1610: The patient was evaluated in room C5. A complete history and physical exam was performed. 1626: Ordered Tacrolimus 4 mg PO, Cellcept Cap 1000 mg Po Zofran Inj 4 mg IV Dilaudid inj 1 mg 1630: Ordered Coumadin Tab 2.5 mg PO Prednisone 5 mg PO 1631: I spoke with Dr. Soni of vascular surgery at [facility]. We discussed the patient and he agrees that the pain is unlikely to the pseudoaneurysm. He agrees with the plan for ruling out DVT Doppler. 1733: Ordered Sodium Chloride 1000 ml @ 999 mls/hr 1825: I spoke with Dr Soni and discussed ultrasound results with him and re agrees with anticoagulating the patient. 1854: I spoke with Dr. Fuentes, [facility]. He agrees the patient's diagnoses. Medical Decision This is a 67-year-old male presents with low back pain rating down his leg. Differential diagnosis includes spinal stenosis, lumbar disc disease, radiculopathy, strain, DVT. I did perform a limited focused review of portions of the patient's old chart on the electronic medical record. The patient was evaluated in the hospital last month for back and leg pain similar to what he is having today. He was worked up in the emergency department with multiple studies including CT scan, ultrasound and x-rays. He was found to have a pseudoaneurysm in the right groin and admitted to the hospital for repair by Dr. Soni. X-rays did reveal disease in the lumbar spine including facet arthropathy and anterior listhesis. I did evaluate the patient as noted above. IV access was established. The patient was placed on a continuous property assessment monitor. The patient is tachycardic but he states he has baseline tachycardia from his heart transplant. I did treat him with IV Dilaudid and Zofran. He was also given his CellCept and Prograf as well as 2.5 mg of Coumadin as he stopped taking his meds yesterday. I did order and review the patient's blood work as noted in the electronic medical record. His INR is 1.3. He is slightly anemic. Creatinine is elevated at 2.7. He was given a liter normal saline IV. I did order a Doppler ultrasound of the right lower extremity. I did review the images myself as well as the radiology report as described above. He does have what appeared to be hematomas near the graft as well as DVTs in the posterior tibial and peroneal veins. I did discuss the case with Dr. Soni of vascular surgery. He recommended starting patient on heparin or Lovenox because of the DVTs. He was not concerned about the hematomas. I did discuss the test results with the patient. He states he is feeling better at this time. I did discuss the case with the hospitalist and watch case polisher. Medication Reconcilliation Current Medication List: was personally reviewed by me Blood Pressure Screening Patient's blood pressure: Normal blood pressure Blood pressure disposition: Did not require urgent referral Consults Time Called: 1627 Consulting Physician: Dr. Soni Returned Call: 1631 Dr. Soni agrees and thinks pain is unlikely to the pseudoaneurysm. He agrees with the plan for ruling out DVT Doppler. Additional Consults: Time Called: 1850 Consulted Physician: Dr. Fuentes, [facility] hospitalist Returned Call: [phone] Additional Comments: He agrees the patient's diagnoses. Impression Primary Impression: Right leg DVT Additional Impressions: Hematoma of right lower extremity Intractable back pain Chronic kidney disease Dehydration Anticoagulated Scribe Attestation The scribe's documentation has been prepared under my direct and personally reviewed by me in its entirety. I confirm that the note above accurately reflects all work, treatment, procedures, and medical decision making performed by me. Departure Information Referrals Chavez Enciso D.OAida (PCP) Patient Instructions My [facility] Problem Qualifiers Primary Impression: Right leg DVT Affected thrombotic vein of extremity: unspecified vein of extremity Chronicity: acute Qualified Codes: I82.401 - Acute embolism and thrombosis of unspecified deep veins of right lower extremity Additional Impressions: Hematoma of right lower extremity Encounter type: initial encounter Qualified Codes: S80.11XA - Contusion of right lower leg, initial encounter Chronic kidney disease Chronic kidney disease stage: unspecified stage Qualified Codes: N18.9 - Chronic kidney disease, unspecified
[2017-10-23] MEDS: OXYCODONE/ACETAMINOPHEN 5-325 TAB PO PRN (23:29)
[2017-10-24] VITALS (8 sets, daily range): BP systolic 102–113; BP diastolic 67–77; PULSE 82–101; TEMP 36.4–36.8; O2SAT 96–99
[2017-10-24] MEDS: HYDROmorphone INJ 1 MG/ML SYR IV PRN ×4 (02:09→21:54)
[2017-10-24 02:44] LABS: PTT PATIENT 96.9 SECONDS (21.0-31.0)
[2017-10-24 05:20] LABS: INR 1.5 (0.9-1.1)
[2017-10-24 05:25] LABS: CALCIUM 9.2 mg/dl (8.5-10.1); CREATININE 2.36 mg/dl (0.60-1.40)
[2017-10-24 05:48] LABS: PTT PATIENT 64.1 SECONDS (21.0-31.0)
[2017-10-24 05:49] LABS: HEMATOCRIT 26.8 % (42-52); HEMOGLOBIN 8.1 g/dL (14.0-18.0); MEAN CELL VOLUME 77.9 fL (80-100); MEAN CORPUSCULAR HEMOGLOBIN 23.5 pg (25-34); MEAN CORPUSCULAR HGB CONC 30.2 g/dl (32-36); MEAN PLATELET VOLUME 9.8 fL (7.4-10.4); PLATELET COUNT 246 K/uL (130-400); RED CELL DISTRIBUTION WIDTH CV 16.4 % (11.5-14.5); RED CELL DISTRIBUTION WIDTH SD 47.3 fL (36.4-46.3); WHITE BLOOD COUNT 4.85 K/uL (4.8-10.8)
[2017-10-24] MEDS: LEVOTHYROXINE 50 MCG TAB PO SCH (06:11)
[2017-10-24] MEDS: AMLODIPINE BESYLATE 5 MG TAB PO SCH (09:00)
[2017-10-24] MEDS: ATOVAQUONE 750 MG/5 ML UDC PO SCH (09:06)
[2017-10-24] MEDS: PRAVASTATIN SOD 40 MG TAB PO SCH (09:07)
[2017-10-24] MEDS: MYCOPHENOLATE MOFETIL 250 MG CAP (CELLCEPT) PO SCH ×2 (09:07→21:48)
[2017-10-24] MEDS: SENNA 8.6 MG TAB PO SCH (09:07)
[2017-10-24] MEDS: TACROLIMUS 1 MG CAP PO SCH ×2 (09:08→21:47)
[2017-10-24] MEDS: PANTOprazole SOD 40 MG TAB PO SCH (09:09)
[2017-10-24] MEDS: CALCIUM 600MG + VIT D 400 IU TAB PO SCH ×2 (09:09→21:47)
[2017-10-24] MEDS: BOOST VANILLA PO SCH ×2 (09:10→16:55)
[2017-10-24 09:38] LABS: PTT PATIENT 60.5 SECONDS (21.0-31.0)
--- NOTE | 2017-10-24 12:12 | Surgery Consultation ---
Consultation Date of Service Oct 24, 2017. Chief Complaint Back pain and DVT of infrapopliteal veins History of Present Illness The patient is a 67 year old male who had a large right superficial femoral artery pseudoaneurysm repaired on Oct 13 with a bovine interposition graft. He how presented with worsening back pain. He was found to have a hematoma of the incision of the right groin. Denies any leg or groin pain. Denies redness of the incision or drainage. Fernando are still in place. Vitals Vital Signs Past 12 Hours Date Time Temp Pulse Resp B/P (MAP) Pulse Ox O2 Delivery O2 Flow Rate FiO2 10/24/17 08:04 36.4 82 16 104/69 (81) 96 Room Air 10/24/17 08:00 Room Air 10/24/17 04:00 98 Room Air 10/24/17 03:12 36.4 92 18 108/72 (84) 97 Room Air 10/24/17 00:22 36.8 99 18 106/67 (80) 96 Room Air Allergies Coded Allergies: Morphine (Verified Allergy, Unknown, Nausea/vomiting, 10/23/17) Home Medications Scheduled Amlodipine (Norvasc), 10 MG PO DAILY Atovaquone (Mepron), 10 ML PO QAM Calcium Carbonate-Cholecalcife (Caltrate 600+D), 1 TAB PO BID Levothyroxine Sodium (Synthroid), 50 MCG PO DAILY Mycophenolate Mofetil (Cellcept), 1,000 MG PO BID Omeprazole (Prilosec), 20 MG PO DAILY Pravastatin Sodium (Pravachol), 40 MG PO DAILY Prednisone (Prednisone), 7.5 MG PO Q2D Prednisone (Prednisone), 5 MG PO Q2D Senna (Senokot), 2 TAB PO DAILY Tacrolimus (Prograf), 4 MG PO AMPM Warfarin Sod (Jantoven), 3.5 MG PO Q2D Warfarin Sod (Jantoven), 2.5 MG PO Q2D Scheduled PRN Oxycodone/Acetaminophen 5MG/325MG (Percocet 5MG/325MG), 1 TABLET PO Q4H PRN for Pain Tramadol (Ultram), 50-100 MG PO Q6H PRN for Pain Problem List Medical Problems: (1) Acute DVT (deep venous thrombosis) (2) Atrial fibrillation (3) Cardiac amyloidosis (4) Chronic anticoagulation (5) CKD (chronic kidney disease), stage III (6) Compound heterozygous MTHFR mutation [id number] (7) Depression (8) DVT, lower extremity (9) Dyslipidemia (10) Heart block (11) Hypothyroidism (12) Left ventricular hypertrophy (13) Prothrombin gene mutation (14) Pulmonary embolism (15) Pulmonary hypertension (16) RBBB (17) Syncope Surgical Problems: (1) Heart transplanted (2) History of carpal tunnel surgery of right wrist (3) S/p removal of knee cartilage (4) Status post total knee replacement Surgical / Medical History Hx Cardiac Surgery: Yes (Heart Transplant-2006, Right Leg Psuedoembolism removal-09/2017) Hx Abdominal Surgery: No Hx Cancer Surgery: No Hx Thoracic Surgery: No Hx Orthopedic: Yes (Left TKA) Hx Urinary Tract Surgery: No HX Other Surgery: No Family History Patient reports no known family medical history. Social History Smoking Status: Never Smoker Hx Tobacco Use In Past Year?: No Hx Alcohol Use - Type & Amnt: Yes (Occasionally ) Hx Substance Use -Type & Amnt: No Review of Systems Constitutional: No chills, No diaphoresis, No fever, No malaise, No weakness, No weight gain, No weight loss, No sweats, No fatigue, No problem reported Respiratory: No cough, No cyanosis, No ALY, No hemoptysis, No orthopnea, No PND , No short of breath, No sputum production, No stridor, No wheezing, No dyspnea , No problem reported Cardiovascular: No chest pain, No chest tightness, No chest pressure, No palpitations, No syncope, No diaphoresis, No edema, No intermittent claudication , No orthopnea, No cyanosis, No mumur, No lightheadedness, No paroxysmal nocturnal dyspnea, No problem reported Gastrointestinal: No abdominal pain, No constipation, No diarrhea, No nausea, No vomiting, No anorexia, No appetite changes, No belching, No flatulence, No food intolerance, No hematemesis, No hemorrhoids, No hematochezia, No stool changes, No heartburn, No indigestion, No dysphagia, No rectal bleeding, No problem reported Genitourinary - Male: No impotence, No penile discharge, No penile itching, No rash, No testicular pain, No testicular swelling, No hematuria, No difficulty urinating, No problem reported Musculoskeletal: + back pain Neurologic: No dizziness, No weakness, No headache, No lethargy, No numbness, No paresthesia, No pre-existing deficit, No seizures, No tics, No tingling, No tremors, No vertigo, No memory loss, No LOC, No problem reported Psychiatric: No anxiety, No alcohol abuse, No auditory hallucinations, No depression, No drug abuse, No homicidal ideation, No mood changes, No suicidal ideation, No visual hallucinations, No problem reported Physical Exam Constitutional: General Apperance: heathly-appearing, well-nourished, well-developed Level of Distress: NAD Ambulation: ambulating normally Psychiatric: Mental Status: active & alert, normal mood, normal affect Orientation: oriented except where noted, to time, to place, to person Memory: recent memory normal, remote memory normal Cardiovascular: Heart Auscultation: RRR Peripheral Pulses: Pulses: full and equal, in all extremities except if noted Bruits: none appreciated Abdomen: Inspection & Palpation: soft, non-distended Musculoskeletal: normal, normal strength (5/5 throughout), normal tone Extremities: Upper Right: no cyanosis, no edema, no varicosities, no palpable cord, no clubbing, no ulcers, no mottling Upper Left: no cyanosis, no edema, no palpable cord, no clubbing, no ulcers , no mottling Lower Right: no cyanosis, no edema, no varicosities, no palpable cord, no clubbing, no ulcers, no mottling Lower Left: no cyanosis, no edema, no varicosities, no palpable cord, no clubbing, no ulcers, no mottling Neurologic: Cranial Nerves: grossly intact Sensation: grossly intact Assessment and Plan Imp: Back pain Infrapopliteal DVT Post pseudoaneurysm repair right superficial femoral artery Plan: The USN findings of a hematoma of the right groin is not unexpected with the 6cm pseudoaneurysm that was repaired. The wound itself is healing well. The USN pictures in the EMR show echogenic thrombus consistent with an older clot. Would place him back on anticoagulation. No indication for a filter at this time. Will repeat the USN tomorrow to check for propagation of the clot. Thank you very much for letting me participate in the care of this patient.
[2017-10-24] MEDS ORDERED: WARFARIN PO SCH ×2 (16:00)
[2017-10-24] MEDS: HEPARIN 25,000 UNIT/500ML D5W 500 ML IV PRN ×2 (16:58→19:35)
--- NOTE | 2017-10-24 19:48 | Progress Note ---
Medicine Progress Note Date & Time of Visit: Oct 24, 2017 at 15:10 . Subjective CC: Follow-up visit for DVT and other problems. HPI: Persistent pain right groin / thigh. No chest pain or SOB. No melena, hematochezia, hematuria. ROS: General- no fever, no chills Resp- no cough; no shortness of breath Cardiac- as noted above in HPI GI- no nausea, no vomiting, no diarrhea - no dysuria, no difficulty voiding . Objective Last 8 Hrs Date Time Temp Pulse Resp B/P (MAP) Pulse Ox O2 Delivery O2 Flow Rate FiO2 10/24/17 19:22 36.6 100 20 107/77 (87) 96 Room Air 10/24/17 16:00 Room Air 10/24/17 15:49 36.8 101 20 113/77 (89) 97 Room Air 10/24/17 12:00 Room Air 10/24/17 12:00 36.7 93 16 102/69 (80) 98 Room Air Physical Exam: General- no distress Lungs- clear to auscultation; no respiratory distress Cardiovascular- RRR; I/ systolic murmur at base; no gallop; no JVD; no pretibial edema Abdomen- + bowel sounds, soft, nontender Extremities- no cyanosis; right groin incision without erythema or drainage; mild tenderness right calf Neuro- alert, oriented Skin- warm & dry . Laboratory Results: Last 24 Hours Test 10/24/17 02:00 10/24/17 04:48 10/24/17 08:50 Activated Partial Thromboplast Time 96.9 SECONDS 64.1 SECONDS 60.5 SECONDS Partial Thromboplastin Ratio 3.7 2.5 2.3 White Blood Count 4.85 K/uL Red Blood Count 3.44 M/uL Hemoglobin 8.1 g/dL Hematocrit 26.8 % Mean Corpuscular Volume 77.9 fL Mean Corpuscular Hemoglobin 23.5 pg Mean Corpuscular Hemoglobin Concent 30.2 g/dl RDW Standard Deviation 47.3 fL RDW Coefficient of Variation 16.4 % Platelet Count 246 K/uL Mean Platelet Volume 9.8 fL Prothrombin Time 16.1 SECONDS Prothromb Time International Ratio 1.5 Sodium Level 134 mmol/L Potassium Level 4.0 mmol/L Chloride Level 102 mmol/L Carbon Dioxide Level 24 mmol/L Anion Gap 8.0 mmol/L Blood Urea Nitrogen 34 mg/dl Creatinine 2.36 mg/dl Est Creatinine Clear Calc Drug Dose 34.3 ml/min Estimated GFR () 31.8 Estimated GFR (Non- 27.5 BUN/Creatinine Ratio 14.3 Random Glucose 119 mg/dl Calcium Level 9.2 mg/dl Magnesium Level 1.8 mg/dl Assessment & Plan DVT RLE (present on admission) Venous duplex demonstrated thromboses involving right greater saphenous vein as well as right posterior tibial and peroneal veins. 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 Recent repair pseudoaneurysm right superficial femoral artery. INR 1.3 at time of admission. Started on IV heparin. Titrate warfarin. CKD III Serum creatinine 2.36. Follow. ANEMIA Hgb 11.2 --> 8.1. No clinically apparent bleeding. Check stools for OB. Follow. S/P CARDIAC TRANSPLANT Status post cardiac transplant for amyloidosis. Continue usual transplant meds. DISPOSITION Expected discharge to home. Family Medicine follow-up with Dr. Chavez Enciso. Cardiology follow-up with Dr Oconnor. . Current Inpatient Medications: Current Inpatient Medications Medications (Trade) Dose Ordered Sig/Rosette Route Start Time Stop Time Status Last Admin Dose Admin Hydromorphone HCl (Dilaudid Inj) 1 mg Q4 PRN IV 10/23/17 19:30 11/06/17 19:29 10/24/17 14:58 1 MG Ondansetron HCl (Zofran Inj) 4 mg Q6H PRN IV 10/23/17 19:30 11/22/17 19:29 10/23/17 22:12 4 MG Amlodipine Besylate (Norvasc Tab) 10 mg DAILY PO 10/24/17 09:00 11/23/17 08:59 Levothyroxine Sodium (Synthroid Tab) 50 mcg DAILYBB PO 10/24/17 06:00 11/23/17 06:59 10/24/17 06:11 50 MCG Mycophenolate Mofetil (Cellcept Cap) 1,000 mg BID PO 10/23/17 21:00 11/22/17 20:59 10/24/17 09:07 1,000 MG Oxycodone/ Acetaminophen (Percocet 5-325mg Tab) 1 tab Q4H PRN PO 10/23/17 19:45 11/06/17 19:44 10/23/17 23:29 1 TAB Pravastatin Sodium (Pravachol Tab) 40 mg DAILY PO 10/24/17 09:00 11/23/17 08:59 10/24/17 09:07 40 MG Senna (Senokot Tab) 17.2 mg DAILY PO 10/24/17 09:00 11/23/17 08:59 10/24/17 09:07 17.2 MG Tacrolimus (Prograf Cap) 4 mg BID PO 10/23/17 21:00 11/22/17 20:59 10/24/17 09:08 4 MG Tramadol HCl (Ultram Tab) 50 mg Q6H PRN PO 10/23/17 19:45 11/22/17 19:44 Warfarin Sodium (Coumadin Tab) 2.5 mg Q2D@1600 PO 10/25/17 16:00 11/24/17 15:59 Atovaquone (Mepron Susp) 1,500 mg QAM PO 10/24/17 09:00 11/23/17 08:59 10/24/17 09:06 1,500 MG Calcium/Vitamin D (Caltrate Plus Tab) 1 tab BID PO 10/23/17 21:00 11/22/17 20:59 10/24/17 09:09 1 TAB Pantoprazole Sodium (Protonix Tab) 40 mg DAILY PO 10/24/17 09:00 11/23/17 08:59 10/24/17 09:09 40 MG Acetaminophen (Tylenol Tab) 650 mg Q4H PRN PO 10/23/17 19:45 11/22/17 19:44 Prednisone (PredniSONE TAB) 5 mg SuTuThSa@0900 PO 10/24/17 09:00 11/23/17 08:59 10/24/17 09:09 5 MG Prednisone (PredniSONE TAB) 7.5 mg MoWeFr@0900 PO 10/25/17 09:00 11/24/17 08:59 Heparin Sodium/ Dextrose 500 ml @ 27 mls/hr [id number] PRN IV 10/23/17 21:15 11/22/17 21:14 10/24/17 19:35 27 MLS/HR Warfarin Sodium (Coumadin Tab) 3.5 mg Q2D@1600 PO 10/24/17 16:00 11/23/17 15:59 10/24/17 16:55 3.5 MG Enteral Nutritional Formula (Boost) 1 can BIDM PO 10/25/17 07:30 11/24/17 07:29
[2017-10-24 20:21] LABS: HEMATOCRIT 26.3 % (42-52); HEMOGLOBIN 8.1 g/dL (14.0-18.0)
[2017-10-25] VITALS (10 sets, daily range): BP systolic 102–159; BP diastolic 70–88; PULSE 93–115; TEMP 36.5–38.7; O2SAT 94–98
[2017-10-25] MEDS: HYDROmorphone INJ 1 MG/ML SYR IV PRN ×4 (02:31→21:50)
[2017-10-25] MEDS ORDERED: MAGNESIUM SULFATE 1GM / D5W 1 GM in PREMIXED IN D5W 100 ML IV ONE (04:00)
[2017-10-25 04:25] LABS: BASO % 0.5 %; BASO ABS # 0.03 K/uL (0-0.2); EOS % 1.6 %; EOS ABS # 0.09 K/uL (0-0.5); HEMATOCRIT 26.4 % (42-52); HEMOGLOBIN 8.1 g/dL (14.0-18.0); IG# 0.02 K/uL (0.00-0.02); LYMPH ABS # 1.01 K/uL (1.2-3.4); MEAN CELL VOLUME 78.1 fL (80-100); MEAN CORPUSCULAR HGB CONC 30.7 g/dl (32-36); MEAN PLATELET VOLUME 9.8 fL (7.4-10.4); MONO % 16.4 %; MONO ABS # 0.92 K/uL (0.11-0.59); NEUT % 63.1 %; NEUT ABS # 3.53 K/uL (1.4-6.5); PLATELET COUNT 268 K/uL (130-400); RED CELL DISTRIBUTION WIDTH CV 16.5 % (11.5-14.5); RED CELL DISTRIBUTION WIDTH SD 47.7 fL (36.4-46.3)
[2017-10-25 04:43] LABS: CALCIUM 9.6 mg/dl (8.5-10.1); CREATININE 2.13 mg/dl (0.60-1.40); POTASSIUM 4.3 mmol/L (3.5-5.1)
[2017-10-25 04:52] LABS: INR 1.7 (0.9-1.1)
[2017-10-25 05:10] LABS: PTT PATIENT 48.3 SECONDS (21.0-31.0)
[2017-10-25] MEDS: LEVOTHYROXINE 50 MCG TAB PO SCH (06:00)
[2017-10-25] MEDS: BOOST VANILLA PO SCH ×2 (07:52→16:56)
[2017-10-25] MEDS: PRAVASTATIN SOD 40 MG TAB PO SCH (07:54)
[2017-10-25] MEDS: CALCIUM 600MG + VIT D 400 IU TAB PO SCH ×2 (08:00→20:52)
[2017-10-25] MEDS: AMLODIPINE BESYLATE 5 MG TAB PO SCH (08:00)
[2017-10-25] MEDS: MYCOPHENOLATE MOFETIL 250 MG CAP (CELLCEPT) PO SCH ×2 (08:01→20:52)
[2017-10-25] MEDS: PANTOprazole SOD 40 MG TAB PO SCH (08:02)
[2017-10-25] MEDS: TACROLIMUS 1 MG CAP PO SCH ×2 (08:02→20:53)
[2017-10-25] MEDS: SENNA 8.6 MG TAB PO SCH (08:03)
[2017-10-25] MEDS: ATOVAQUONE 750 MG/5 ML UDC PO SCH (08:05)
[2017-10-25] MEDS: ACETAMINOPHEN 325 MG TAB PO PRN (10:50)
[2017-10-25] MEDS: HEPARIN 25,000 UNIT/500ML D5W 500 ML IV PRN (12:13)
[2017-10-25] MEDS ORDERED: PIPERACILL/TAZOBAC IV 4.5 GM in DEXTROSE 5% 100ML 100 ML IV STA (12:29)
[2017-10-25] MEDS ORDERED: SODIUM CHLORIDE 0.9% 1000ML 1,000 ML IV SCH (12:30)
[2017-10-25] MEDS ORDERED: PIPERACILL/TAZOBAC CONSULT ACTIVE PRN (12:30)
[2017-10-25] MEDS ORDERED: GANCICLOVIR IV SCH (12:45)
[2017-10-25] MEDS ORDERED: HYDROCORTISONE IV 100 MG in SYRINGE 0 ML IV ONE (13:00)
[2017-10-25] MEDS ORDERED: DAPTOmycin IV 550 MG in SYRINGE 0 ML IV STA (13:16)
--- NOTE | 2017-10-25 13:32 | DIAGNOSTIC IMAGING REPORT ---
R LOWER EXTREMITY WITHOUT HISTORY: 67 years-old Male fever, s/p repair pseudoaneurysm right supferficial femoral art acute fever. Status post repair of a right superficial femoral artery pseudoaneurysm. COMPARISON: CT abdomen and pelvis 10/10/2017 TECHNIQUE: Multiple axial CT images of the right lower extremity were obtained without contrast. A dose lowering technique was used consistent with the principals of JUAN. FINDINGS: 9 mm fatty attenuating structure is noted within a loop of ileum within the right lower quadrant suggesting lipoma. No bowel structure or focal bowel wall thickening identified. No acute intrapelvic abnormality, ascites or pneumoperitoneum. No retroperitoneal hemorrhage. Surgical clips near the upper scrotum bilaterally suggest prior vasectomy. There is mild to moderate subcutaneous edema and soft tissue swelling about the right inguinal region. Multiple anteromedial skin bushra are noted. There is ill-defined mixed attenuating structure measuring 5.2 x 3.7 cm within the area of prior 6.3 cm pseudoaneurysm. Surgical clips are seen along the superior margin of this lesion. Mildly enlarged right inguinal lymph nodes measure up to 1.1 cm. Extensive vascular calcifications are noted. Degenerative changes of the right hip and pubic symphysis. IMPRESSION: 1. Mixed attenuating lesion of the right inguinal region measuring up to 5.2 cm suggests decreased size of the previously noted 6.3 cm right femoral pseudoaneurysm. Adjacent subcutaneous edema and skin bushra are noted compatible with prior surgical repair. 2. No acute intrapelvic abnormality identified. The above report was generated using voice recognition software. It may contain grammatical, syntax or spelling errors. Electronically signed by: Eloy Dela Cruz M.D. 10/25/2017 1:30 PM Dictated Date/Time: 10/25/2017 1:24 PM
--- NOTE | 2017-10-25 13:45 | DIAGNOSTIC IMAGING REPORT ---
(CHEST) THORAX WITHOUT CT DOSE: HISTORY: Pain. Fever. fever, RLL density TECHNIQUE: Multiaxial CT images of the chest were performed without contrast. A dose lowering technique was utilized adhering to the principles of ALARA. COMPARISON: 10/10/2017 FINDINGS: Pleural-based lesion involving the right posterior lower lobe currently measures 2.6 x 2.4 cm. This is similar in terms of volume compared to the prior study. There are no regions of central necrosis. Lungs otherwise remain generally clear. There is minimal scattered atelectatic and or pleural thickening type changes. Moderate ectasia of the thoracic aorta. Patient is status post prior median sternotomy. IMPRESSION: 1. Stable pleural-based nodule right lower lobe. 2. Minimal scattered atelectatic changes with all findings similar compared to prior CT studies dating to 12/15/2016 3. Lungs otherwise appear clear. 4. Stable postoperative changes of a prior median sternotomy and transplant surgery. The above report was generated using voice recognition software. It may contain grammatical, syntax or spelling errors. Electronically signed by: Mitchel Aguilera M.D. 10/25/2017 1:43 PM Dictated Date/Time: 10/25/2017 1:32 PM
--- NOTE | 2017-10-25 13:55 | DIAGNOSTIC IMAGING REPORT ---
CT SCAN OF THE LUMBAR SPINE WITHOUT IV CONTRAST: CLINICAL HISTORY: Low back pain. Fever. COMPARISON STUDY: Radiographs of the lumbar spine dated 10/10/2017. Abdominal CT dated 10/10/2017. TECHNIQUE: CT scan of the lumbar spine is performed from the lower thoracic spine to the sacrum. Images are reviewed in the axial, sagittal, and coronal planes. IV contrast was not administered for this examination. A dose lowering technique was utilized adhering to the principles of ALARA. CT DOSE: 2768.08 mGy.cm. FINDINGS: The skeletal structures are osteopenic. There is no evidence of fracture or malalignment involving the lumbar spine. Vertebral body height is maintained throughout the lumbar spine. There is minimal anterolisthesis at L4-L5. Alignment is otherwise preserved. The transverse and spinous processes appear intact. Tiny anterior osteophytes are seen throughout the lumbar spine. Mild facet arthropathy is present in the lower lumbar region. There is no evidence of spondylolysis. No lytic or blastic lesion is identified. No bony erosion is suggested. There is mild to moderate disc space narrowing at L4-L5. Only mild disc space narrowing is seen at the remaining lumbar levels. No large disc herniation is identified. Small posterior disc bulges are noted at L2-L3, L3-L4, and L4-L5. The visualized sacrum and bony pelvis appear intact. Sclerotic degenerative change is noted in the sacroiliac joints. The paraspinous soft tissues are normal in appearance. Moderate to advanced atherosclerotic calcification is noted in the abdominal aorta. No paravertebral edema is identified. IMPRESSION: 1. No acute bony abnormality is seen involving the lumbar spine. 2. Osteopenia and spondylotic change as above. This is similar to prior studies. Dictated: 10/25/2017 1:24 PM Transcribed: 10/25/2017 1:54 PM [email or web address] Electronically signed by: Henri Reynolds M.D. 10/25/2017 1:57 PM Dictated Date/Time: 10/25/2017 1:24 PM
--- NOTE | 2017-10-25 13:58 | DIAGNOSTIC IMAGING REPORT ---
CT SCAN OF THE BONY PELVIS WITHOUT IV CONTRAST CLINICAL HISTORY: Fever. History of right femoral artery pseudoaneurysm repair. COMPARISON STUDY: Pelvic CT dated 10/10/2017. TECHNIQUE: CT scan of the pelvis is performed from the pelvic inlet to the proximal femora. Images are reviewed in the axial, sagittal, and coronal planes. IV contrast was not administered for this examination. A dose lowering technique was utilized adhering to the principles of ALARA. FINDINGS: The skeletal structures are osteopenic. The bony pelvis appears intact. No fracture is identified. Sclerotic degenerative change is noted in the sacroiliac joints. Mild arthritic change is seen in the hips. The prostate gland is mildly enlarged and heterogeneous. The bladder and seminal vesicles are normal as imaged. Trace free fluid is seen in the pelvis. The visualized loops of small bowel and colon are normal in caliber. Mild diverticulosis is noted in the sigmoid colon without CT evidence of acute diverticulitis. A normal appendix is identified. There is no pelvic sidewall or inguinal lymphadenopathy. A small lipoma is incidentally noted in the right gluteal muscular tear. The pelvic musculature is otherwise normal as visualized. There is atherosclerotic calcification of the distal abdominal aorta, iliac, and femoral arteries. There is inflammatory stranding identified in the right groin with mixed attenuation fluid. This is centered around the right superficial femoral artery, and the process measures approximately 5 x 4 cm in maximum dimension. Skin clips are seen in the overlying right groin. IMPRESSION: 1. There is a mixed attenuation lesion/fluid collection identified in the right groin surrounding the proximal superficial femoral artery. The appearance is nonspecific, and this could represent hematoma, pseudoaneurysm, seroma, and/or less likely abscess. Clinical correlation will be essential. Ultrasound may be useful for further interrogation. 2. There is trace free fluid in the pelvis. 3. The bony pelvis appears intact. Dictated: 10/25/2017 1:31 PM Transcribed: 10/25/2017 1:58 PM Stephon Electronically signed by: Henri Reynolds M.D. 10/25/2017 2:00 PM Dictated Date/Time: 10/25/2017 1:31 PM
--- NOTE | 2017-10-25 14:12 | DIAGNOSTIC IMAGING REPORT ---
ULTRASOUND RIGHT LOWER EXTREMITY VENOUS CLINICAL HISTORY: Status post pseudoaneurysm repair in the right groin. COMPARISON STUDY: Right lower extremity venous ultrasound dated 10/23/2017. TECHNIQUE: Real-time, grayscale, and color Doppler sonography of the deep veins of the right lower extremity was performed from the inguinal crease to the calf. Compression and augmentation were utilized. FINDINGS: There is no sonographic evidence of deep venous thrombosis identified in the right lower extremity. The common femoral, superficial femoral, and popliteal veins are patent and normally compressible. The profunda femoris vein at the junction with the common femoral vein are clear. There is thrombosis of the greater saphenous vein seen extending from the groin to the knee. The visualized calf veins are grossly patent although not well assessed. A complex fluid collection is again seen in the right groin and measures 5.5 x 4.7 cm. There is no convincing evidence of pseudoaneurysm. Additional small cystic focus is noted. IMPRESSION: 1. There is no sonographic evidence of above knee deep venous thrombosis identified in the right lower extremity. 2. Superficial venous thrombus is seen throughout the greater saphenous vein extending from the groin to the popliteal fossa. 3. The calf vessels are not well assessed. No definite calf thrombus is identified. 4. Again seen is a small complex fluid collection the right groin which measures 5.5 x 4.7 cm. This appears to have decreased in size from 10/23/2017 when measured up to 7 cm. Electronically signed by: Henri Reynolds M.D. 10/25/2017 2:11 PM Dictated Date/Time: 10/25/2017 2:07 PM
[2017-10-25] MEDS ORDERED: VALGANCICLOVIR HCL 450 MG PO SCH (16:00)
[2017-10-25] MEDS ORDERED: WARFARIN SOD 2.5 MG TAB PO SCH (16:00)
[2017-10-25] MEDS ORDERED: NURSING VERBAL MED ORDER ONE (17:00)
[2017-10-25 17:08] LABS: INFLUENZA A PCR Neg for Influ A (NEG); INFLUENZA B PCR Neg for Influ B (NEG)
--- NOTE | 2017-10-25 19:42 | Progress Note ---
Medicine Progress Note Date & Time of Visit: Oct 25, 2017 at ~ 12:00 - ~ 17:00 . Subjective CC: Follow-up visit for multiple problems. HPI: Febrile this morning- temp 38.7. Experienced some chills, no sweats. Tachy as high as 130, compared to post-transplant resting heart rate of 90-110. No headache. No pharyngitis. No cough or SOB. No chest pain. No nausea, vomiting, diarrhea, melena, hematochezia. No dysuria or hematuria. Low back / right groin pain relieved by IV hydromorphone. ROS: as noted above in HPI . Objective Last 8 Hrs Date Time Temp Pulse Resp B/P (MAP) Pulse Ox O2 Delivery O2 Flow Rate FiO2 10/25/17 16:00 97 Room Air 10/25/17 15:45 37.0 115 18 107/87 (94) 97 Room Air 10/25/17 14:20 37.6 10/25/17 12:17 Room Air 10/25/17 11:33 38.7 115 18 159/88 (111) 94 Physical Exam: General- no acute distress Lungs- clear to auscultation; no respiratory distress Cardiovascular- RRR; tachy; I/ systolic murmur at base; no gallop; no JVD; no pretibial edema Abdomen- + bowel sounds, soft, nontender Extremities- no cyanosis; right groin incision without erythema or drainage; mild tenderness right calf Back- no flank ecchymoses Neuro- alert, oriented Skin- warm & dry . Laboratory Results: Last 24 Hours Test 10/24/17 20:07 10/25/17 04:10 10/25/17 11:58 10/25/17 12:30 Hemoglobin 8.1 g/dL 8.1 g/dL Hematocrit 26.3 % 26.4 % Activated Partial Thromboplast Time 57.0 SECONDS 48.3 SECONDS Partial Thromboplastin Ratio 2.2 1.9 White Blood Count 5.60 K/uL Red Blood Count 3.38 M/uL Mean Corpuscular Volume 78.1 fL Mean Corpuscular Hemoglobin 24.0 pg Mean Corpuscular Hemoglobin Concent 30.7 g/dl Platelet Count 268 K/uL Mean Platelet Volume 9.8 fL Neutrophils (%) (Auto) 63.1 % Lymphocytes (%) (Auto) 18.0 % Monocytes (%) (Auto) 16.4 % Eosinophils (%) (Auto) 1.6 % Basophils (%) (Auto) 0.5 % Neutrophils # (Auto) 3.53 K/uL Lymphocytes # (Auto) 1.01 K/uL Monocytes # (Auto) 0.92 K/uL Eosinophils # (Auto) 0.09 K/uL Basophils # (Auto) 0.03 K/uL RDW Standard Deviation 47.7 fL RDW Coefficient of Variation 16.5 % Immature Granulocyte % (Auto) 0.4 % Immature Granulocyte # (Auto) 0.02 K/uL Large Platelets 1+ Ovalocytes 1+ Echinocytes 1+ Prothrombin Time 17.8 SECONDS Prothromb Time International Ratio 1.7 Sodium Level 135 mmol/L Potassium Level 4.3 mmol/L Chloride Level 102 mmol/L Carbon Dioxide Level 27 mmol/L Anion Gap 6.0 mmol/L Blood Urea Nitrogen 32 mg/dl Creatinine 2.13 mg/dl Est Creatinine Clear Calc Drug Dose 38.0 ml/min Estimated GFR () 36.0 Estimated GFR (Non- 31.1 BUN/Creatinine Ratio 15.1 Random Glucose 103 mg/dl Calcium Level 9.6 mg/dl Magnesium Level 1.7 mg/dl Lactic Acid Level 1.8 mmol/L Procalcitonin 0.66 ng/ml Urine Color YELLOW Urine Appearance CLOUDY Urine pH 5.0 Urine Specific [place] 1.021 Urine Protein 1+ Urine Glucose (UA) NEG Urine Ketones NEG Urine Occult Blood NEG Urine Nitrite NEG Urine Bilirubin NEG Urine Urobilinogen NEG Urine Leukocyte Esterase NEG Urine WBC (Auto) 1-5 /hpf Urine RBC (Auto) 0-4 /hpf Urine Hyaline Casts (Auto) 5-10 /lpf Urine Epithelial Cells (Auto) 20-30 /lpf Urine Bacteria (Auto) NEG Urine Pathogenic Casts 1-5 GRANULAR CASTS /lpf Urine Yeast (Auto) Test 10/25/17 15:50 Influenza Type A (RT-PCR) Neg for Influ A Influenza Type B (RT-PCR) Neg for Influ B Date/Time Source Procedure Growth Status 10/25/17 12:10 Blood Blood Culture Pending Received 10/25/17 11:58 Blood Blood Culture Pending Received Assessment & Plan FEVER T 38.7 this morning. Underlying immunosuppression due to transplant meds. No new specific symptoms to suggest source of infection. Ongoing low back and right groin pain. Right inguinal wound without erythema or drainage. WBC this morning 5600 ( 63% polys). Blood cultures x 2. Blood CMV viral load. Lactate = 1.8. Procalcitonin = 0.66. CT chest --> stable right pleural based density right base 24 x 26 mm, no infiltrates CT LS spine --> no apparent infectious process CT pelvis / right proximal thigh --> mixed attenuation lesion / fluid collection consistent with postop changes (smaller than 10/10), no obvious signs of abscess Possible sepsis. Received IV NSS x 1 L. IV hydrocortisone ordered in light of chronic glucocorticoid therapy. Empiric antibiotic therapy with IV vancomycin and piperacillin / tazobactam pending culture results. History of CMV. Stopped valganciclovir about 2 wks ago, apparently because CMV not detectable. Check CMV viral load. Resume valganciclovir. Consider noninfectious etiologies of fever. DVT RLE (present on admission) Venous duplex demonstrated thromboses involving right greater saphenous vein as well as right posterior tibial and peroneal veins. Greater saphenous vein thrombus appeared echogenic and may be old, but calf thromboses assumed to be acute. 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 Recent repair pseudoaneurysm right superficial femoral artery. INR 1.3 at time of admission. Started on IV heparin. Hold warfarin in case any invasive procedures are recommended. CHRONIC KIDNEY DISEASE CKD III with creatinines ranging from 1.84 - 3.1 over past 6 months. Serum creatinine 2.7 at time of admission. Creatinine today = 2.13. Maintain adequate volume status. Avoid potential nephrotoxins when able. Follow. ANEMIA Hgb 11.2 --> 8.1. Baseline hgb over past 7 months 9-11. Discharge hgb on 10/14 was 8.4. No clinically apparent bleeding. Fecal OB. No apparent retroperitoneal bleed per CT. Follow. S/P CARDIAC TRANSPLANT Status post cardiac transplant for amyloidosis. Continue mycophenolate mofetil, tacrolimus, prednisone with caution in light of febrile illnes. Continue atovaquone for prophylaxis. DISPOSITION Transfer to transplant center under consideration given febrile illness and underlying immunosuppression. Case discussed with cardiac transplant team at [facility]. Patient accepted in transfer once bed availability confirmed. Family Medicine follow-up with Dr. Chavez Enciso. Cardiology follow-up with Dr Oconnor. . Current Inpatient Medications: Current Inpatient Medications Medications (Trade) Dose Ordered Sig/Rosette Route Start Time Stop Time Status Last Admin Dose Admin Hydromorphone HCl (Dilaudid Inj) 1 mg Q4 PRN IV 10/23/17 19:30 11/06/17 19:29 10/25/17 14:43 1 MG Ondansetron HCl (Zofran Inj) 4 mg Q6H PRN IV 10/23/17 19:30 11/22/17 19:29 10/23/17 22:12 4 MG Amlodipine Besylate (Norvasc Tab) 10 mg DAILY PO 10/24/17 09:00 11/23/17 08:59 10/25/17 08:00 10 MG Levothyroxine Sodium (Synthroid Tab) 50 mcg DAILYBB PO 10/24/17 06:00 11/23/17 06:59 10/25/17 06:00 50 MCG Mycophenolate Mofetil (Cellcept Cap) 1,000 mg BID PO 10/23/17 21:00 11/22/17 20:59 10/25/17 08:01 1,000 MG Oxycodone/ Acetaminophen (Percocet 5-325mg Tab) 1 tab Q4H PRN PO 10/23/17 19:45 11/06/17 19:44 10/23/17 23:29 1 TAB Pravastatin Sodium (Pravachol Tab) 40 mg DAILY PO 10/24/17 09:00 11/23/17 08:59 10/25/17 07:54 40 MG Senna (Senokot Tab) 17.2 mg DAILY PO 10/24/17 09:00 11/23/17 08:59 10/25/17 08:03 17.2 MG Tacrolimus (Prograf Cap) 4 mg BID PO 10/23/17 21:00 11/22/17 20:59 10/25/17 08:02 4 MG Tramadol HCl (Ultram Tab) 50 mg Q6H PRN PO 10/23/17 19:45 11/22/17 19:44 Warfarin Sodium (Coumadin Tab) 2.5 mg Q2D@1600 PO 10/25/17 16:00 3/7/18 15:59 Future Hold Atovaquone (Mepron Susp) 1,500 mg QAM PO 10/24/17 09:00 11/23/17 08:59 10/25/17 08:05 1,500 MG Calcium/Vitamin D (Caltrate Plus Tab) 1 tab BID PO 10/23/17 21:00 11/22/17 20:59 10/25/17 08:00 1 TAB Pantoprazole Sodium (Protonix Tab) 40 mg DAILY PO 10/24/17 09:00 11/23/17 08:59 10/25/17 08:02 40 MG Acetaminophen (Tylenol Tab) 650 mg Q4H PRN PO 10/23/17 19:45 11/22/17 19:44 10/25/17 10:50 650 MG Prednisone (PredniSONE TAB) 5 mg SuTuThSa@0900 PO 10/24/17 09:00 11/23/17 08:59 10/24/17 09:09 5 MG Prednisone (PredniSONE TAB) 7.5 mg MoWeFr@0900 PO 10/25/17 09:00 11/24/17 08:59 10/25/17 07:55 7.5 MG Heparin Sodium/ Dextrose 500 ml @ 27 mls/hr [id number] PRN IV 10/23/17 21:15 11/22/17 21:14 10/25/17 12:13 27 MLS/HR Warfarin Sodium (Coumadin Tab) 3.5 mg Q2D@1600 PO 10/24/17 16:00 11/23/17 15:59 Future Hold 10/24/17 16:55 3.5 MG Enteral Nutritional Formula (Boost) 1 can BIDM PO 10/25/17 07:30 11/24/17 07:29 10/25/17 16:56 1 CAN Miscellaneous Information (Consult) 1 ea UD PRN N/A 10/25/17 12:30 11/24/17 12:29 Daptomycin 550 mg/ Syringe 11 ml @ 5.5 mls/min DAILY@1400 IV 10/26/17 14:00 11/04/17 13:59 Miscellaneous Information (Order Awaiting Action) 1 ea QS N/A 10/25/17 14:42 11/24/17 14:41 Piperacillin Sod/ Tazobactam Sod 3.375 gm/Dextrose 115 ml @ 28.75 mls/ hr Q8@0400,1200,2000 IV 10/25/17 20:00 11/04/17 19:59 Valganciclovir (Valganciclovir HCl) 450 mg DAILY@1600 PO 10/25/17 16:00 10/25/17 23:59 10/25/17 16:03 450 MG
[2017-10-25] MEDS: PIPERACILL/TAZOBAC IV 3.375 GM in DEXTROSE 5% 100ML IV SCH (19:43)
--- NOTE | 2017-10-25 20:12 | Discharge Summary ---
Discharge Summary Date of Service Oct 25, 2017. Discharge Summary Admission Date: Oct 23, 2017 at 19:40 Discharge Date: Oct 25, 2017 (tentative) Discharge Disposition: Acute care facility ([facility]) Principal Diagnosis: fever s/p cardiac transplant status DVT right lower extremity (present on admission) s/p recent repair right superficial femoral artery pseudoaneurysm . 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 Status: Chronic (8) Depression Status: Chronic (9) DVT, lower extremity Status: Resolved (10) Dyslipidemia Status: Chronic (11) Heart block Status: Resolved (12) Hypothyroidism Status: Chronic (13) Left ventricular hypertrophy Status: Chronic (14) Prothrombin gene mutation Status: Chronic (15) Pulmonary embolism Status: Resolved (16) Pulmonary hypertension Status: Chronic (17) RBBB Status: Chronic Surgical Problems: (1) Heart transplanted Status: Chronic (2) History of carpal tunnel surgery of right wrist Status: Chronic (3) S/p removal of knee cartilage Status: Chronic (4) Status post total knee replacement Permanent Comment: left, 2009, Dr. Guerrier Status: Chronic . Procedures: cardiac monitoring venous duplex lower extremity CT chest CT lumbar spine CT pelvis CT lower extremity IV meds . Consultations: Vascular Surgery . Pending Studies/Follow-Up: CMV viral load blood cultures . Admission Information HPI (per Admitting provider): This is a 67 year old male with a recent admission to [facility] for R common femoral pseudoaneurysm repair - with a PMH of heart transplantation secondary to amyloidosis on chronic immunosuppressive therapy, hx. of DVTs and PE, hx. of hypercoagulable state on long-term anticoagulation, hx. of A. Fib, sick sinus syndrome s/p pacemaker, hx. of chronic mixed systolic/diastolic CHF, CKD stage 3 , pulmonary HTN, hypothyroidism - presents with worsening R LE pain. States that he was doing well after being discharged on October 14. He was seen by primary care physician and Coumadin clinic on October 18. He stopped using his Lovenox due to therapeutic INR. States that one 2/2, he developed weakness, nausea, pain on the R LE. He did not know what to do, so he stopped taking all of his medications, including his Coumadin and his immunosuppressives. States he thought this would help him feel better. Presented to the ER due to worsening R LE pain. On presentation, R LE doppler performed, showing acute LE DVT. Currently denies all symptoms. . Physical Exam (per Admitting): General Appearance: WD/WN, no apparent distress Head: normocephalic, atraumatic Eyes: normal inspection ENT: hearing grossly normal Neck: supple Respiratory/Chest: lungs clear, normal breath sounds, no respiratory distress, no accessory muscle use Cardiovascular: regular rate, rhythm, no edema, no murmur Abdomen/GI: normal bowel sounds, non tender, soft Extremities/Musculoskelatal: normal capillary refill, no pedal edema, + calf tenderness, + pertinent finding Neurologic/Psych: environment coordinator II-XII nml as tested, no motor/sensory deficits, alert , normal mood/affect, oriented x 3 Skin: normal color Lymphatic: no adenopathy Hospital Course FEVER T 38.7 morning of 10/25/17. Tachycardic as high as 130. He was hemodynamically stable. Underlying immunosuppression due to transplant meds. No new specific symptoms to suggest source of infection. Ongoing low back and right groin pain. Right inguinal wound without erythema or drainage. WBC 5600 ( 63% polys). Blood cultures x 2. Blood CMV viral load. Lactate = 1.8. Procalcitonin = 0.66. CT chest --> stable right pleural based density right base 24 x 26 mm, no infiltrates CT LS spine --> no apparent infectious process CT pelvis / right proximal thigh --> mixed attenuation lesion / fluid collection consistent with postop changes (smaller than 10/10), no obvious signs of abscess Possible sepsis. Received IV NSS x 1 L. IV hydrocortisone ordered in light of chronic glucocorticoid therapy. Empiric antibiotic therapy with IV daptomycin and piperacillin / tazobactam pending culture results. History of CMV. Stopped valganciclovir about 2 wks ago, apparently because CMV not detectable. CMV viral load 3050. Resumed valganciclovir. Consider noninfectious etiologies of fever (VTE, pseudogout). Lactate 1.8 --> 1.4. Procalcitonin 0.66 --> 0.45. Low grade temp last night. Continue valganciclovir. Continue daptomycin and piperacillin / tazobactam, pending cultures. DVT RLE (present on admission) Venous duplex demonstrated thromboses involving right greater saphenous vein as well as right posterior tibial and peroneal veins. Greater saphenous vein thrombus appeared echogenic and may be old, but calf thromboses assumed to be acute. 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 Recent repair pseudoaneurysm right superficial femoral artery. INR 1.3 at time of admission. Started on IV heparin. Hold warfarin in case any invasive procedures are recommended at [facility] ( scheduled for endocardial biopsy next week). RIGHT KNEE PAIN Patient complained of moderate right knee pain. History of osteoarthritis and pseudogout. Exam demonstrated small-moderate effusion of right knee without erythema or warmth. Arthrocentesis not pursued due to anticoagulation. Follow. CHRONIC KIDNEY DISEASE CKD III with creatinines ranging from 1.84 - 3.1 over past 6 months. Serum creatinine 2.7 at time of admission. Creatinine today = 2.29. Maintain adequate volume status. Avoid potential nephrotoxins when able. Follow. ANEMIA Hgb 11.2 --> --> 8.1. Baseline hgb over past 6 months 9-11. Discharge hgb on 10/14 was 8.4. No clinically apparent bleeding. Fecal OB negative. No apparent retroperitoneal bleed per CT. Follow. S/P CARDIAC TRANSPLANT Status post cardiac transplant for amyloidosis at [facility]. Recently established with transplant service at [facility]. Apparently scheduled for endocardial biopsy next week. Continue mycophenolate mofetil, tacrolimus, prednisone with caution in light of febrile illness. Continue atovaquone for prophylaxis. HYPOMAGNESEMIA Mg this morning = 1.6. MgSO4 1 mg IV x 2 on 10/28. Started mag oxide. Mg today 1.9. Follow. DISPOSITION Arrangements being made for transfer to [facility]. Family Medicine follow-up with Dr. Chavez Enciso. Cardiology follow-up with Dr Oconnor. Vascular Surgery follow-up with Dr. Soni. Pulmonary follow-up with Dr. Levy. . Total time spent on discharge = 50 min. This includes examination of the patient, discharge planning, medication reconciliation, and communication with other providers. . Discharge Instructions CONDITION: stable VITALS: per unit routine ACTIVITY: as tolerated ALLERGIES: morphine DIET: AHA VTE PROPHYLAXIS: IV heparin --> warfarin Reported Home Medications Medications Dose Route/Sig Max Daily Dose Days Date Category Dose Instructions Percocet 5MG/325MG (Oxycodone/Acetaminophen) Tab 1 Tablet PO Q4H PRN 10/23/17 Reported PAIN Jantoven (Warfarin Sodium) 2.5 Mg Tab 2.5 Mg PO Q2D 10/10/17 Reported Jantoven (Warfarin Sodium) 1 Mg Tab 3.5 Mg PO Q2D 10/10/17 Reported Caltrate 600+D (Calcium Carbonate-Cholecalcife) 1 Tab Tab 1 Tab PO BID 10/10/17 Reported Prograf (Tacrolimus) 1 Mg Cap 4 Mg PO AMPM 10/10/17 Reported Prilosec (Omeprazole) 20 Mg Capcr 20 Mg PO DAILY 10/10/17 Reported Prednisone 5 Mg Tab 5 Mg PO Q2D 10/10/17 Reported Prednisone 5 Mg Tab 7.5 Mg PO Q2D 10/10/17 Reported Norvasc (Amlodipine Besylate) 10 Mg Tab 10 Mg PO DAILY 10/10/17 Reported Senokot (Senna) 8.6 Mg Tab 2 Tab PO DAILY 10/10/17 Reported Ultram (Tramadol HCl) 50 Mg Tab 50-100 Mg PO Q6H PRN 10/10/17 Reported Pravachol (Pravastatin Sodium) 40 Mg Tab 40 Mg PO DAILY 03/16/17 Reported Cellcept (Mycophenolate Mofetil) 500 Mg Tab 1,000 Mg PO BID 03/16/17 Reported Mepron (Atovaquone) 750 Mg/5 Ml Susp 10 Ml PO QAM 03/16/17 Reported Synthroid (Levothyroxine Sodium) 50 Mcg Tab 50 Mcg PO DAILY 10/16/14 Reported Current Inpatient Medications Medications (Trade) Dose Ordered Sig/Rosette Route Start Time Stop Time Status Last Admin Dose Admin Hydromorphone HCl (Dilaudid Inj) 1 mg Q4 PRN IV 10/23/17 19:30 11/06/17 19:29 10/27/17 23:54 1 MG Ondansetron HCl (Zofran Inj) 4 mg Q6H PRN IV 10/23/17 19:30 11/22/17 19:29 10/23/17 22:12 4 MG Amlodipine Besylate (Norvasc Tab) 10 mg DAILY PO 10/24/17 09:00 11/23/17 08:59 10/27/17 08:44 10 MG Levothyroxine Sodium (Synthroid Tab) 50 mcg DAILYBB PO 10/24/17 06:00 11/23/17 06:59 10/28/17 06:31 50 MCG Mycophenolate Mofetil (Cellcept Cap) 1,000 mg BID PO 10/23/17 21:00 11/22/17 20:59 10/27/17 20:24 1,000 MG Oxycodone/ Acetaminophen (Percocet 5-325mg Tab) 1 tab Q4H PRN PO 10/23/17 19:45 11/06/17 19:44 10/27/17 21:33 1 TAB Pravastatin Sodium (Pravachol Tab) 40 mg DAILY PO 10/24/17 09:00 11/23/17 08:59 10/27/17 08:44 40 MG Senna (Senokot Tab) 17.2 mg DAILY PO 10/24/17 09:00 11/23/17 08:59 10/27/17 08:45 17.2 MG Tacrolimus (Prograf Cap) 4 mg BID PO 10/23/17 21:00 11/22/17 20:59 10/27/17 20:24 4 MG Tramadol HCl (Ultram Tab) 50 mg Q6H PRN PO 10/23/17 19:45 11/22/17 19:44 Warfarin Sodium (Coumadin Tab) 2.5 mg Q2D@1600 PO 10/25/17 16:00 11/24/17 15:59 Future Hold Atovaquone (Mepron Susp) 1,500 mg QAM PO 10/24/17 09:00 11/23/17 08:59 10/27/17 08:45 1,500 MG Calcium/Vitamin D (Caltrate Plus Tab) 1 tab BID PO 10/23/17 21:00 11/22/17 20:59 10/27/17 20:24 1 TAB Pantoprazole Sodium (Protonix Tab) 40 mg DAILY PO 10/24/17 09:00 11/23/17 08:59 10/27/17 08:47 40 MG Acetaminophen (Tylenol Tab) 650 mg Q4H PRN PO 10/23/17 19:45 11/22/17 19:44 10/27/17 19:13 650 MG Prednisone (PredniSONE TAB) 5 mg SuTuThSa@0900 PO 10/24/17 09:00 11/23/17 08:59 10/26/17 07:42 5 MG Prednisone (PredniSONE TAB) 7.5 mg MoWeFr@0900 PO 10/25/17 09:00 11/24/17 08:59 10/27/17 08:47 7.5 MG Heparin Sodium/ Dextrose 500 ml @ 24 mls/hr [id number] PRN IV 10/23/17 21:15 11/22/17 21:14 10/27/17 21:37 24 MLS/HR Warfarin Sodium (Coumadin Tab) 3.5 mg Q2D@1600 PO 10/24/17 16:00 11/23/17 15:59 Future Hold 10/24/17 16:55 3.5 MG Enteral Nutritional Formula (Boost) 1 can BIDM PO 10/25/17 07:30 11/24/17 07:29 10/27/17 17:26 1 CAN Miscellaneous Information (Consult) 1 ea UD PRN N/A 10/25/17 12:30 11/24/17 12:29 Daptomycin 550 mg/ Syringe 11 ml @ 5.5 mls/min DAILY@1400 IV 10/26/17 14:00 11/04/17 13:59 10/27/17 13:34 5.5 MLS/MIN Piperacillin Sod/ Tazobactam Sod 3.375 gm/Dextrose 115 ml @ 28.75 mls/ hr Q8@0400,1200,2000 IV 10/25/17 20:00 11/04/17 19:59 10/28/17 04:03 28.75 MLS/HR Valganciclovir (Valganciclovir HCl) 450 mg BID PO 10/26/17 12:00 11/25/17 11:59 10/27/17 20:27 450 MG Magnesium Oxide (Mag-Ox Tab) 400 mg BID PO 10/27/17 21:00 11/26/17 20:59 10/27/17 21:32 400 MG Last 24 Hours Test 10/28/17 05:26 White Blood Count 6.49 K/uL Red Blood Count 3.39 M/uL Hemoglobin 8.1 g/dL Hematocrit 26.6 % Mean Corpuscular Volume 78.5 fL Mean Corpuscular Hemoglobin 23.9 pg Mean Corpuscular Hemoglobin Concent 30.5 g/dl Platelet Count 300 K/uL Mean Platelet Volume 9.4 fL Neutrophils (%) (Auto) 66.2 % Lymphocytes (%) (Auto) 19.0 % Monocytes (%) (Auto) 12.6 % Eosinophils (%) (Auto) 0.5 % Basophils (%) (Auto) 0.8 % Neutrophils # (Auto) 4.30 K/uL Lymphocytes # (Auto) 1.23 K/uL Monocytes # (Auto) 0.82 K/uL Eosinophils # (Auto) 0.03 K/uL Basophils # (Auto) 0.05 K/uL RDW Standard Deviation 48.5 fL RDW Coefficient of Variation 16.8 % Immature Granulocyte % (Auto) 0.9 % Immature Granulocyte # (Auto) 0.06 K/uL Giant Platelets 1+ Hypochromasia PRESENT Ovalocytes 1+ Echinocytes 1+ Prothrombin Time 18.2 SECONDS Prothromb Time International Ratio 1.8 Activated Partial Thromboplast Time 66.2 SECONDS Partial Thromboplastin Ratio 2.5 Sodium Level 135 mmol/L Potassium Level 4.7 mmol/L Chloride Level 103 mmol/L Carbon Dioxide Level 27 mmol/L Anion Gap 5.0 mmol/L Blood Urea Nitrogen 28 mg/dl Creatinine 2.29 mg/dl Est Creatinine Clear Calc Drug Dose 35.4 ml/min Estimated GFR () 33.0 Estimated GFR (Non- 28.5 BUN/Creatinine Ratio 12.1 Random Glucose 105 mg/dl Calcium Level 9.5 mg/dl Magnesium Level 1.9 mg/dl RIGHT LOWER EXTREMITY VENOUS DOPPLER 10/23/17 IMPRESSION: 1. Deep venous thrombus within right posterior tibial and peroneal veins. No above the knee deep venous thrombus. 2. Superficial thrombus within the right greater saphenous vein which extends from the level of the thigh to the popliteal fossa. 3. 7 x 5.9 x 3.3 cm complex right groin fluid collection suggestive of a hematoma. Adjacent 2.7 cm fluid collection may reflect a resolving hematoma or seroma. No convincing residual pseudoaneurysm identified although evaluation is difficult on this exam. Electronically signed by: Nomi Meneses M.D. 10/23/2017 6:17 PM Dictated Date/Time: 10/23/2017 6:07 PM ULTRASOUND RIGHT LOWER EXTREMITY VENOUS 10/25/17 IMPRESSION: 1. There is no sonographic evidence of above knee deep venous thrombosis identified in the right lower extremity. 2. Superficial venous thrombus is seen throughout the greater saphenous vein extending from the groin to the popliteal fossa. 3. The calf vessels are not well assessed. No definite calf thrombus is identified. 4. Again seen is a small complex fluid collection the right groin which measures 5.5 x 4.7 cm. This appears to have decreased in size from 10/23/2017 when measured up to 7 cm. Electronically signed by: Henri Reynolds M.D. 10/25/2017 2:11 PM Dictated Date/Time: 10/25/2017 2:07 PM (CHEST) THORAX WITHOUT 10/25/17 IMPRESSION: 1. Stable pleural-based nodule right lower lobe. 2. Minimal scattered atelectatic changes with all findings similar compared to prior CT studies dating to 12/15/2016 3. Lungs otherwise appear clear. 4. Stable postoperative changes of a prior median sternotomy and transplant surgery. The above report was generated using voice recognition software. It may contain grammatical, syntax or spelling errors. Electronically signed by: Mitchel Aguilera M.D. 10/25/2017 1:43 PM Dictated Date/Time: 10/25/2017 1:[address] SCAN OF THE LUMBAR SPINE WITHOUT IV CONTRAST: 10/25/17 IMPRESSION: 1. No acute bony abnormality is seen involving the lumbar spine. 2. Osteopenia and spondylotic change as above. This is similar to prior studies. Electronically signed by: Henri Reynolds M.D. 10/25/2017 1:57 PM Dictated Date/Time: 10/25/2017 1:[address] SCAN OF THE BONY PELVIS WITHOUT IV CONTRAST 10/25/17 IMPRESSION: 1. There is a mixed attenuation lesion/fluid collection identified in the right groin surrounding the proximal superficial femoral artery. The appearance is nonspecific, and this could represent hematoma, pseudoaneurysm, seroma, and/or less likely abscess. Clinical correlation will be essential. Ultrasound may be useful for further interrogation. 2. There is trace free fluid in the pelvis. 3. The bony pelvis appears intact. Electronically signed by: Henri Reynolds M.D. 10/25/2017 2:00 PM Dictated Date/Time: 10/25/2017 1:31 PM R LOWER EXTREMITY WITHOUT 10/25/17 IMPRESSION: 1. Mixed attenuating lesion of the right inguinal region measuring up to 5.2 cm suggests decreased size of the previously noted 6.3 cm right femoral pseudoaneurysm. Adjacent subcutaneous edema and skin bushra are noted compatible with prior surgical repair. 2. No acute intrapelvic abnormality identified. The above report was generated using voice recognition software. It may contain grammatical, syntax or spelling errors. Electronically signed by: Eloy Dela Cruz M.D. 10/25/2017 1:30 PM Dictated Date/Time: 10/25/2017 1:24 PM Thank you for receiving this patient in transfer. Please call if you have any questions. Angel Kolb . Additional Copies To Vincent Oconnor M.D.; Chavez Enciso, D.O.; Zeke Levy M.D.; Adam Soni M.D.
[2017-10-25] MEDS ORDERED: HYDROCORTISONE IV 50 MG in SYRINGE 0 ML IV ONE (22:00)
[2017-10-26] VITALS (8 sets, daily range): BP systolic 102–130; BP diastolic 65–82; PULSE 79–101; TEMP 36.4–36.8; O2SAT 97–99
[2017-10-26] MEDS: PIPERACILL/TAZOBAC IV 3.375 GM in DEXTROSE 5% 100ML IV SCH ×3 (03:33→19:56)
[2017-10-26] MEDS: HYDROmorphone INJ 1 MG/ML SYR IV PRN ×3 (03:35→23:54)
[2017-10-26] MEDS: LEVOTHYROXINE 50 MCG TAB PO SCH (05:32)
[2017-10-26 05:38] LABS: HEMATOCRIT 25.9 % (42-52); IG# 0.02 K/uL (0.00-0.02); LYMPH % 21.3 %; LYMPH ABS # 1.08 K/uL (1.2-3.4); MEAN CELL VOLUME 78.5 fL (80-100); MEAN CORPUSCULAR HEMOGLOBIN 24.2 pg (25-34); MEAN CORPUSCULAR HGB CONC 30.9 g/dl (32-36); MEAN PLATELET VOLUME 9.7 fL (7.4-10.4); MONO % 4.5 %; MONO ABS # 0.23 K/uL (0.11-0.59); NEUT % 73.8 %; NEUT ABS # 3.73 K/uL (1.4-6.5); PLATELET COUNT 288 K/uL (130-400); RED CELL DISTRIBUTION WIDTH CV 16.4 % (11.5-14.5); RED CELL DISTRIBUTION WIDTH SD 47.1 fL (36.4-46.3); WHITE BLOOD COUNT 5.06 K/uL (4.8-10.8)
[2017-10-26 06:07] LABS: ALBUMIN 2.4 gm/dl (3.4-5.0); CALCIUM 9.7 mg/dl (8.5-10.1); CREATININE 2.27 mg/dl (0.60-1.40); POTASSIUM 4.3 mmol/L (3.5-5.1)
[2017-10-26 06:10] LABS: TOTAL PROTEIN 6.3 gm/dl (6.4-8.2)
[2017-10-26] MEDS ORDERED: MAGNESIUM SULFATE 1GM / D5W 1 GM in PREMIXED IN D5W 100 ML IV ONE (06:15)
[2017-10-26] MEDS: HEPARIN 25,000 UNIT/500ML D5W 500 ML IV PRN (07:07)
[2017-10-26 07:14] LABS: PTT PATIENT 79.3 SECONDS (21.0-31.0)
--- NOTE | 2017-10-26 07:25 | Progress Note ---
Medicine Progress Note Date & Time of Visit: Oct 26, 2017 at 07:05 . Subjective CC: Follow-up visit for multiple problems. HPI: Feels better. No fever since yesterday; no chills or sweats. No cough or SOB. No chest pain. No nausea, vomiting, diarrhea. Low back / right groin pain improved. Runs of wide-complex arrhythmia noted on telemetry- regular, nonsustained, rate in 80's, asymptomatic. ROS: as noted above in HPI . Objective Last 8 Hrs Date Time Temp Pulse Resp B/P (MAP) Pulse Ox O2 Delivery O2 Flow Rate FiO2 10/26/17 07:00 36.6 101 18 106/73 (84) 99 Room Air 10/26/17 04:00 Room Air 10/26/17 03:05 36.5 89 17 114/70 (85) 97 Room Air 10/25/17 23:59 Room Air Physical Exam: General- no acute distress Lungs- clear to auscultation; no respiratory distress Cardiovascular- RRR; tachy; I/ systolic murmur at base; no gallop; no JVD; no pretibial edema Abdomen- + bowel sounds, soft, nontender Extremities- no cyanosis; no calf tenderness Neuro- alert, oriented Skin- warm & dry . Laboratory Results: Last 24 Hours Test 10/25/17 11:58 10/25/17 12:30 10/25/17 15:50 10/26/17 05:17 Lactic Acid Level 1.8 mmol/L 1.4 mmol/L Procalcitonin 0.66 ng/ml 0.45 ng/ml Urine Color YELLOW Urine Appearance CLOUDY Urine pH 5.0 Urine Specific [place] 1.021 Urine Protein 1+ Urine Glucose (UA) NEG Urine Ketones NEG Urine Occult Blood NEG Urine Nitrite NEG Urine Bilirubin NEG Urine Urobilinogen NEG Urine Leukocyte Esterase NEG Urine WBC (Auto) 1-5 /hpf Urine RBC (Auto) 0-4 /hpf Urine Hyaline Casts (Auto) 5-10 /lpf Urine Epithelial Cells (Auto) 20-30 /lpf Urine Bacteria (Auto) NEG Urine Pathogenic Casts 1-5 GRANULAR CASTS /lpf Urine Yeast (Auto) Influenza Type A (RT-PCR) Neg for Influ A Influenza Type B (RT-PCR) Neg for Influ B White Blood Count 5.06 K/uL Red Blood Count 3.30 M/uL Hemoglobin 8.0 g/dL Hematocrit 25.9 % Mean Corpuscular Volume 78.5 fL Mean Corpuscular Hemoglobin 24.2 pg Mean Corpuscular Hemoglobin Concent 30.9 g/dl Platelet Count 288 K/uL Mean Platelet Volume 9.7 fL Neutrophils (%) (Auto) 73.8 % Lymphocytes (%) (Auto) 21.3 % Monocytes (%) (Auto) 4.5 % Eosinophils (%) (Auto) 0.0 % Basophils (%) (Auto) 0.0 % Neutrophils # (Auto) 3.73 K/uL Lymphocytes # (Auto) 1.08 K/uL Monocytes # (Auto) 0.23 K/uL Eosinophils # (Auto) 0.00 K/uL Basophils # (Auto) 0.00 K/uL RDW Standard Deviation 47.1 fL RDW Coefficient of Variation 16.4 % Immature Granulocyte % (Auto) 0.4 % Immature Granulocyte # (Auto) 0.02 K/uL Hypochromasia PRESENT Echinocytes 1+ Sodium Level 133 mmol/L Potassium Level 4.3 mmol/L Chloride Level 102 mmol/L Carbon Dioxide Level 25 mmol/L Anion Gap 6.0 mmol/L Blood Urea Nitrogen 28 mg/dl Creatinine 2.27 mg/dl Est Creatinine Clear Calc Drug Dose 35.7 ml/min Estimated GFR () 33.4 Estimated GFR (Non- 28.8 BUN/Creatinine Ratio 12.4 Random Glucose 177 mg/dl Calcium Level 9.7 mg/dl Magnesium Level 1.7 mg/dl Total Bilirubin 0.3 mg/dl Aspartate Amino Transf (AST/SGOT) 15 U/L Alanine Aminotransferase (ALT/SGPT) 26 U/L Alkaline Phosphatase 157 U/L Total Protein 6.3 gm/dl Albumin 2.4 gm/dl Globulin 3.9 gm/dl Albumin/Globulin Ratio 0.6 Test 10/26/17 06:41 Activated Partial Thromboplast Time 79.3 SECONDS Partial Thromboplastin Ratio 3.1 Date/Time Source Procedure Growth Status 10/25/17 12:10 Blood Blood Culture Pending Received 10/25/17 11:58 Blood Blood Culture Pending Received Assessment & Plan FEVER T 38.7 morning of 10/25/17. Tachycardic as high as 130. He was hemodynamically stable. Underlying immunosuppression due to transplant meds. No new specific symptoms to suggest source of infection. Ongoing low back and right groin pain. Right inguinal wound without erythema or drainage. WBC 5600 ( 63% polys). Blood cultures x 2. Blood CMV viral load. Lactate = 1.8. Procalcitonin = 0.66. CT chest --> stable right pleural based density right base 24 x 26 mm, no infiltrates CT LS spine --> no apparent infectious process CT pelvis / right proximal thigh --> mixed attenuation lesion / fluid collection consistent with postop changes (smaller than 10/10), no obvious signs of abscess Possible sepsis. Received IV NSS x 1 L. IV hydrocortisone ordered in light of chronic glucocorticoid therapy. Empiric antibiotic therapy with IV -m-e-e-n-n-d-y-c-i-n- daptomycin and piperacillin / tazobactam pending culture results. [corrected HOLDEN 10/27/17 @ 20: 28] History of CMV. Stopped valganciclovir about 2 wks ago, apparently because CMV not detectable. Check CMV viral load- results pending. Resumed valganciclovir. Consider noninfectious etiologies of fever (VTE, pseudogout). Afebrile this morning. Lactate 1.8 --> 1.4. Procalcitonin 0.66 --> 0.45. Continue -m-t-n-c-u-y-y-c-i-n- daptomycin, piperacillin / tazobactam, valganciclovir pending cultures and CMV viral load. [corrected HOLDEN 10/27/17 @ 20:28 ] DVT RLE (present on admission) Venous duplex demonstrated thromboses involving right greater saphenous vein as well as right posterior tibial and peroneal veins. Greater saphenous vein thrombus appeared echogenic and may be old, but calf thromboses assumed to be acute. 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 Recent repair pseudoaneurysm right superficial femoral artery. INR 1.3 at time of admission. Started on IV heparin. Hold warfarin in case any invasive procedures are recommended (apparently scheduled for endocardial biopsy next week at [facility]). RIGHT KNEE PAIN Patient complained of moderate right knee pain. History of osteoarthritis and pseudogout. Exam demonstrated small-moderate effusion of right knee without erythema or warmth. Arthrocentesis not pursued due to anticoagulation. Follow. CHRONIC KIDNEY DISEASE CKD III with creatinines ranging from 1.84 - 3.1 over past 6 months. Serum creatinine 2.7 at time of admission. Creatinine today = 2.27. Maintain adequate volume status. Avoid potential nephrotoxins when able. Follow. ANEMIA Hgb 11.2 --> --> 8.0. Baseline hgb over past 6 months 9-11. Discharge hgb on 10/14 was 8.4. No clinically apparent bleeding. Fecal OB pending. No apparent retroperitoneal bleed per CT. Follow. S/P CARDIAC TRANSPLANT Status post cardiac transplant for amyloidosis at [facility] [place] 2016. Recently established with transplant service at [facility]. Apparently scheduled for endocardial biopsy next week. Continue mycophenolate mofetil, tacrolimus, prednisone with caution in light of febrile illness. Continue atovaquone for prophylaxis. HYPOMAGNESEMIA Mg this morning 1.7. MgSO4 1 mg IV x 1. Follow. DISPOSITION Transfer to transplant center would be prudent given febrile illness and underlying immunosuppression. Case discussed with cardiac transplant team at [facility]. Patient accepted in transfer once bed availability confirmed. Family Medicine follow-up with Dr. Chavez Enciso. Cardiology follow-up with Dr Oconnor. Vascular Surgery follow-up with Dr. Soni. Pulmonary follow-up with Dr. Levy. . Consultants: Vascular Surgery . Procedures: cardiac monitoring venous duplex lower extremity CT chest CT lumbar spine CT pelvis CT lower extremity IV meds . Current Inpatient Medications: Current Inpatient Medications Medications (Trade) Dose Ordered Sig/Rosette Route Start Time Stop Time Status Last Admin Dose Admin Hydromorphone HCl (Dilaudid Inj) 1 mg Q4 PRN IV 10/23/17 19:30 11/06/17 19:29 10/26/17 03:35 1 MG Ondansetron HCl (Zofran Inj) 4 mg Q6H PRN IV 10/23/17 19:30 11/22/17 19:29 10/23/17 22:12 4 MG Amlodipine Besylate (Norvasc Tab) 10 mg DAILY PO 10/24/17 09:00 11/23/17 08:59 10/25/17 08:00 10 MG Levothyroxine Sodium (Synthroid Tab) 50 mcg DAILYBB PO 2/4/18 06:00 11/23/17 06:59 10/26/17 05:32 50 MCG Mycophenolate Mofetil (Cellcept Cap) 1,000 mg BID PO 10/23/17 21:00 11/22/17 20:59 10/25/17 20:52 1,000 MG Oxycodone/ Acetaminophen (Percocet 5-325mg Tab) 1 tab Q4H PRN PO 10/23/17 19:45 11/06/17 19:44 10/23/17 23:29 1 TAB Pravastatin Sodium (Pravachol Tab) 40 mg DAILY PO 10/24/17 09:00 11/23/17 08:59 10/25/17 07:54 40 MG Senna (Senokot Tab) 17.2 mg DAILY PO 10/24/17 09:00 11/23/17 08:59 10/25/17 08:03 17.2 MG Tacrolimus (Prograf Cap) 4 mg BID PO 10/23/17 21:00 11/22/17 20:59 10/25/17 20:53 4 MG Tramadol HCl (Ultram Tab) 50 mg Q6H PRN PO 10/23/17 19:45 11/22/17 19:44 Warfarin Sodium (Coumadin Tab) 2.5 mg Q2D@1600 PO 10/25/17 16:00 11/24/17 15:59 Future Hold Atovaquone (Mepron Susp) 1,500 mg QAM PO 10/24/17 09:00 11/23/17 08:59 10/25/17 08:05 1,500 MG Calcium/Vitamin D (Caltrate Plus Tab) 1 tab BID PO 10/23/17 21:00 11/22/17 20:59 10/25/17 20:52 1 TAB Pantoprazole Sodium (Protonix Tab) 40 mg DAILY PO 10/24/17 09:00 11/23/17 08:59 10/25/17 08:02 40 MG Acetaminophen (Tylenol Tab) 650 mg Q4H PRN PO 10/23/17 19:45 11/22/17 19:44 10/25/17 10:50 650 MG Prednisone (PredniSONE TAB) 5 mg SuTuThSa@0900 PO 10/24/17 09:00 11/23/17 08:59 10/24/17 09:09 5 MG Prednisone (PredniSONE TAB) 7.5 mg MoWeFr@0900 PO 10/25/17 09:00 11/24/17 08:59 10/25/17 07:55 7.5 MG Heparin Sodium/ Dextrose 500 ml @ 27 mls/hr [id number] PRN IV 10/23/17 21:15 11/22/17 21:14 10/26/17 07:07 27 MLS/HR Warfarin Sodium (Coumadin Tab) 3.5 mg Q2D@1600 PO 10/24/17 16:00 11/23/17 15:59 Future Hold 10/24/17 16:55 3.5 MG Enteral Nutritional Formula (Boost) 1 can BIDM PO 10/25/17 07:30 11/24/17 07:29 10/25/17 16:56 1 CAN Miscellaneous Information (Consult) 1 ea UD PRN N/A 10/25/17 12:30 11/24/17 12:29 Daptomycin 550 mg/ Syringe 11 ml @ 5.5 mls/min DAILY@1400 IV 10/26/17 14:00 11/04/17 13:59 Miscellaneous Information (Order Awaiting Action) 1 ea QS N/A 10/25/17 14:42 11/24/17 14:41 Piperacillin Sod/ Tazobactam Sod 3.375 gm/Dextrose 115 ml @ 28.75 mls/ hr Q8@0400,1200,2000 IV 10/25/17 20:00 11/04/17 19:59 10/26/17 03:33 28.75 MLS/HR
[2017-10-26] MEDS: BOOST VANILLA PO SCH ×2 (07:42→16:51)
[2017-10-26] MEDS: PRAVASTATIN SOD 40 MG TAB PO SCH (07:42)
[2017-10-26] MEDS: ATOVAQUONE 750 MG/5 ML UDC PO SCH (07:43)
[2017-10-26] MEDS: SENNA 8.6 MG TAB PO SCH (07:43)
[2017-10-26] MEDS: AMLODIPINE BESYLATE 5 MG TAB PO SCH (07:43)
[2017-10-26] MEDS: PANTOprazole SOD 40 MG TAB PO SCH (07:44)
[2017-10-26] MEDS: CALCIUM 600MG + VIT D 400 IU TAB PO SCH ×2 (07:44→20:48)
[2017-10-26] MEDS: MYCOPHENOLATE MOFETIL 250 MG CAP (CELLCEPT) PO SCH ×2 (07:44→20:49)
[2017-10-26] MEDS: TACROLIMUS 1 MG CAP PO SCH ×2 (07:44→20:49)
--- NOTE | 2017-10-26 08:26 | Progress Note ---
Progress Note Date of Service Oct 26, 2017. Progress Note USN of the lower extremity did not show any new thrombus. No indications for a filter. Needs to be back on his usual anticoagulation regimen. Thank you very much for letting me participate in the care of this patient.
[2017-10-26] MEDS ORDERED: DAPTOmycin IV 0 MG in SODIUM CHLORIDE 0.9% 50ML 50 ML IV SCH (09:00)
[2017-10-26] MEDS ORDERED: NURSING VERBAL MED ORDER ONE (10:45)
[2017-10-26] MEDS: DAPTOmycin IV 550 MG in SYRINGE 0 ML IV SCH (13:30)
[2017-10-26] MEDS: VALGANCICLOVIR HCL 450 MG PO SCH ×2 (13:31→20:49)
[2017-10-26 14:02] LABS: PTT PATIENT 62.9 SECONDS (21.0-31.0)
[2017-10-27] VITALS (10 sets, daily range): BP systolic 100–144; BP diastolic 71–87; PULSE 89–118; TEMP 36.6–39; O2SAT 94–98
[2017-10-27] MEDS: HEPARIN 25,000 UNIT/500ML D5W 500 ML IV PRN ×2 (02:06→21:37)
[2017-10-27] MEDS: PIPERACILL/TAZOBAC IV 3.375 GM in DEXTROSE 5% 100ML IV SCH ×3 (04:17→20:38)
[2017-10-27] MEDS: HYDROmorphone INJ 1 MG/ML SYR IV PRN ×5 (04:18→23:54)
[2017-10-27 05:42] LABS: BASO % 0.8 %; BASO ABS # 0.06 K/uL (0-0.2); EOS % 0.8 %; EOS ABS # 0.06 K/uL (0-0.5); HEMOGLOBIN 7.9 g/dL (14.0-18.0); IG# 0.03 K/uL (0.00-0.02); LYMPH % 13.2 %; LYMPH ABS # 0.99 K/uL (1.2-3.4); MEAN CELL VOLUME 77.8 fL (80-100); MEAN CORPUSCULAR HEMOGLOBIN 23.7 pg (25-34); MEAN CORPUSCULAR HGB CONC 30.4 g/dl (32-36); MEAN PLATELET VOLUME 9.6 fL (7.4-10.4); MONO % 11.6 %; MONO ABS # 0.87 K/uL (0.11-0.59); NEUT % 73.2 %; NEUT ABS # 5.51 K/uL (1.4-6.5); PLATELET COUNT 333 K/uL (130-400); RED CELL DISTRIBUTION WIDTH CV 16.5 % (11.5-14.5); WHITE BLOOD COUNT 7.52 K/uL (4.8-10.8)
[2017-10-27 06:12] LABS: CALCIUM 9.5 mg/dl (8.5-10.1); CREATININE 2.39 mg/dl (0.60-1.40); POTASSIUM 4.5 mmol/L (3.5-5.1)
[2017-10-27] MEDS: LEVOTHYROXINE 50 MCG TAB PO SCH (06:12)
[2017-10-27 06:36] LABS: INR 2.2 (0.9-1.1)
[2017-10-27 06:53] LABS: PTT PATIENT 60.1 SECONDS (21.0-31.0)
[2017-10-27] MEDS ORDERED: MAGNESIUM SULFATE 1GM / D5W 1 GM in PREMIXED IN D5W 100 ML IV ONE (08:00)
[2017-10-27] MEDS: BOOST VANILLA PO SCH ×2 (08:43→17:26)
[2017-10-27] MEDS: AMLODIPINE BESYLATE 5 MG TAB PO SCH (08:44)
[2017-10-27] MEDS: PRAVASTATIN SOD 40 MG TAB PO SCH (08:44)
[2017-10-27] MEDS: SENNA 8.6 MG TAB PO SCH (08:45)
[2017-10-27] MEDS: ATOVAQUONE 750 MG/5 ML UDC PO SCH (08:45)
[2017-10-27] MEDS: PANTOprazole SOD 40 MG TAB PO SCH (08:47)
[2017-10-27] MEDS: MYCOPHENOLATE MOFETIL 250 MG CAP (CELLCEPT) PO SCH ×2 (08:47→20:24)
[2017-10-27] MEDS: CALCIUM 600MG + VIT D 400 IU TAB PO SCH ×2 (08:47→20:24)
[2017-10-27] MEDS: TACROLIMUS 1 MG CAP PO SCH ×2 (08:48→20:24)
[2017-10-27] MEDS: VALGANCICLOVIR HCL 450 MG PO SCH ×2 (08:54→20:27)
[2017-10-27] MEDS: DAPTOmycin IV 550 MG in SYRINGE 0 ML IV SCH (13:34)
[2017-10-27] MEDS: ACETAMINOPHEN 325 MG TAB PO PRN ×2 (14:31→19:13)
[2017-10-27] MEDS ORDERED: MAGNESIUM SULFATE 1GM / D5W 1 GM in PREMIXED IN D5W 100 ML IV STA (15:41)
--- NOTE | 2017-10-27 20:22 | Progress Note ---
Medicine Progress Note Date & Time of Visit: Oct 27, 2017 at 18:00 . Subjective CC: Follow-up visit for multiple problems. HPI: Chills and low grade temp this afternoon. No pharyngitis, cough, or SOB. Runs of nonsustained wide-complex arrhythmias noted on telemetry (asymptomatic). No chest pain. No nausea, vomiting, diarrhea. Persistent low back / right groin pain. ROS: as noted above in HPI . Objective Last 8 Hrs Date Time Temp Pulse Resp B/P (MAP) Pulse Ox O2 Delivery O2 Flow Rate FiO2 10/27/17 19:38 39.0 118 18 115/80 (92) 96 Room Air 10/27/17 16:00 95 Room Air 10/27/17 15:27 37.5 116 20 126/81 (96) 95 Room Air 10/27/17 13:55 38.1 Physical Exam: General- lying in bed; no acute distress Lungs- clear to auscultation; no respiratory distress Cardiovascular- RRR; I/ systolic murmur at base; no gallop; no JVD; no pretibial edema Abdomen- + bowel sounds, soft, nontender Extremities- no cyanosis; no calf tenderness; bushra removed from right groin incision, no erythema or drainage Neuro- alert, oriented Skin- warm & dry . Laboratory Results: Last 24 Hours Test 10/27/17 05:10 White Blood Count 7.52 K/uL Red Blood Count 3.34 M/uL Hemoglobin 7.9 g/dL Hematocrit 26.0 % Mean Corpuscular Volume 77.8 fL Mean Corpuscular Hemoglobin 23.7 pg Mean Corpuscular Hemoglobin Concent 30.4 g/dl Platelet Count 333 K/uL Mean Platelet Volume 9.6 fL Neutrophils (%) (Auto) 73.2 % Lymphocytes (%) (Auto) 13.2 % Monocytes (%) (Auto) 11.6 % Eosinophils (%) (Auto) 0.8 % Basophils (%) (Auto) 0.8 % Neutrophils # (Auto) 5.51 K/uL Lymphocytes # (Auto) 0.99 K/uL Monocytes # (Auto) 0.87 K/uL Eosinophils # (Auto) 0.06 K/uL Basophils # (Auto) 0.06 K/uL RDW Standard Deviation 47.0 fL RDW Coefficient of Variation 16.5 % Immature Granulocyte % (Auto) 0.4 % Immature Granulocyte # (Auto) 0.03 K/uL Hypochromasia PRESENT Ovalocytes 1+ Echinocytes 1+ Prothrombin Time 23.1 SECONDS Prothromb Time International Ratio 2.2 Activated Partial Thromboplast Time 60.1 SECONDS Partial Thromboplastin Ratio 2.3 Sodium Level 139 mmol/L Potassium Level 4.5 mmol/L Chloride Level 104 mmol/L Carbon Dioxide Level 24 mmol/L Anion Gap 10.0 mmol/L Blood Urea Nitrogen 31 mg/dl Creatinine 2.39 mg/dl Est Creatinine Clear Calc Drug Dose 33.9 ml/min Estimated GFR () 31.3 Estimated GFR (Non- 27.0 BUN/Creatinine Ratio 13.0 Random Glucose 100 mg/dl Calcium Level 9.5 mg/dl Magnesium Level 1.6 mg/dl Assessment & Plan FEVER T 38.7 morning of 10/25/17. Tachycardic as high as 130. He was hemodynamically stable. Underlying immunosuppression due to transplant meds. No new specific symptoms to suggest source of infection. Ongoing low back and right groin pain. Right inguinal wound without erythema or drainage. WBC 5600 ( 63% polys). Blood cultures x 2. Blood CMV viral load. Lactate = 1.8. Procalcitonin = 0.66. CT chest --> stable right pleural based density right base 24 x 26 mm, no infiltrates CT LS spine --> no apparent infectious process CT pelvis / right proximal thigh --> mixed attenuation lesion / fluid collection consistent with postop changes (smaller than 10/10), no obvious signs of abscess Possible sepsis. Received IV NSS x 1 L. IV hydrocortisone ordered in light of chronic glucocorticoid therapy. Empiric antibiotic therapy with IV -c-w-c-x-q-n-y-c-i-n- daptomycin and piperacillin / tazobactam pending culture results. [corrected HOLDEN 10/27/17 @ 20:29 ] History of CMV. Stopped valganciclovir about 2 wks ago, apparently because CMV not detectable. CMV viral load 3050. Resumed valganciclovir. Consider noninfectious etiologies of fever (VTE, pseudogout). Lactate 1.8 --> 1.4. Procalcitonin 0.66 --> 0.45. Low grade temp and chills this afternoon. Continue valganciclovir. Continue -i-h-d-m-m-f-y-c-i-n- daptomycin, piperacillin / tazobactam, pending cultures. [corrected HOLDEN 10/27/17 @ 20:29] DVT RLE (present on admission) Venous duplex demonstrated thromboses involving right greater saphenous vein as well as right posterior tibial and peroneal veins. Greater saphenous vein thrombus appeared echogenic and may be old, but calf thromboses assumed to be acute. 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 Recent repair pseudoaneurysm right superficial femoral artery. INR 1.3 at time of admission. Started on IV heparin. Hold warfarin in case any invasive procedures are recommended (scheduled for endocardial biopsy next week at [facility]). RIGHT KNEE PAIN Patient complained of moderate right knee pain. History of osteoarthritis and pseudogout. Exam demonstrated small-moderate effusion of right knee without erythema or warmth. Arthrocentesis not pursued due to anticoagulation. Follow. CHRONIC KIDNEY DISEASE CKD III with creatinines ranging from 1.84 - 3.1 over past 6 months. Serum creatinine 2.7 at time of admission. Creatinine today = 2.39. Maintain adequate volume status. Avoid potential nephrotoxins when able. Follow. ANEMIA Hgb 11.2 --> --> 7.9. Baseline hgb over past 6 months 9-11. Discharge hgb on 10/14 was 8.4. No clinically apparent bleeding. Fecal OB negative. No apparent retroperitoneal bleed per CT. Follow. S/P CARDIAC TRANSPLANT Status post cardiac transplant for amyloidosis at [facility] [place] 2015. Recently established with transplant service at [facility]. Apparently scheduled for endocardial biopsy next week. Continue mycophenolate mofetil, tacrolimus, prednisone with caution in light of febrile illness. Continue atovaquone for prophylaxis. HYPOMAGNESEMIA Mg this morning = 1.6. MgSO4 1 mg IV x 2. Start mag oxide. Follow. DISPOSITION Transfer to transplant center would be prudent given febrile illness, underlying immunosuppression, acute DVT, planned endocardial biopsy. Case discussed with cardiac transplant team at [facility]. Patient accepted in transfer once bed availability confirmed and road conditions permit. Family Medicine follow-up with Dr. Chavez Enciso. Cardiology follow-up with Dr Oconnor. Vascular Surgery follow-up with Dr. Soni. Pulmonary follow-up with Dr. Levy. . Consultants: Vascular Surgery . Procedures: cardiac monitoring venous duplex lower extremity CT chest CT lumbar spine CT pelvis CT lower extremity IV meds . Current Inpatient Medications: Current Inpatient Medications Medications (Trade) Dose Ordered Sig/Rosette Route Start Time Stop Time Status Last Admin Dose Admin Hydromorphone HCl (Dilaudid Inj) 1 mg Q4 PRN IV 10/23/17 19:30 11/06/17 19:29 10/27/17 19:15 1 MG Ondansetron HCl (Zofran Inj) 4 mg Q6H PRN IV 10/23/17 19:30 11/22/17 19:29 10/23/17 22:12 4 MG Amlodipine Besylate (Norvasc Tab) 10 mg DAILY PO 10/24/17 09:00 11/23/17 08:59 10/27/17 08:44 10 MG Levothyroxine Sodium (Synthroid Tab) 50 mcg DAILYBB PO 10/24/17 06:00 11/23/17 06:59 10/27/17 06:12 50 MCG Mycophenolate Mofetil (Cellcept Cap) 1,000 mg BID PO 10/23/17 21:00 11/22/17 20:59 10/27/17 08:47 1,000 MG Oxycodone/ Acetaminophen (Percocet 5-325mg Tab) 1 tab Q4H PRN PO 10/23/17 19:45 11/06/17 19:44 10/23/17 23:29 1 TAB Pravastatin Sodium (Pravachol Tab) 40 mg DAILY PO 10/24/17 09:00 11/23/17 08:59 10/27/17 08:44 40 MG Senna (Senokot Tab) 17.2 mg DAILY PO 10/24/17 09:00 11/23/17 08:59 10/27/17 08:45 17.2 MG Tacrolimus (Prograf Cap) 4 mg BID PO 10/23/17 21:00 11/22/17 20:59 10/27/17 08:48 4 MG Tramadol HCl (Ultram Tab) 50 mg Q6H PRN PO 10/23/17 19:45 11/22/17 19:44 Warfarin Sodium (Coumadin Tab) 2.5 mg Q2D@1600 PO 10/25/17 16:00 11/24/17 15:59 Future Hold Atovaquone (Mepron Susp) 1,500 mg QAM PO 10/24/17 09:00 11/23/17 08:59 10/27/17 08:45 1,500 MG Calcium/Vitamin D (Caltrate Plus Tab) 1 tab BID PO 10/23/17 21:00 11/22/17 20:59 10/27/17 08:47 1 TAB Pantoprazole Sodium (Protonix Tab) 40 mg DAILY PO 10/24/17 09:00 11/23/17 08:59 10/27/17 08:47 40 MG Acetaminophen (Tylenol Tab) 650 mg Q4H PRN PO 10/23/17 19:45 11/22/17 19:44 10/27/17 19:13 650 MG Prednisone (PredniSONE TAB) 5 mg SuTuThSa@0900 PO 10/24/17 09:00 11/23/17 08:59 10/26/17 07:42 5 MG Prednisone (PredniSONE TAB) 7.5 mg MoWeFr@0900 PO 10/25/17 09:00 11/24/17 08:59 10/27/17 08:47 7.5 MG Heparin Sodium/ Dextrose 500 ml @ 24 mls/hr [id number] PRN IV 10/23/17 21:15 11/22/17 21:14 10/27/17 02:06 24 MLS/HR Warfarin Sodium (Coumadin Tab) 3.5 mg Q2D@1600 PO 10/24/17 16:00 11/23/17 15:59 Future Hold 10/24/17 16:55 3.5 MG Enteral Nutritional Formula (Boost) 1 can BIDM PO 10/25/17 07:30 11/24/17 07:29 10/27/17 17:26 1 CAN Miscellaneous Information (Consult) 1 ea UD PRN N/A 10/25/17 12:30 11/24/17 12:29 Daptomycin 550 mg/ Syringe 11 ml @ 5.5 mls/min DAILY@1400 IV 10/26/17 14:00 11/04/17 13:59 10/27/17 13:34 5.5 MLS/MIN Piperacillin Sod/ Tazobactam Sod 3.375 gm/Dextrose 115 ml @ 28.75 mls/ hr Q8@0400,1200,2000 IV 10/25/17 20:00 11/04/17 19:59 10/27/17 13:34 28.75 MLS/HR Valganciclovir (Valganciclovir HCl) 450 mg BID PO 10/26/17 12:00 11/25/17 11:59 10/27/17 08:54 450 MG
[2017-10-27] MEDS: MAGNESIUM OXIDE 400 MG TAB PO SCH (21:32)
[2017-10-27] MEDS: OXYCODONE/ACETAMINOPHEN 5-325 TAB PO PRN (21:33)
[2017-10-28 02:53] VITALS: BP 98/67; PULSE 90; TEMP 36.5; O2SAT 97
[2017-10-28] MEDS: PIPERACILL/TAZOBAC IV 3.375 GM in DEXTROSE 5% 100ML IV SCH (04:03)
[2017-10-28 05:47] LABS: BASO % 0.8 %; BASO ABS # 0.05 K/uL (0-0.2); EOS % 0.5 %; EOS ABS # 0.03 K/uL (0-0.5); HEMATOCRIT 26.6 % (42-52); HEMOGLOBIN 8.1 g/dL (14.0-18.0); IG# 0.06 K/uL (0.00-0.02); LYMPH ABS # 1.23 K/uL (1.2-3.4); MEAN CELL VOLUME 78.5 fL (80-100); MEAN CORPUSCULAR HEMOGLOBIN 23.9 pg (25-34); MEAN CORPUSCULAR HGB CONC 30.5 g/dl (32-36); MEAN PLATELET VOLUME 9.4 fL (7.4-10.4); MONO % 12.6 %; MONO ABS # 0.82 K/uL (0.11-0.59); NEUT % 66.2 %; PLATELET COUNT 300 K/uL (130-400); RED CELL DISTRIBUTION WIDTH CV 16.8 % (11.5-14.5); RED CELL DISTRIBUTION WIDTH SD 48.5 fL (36.4-46.3); WHITE BLOOD COUNT 6.49 K/uL (4.8-10.8)
[2017-10-28 06:11] LABS: INR 1.8 (0.9-1.1)
[2017-10-28 06:14] LABS: PTT PATIENT 66.2 SECONDS (21.0-31.0)
[2017-10-28 06:26] LABS: CALCIUM 9.5 mg/dl (8.5-10.1); CREATININE 2.29 mg/dl (0.60-1.40); POTASSIUM 4.7 mmol/L (3.5-5.1)
[2017-10-28] MEDS: LEVOTHYROXINE 50 MCG TAB PO SCH (06:31)
[2017-10-28] MEDS: BOOST VANILLA PO SCH (07:30)
[2017-10-28 08:00] VITALS: BP 101/70; PULSE 110; TEMP 36.4; O2SAT 94
--- NOTE | 2017-10-28 08:06 | Progress Note ---
Medicine Progress Note Date & Time of Visit: Oct 28, 2017 at 08:03 . Subjective Low grade temp last night. No new symptoms. Bed availability confirmed at [facility]. . Objective Last 8 Hrs Date Time Temp Pulse Resp B/P (MAP) Pulse Ox O2 Delivery O2 Flow Rate FiO2 10/28/17 04:03 Room Air 10/28/17 02:53 36.5 90 20 98/67 (77) 97 Room Air Physical Exam: General- lying in bed; no acute distress Lungs- clear to auscultation; no respiratory distress Cardiovascular- RRR; I/ systolic murmur at base; no gallop; no JVD; no pretibial edema Abdomen- + bowel sounds, soft, nontender Extremities- no cyanosis; no calf tenderness Neuro- alert, oriented Skin- warm & dry . Laboratory Results: Last 24 Hours Test 10/28/17 05:26 White Blood Count 6.49 K/uL Red Blood Count 3.39 M/uL Hemoglobin 8.1 g/dL Hematocrit 26.6 % Mean Corpuscular Volume 78.5 fL Mean Corpuscular Hemoglobin 23.9 pg Mean Corpuscular Hemoglobin Concent 30.5 g/dl Platelet Count 300 K/uL Mean Platelet Volume 9.4 fL Neutrophils (%) (Auto) 66.2 % Lymphocytes (%) (Auto) 19.0 % Monocytes (%) (Auto) 12.6 % Eosinophils (%) (Auto) 0.5 % Basophils (%) (Auto) 0.8 % Neutrophils # (Auto) 4.30 K/uL Lymphocytes # (Auto) 1.23 K/uL Monocytes # (Auto) 0.82 K/uL Eosinophils # (Auto) 0.03 K/uL Basophils # (Auto) 0.05 K/uL RDW Standard Deviation 48.5 fL RDW Coefficient of Variation 16.8 % Immature Granulocyte % (Auto) 0.9 % Immature Granulocyte # (Auto) 0.06 K/uL Giant Platelets 1+ Hypochromasia PRESENT Ovalocytes 1+ Echinocytes 1+ Prothrombin Time 18.2 SECONDS Prothromb Time International Ratio 1.8 Activated Partial Thromboplast Time 66.2 SECONDS Partial Thromboplastin Ratio 2.5 Sodium Level 135 mmol/L Potassium Level 4.7 mmol/L Chloride Level 103 mmol/L Carbon Dioxide Level 27 mmol/L Anion Gap 5.0 mmol/L Blood Urea Nitrogen 28 mg/dl Creatinine 2.29 mg/dl Est Creatinine Clear Calc Drug Dose 35.4 ml/min Estimated GFR () 33.0 Estimated GFR (Non- 28.5 BUN/Creatinine Ratio 12.1 Random Glucose 105 mg/dl Calcium Level 9.5 mg/dl Magnesium Level 1.9 mg/dl Assessment & Plan FEVER T 38.7 morning of 10/25/17. Tachycardic as high as 130. He was hemodynamically stable. Underlying immunosuppression due to transplant meds. No new specific symptoms to suggest source of infection. Ongoing low back and right groin pain. Right inguinal wound without erythema or drainage. WBC 5600 ( 63% polys). Blood cultures x 2. Blood CMV viral load. Lactate = 1.8. Procalcitonin = 0.66. CT chest --> stable right pleural based density right base 24 x 26 mm, no infiltrates CT LS spine --> no apparent infectious process CT pelvis / right proximal thigh --> mixed attenuation lesion / fluid collection consistent with postop changes (smaller than 10/10), no obvious signs of abscess Possible sepsis. Received IV NSS x 1 L. IV hydrocortisone ordered in light of chronic glucocorticoid therapy. Empiric antibiotic therapy with IV daptomycin and piperacillin / tazobactam pending culture results. History of CMV. Stopped valganciclovir about 2 wks ago, apparently because CMV not detectable. CMV viral load 3050. Resumed valganciclovir. Consider noninfectious etiologies of fever (VTE, pseudogout). Lactate 1.8 --> 1.4. Procalcitonin 0.66 --> 0.45. Low grade temp last night. Continue valganciclovir. Continue daptomycin and piperacillin / tazobactam, pending cultures. DVT RLE (present on admission) Venous duplex demonstrated thromboses involving right greater saphenous vein as well as right posterior tibial and peroneal veins. Greater saphenous vein thrombus appeared echogenic and may be old, but calf thromboses assumed to be acute. 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 Recent repair pseudoaneurysm right superficial femoral artery. INR 1.3 at time of admission. Started on IV heparin. Hold warfarin in case any invasive procedures are recommended at [facility] ( scheduled for endocardial biopsy next week). RIGHT KNEE PAIN Patient complained of moderate right knee pain. History of osteoarthritis and pseudogout. Exam demonstrated small-moderate effusion of right knee without erythema or warmth. Arthrocentesis not pursued due to anticoagulation. Follow. CHRONIC KIDNEY DISEASE CKD III with creatinines ranging from 1.84 - 3.1 over past 6 months. Serum creatinine 2.7 at time of admission. Creatinine today = 2.29. Maintain adequate volume status. Avoid potential nephrotoxins when able. Follow. ANEMIA Hgb 11.2 --> --> 8.1. Baseline hgb over past 6 months 9-11. Discharge hgb on 10/14 was 8.4. No clinically apparent bleeding. Fecal OB negative. No apparent retroperitoneal bleed per CT. Follow. S/P CARDIAC TRANSPLANT Status post cardiac transplant for amyloidosis at [facility]. Recently established with transplant service at [facility]. Apparently scheduled for endocardial biopsy next week. Continue mycophenolate mofetil, tacrolimus, prednisone with caution in light of febrile illness. Continue atovaquone for prophylaxis. HYPOMAGNESEMIA Mg this morning = 1.6. MgSO4 1 mg IV x 2 on 10/28. Started mag oxide. Mg today 1.9. Follow. DISPOSITION Arrangements being made for transfer to [facility] service. Family Medicine follow-up with Dr. Chavez Enciso. Cardiology follow-up with Dr Oconnor. Vascular Surgery follow-up with Dr. Soni. Pulmonary follow-up with Dr. Levy. . Consultants: Vascular Surgery . Procedures: cardiac monitoring venous duplex lower extremity CT chest CT lumbar spine CT pelvis CT lower extremity IV meds . Current Inpatient Medications: Current Inpatient Medications Medications (Trade) Dose Ordered Sig/Rosette Route Start Time Stop Time Status Last Admin Dose Admin Hydromorphone HCl (Dilaudid Inj) 1 mg Q4 PRN IV 10/23/17 19:30 11/06/17 19:29 10/27/17 23:54 1 MG Ondansetron HCl (Zofran Inj) 4 mg Q6H PRN IV 10/23/17 19:30 11/22/17 19:29 10/23/17 22:12 4 MG Amlodipine Besylate (Norvasc Tab) 10 mg DAILY PO 10/24/17 09:00 11/23/17 08:59 10/27/17 08:44 10 MG Levothyroxine Sodium (Synthroid Tab) 50 mcg DAILYBB PO 10/24/17 06:00 11/23/17 06:59 10/28/17 06:31 50 MCG Mycophenolate Mofetil (Cellcept Cap) 1,000 mg BID PO 10/23/17 21:00 11/22/17 20:59 10/27/17 20:24 1,000 MG Oxycodone/ Acetaminophen (Percocet 5-325mg Tab) 1 tab Q4H PRN PO 10/23/17 19:45 11/06/17 19:44 10/27/17 21:33 1 TAB Pravastatin Sodium (Pravachol Tab) 40 mg DAILY PO 10/24/17 09:00 11/23/17 08:59 10/27/17 08:44 40 MG Senna (Senokot Tab) 17.2 mg DAILY PO 10/24/17 09:00 11/23/17 08:59 10/27/17 08:45 17.2 MG Tacrolimus (Prograf Cap) 4 mg BID PO 10/23/17 21:00 11/22/17 20:59 10/27/17 20:24 4 MG Tramadol HCl (Ultram Tab) 50 mg Q6H PRN PO 10/23/17 19:45 11/22/17 19:44 Warfarin Sodium (Coumadin Tab) 2.5 mg Q2D@1600 PO 10/25/17 16:00 11/24/17 15:59 Future Hold Atovaquone (Mepron Susp) 1,500 mg QAM PO 10/24/17 09:00 11/23/17 08:59 10/27/17 08:45 1,500 MG Calcium/Vitamin D (Caltrate Plus Tab) 1 tab BID PO 10/23/17 21:00 11/22/17 20:59 10/27/17 20:24 1 TAB Pantoprazole Sodium (Protonix Tab) 40 mg DAILY PO 10/24/17 09:00 11/23/17 08:59 10/27/17 08:47 40 MG Acetaminophen (Tylenol Tab) 650 mg Q4H PRN PO 10/23/17 19:45 11/22/17 19:44 10/27/17 19:13 650 MG Prednisone (PredniSONE TAB) 5 mg SuTuThSa@0900 PO 10/24/17 09:00 11/23/17 08:59 10/26/17 07:42 5 MG Prednisone (PredniSONE TAB) 7.5 mg MoWeFr@0900 PO 10/25/17 09:00 11/24/17 08:59 10/27/17 08:47 7.5 MG Heparin Sodium/ Dextrose 500 ml @ 24 mls/hr [id number] PRN IV 10/23/17 21:15 11/22/17 21:14 10/27/17 21:37 24 MLS/HR Warfarin Sodium (Coumadin Tab) 3.5 mg Q2D@1600 PO 10/24/17 16:00 11/23/17 15:59 Future Hold 10/24/17 16:55 3.5 MG Enteral Nutritional Formula (Boost) 1 can BIDM PO 10/25/17 07:30 11/24/17 07:29 10/27/17 17:26 1 CAN Miscellaneous Information (Consult) 1 ea UD PRN N/A 10/25/17 12:30 11/24/17 12:29 Daptomycin 550 mg/ Syringe 11 ml @ 5.5 mls/min DAILY@1400 IV 10/26/17 14:00 11/04/17 13:59 10/27/17 13:34 5.5 MLS/MIN Piperacillin Sod/ Tazobactam Sod 3.375 gm/Dextrose 115 ml @ 28.75 mls/ hr Q8@0400,1200,2000 IV 10/25/17 20:00 11/04/17 19:59 10/28/17 04:03 28.75 MLS/HR Valganciclovir (Valganciclovir HCl) 450 mg BID PO 10/26/17 12:00 11/25/17 11:59 10/27/17 20:27 450 MG Magnesium Oxide (Mag-Ox Tab) 400 mg BID PO 10/27/17 21:00 11/26/17 20:59 10/27/17 21:32 400 MG
[2017-10-28] MEDS: ATOVAQUONE 750 MG/5 ML UDC PO SCH (08:07)
[2017-10-28] MEDS: AMLODIPINE BESYLATE 5 MG TAB PO SCH (08:07)
[2017-10-28] MEDS: PRAVASTATIN SOD 40 MG TAB PO SCH (08:07)
[2017-10-28] MEDS: TACROLIMUS 1 MG CAP PO SCH (08:08)
[2017-10-28] MEDS: SENNA 8.6 MG TAB PO SCH (08:08)
[2017-10-28] MEDS: MYCOPHENOLATE MOFETIL 250 MG CAP (CELLCEPT) PO SCH (08:08)
[2017-10-28] MEDS: CALCIUM 600MG + VIT D 400 IU TAB PO SCH (08:08)
[2017-10-28] MEDS: PANTOprazole SOD 40 MG TAB PO SCH (08:08)
[2017-10-28] MEDS: MAGNESIUM OXIDE 400 MG TAB PO SCH (08:09)
[2017-10-28] MEDS: VALGANCICLOVIR HCL 450 MG PO SCH (08:11)
[2017-10-28] MEDS: HYDROmorphone INJ 1 MG/ML SYR IV PRN (08:18)
[2017-10-28 08:41] VITALS: BP 101/70; PULSE 110; TEMP 36.4; O2SAT 94
== END 2017-10-28 09:14 | disposition short-term general hospital (02) | DRG 299 ==
LOC: C.EDB 15:39 → C.2T 19:40 → EEVIPCON 19:40 → ENRESERV 19:50
PROVIDERS: ADMIT Family Medicine; ATTEND Hospitalist
DX: I82.441 Acute embolism and thrombosis of right tibial vein (principal); A41.9 Sepsis, unspecified organism; I50.42 Chronic combined systolic (congestive) and diastolic (congestive) heart failure; N17.9 Acute kidney failure, unspecified; Z94.1 Heart transplant status; I82.811 Embolism and thrombosis of superficial veins of right lower extremity; E83.42 Hypomagnesemia; M25.561 Pain in right knee; N18.3 Chronic kidney disease, stage 3 (moderate); E78.5 Hyperlipidemia, unspecified; F32.9 Major depressive disorder, single episode, unspecified; E03.9 Hypothyroidism, unspecified; I48.91 Unspecified atrial fibrillation; D64.9 Anemia, unspecified; Z66 Do not resuscitate; Z79.01 Long term (current) use of anticoagulants; Z79.52 Long term (current) use of systemic steroids; Z79.899 Other long term (current) drug therapy; Z88.5 Allergy status to narcotic agent; Z95.0 Presence of cardiac pacemaker

== ENCOUNTER 2017-11-25 18:34 | Emergency (ER) | payer OTHER ==
[~2017-11-25] VITALS: Ht 185.4 cm; Wt 94.0 kg
[2017-11-25 18:45] VITALS: TEMP 36.7; Ht 185.4 cm; Wt 94.0 kg
--- NOTE | 2017-11-25 20:22 | DIAGNOSTIC IMAGING REPORT ---
R VENOUS DOPP LOWER EXT UNILAT HISTORY: 67 years-old Male r acute right lower extremity pain and swelling. Patient presents with history of recent right superficial femoral artery repair COMPARISON: Duplex venous Doppler of the right lower extremity 10/25/2017 TECHNIQUE: Multiple real-time sonographic images of the right lower extremity deep venous structures were obtained assessing grayscale appearance, color and spectral flow FINDINGS: There is normal flow, phasicity, compressibility and augmentation of the right lower extremity deep venous structures. Heterogeneous hypoechoic collection of the superficial soft tissues measures 8.7 x 4.7 x 4.1 cm, exact location within the right lower extremity not documented by private detective. Correlate with clinical exam. IMPRESSION: 1. No sonographic evidence of deep venous thrombosis. 2. 8.7 cm superficial complex hypoechoic collection suggests hematoma. The above report was generated using voice recognition software. It may contain grammatical, syntax or spelling errors. Electronically signed by: Eloy Dela Cruz M.D. 11/25/2017 8:20 PM Dictated Date/Time: 11/25/2017 8:17 PM
--- NOTE | 2017-11-25 20:37 | EMERGENCY ROOM VISIT NOTE ---
ED Visit Note First contact with patient: 18:57 I have personally seen and evaluated the patient with the physician certified nursing assistant. I agree with the diagnostic/management decisions and have personally been involved in these decisions and agree with the diagnosis.
--- NOTE | 2017-11-25 20:53 | EMERGENCY ROOM VISIT NOTE ---
History First contact with patient: 18:57 Chief Complaint: LEG PAIN,LEG INJURY Stated Complaint: LEG PAIN, REFERRED BY SARTHAK History of Present Illness The patient is a 67 year old male who presents to the Emergency Room via private vehicle with complaints of "leg pain, referred by ". The patient states that he recently underwent surgery for a pseudoaneurysm on the right leg. This was performed earlier in the year by Dr. Soni. The patient has been doing well, however notes that he has been noticing a small bump under the skin in the right groin. He notes that this appears to have been there following the surgery. He also notes some numbness on the medial aspect of his right calf. He notes it is just on the medial aspect. He is still able to ambulate. He notes no pain in the right groin. He states that the numbness has been there for quite some time and is not new. He is here today because he called his family doctor because of the symptoms he was having and was recommended to come here for evaluation to rule out blood clot/infection. Review of Systems A complete 10-point Review of Systems was discussed with the patient, with pertinent positives and negatives listed in the History of Present Illness. All remaining Review of Systems questions can be considered negative unless otherwise specified. 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 Social History Smoking Status: Never Smoker Alcohol Use: occasionally Drug Use: none Marital Status: Housing Status: lives with significant other Occupation Status: employed Current/Historical Medications Scheduled Amlodipine (Norvasc), 10 MG PO DAILY Atovaquone (Mepron), 10 ML PO QAM Calcium Carbonate-Cholecalcife (Caltrate 600+D), 1 TAB PO BID Levothyroxine Sodium (Synthroid), 50 MCG PO DAILY Mycophenolate Mofetil (Cellcept), 1,000 MG PO BID Omeprazole (Prilosec), 20 MG PO DAILY Pravastatin Sodium (Pravachol), 40 MG PO DAILY Prednisone (Prednisone), 7.5 MG PO Q2D Prednisone (Prednisone), 5 MG PO Q2D Senna (Senokot), 2 TAB PO DAILY Tacrolimus (Prograf), 4 MG PO AMPM Warfarin Sod (Jantoven), 3.5 MG PO Q2D Warfarin Sod (Jantoven), 2.5 MG PO Q2D Scheduled PRN Oxycodone/Acetaminophen 5MG/325MG (Percocet 5MG/325MG), 1 TABLET PO Q4H PRN for Pain Tramadol (Ultram), 50-100 MG PO Q6H PRN for Pain Physical Exam Vital Signs Date Time Temp Pulse Resp B/P (MAP) Pulse Ox O2 Delivery O2 Flow Rate FiO2 11/25/17 20:56 80 18 125/78 98 11/25/17 18:45 36.7 121 20 140/91 96 Room Air Physical Exam VITAL SIGNS - Vital signs and nursing notes were reviewed. Stable. Initially tachycardic upon presentation but improved. GENERAL -67-year-old male appearing his stated age who is in no acute distress. Communicates well with provider and answers questions appropriately. SKIN -overlying the right inguinal region extending into the proximal right thigh there is a well-healed surgical scar. There is a small nontender lump on the patient's skin just inferior to the incision that is approximately 2 cm in width by about 6 cm in length. It is not fluctuant. No excessive erythema. EXTREMITIES - No clubbing or peripheral cyanosis. No pretibial edema present. Skin findings as above. No tenderness to this region. Patient is able to ambulate. He has excellent dorsalis pedis pulse of the right leg. There is decreased sensation/numbness noted on the medial aspect of the patient's right leg. No other neurovascular deficit appreciated. +5/5 strength noted in UE/LE bilaterally. Medical Decision & Procedures ER Provider Diagnostic Interpretation: [~ rep ct add3]] R VENOUS DOPP LOWER EXT UNILAT HISTORY: 67 years-old Male r acute right lower extremity pain and swelling. Patient presents with history of recent right superficial femoral artery repair COMPARISON: Duplex venous Doppler of the right lower extremity 10/25/2017 TECHNIQUE: Multiple real-time sonographic images of the right lower extremity deep venous structures were obtained assessing grayscale appearance, color and spectral flow FINDINGS: There is normal flow, phasicity, compressibility and augmentation of the right lower extremity deep venous structures. Heterogeneous hypoechoic collection of the superficial soft tissues measures 8.7 x 4.7 x 4.1 cm, exact location within the right lower extremity not documented by manager hris. Correlate with clinical exam. IMPRESSION: 1. No sonographic evidence of deep venous thrombosis. 2. 8.7 cm superficial complex hypoechoic collection suggests hematoma. The above report was generated using voice recognition software. It may contain grammatical, syntax or spelling errors. Electronically signed by: Eloy Dela Cruz M.D. 11/25/2017 8:20 PM Dictated Date/Time: 11/25/2017 8:17 PM Medical Decision Patient was seen and evaluated as above. He has a complex medical history. He is here today per recommendation of the family doctor to rule out DVT/ infection. after obtaining a thorough history and physical examination the above work up was performed. Ultrasound obtained. There is a well-healed surgical scar. I suspect likely hematoma formation is chronic is likely the cause of the lump in the right groin. This was verified on venous Doppler which also was negative for DVT. The patient was tachycardic upon entry however was read vital and was found to be no longer tachycardic. In regard to the numbness on the right medial calf I suspect that this could be secondary to nerve irritation/perhaps a little bit of pressure in the nerve extending to that region from the right thigh. He does have full range of motion of the right foot. Excellent dorsalis pedis pulse. I do not suspect any vascular deficit. There is no true neurologic deficit identified either. He notes that the numbness has been ongoing for quite some time now. He appears stable for outpatient management to follow closely with Dr. Soni earlier this coming week. He patient was educated upon management, had questions answered prior to discharge, and was discharged home in good condition. Case was discussed with the attending physician Medication list reviewed. In addition, he was found to be slightly hypertensive likely secondary to situation. In the evaluation and treatment of this patient the following differential diagnoses were entertained: DVT, cellulitis, abscess, neurologic compromise, among others. Impression Primary Impression: Leg pain, right Departure Information Dispostion Discharge/Transfer to [facility] Condition GOOD Referrals Chavez Enciso D.O. (PCP) Patient Instructions My [facility] Additional Instructions You were seen in the emergency department for right leg pain. There is no blood clots in the veins. There is a small hematoma on the leg. Please keep your follow-up with Dr. Soni. Please return with any new/concerning symptoms.
[2017-11-25 20:56] VITALS: BP 125/78; PULSE 80; O2SAT 98
== END 2017-11-25 20:57 | disposition home or self-care (01) ==
LOC: C.EDB 18:35 → C.EDD 20:57
DX: M79.604 Pain in right leg (principal); Z98.890 Other specified postprocedural states; Z86.718 Personal history of other venous thrombosis and embolism; R03.0 Elevated blood-pressure reading, without diagnosis of hypertension; I48.91 Unspecified atrial fibrillation; Z79.01 Long term (current) use of anticoagulants; N18.3 Chronic kidney disease, stage 3 (moderate); Z94.1 Heart transplant status; E72.12 Methylenetetrahydrofolate reductase deficiency; B25.9 Cytomegaloviral disease, unspecified; D68.52 Prothrombin gene mutation; Z86.711 Personal history of pulmonary embolism; E85.4 Organ-limited amyloidosis; I43 Cardiomyopathy in diseases classified elsewhere; F32.9 Major depressive disorder, single episode, unspecified; Z96.659 Presence of unspecified artificial knee joint; E78.5 Hyperlipidemia, unspecified; Z79.899 Other long term (current) drug therapy

== ENCOUNTER 2018-01-11 04:34 | Emergency (ER) | payer OTHER ==
[~2018-01-11] VITALS: Ht 188 cm; Wt 89.8 kg
[2018-01-11 04:41] VITALS: TEMP 36.6; Ht 188 cm; Wt 89.8 kg
[2018-01-11] MEDS ORDERED: HYDROmorphone INJ 2 MG/ML SYR/VIAL IM STA (04:55)
[2018-01-11] MEDS ORDERED: PRED-301 PO (05:19)
[2018-01-11] MEDS ORDERED: FERR1TAB13 PO (05:19)
[2018-01-11] MEDS ORDERED: ACET-749 PO (05:19)
[2018-01-11] MEDS ORDERED: MAGN400T7 PO (05:19)
--- NOTE | 2018-01-11 07:24 | EMERGENCY ROOM VISIT NOTE ---
History Report prepared by Yung: Danish Kenny Under the Supervision of: Dr. Ana Rosa Vargas D.O. First contact with patient: 04:40 Chief Complaint: KNEEPAIN Stated Complaint: FALL/BILATERAL KNEE PAIN History of Present Illness The patient is a 67 year old male who presents to the Emergency Room with complaints of worsening pain in the knees bilaterally that he has been dealing with chronically for several months. 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 He did not have the strength to get himself up off the ground so he spent "3 hours dragging my a into my condo." He then phoned for 911 when he got inside. The patient states that his knees were feeling great around Elena time, and he was pain free. He then had a pseudoaneurysm repaired at the end of September which is when all of his pain started. He states that following the fall, he did roll down a hill but did not suffer any further injuries. He also complains of some numbness in the right leg from above the knee to the mid-calf. The patient's left knee is replaced. Source of History: patient Onset: Several months Position: knee (bilateral) Timing: worsening Associated Symptoms: + numbness Note: No other injuries Review of Systems See HPI for pertinent positives & negatives. A total of 10 systems reviewed and were otherwise negative. 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 Social History Smoking Status: Never Smoker Alcohol Use: occasionally Drug Use: none Marital Status: Housing Status: lives with significant other Occupation Status: employed Current/Historical Medications Scheduled Amlodipine (Norvasc), 10 MG PO DAILY Atovaquone (Mepron), 10 ML PO QAM Calcium Carbonate-Cholecalcife (Caltrate 600+D), 1 TAB PO BID Ferrous Sulfate (Kp Ferrous Sulfate), 1 TAB PO QDB Levothyroxine Sodium (Synthroid), 50 MCG PO DAILY Magnesium Oxide (Mg Supplement (Magnesium Oxide), 241.3 MG PO BID Mycophenolate Mofetil (Cellcept), 1,000 MG PO BID Omeprazole (Prilosec), 20 MG PO DAILY Pravastatin Sodium (Pravachol), 40 MG PO DAILY Prednisone (Prednisone), 2.5 MG PO DAILY Senna (Senokot), 2 TAB PO DAILY Tacrolimus (Prograf), 4 MG PO AMPM Warfarin Sod (Jantoven), 3.5 MG PO 3XWK Warfarin Sod (Jantoven), 2.5 MG PO 4XWK Scheduled PRN Acetaminophen/Codeine (Tylenol W/Codeine #3), 1 TAB PO Q4H PRN for Pain Tramadol (Ultram), 50-100 MG PO Q6H PRN for Pain Allergies Coded Allergies: Morphine (Verified Allergy, Unknown, Nausea/vomiting, 01/11/18) Physical Exam Vital Signs Date Time Temp Pulse Resp B/P (MAP) Pulse Ox O2 Delivery O2 Flow Rate FiO2 01/11/18 06:34 108 18 115/78 98 Room Air 01/11/18 05:35 118 20 119/78 98 Room Air 01/11/18 04:41 36.6 118 20 128/88 98 Room Air Physical Exam Neck: Supple; no JVD, nuchal rigidity, cervical lymphadenopathy. Heart: Regular rate and rhythm. There is a normal S1 and S2 with no murmurs, clicks, or gallops appreciated. Lungs: Clear to auscultation bilaterally with no wheezes, rales, or rhonchi. Abdomen: Soft, completely nontender, nondistended, with good bowel sounds. There are no palpable pulsatile masses or hepatosplenomegaly. There is no guarding, rigidity, or rebound noted. Extremities: No evidence of cyanosis, clubbing, or edema. There are easily palpable peripheral pulses. Skin: warm and dry with good turgor and no rashes. Medical Decision & Procedures Medications Administered Medications (Trade) Dose Ordered Sig/Rosette Route Start Time Stop Time Status Last Admin Dose Admin Hydromorphone HCl (Dilaudid Inj) 2 mg NOW STAT IM 01/11/18 04:55 01/11/18 04:57 DC 01/11/18 05:03 2 MG Procedure Medications Ordered: Dilaudid 2 mg IM. ED Course 0446: Past medical records reviewed. The patient was evaluated in room B10. A complete history and physical exam was performed. 0455: Ordered Dilaudid 2 mg IM. 0548: Upon reevaluation, the patient states "That really worked, I feel better. " "When can I arrange for my next shot?" I told him I will not be giving him another shot and he will be sent home. He asked; "Can't you just house me here for a day or two until i re-acclimate? I explained the patient was discharged home. 0710: Nursing staff alerted me that the patient did not feel comfortable with discharge. He was asking for a walker. I went back to the room to discuss the situation with the patient and he told me that it would be a life or situation if I were to discharge him home. He did not feel that he could care for himself at home. I offered to have him evaluated by psychiatry and he was agreeable to this. We also talked about the possibility of half-way placement and/or [facility]. The patient admits that his knees feel better but he does not think that he can bear weight. The patient was moved a 6. I discussed the case with Dr. Hilton who will disposition the patient after medical clearance and psychiatric evaluation. Medical Decision The patient is a 67 year old male who presents to the Emergency Department for bilateral knee pain. Differential diagnosis includes; arthritis of the knees, chronic knee pain. Patient presents to the emergency department complaining of bilateral knee pain stating that his knees gave out tonight. The patient called back to his condo and called EMS. 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 The patient explains that his knees gave out after he had loaded the van. He does have a history of chronic knee pain. He had a recent pseudoaneurysm repaired in the right groin. He has a normal knee exam bilaterally with equal pulses distally. He has normal sensation in both feet. The patient's description of his inability to care for himself or walk at home was concerning and he will now have full evaluation by psychiatry and social worker psychiatric. Medication Reconcilliation Current Medication List: was personally reviewed by me Blood Pressure Screening Patient's blood pressure: Normal blood pressure Impression Primary Impression: Bilateral knee pain Scribe Attestation The scribe's documentation has been prepared under my direction and personally reviewed by me in its entirety. I confirm that the note above accurately reflects all work, treatment, procedures, and medical decision making performed by me. Departure Information Dispostion Home / Self-Care Referrals Chavez Enciso D.O. (PCP) Forms HOME CARE DOCUMENTATION FORM, IMPORTANT VISIT INFORMATION Patient Instructions My [facility] Additional Instructions REst. Use tylenol or motrin for pain Follow up with PCP for additional pain meds such as tylenol with codeine Problem Qualifiers Primary Impression: Bilateral knee pain Chronicity: acute Qualified Codes: M25.561 - Pain in right knee; M25.562 - Pain in left knee
--- NOTE | 2018-01-11 07:49 | DIAGNOSTIC IMAGING REPORT ---
RIGHT KNEE 2 VIEWS CLINICAL HISTORY: Right knee pain. FINDINGS: AP and crosstable lateral views of the right knee are compared to study dated 04/21/2017. The skeletal structures are osteopenic. No fracture is seen. There is moderate tricompartmental degenerative joint space narrowing, greatest at the patellofemoral articulation. There are small patellar enthesophytes as well as degenerative beaking of the tibial spine and medial marginal osteophytes. Chondrocalcinosis is noted in the medial and lateral compartments. There is a large joint effusion. Mild soft tissue swelling is noted. A calcified fabella is incidentally noted. There is atherosclerotic calcification of the popliteal artery. IMPRESSION: 1. Large joint effusion and mild soft tissue swelling. No right knee fracture is seen. 2. Osteopenia and degenerative change as detailed above. Electronically signed by: Henri Reynolds M.D. 01/11/2018 7:48 AM Dictated Date/Time: 01/11/2018 7:46 AM
--- NOTE | 2018-01-11 07:52 | DIAGNOSTIC IMAGING REPORT ---
L KNEE 1 OR 2 VIEWS ROUTINE CLINICAL HISTORY: Left knee pain. COMPARISON: Left knee radiographs April 21, 2017. FINDINGS: Alignment of the total left knee arthroplasty is anatomic. There is no periprosthetic fracture or lucency. A sclerotic lesion within the fibular head which may reflect a chondroid lesion which is unchanged. Note is made of soft tissue swelling of the left knee and a small to moderate left knee joint effusion. There is extensive vascular calcification. Calcific densities project over the joint space. These are unchanged. IMPRESSION: 1. Status post total left knee arthroplasty. Hardware intact. No periprosthetic fracture. 2. Small to moderate left knee joint effusion. 3. Calcific densities projecting over the joint space which may reflect joint bodies. These are unchanged. Electronically signed by: Nomi Meneses M.D. 01/11/2018 7:51 AM Dictated Date/Time: 01/11/2018 7:48 AM
--- NOTE | 2018-01-11 07:59 | DIAGNOSTIC IMAGING REPORT ---
CT OF THE HEAD WITHOUT CONTRAST CLINICAL HISTORY: AMS, weakness, ambulatory difficulty. COMPARISON STUDY: No previous studies for comparison. CT DOSE: 614.27 mGy.cm TECHNIQUE: Helical axial images of the head were obtained without IV contrast. Automated exposure control was utilized for the study. A dose lowering technique was utilized adhering to the principles of ALARA. FINDINGS: No acute intracranial hemorrhage, midline shift or mass effect is present. Mild atrophy and mild present small vessel disease is noted. The basilar cisterns are patent. No extra axial collections are present. There are no findings to suggest acute dural sinus thrombosis or acute territorial infarct. A suspected mucous retention cyst is noted within the left maxillary sinus. A 1.2 cm lucent lesion within the right parietal bone is indeterminate although statistically benign. Mastoid air cells are clear. IMPRESSION: 1. No acute intracranial findings. 2. 1.2 cm lucent lesion within the right parietal bone which is indeterminate. Electronically signed by: Nomi Meneses M.D. 01/11/2018 7:57 AM Dictated Date/Time: 01/11/2018 7:52 AM
[2018-01-11 08:01] LABS: HEMATOCRIT 29.8 % (42-52); HEMOGLOBIN 9.4 g/dL (14.0-18.0); MEAN CELL VOLUME 83.5 fL (80-100); MEAN CORPUSCULAR HEMOGLOBIN 26.3 pg (25-34); MEAN CORPUSCULAR HGB CONC 31.5 g/dl (32-36); MEAN PLATELET VOLUME 9.2 fL (7.4-10.4); PLATELET COUNT 212 K/uL (130-400); RED CELL DISTRIBUTION WIDTH SD 55.6 fL (36.4-46.3); WHITE BLOOD COUNT 3.32 K/uL (4.8-10.8)
[2018-01-11 08:13] LABS: ALBUMIN 3.2 gm/dl (3.4-5.0); CALCIUM 8.9 mg/dl (8.5-10.1); CREATININE 2.31 mg/dl (0.60-1.40); POTASSIUM 3.5 mmol/L (3.5-5.1)
[2018-01-11 08:23] LABS: TOTAL PROTEIN 7.5 gm/dl (6.4-8.2)
[2018-01-11 08:41] LABS: INR 1.5 (0.9-1.1); PTT PATIENT 35.2 SECONDS (21.0-31.0)
[2018-01-11] MEDS ORDERED: OXYCODONE/ACETAMINOPHEN 10/325MG TAB ONE (11:07)
[2018-01-11] MEDS ORDERED: OXYCODONE/ACETAMINOPHEN 10/325MG TAB PO STA (11:56)
[2018-01-11] MEDS ORDERED: LIDOCAINE HCL 1% 20 ML VIAL ONE (11:59)
[2018-01-11] MEDS ORDERED: LEVOTHYROXINE 50 MCG TAB PO STA (14:10)
[2018-01-11] MEDS ORDERED: CALCIUM 600MG + VIT D 400 IU TAB PO STA (14:10)
[2018-01-11] MEDS ORDERED: MYCOPHENOLATE MOFETIL 250 MG CAP (CELLCEPT) PO STA (14:10)
[2018-01-11] MEDS ORDERED: MAGNESIUM OXIDE 400 MG TAB PO STA (14:10)
[2018-01-11] MEDS ORDERED: WARFARIN SOD 2.5 MG TAB PO STA (14:10)
[2018-01-11] MEDS ORDERED: PRAVASTATIN SOD 40 MG TAB PO STA (14:10)
[2018-01-11] MEDS ORDERED: PANTOprazole SOD 40 MG TAB PO STA (14:10)
[2018-01-11] MEDS ORDERED: TACROLIMUS 1 MG CAP PO STA (14:10)
[2018-01-11] MEDS ORDERED: AMLODIPINE BESYLATE 5 MG TAB PO STA (14:10)
[2018-01-11] MEDS ORDERED: NON-FORMULARY MEDICATION SCH (14:15)
--- NOTE | 2018-01-11 15:25 | Orthopedic Consultation ---
Orthopedic Consultation Date of Consultation: Jan 11, 2018. Attending Physician: Reason for Consultation: Bilateral knee effusions History of Present Illness Patient currently in the ED complaining of 8-10/10 pain in both knees equally. Patient had left TKA by Dr. Guerrier in the late 1999's. Patient has had no major problems with either knee since that time. Patient has history of cardiac transplant and also recent pseudoaneurysm excision with Dr. Soni (Sep 2017). Since that time patient states he's had an increase in falls, most recently last evening. Patient state he felt like his legs gave way. He was outside. He was unable to ambulate and had to crawl back to his condo to call 911. Patient was brought to the ED for further eval. He has history of clotting disorder and is taking Coumadin. Current INR is 1.5. He also has a pacemaker. He denies any back pain or leg numbness. Past Medical/Surgical History Medical Problems: (1) Anemia Status: Acute (2) Anticoagulated Status: Acute (3) Bilateral knee pain Status: Acute (4) Chronic kidney disease Status: Acute (5) Dehydration Status: Acute (6) Hematoma of right lower extremity Status: Acute (7) Intractable back pain Status: Acute (8) Knee effusion, right Status: Acute (9) Leg pain Status: Acute (10) Leg pain, right Status: Acute (11) Pseudoaneurysm Status: Acute (12) Pseudogout Status: Acute (13) Renal insufficiency Status: Acute (14) Right leg DVT Status: Acute Surgical Problems: (1) Status post repair pseudoaneurysm 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 Social History Smoking Status: Never Smoker Drug Use: none Marital Status: Housing Status: lives with significant other Occupation Status: employed Allergies Coded Allergies: Morphine (Verified Allergy, Unknown, Nausea/vomiting, 01/11/18) Home Medications Scheduled Amlodipine (Norvasc), 10 MG PO DAILY Atovaquone (Mepron), 10 ML PO QAM Calcium Carbonate-Cholecalcife (Caltrate 600+D), 1 TAB PO BID Ferrous Sulfate (Kp Ferrous Sulfate), 1 TAB PO QDB Levothyroxine Sodium (Synthroid), 50 MCG PO DAILY Magnesium Oxide (Mg Supplement (Magnesium Oxide), 241.3 MG PO BID Mycophenolate Mofetil (Cellcept), 1,000 MG PO BID Omeprazole (Prilosec), 20 MG PO DAILY Pravastatin Sodium (Pravachol), 40 MG PO DAILY Prednisone (Prednisone), 2.5 MG PO DAILY Senna (Senokot), 2 TAB PO DAILY Tacrolimus (Prograf), 4 MG PO AMPM Warfarin Sod (Jantoven), 3.5 MG PO 3XWK Warfarin Sod (Jantoven), 2.5 MG PO 4XWK Scheduled PRN Acetaminophen/Codeine (Tylenol W/Codeine #3), 1 TAB PO Q4H PRN for Pain Tramadol (Ultram), 50-100 MG PO Q6H PRN for Pain Current Inpatient Medications Current Inpatient Medications Medications (Trade) Dose Ordered Sig/Rosette Route Start Time Stop Time Status Last Admin Dose Admin Non-Formulary Medication 1 ea UD N/A 01/11/18 14:15 02/10/18 14:14 Physical Exam Date Time Temp Pulse Resp B/P (MAP) Pulse Ox O2 Delivery O2 Flow Rate FiO2 01/11/18 12:41 114 19 99/63 99 Room Air 01/11/18 10:27 116 112/75 97 Room Air 01/11/18 08:45 101 19 121/72 97 Room Air 01/11/18 06:34 108 18 115/78 98 Room Air 01/11/18 05:35 118 20 119/78 98 Room Air 01/11/18 04:41 36.6 118 20 128/88 98 Room Air General Appearance: WD/WN, no apparent distress Head: normocephalic, atraumatic Eyes: normal inspection, PERRL ENT: normal ENT inspection Neck: supple, no adenopathy Respiratory/Chest: chest non-tender, lungs clear Cardiovascular: regular rate, rhythm Abdomen/GI: normal bowel sounds, non tender, soft Back: normal inspection Extremities/Musculoskelatal: + swelling, + pertinent finding (moderate effusions BL knees. ROM painful. no erythema. no drainage. left knee incision WNL, NV intact) Skin: normal color Lymphatic: no adenopathy Laboratory Results Last 24 Hours Test 01/11/18 07:40 01/11/18 08:11 01/11/18 11:03 01/11/18 12:30 White Blood Count 3.32 K/uL Red Blood Count 3.57 M/uL Hemoglobin 9.4 g/dL Hematocrit 29.8 % Mean Corpuscular Volume 83.5 fL Mean Corpuscular Hemoglobin 26.3 pg Mean Corpuscular Hemoglobin Concent 31.5 g/dl Platelet Count 212 K/uL Mean Platelet Volume 9.2 fL RDW Standard Deviation 55.6 fL RDW Coefficient of Variation 18.0 % Neutrophils % (Manual) 35.0 % Lymphocytes % (Manual) 31.6 % Monocytes % (Manual) 30.7 % Eosinophils % (Manual) 0.9 % Basophils % (Manual) 1.8 % Neutrophils # (Manual) 1.16 K/uL Total Absolute Neutrophils 1.16 K/uL Lymphocytes # (Manual) 1.05 K/uL Total Absolute Lymphocytes 1.05 K/uL Monocytes # (Manual) 1.02 K/uL Eosinophils # (Manual) 0.03 K/uL Basophils # (Manual) 0.06 K/uL Anisocytosis PRESENT Spherocytes 1+ Sodium Level 134 mmol/L Potassium Level 3.5 mmol/L Chloride Level 103 mmol/L Carbon Dioxide Level 23 mmol/L Anion Gap 8.0 mmol/L Blood Urea Nitrogen 37 mg/dl Creatinine 2.31 mg/dl Est Creatinine Clear Calc Drug Dose 36.1 ml/min Estimated GFR () 32.7 Estimated GFR (Non- 28.2 BUN/Creatinine Ratio 15.8 Random Glucose 101 mg/dl Calcium Level 8.9 mg/dl Total Bilirubin 0.6 mg/dl Direct Bilirubin 0.2 mg/dl Aspartate Amino Transf (AST/SGOT) 20 U/L Alanine Aminotransferase (ALT/SGPT) 13 U/L Alkaline Phosphatase 109 U/L Total Creatine Kinase 309 U/L C-Reactive Protein 6.05 mg/dl Total Protein 7.5 gm/dl Albumin 3.2 gm/dl Thyroid Stimulating Hormone (TSH) 3.790 uIu/ml Salicylates Level < 1.7 mg/dl Acetaminophen Level < 2 ug/ml Ethyl Alcohol mg/dL < 3.0 mg/dl Prothrombin Time 15.5 SECONDS Prothromb Time International Ratio 1.5 Activated Partial Thromboplast Time 35.2 SECONDS Partial Thromboplastin Ratio 1.4 Urine Opiates Screen POS Urine Methadone, Qualitative NEG Urine Barbiturates NEG Urine Phencyclidine (PCP) Level NEG Ur Amphetamine/Methamphetamine NEG MDMA (Ecstasy) Screen NEG Urine Benzodiazepines Screen NEG Urine Cocaine Metabolite NEG Urine Marijuana (THC) NEG Erythrocyte Sedimentation Rate 74 mm/hr Synovial Fluid Source KNEE Synovial Fluid Color LULU Synovial Fluid Appearance BLOODY Synovial Fluid WBC 1769 /uL Synovial Fluid RBC [id number] /uL Synovial Fluid Polynuclear WBCs % 6.7 % Synovial Fluid Mononuclear WBCs % 93.3 % Synovial Fluid Crystals Item Value Date Time Synovial Fluid Source KNEE 01/11/18 1230 Synovial Fluid Color RED 01/11/18 1230 Synovial Fluid Appearance BLOODY 01/11/18 1230 Synovial Fluid WBC 1778 /uL H 01/11/18 1230 Synovial Fluid RBC [id number] /uL 01/11/18 1230 Synovial Fluid Polynuclear WBCs % 40.4 % 01/11/18 1230 Synovial Fluid Mononuclear WBCs % 59.6 % 01/11/18 1230 Synovial Fluid Source KNEE 01/11/18 1230 Synovial Fluid Color LULU 01/11/18 1230 Synovial Fluid Appearance BLOODY 01/11/18 1230 Synovial Fluid WBC 1769 /uL H 01/11/18 1230 Synovial Fluid RBC [id number] /uL 01/11/18 1230 Synovial Fluid Polynuclear WBCs % 6.7 % 01/11/18 1230 Synovial Fluid Mononuclear WBCs % 93.3 % 01/11/18 1230 Prothromb Time International Ratio 1.5 H 01/11/18 0811 White Blood Count 3.32 K/uL L 01/11/18 0740 Erythrocyte Sedimentation Rate 74 mm/hr H 01/11/18 1103 C-Reactive Protein 6.05 mg/dl H 01/11/18 0740 Assessment & Plan Patient's case was reviewed with Dr. Guerrier. After seeing an elevation in ESR and CRP, he advised me to aspirate both knees to rule out infection. Both knees were sterilely prepped with Betadine and alcohol. Using an 18 gauge needle I was easily able to aspirate 20cc of bloody fluid from the left knee and 20cc or serosanguineous fluid from the right knee. There was no gross puss or purulent fluid. Patient tolerated this well. Specimens were sent for stat cell count, gram stain, culture, and fluid analysis. Results were reviewed with Dr. Guerrier and he feels at this time the patient can be discharged to home. PT/OT saw and evaluated the patient. He was able to ambulate approx 30 feet with difficulty. It was felt he would benefit from a short rehab stay. Referral was placed to [facility]. We will continue to follow his cultures, check Lyme titer. Patient can be further managed as an outpatient. Thank you for this consultation.
[2018-01-11] MEDS ORDERED: OXYC-57 PO (16:31)
[2018-01-11 17:02] VITALS: BP 114/80; PULSE 106; O2SAT 98
--- NOTE | 2018-01-13 23:10 | EMERGENCY ROOM VISIT NOTE ---
ED Visit Note First contact with patient: 07:16 I received this pt in s/o from Dr. Vargas at the change of shift, pending MH evaluation. Pt was medically evaluated and found to have bilateral knee effusions. He has a complicated PMH including heart transplant. Pt head CT is neg for acute abnl. Lab work reveals an elevated sed rate and CRP. [facility]. Bilateral knees were tapped and fluid sent for testing. There are no organisms on gram stain. Cell counts on fluids reveals minimal WBC , unlikely to be infectious. Pt was given percocet 10/325 while in the ED. [facility] c/s was placed. Given pt's insurance, [facility] would cost pt several thousands of dollars. He was refused admission stating he wants percocet for d/c. He was given a small Rx. 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 He will f/u with PCP this week and return to the ED for worsening of symptoms or any medical concerns.
[2018-01-14 08:02] LABS: FK506 TACROLIMUS HIGHLY SENS NEGATIVE <1 MCG/L (5-20)
== END 2018-01-11 17:00 | disposition home or self-care (01) ==
LOC: EDBD 04:34 → C.EDB 04:38 → C.EDA 17:00
DX: M25.561 Pain in right knee (principal); M25.562 Pain in left knee; R20.0 Anesthesia of skin; W18.30XA Fall on same level, unspecified, initial encounter; I48.91 Unspecified atrial fibrillation; E85.4 Organ-limited amyloidosis; I43 Cardiomyopathy in diseases classified elsewhere; N18.3 Chronic kidney disease, stage 3 (moderate); F32.9 Major depressive disorder, single episode, unspecified; E72.12 Methylenetetrahydrofolate reductase deficiency; E78.5 Hyperlipidemia, unspecified; E03.9 Hypothyroidism, unspecified; I51.7 Cardiomegaly; I45.10 Unspecified right bundle-branch block; Z96.652 Presence of left artificial knee joint; Z86.711 Personal history of pulmonary embolism; Z86.718 Personal history of other venous thrombosis and embolism; Z79.01 Long term (current) use of anticoagulants; Z79.899 Other long term (current) drug therapy; Z94.1 Heart transplant status; Z95.0 Presence of cardiac pacemaker; Z88.5 Allergy status to narcotic agent

== ENCOUNTER 2018-01-22 06:13 | Emergency (ER) | payer OTHER ==
[~2018-01-22] VITALS: Ht 185.4 cm; Wt 90.0 kg
[~2018-01-22 06:13] MED LIST changes: +ACET-749 PO; +FERR1TAB13 PO; +MAGN400T7 PO
[2018-01-22 06:22] VITALS: TEMP 37.1
[2018-01-22] MEDS ORDERED: OXYCODONE HCL IR 5 MG TAB (IMMEDIATE RELEASE) PO STA (06:22)
[2018-01-22 06:26] VITALS: O2SAT 97; Ht 185.4 cm; Wt 90.0 kg
--- NOTE | 2018-01-22 06:31 | EMERGENCY ROOM VISIT NOTE ---
History Report prepared by Yung: Choco Jackson Under the Supervision of: Dr. Zeke Butler D.O. First contact with patient: 06:22 Chief Complaint: KNEEPAIN Stated Complaint: SOB History of Present Illness The patient is a 67 year old male who presents to the Emergency Room with complaints of joint pain. The patient states that he has had knee pain since September of this year. He states initially this started with trauma but he has had no recent trauma. He also complains of hip pain. He denies any warmth or redness to the joint. He denies having any swelling. He was seen by his primary orthopedic physician last week for similar complaints. He had an injection in his right knee. He states that the right knee feels mildly improved. He denies any recent fevers or chills. He denies any nausea or vomiting. The patient arrived via ambulance. The patient also complained of shortness of breath prior to arrival but he denies any chest pain or coughing. He denies having any orthopnea or swelling in the lower extremities. The patient has been taking his chronic pain medication with some relief. Source of History: patient Onset: September Position: knee, other (Hip) Modifying Factors (Relieving): other (Chronic pain medication) Associated Symptoms: + SOB, No fevers, No chills, No cough, No chest pain, No nausea, No vomiting Note: Patient has hip pain. Review of Systems See HPI for pertinent positives & negatives. A total of 10 systems reviewed and were otherwise negative. 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 Social History Smoking Status: Never Smoker Alcohol Use: occasionally Drug Use: none Marital Status: Housing Status: lives with significant other Occupation Status: employed Current/Historical Medications Scheduled Amlodipine (Norvasc), 10 MG PO DAILY Atovaquone (Mepron), 10 ML PO QAM Calcium Carbonate-Cholecalcife (Caltrate 600+D), 1 TAB PO BID Ferrous Sulfate (Kp Ferrous Sulfate), 1 TAB PO QDB Levothyroxine Sodium (Synthroid), 50 MCG PO DAILY Magnesium Oxide (Mg Supplement (Magnesium Oxide), 241.3 MG PO BID Mycophenolate Mofetil (Cellcept), 1,000 MG PO BID Omeprazole (Prilosec), 20 MG PO DAILY Pravastatin Sodium (Pravachol), 40 MG PO DAILY Prednisone (Prednisone), 2.5 MG PO DAILY Senna (Senokot), 2 TAB PO DAILY Tacrolimus (Prograf), 4 MG PO AMPM Warfarin Sod (Jantoven), 3.5 MG PO 3XWK Warfarin Sod (Jantoven), 2.5 MG PO 4XWK Scheduled PRN Acetaminophen/Codeine (Tylenol W/Codeine #3), 1 TAB PO Q4H PRN for Pain Oxycodone/Acetaminophen 5MG/325MG (Percocet 5MG/325MG), 1 TABLET PO Q6H PRN for Pain Tramadol (Ultram), 50-100 MG PO Q6H PRN for Pain Allergies Coded Allergies: Morphine (Verified Allergy, Unknown, Nausea/vomiting, 01/22/18) Physical Exam Vital Signs Date Time Temp Pulse Resp B/P (MAP) Pulse Ox O2 Delivery O2 Flow Rate FiO2 01/22/18 08:21 106 16 139/99 95 01/22/18 06:26 97 Room Air 01/22/18 06:26 97 Room Air 01/22/18 06:22 104 01/22/18 06:22 37.1 100 16 148/102 98 Room Air Physical Exam GENERAL: Patient is awake alert in no acute distress patient is resting comfortably and showing no signs of anxiety EYES: The conjunctivae are clear. The pupils are round and reactive. EARS, NOSE, MOUTH AND THROAT: The nose is without any evidence of any deformity. Mucous membranes are moist tongue is midline NECK: The neck is nontender and supple. RESPIRATORY: Normal respiratory effort is noted there is no evidence of wheezing rhonchi or rales CARDIOVASCULAR: Regular rate and rhythm noted there no murmurs rubs or gallops normal S1 normal S2 GASTROINTESTINAL: The abdomen is soft. Bowel sounds are present in all quadrants. Abdomen is nontender BACK: No midline tenderness or or step-off noted range of motion in flexion extension as well as rotation no signs of muscle spasm noted MUSCULOSKELETAL/EXTREMITIES: There is no evidence of gross deformity. There is no significant erythema effusion or warmth to the knees. Patient has pain with range of motion of hips and knees. SKIN: There is no obvious evidence of any rash. NEUROLOGIC: Patient is awake alert and oriented x3. Medical Decision & Procedures ER Provider Diagnostic Interpretation: Radiology results as stated below per my review and radiologist interpretation: CHEST ONE VIEW PORTABLE CLINICAL HISTORY: 67 years-old Male presenting with EVALUATE ALTERED MENTAL STATUS/WEAKNESS. TECHNIQUE: Portable upright AP view of the chest was obtained. COMPARISON: 10/10/2017. FINDINGS: Left subclavian pacer with leads to the right atrium and right ventricular apex. Median sternotomy wires noted. Atherosclerosis of the aortic arch. Cardiac silhouette mildly enlarged. Mild prominence of pulmonary vasculature. No focal opacity. No large effusion or pneumothorax. Osseous structures normal. Upper abdomen normal. IMPRESSION: 1. Cardiomegaly. No other convincing evidence of acute cardiopulmonary disease. Electronically signed by: Leobardo Park M.D. 01/22/2018 6:43 AM Laboratory Results 01/22/18 06:40 Red Blood Count 3.77, Mean Corpuscular Volume 85.9, Mean Corpuscular Hemoglobin 26.8, Mean Corpuscular Hemoglobin Concent 31.2, Mean Platelet Volume 9.4, Neutrophils (%) (Auto) 60.6, Lymphocytes (%) (Auto) 12.9, Monocytes (%) (Auto) 18.4, Eosinophils (%) (Auto) 1.2, Basophils (%) (Auto) 0.5, Neutrophils # (Auto ) 5.60, Lymphocytes # (Auto) 1.19, Monocytes # (Auto) 1.70, Eosinophils # (Auto ) 0.11, Basophils # (Auto) 0.05 01/22/18 06:40 Test 01/22/18 06:32 01/22/18 06:40 Urine Color YELLOW Urine Appearance CLEAR (CLEAR) Urine pH 5.5 (4.5-7.5) Urine Specific [place] 1.014 (1.000-1.030) Urine Protein NEG (NEG) Urine Glucose (UA) NEG (NEG) Urine Ketones NEG (NEG) Urine Occult Blood NEG (NEG) Urine Nitrite NEG (NEG) Urine Bilirubin NEG (NEG) Urine Urobilinogen NEG (NEG) Urine Leukocyte Esterase NEG (NEG) White Blood Count 9.24 K/uL (4.8-10.8) Red Blood Count 3.77 M/uL (4.7-6.1) Hemoglobin 10.1 g/dL (14.0-18.0) Hematocrit 32.4 % (42-52) Mean Corpuscular Volume 85.9 fL (80-100) Mean Corpuscular Hemoglobin 26.8 pg (25-34) Mean Corpuscular Hemoglobin Concent 31.2 g/dl (32-36) Platelet Count 331 K/uL (130-400) Mean Platelet Volume 9.4 fL (7.4-10.4) Neutrophils (%) (Auto) 60.6 % Lymphocytes (%) (Auto) 12.9 % Monocytes (%) (Auto) 18.4 % Eosinophils (%) (Auto) 1.2 % Basophils (%) (Auto) 0.5 % Neutrophils # (Auto) 5.60 K/uL (1.4-6.5) Lymphocytes # (Auto) 1.19 K/uL (1.2-3.4) Monocytes # (Auto) 1.70 K/uL (0.11-0.59) Eosinophils # (Auto) 0.11 K/uL (0-0.5) Basophils # (Auto) 0.05 K/uL (0-0.2) RDW Standard Deviation 56.7 fL (36.4-46.3) RDW Coefficient of Variation 17.8 % (11.5-14.5) Immature Granulocyte % (Auto) 6.4 % Immature Granulocyte # (Auto) 0.59 K/uL (0.00-0.02) Anisocytosis PRESENT Spherocytes OCCASIONAL Ovalocytes 1+ Erythrocyte Sedimentation Rate 67 mm/hr (0-14) Prothrombin Time 27.8 SECONDS (9.0-12.0) Prothromb Time International Ratio 2.7 (0.9-1.1) Activated Partial Thromboplast Time 36.4 SECONDS (21.0-31.0) Partial Thromboplastin Ratio 1.4 Anion Gap 3.0 mmol/L (3-11) Est Creatinine Clear Calc Drug Dose 47.1 ml/min Estimated GFR () 46.6 Estimated GFR (Non- 40.2 BUN/Creatinine Ratio 16.2 (10-20) Calcium Level 9.1 mg/dl (8.5-10.1) Magnesium Level 1.8 mg/dl (1.8-2.4) Total Bilirubin 0.3 mg/dl (0.2-1) Direct Bilirubin mg/dl (0-0.2) Aspartate Amino Transf (AST/SGOT) 28 U/L (15-37) Alanine Aminotransferase (ALT/SGPT) 25 U/L (12-78) Alkaline Phosphatase 166 U/L (45-117) Troponin I 0.066 ng/ml (0-0.045) C-Reactive Protein 1.42 mg/dl (0-0.29) Total Protein 7.3 gm/dl (6.4-8.2) Albumin 3.0 gm/dl (3.4-5.0) Thyroid Stimulating Hormone (TSH) 3.710 uIu/ml (0.300-4.500) Chemistry Specimen Hemolysis Lyme Disease IgG Antibody NEG (NEG) Lyme Disease IgM Antibody NEG (NEG) Laboratory results per my review. Medications Administered Medications (Trade) Dose Ordered Sig/Rosette Route Start Time Stop Time Status Last Admin Dose Admin Oxycodone HCl (Roxicodone Immediate Rel Tab) 10 mg NOW STAT PO 01/22/18 06:22 01/22/18 06:24 DC 01/22/18 06:34 10 MG ECG Per My Interpretation Indication: SOB/dyspnea Rate (beats per minute): 104 Rhythm: sinus tachycardia Findings: PVC (no PVCs), RBBB (RBBB pattern noted) Comparison ECG Date: 01/11/18 Change: no significant change ED Course 0615: The patient was evaluated in room B9. A complete history and physical examination were performed. 0622: Oxycodone HCl 10mg PO 0841: Upon reevaluation, the patient is resting comfortably. I discussed the results and treatment plan with him. He verbalized agreement of the treatment plan. He was discharged home. Medical Decision Prior records reviewed and summarized above. Triage Nursing notes reviewed and agree them. Additional history obtained from the sales representative printing supplies. The patient's history was concerning for atraumatic joint pain. Differential diagnosis: Etiologies such as fracture, dislocation, neurovascular compromise, compartment syndrome, soft tissue injury, inflammatory arthritis, medication reaction, as well as others were entertained. The patient is a 67-year-old male who presented to the emergency department for an evaluation of lower extremity pain. The patient had no swelling. His skin was warm and dry. Pulses appeared symmetric on physical exam. The patient had a history of similar complaints in the past. He has had what appears to be ongoing joint pain especially through the hips and knees. He has a primary orthopedic physician and had a recent injection in his right knee. The patient also complained of shortness of breath. The patient currently takes Coumadin and his INR is therapeutic. The patient's EKG shows no change from previous but his troponin was mildly elevated. I discussed the patient's laboratory and radiographic studies with him. I also discussed his case with his primary cardiology group. I do not feel this is related to an ischemic event. The patient was encouraged to rest and avoid any strenuous activity. He was also encouraged to continue all medications as prescribed. Otherwise he was encouraged to return to the emergency department immediately symptoms change worsen or the need arises. The patient was treated with pain medication in the emergency department. Medication Reconcilliation Current Medication List: was personally reviewed by me Blood Pressure Screening Patient's blood pressure: Elevated blood pressure Blood pressure disposition: Elevated BP felt to be situational Consults Time Called: 0731 Consulting Physician: Dr. Vincent Falk High Pressure Cleaner Returned Call: 0750 I discussed the patient's case with Dr. Oconnor. Impression Primary Impression: Arthralgia Additional Impression: Dyspnea Scribe Attestation The scribe's documentation has been prepared under my direction and personally reviewed by me in its entirety. I confirm that the note above accurately reflects all work, treatment, procedures, and medical decision making performed by me. Departure Information Dispostion Home / Self-Care Referrals Chavez Enciso D.O. (PCP) Forms HOME CARE DOCUMENTATION FORM, IMPORTANT VISIT INFORMATION Patient Instructions ED Joint Pain, My [facility] Additional Instructions Continue all medications as prescribed. Call your primary mail handler equipment operator to schedule a follow-up appointment as well as your primary orthopedic physician. Rest and avoid any strenuous activity. Problem Qualifiers
[2018-01-22] MEDS ORDERED: OXYC-57 PO (06:41)
--- NOTE | 2018-01-22 06:45 | DIAGNOSTIC IMAGING REPORT ---
CHEST ONE VIEW PORTABLE CLINICAL HISTORY: 67 years-old Male presenting with EVALUATE ALTERED MENTAL STATUS/WEAKNESS. TECHNIQUE: Portable upright AP view of the chest was obtained. COMPARISON: 10/10/2017. FINDINGS: Left subclavian pacer with leads to the right atrium and right ventricular apex. Median sternotomy wires noted. Atherosclerosis of the aortic arch. Cardiac silhouette mildly enlarged. Mild prominence of pulmonary vasculature. No focal opacity. No large effusion or pneumothorax. Osseous structures normal. Upper abdomen normal. IMPRESSION: 1. Cardiomegaly. No other convincing evidence of acute cardiopulmonary disease. Electronically signed by: Leobardo Park M.D. 01/22/2018 6:43 AM Dictated Date/Time: 01/22/2018 6:42 AM
[2018-01-22 06:53] LABS: HEMATOCRIT 32.4 % (42-52); HEMOGLOBIN 10.1 g/dL (14.0-18.0); MEAN CELL VOLUME 85.9 fL (80-100); MEAN CORPUSCULAR HEMOGLOBIN 26.8 pg (25-34); MEAN CORPUSCULAR HGB CONC 31.2 g/dl (32-36); MEAN PLATELET VOLUME 9.4 fL (7.4-10.4); PLATELET COUNT 331 K/uL (130-400); RED CELL DISTRIBUTION WIDTH CV 17.8 % (11.5-14.5); RED CELL DISTRIBUTION WIDTH SD 56.7 fL (36.4-46.3); WHITE BLOOD COUNT 9.24 K/uL (4.8-10.8)
[2018-01-22 07:04] LABS: INR 2.7 (0.9-1.1); PTT PATIENT 36.4 SECONDS (21.0-31.0)
[2018-01-22 07:21] LABS: CALCIUM 9.1 mg/dl (8.5-10.1); CREATININE 1.72 mg/dl (0.60-1.40); POTASSIUM 4.5 mmol/L (3.5-5.1); TOTAL PROTEIN 7.3 gm/dl (6.4-8.2)
[2018-01-22 07:41] LABS: BASO % 0.5 %; BASO ABS # 0.05 K/uL (0-0.2); EOS % 1.2 %; EOS ABS # 0.11 K/uL (0-0.5); IG# 0.59 K/uL (0.00-0.02); LYMPH % 12.9 %; LYMPH ABS # 1.19 K/uL (1.2-3.4); MONO % 18.4 %; NEUT % 60.6 %
[2018-01-22 08:21] VITALS: BP 139/99; PULSE 106; O2SAT 95
== END 2018-01-22 08:39 | disposition home or self-care (01) ==
LOC: EDBD 06:13 → C.EDB 06:14
DX: M25.551 Pain in right hip (principal); M25.552 Pain in left hip; M25.561 Pain in right knee; R06.00 Dyspnea, unspecified; N18.3 Chronic kidney disease, stage 3 (moderate); F32.9 Major depressive disorder, single episode, unspecified; E03.9 Hypothyroidism, unspecified; I51.7 Cardiomegaly; I45.10 Unspecified right bundle-branch block; Z86.711 Personal history of pulmonary embolism; Z86.718 Personal history of other venous thrombosis and embolism; Z79.01 Long term (current) use of anticoagulants; Z79.899 Other long term (current) drug therapy; Z94.1 Heart transplant status; Z88.5 Allergy status to narcotic agent

== ENCOUNTER 2018-01-25 11:13 | Emergency (ER) | payer OTHER ==
[~2018-01-25] VITALS: Ht 185.4 cm; Wt 90.0 kg
[2018-01-25 11:19] VITALS: TEMP 36.8; Ht 185.4 cm; Wt 90.0 kg
[2018-01-25] MEDS ORDERED: SODIUM CHLORIDE 0.9% 1000ML 1,000 ML IV STA (11:49)
--- NOTE | 2018-01-25 12:04 | DIAGNOSTIC IMAGING REPORT ---
CHEST ONE VIEW PORTABLE HISTORY: 67 years-old Male EVALUATE WEAKNESS acute weakness COMPARISON: Chest radiograph 01/22/2018, CT chest 10/25/2017 TECHNIQUE: Portable AP view of the chest FINDINGS: Cardiac silhouette is mildly enlarged, unchanged. Left subclavian pacer appears stable. Prior median sternotomy. No pneumothorax, pleural effusion or overt pulmonary edema. Masslike opacity of the right lower lobe is again seen, 1.9 x 1.9 cm. Bones of the chest appear grossly intact. IMPRESSION: 1. Cardiomegaly without acute process. 2. 1.9 cm masslike opacity of the right lower lobe, better characterized on comparison CT of the chest 10/25/2017. The above report was generated using voice recognition software. It may contain grammatical, syntax or spelling errors. Electronically signed by: Eloy Dela Cruz M.D. 01/25/2018 12:02 PM Dictated Date/Time: 01/25/2018 12:00 PM
[2018-01-25 12:07] VITALS: O2SAT 97
[2018-01-25 12:27] LABS: BASO % 0.4 %; BASO ABS # 0.04 K/uL (0-0.2); EOS % 1.3 %; EOS ABS # 0.12 K/uL (0-0.5); HEMATOCRIT 31.7 % (42-52); HEMOGLOBIN 9.9 g/dL (14.0-18.0); IG# 0.05 K/uL (0.00-0.02); LYMPH % 19.5 %; LYMPH ABS # 1.77 K/uL (1.2-3.4); MEAN CELL VOLUME 84.5 fL (80-100); MEAN CORPUSCULAR HEMOGLOBIN 26.4 pg (25-34); MEAN CORPUSCULAR HGB CONC 31.2 g/dl (32-36); MEAN PLATELET VOLUME 9.7 fL (7.4-10.4); MONO % 9.9 %; NEUT % 68.3 %; PLATELET COUNT 247 K/uL (130-400); RED CELL DISTRIBUTION WIDTH CV 17.6 % (11.5-14.5); RED CELL DISTRIBUTION WIDTH SD 55.1 fL (36.4-46.3); WHITE BLOOD COUNT 9.08 K/uL (4.8-10.8)
[2018-01-25 12:42] LABS: INR 1.7 (0.9-1.1)
[2018-01-25 12:47] LABS: ALBUMIN 2.8 gm/dl (3.4-5.0); CALCIUM 8.5 mg/dl (8.5-10.1); CREATININE 1.81 mg/dl (0.60-1.40); POTASSIUM 4.4 mmol/L (3.5-5.1)
[2018-01-25 13:01] LABS: TOTAL PROTEIN 7.3 gm/dl (6.4-8.2)
--- NOTE | 2018-01-25 14:28 | DIAGNOSTIC IMAGING REPORT ---
HEAD WITHOUT CONTRAST (CT) CLINICAL HISTORY: 67 years-old Male presenting with EVALUATE WEAKNESS, vision problems, history of CMV virus. TECHNIQUE: Multidetector CT imaging of the head was performed without the use of intravenous contrast. IV contrast: None. A dose lowering technique was used consistent with the principles of ALARA (as low as reasonably achievable). COMPARISON: 01/11/2018. CT DOSE (mGy.cm): The estimated cumulative dose is 788.63 mGycm. FINDINGS: Senior Construction Project Manager topogram: Unremarkable. Proportional ventricular and sulcal prominence, likely age-related parenchymal volume loss. Brain parenchyma normal in appearance with preserved velazquez-white differentiation. No mass effect or midline shift. No hemorrhage or acute territorial infarct. No extra-axial fluid collection. Polypoid mucosal thickening in the left maxillary sinus. Redemonstration of the small lucent lesion along the course of a diploic in the right parietal bone. IMPRESSION: 1. No acute intracranial abnormality. Electronically signed by: Leobardo Park M.D. 01/25/2018 2:26 PM Dictated Date/Time: 01/25/2018 2:21 PM
[2018-01-25] MEDS ORDERED: GANCICLOVIR SODIUM IV ONE (16:00)
[2018-01-25] MEDS ORDERED: SODIUM CHLORIDE 0.9% IV ONE (16:00)
--- NOTE | 2018-01-25 16:42 | EMERGENCY ROOM VISIT NOTE ---
History Report prepared by Yung: Mitchell Mcdonald Under the Supervision of: Dr. Brice Alves D.O. First contact with patient: 11:35 Chief Complaint: OTHER COMPLAINT Stated Complaint: "CAN'T SEE" "CNB?" History of Present Illness The patient is a 67 year old male who presents to the Emergency Room with complaints of constant bilateral visual changes beginning two days ago. The patient describes his visual changes as "seeing double". He also complains of joint aches (x10 days). He has a history of recurrent CMV virus and states that his symptoms are consistent with CMV. 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 He denies any chest pain or shortness of breath. He has been off of his Valacyclovir for about two weeks because he ran out of medication. Pt denies headache, change in vision, fevers, chest pain, shortness of breath, nausea, vomiting, diarrhea, pain with urination, and melena. Source of History: patient Onset: Two days ago Position: eye (bilateral) Symptom Intensity: "Seeing double" Quality: other (visual changes) Timing: constant Associated Symptoms: No fevers, No headache, No chest pain, No SOB, No nausea, No vomiting, No melena, No diarrhea, No urinary symptoms Note: The patient also complains of joint aches (x10 days). Review of Systems See HPI for pertinent positives & negatives. A total of 10 systems reviewed and were otherwise negative. 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 Social History Smoking Status: Never Smoker Alcohol Use: occasionally Drug Use: none Marital Status: Housing Status: lives with significant other Occupation Status: employed Current/Historical Medications Scheduled Amlodipine (Norvasc), 10 MG PO DAILY Atovaquone (Mepron), 10 ML PO QAM Calcium Carbonate-Cholecalcife (Caltrate 600+D), 1 TAB PO BID Ferrous Sulfate (Kp Ferrous Sulfate), 1 TAB PO QDB Levothyroxine Sodium (Synthroid), 50 MCG PO DAILY Magnesium Oxide (Mg Supplement (Magnesium Oxide), 241.3 MG PO BID Mycophenolate Mofetil (Cellcept), 1,000 MG PO BID Omeprazole (Prilosec), 20 MG PO DAILY Pravastatin Sodium (Pravachol), 40 MG PO DAILY Prednisone (Prednisone), 2.5 MG PO DAILY Senna (Senokot), 2 TAB PO DAILY Tacrolimus (Prograf), 4 MG PO AMPM Warfarin Sod (Jantoven), 3.5 MG PO 3XWK Warfarin Sod (Jantoven), 2.5 MG PO 4XWK Scheduled PRN Acetaminophen/Codeine (Tylenol W/Codeine #3), 1 TAB PO Q4H PRN for Pain Oxycodone/Acetaminophen 5MG/325MG (Percocet 5MG/325MG), 1 TABLET PO Q6H PRN for Pain Tramadol (Ultram), 50-100 MG PO Q6H PRN for Pain Allergies Coded Allergies: Morphine (Verified Allergy, Unknown, Nausea/vomiting, 01/25/18) Physical Exam Vital Signs Date Time Temp Pulse Resp B/P (MAP) Pulse Ox O2 Delivery O2 Flow Rate FiO2 01/25/18 17:30 102 108/80 01/25/18 16:03 98 15 117/83 01/25/18 14:26 90 15 116/70 97 Room Air 01/25/18 13:49 99 18 117/71 99 Room Air 01/25/18 13:07 99 18 113/88 97 Room Air 01/25/18 12:21 99 01/25/18 12:07 100 18 110/76 97 Room Air 01/25/18 12:07 97 Room Air 01/25/18 11:19 36.8 105 18 104/69 99 Room Air Physical Exam GENERAL: Chronically ill appearing, sitting up in bed, disheveled, no distress, non-toxic EYE EXAM: normal conjunctiva. OROPHARYNX: no exudate, no erythema, lips, buccal mucosa, and tongue normal and mucous membranes are moist NECK: supple, no nuchal rigidity, no adenopathy, non-tender LUNGS: Clear to auscultation. Normal chest wall mechanics HEART: no murmurs, S1 normal and S2 normal ABDOMEN: abdomen soft, non-tender, normo-active bowel sounds, no masses, no rebound or guarding. BACK: Back is symmetrical on inspection and there is no deformity, no midline tenderness, no CVA tenderness. SKIN: no rashes and no bruising UPPER EXTREMITIES: upper extremities are grossly normal. LOWER EXTREMITIES: No pitting edema. NEURO EXAM: Normal sensorium, cranial nerves II-XII grossly intact, normal speech, no gross weakness of arms, no gross weakness of legs. Medical Decision & Procedures ER Provider Diagnostic Interpretation: Radiology results as stated below per my review and the radiologist's interpretation: HEAD WITHOUT CONTRAST (CT) FINDINGS: Net Finisher topogram: Unremarkable. Proportional ventricular and sulcal prominence, likely age-related parenchymal volume loss. Brain parenchyma normal in appearance with preserved velazquez-white differentiation. No mass effect or midline shift. No hemorrhage or acute territorial infarct. No extra-axial fluid collection. Polypoid mucosal thickening in the left maxillary sinus. Redemonstration of the small lucent lesion along the course of a diploic in the right parietal bone. IMPRESSION: 1. No acute intracranial abnormality. Electronically signed by: Leobardo Park M.D. 01/25/2018 2:26 PM CHEST ONE VIEW PORTABLE FINDINGS: Cardiac silhouette is mildly enlarged, unchanged. Left subclavian pacer appears stable. Prior median sternotomy. No pneumothorax, pleural effusion or overt pulmonary edema. Masslike opacity of the right lower lobe is again seen, 1.9 x 1.9 cm. Bones of the chest appear grossly intact. IMPRESSION: 1. Cardiomegaly without acute process. 2. 1.9 cm masslike opacity of the right lower lobe, better characterized on comparison CT of the chest 10/25/2017. The above report was generated using voice recognition software. It may contain grammatical, syntax or spelling errors. Electronically signed by: Eloy Dela Cruz M.D. 01/25/2018 12:02 PM Laboratory Results 01/25/18 12:10 Red Blood Count 3.75, Mean Corpuscular Volume 84.5, Mean Corpuscular Hemoglobin 26.4, Mean Corpuscular Hemoglobin Concent 31.2, Mean Platelet Volume 9.7, Neutrophils (%) (Auto) 68.3, Lymphocytes (%) (Auto) 19.5, Monocytes (%) (Auto) 9.9, Eosinophils (%) (Auto) 1.3, Basophils (%) (Auto) 0.4, Neutrophils # (Auto) 6.20, Lymphocytes # (Auto) 1.77, Monocytes # (Auto) 0.90, Eosinophils # (Auto) 0.12, Basophils # (Auto) 0.04 01/25/18 12:10 Test 01/25/18 12:10 01/25/18 12:13 01/25/18 12:46 White Blood Count 9.08 K/uL (4.8-10.8) Red Blood Count 3.75 M/uL (4.7-6.1) Hemoglobin 9.9 g/dL (14.0-18.0) Hematocrit 31.7 % (42-52) Mean Corpuscular Volume 84.5 fL (80-100) Mean Corpuscular Hemoglobin 26.4 pg (25-34) Mean Corpuscular Hemoglobin Concent 31.2 g/dl (32-36) Platelet Count 247 K/uL (130-400) Mean Platelet Volume 9.7 fL (7.4-10.4) Neutrophils (%) (Auto) 68.3 % Lymphocytes (%) (Auto) 19.5 % Monocytes (%) (Auto) 9.9 % Eosinophils (%) (Auto) 1.3 % Basophils (%) (Auto) 0.4 % Neutrophils # (Auto) 6.20 K/uL (1.4-6.5) Lymphocytes # (Auto) 1.77 K/uL (1.2-3.4) Monocytes # (Auto) 0.90 K/uL (0.11-0.59) Eosinophils # (Auto) 0.12 K/uL (0-0.5) Basophils # (Auto) 0.04 K/uL (0-0.2) RDW Standard Deviation 55.1 fL (36.4-46.3) RDW Coefficient of Variation 17.6 % (11.5-14.5) Immature Granulocyte % (Auto) 0.6 % Immature Granulocyte # (Auto) 0.05 K/uL (0.00-0.02) Prothrombin Time 17.4 SECONDS (9.0-12.0) Prothromb Time International Ratio 1.7 (0.9-1.1) Activated Partial Thromboplast Time 32.0 SECONDS (21.0-31.0) Partial Thromboplastin Ratio 1.2 Anion Gap 8.0 mmol/L (3-11) Est Creatinine Clear Calc Drug Dose 44.7 ml/min Estimated GFR () 43.9 Estimated GFR (Non- 37.8 BUN/Creatinine Ratio 21.5 (10-20) Calcium Level 8.5 mg/dl (8.5-10.1) Total Bilirubin 0.3 mg/dl (0.2-1) Direct Bilirubin 0.1 mg/dl (0-0.2) Aspartate Amino Transf (AST/SGOT) 17 U/L (15-37) Alanine Aminotransferase (ALT/SGPT) 19 U/L (12-78) Alkaline Phosphatase 200 U/L (45-117) Troponin I 0.051 ng/ml (0-0.045) Total Protein 7.3 gm/dl (6.4-8.2) Albumin 2.8 gm/dl (3.4-5.0) Lipase 184 U/L (73-393) Thyroid Stimulating Hormone (TSH) 4.070 uIu/ml (0.300-4.500) Bedside Glucose 104 mg/dl (70-99) Laboratory results per my review. Medications Administered Medications (Trade) Dose Ordered Sig/Rosette Route Start Time Stop Time Status Last Admin Dose Admin Sodium Chloride 1,000 ml @ 999 mls/hr Q1H1M STAT IV 01/25/18 11:49 01/25/18 12:49 DC 01/25/18 11:49 999 MLS/HR ECG Per My Interpretation Indication: other (history of heart transplant) Rate (beats per minute): 99 Rhythm: sinus rhythm Findings: Q waves (Septal), RBBB, T-wave inversion (Septal, lateral and anterior. ), ST elevation (slight, anterior leads), other (Normal axis. ) Change: no significant change (from prior) ED Course ED COURSE: Vital signs were reviewed and showed tachycardia. The patients medical record was reviewed The above diagnostic studies were performed and reviewed. ED treatments and interventions as stated above. 1139: The patient was evaluated in room C11B. A complete history and physical examination was performed. 1149: Ordered Sodium Chloride 1000 ml @ 999 mls/hr IV. 1240: Upon reevaluation, the patient is resting comfortably. I discussed my findings with the patient and he understands and agrees with the treatment plan. 1400: Pt doing well Based on the patients age, coexisting illnesses, exam and lab findings the decision to transfer the patient to [facility] was made. He will travel by ground. The patient remained stable while under my care. The patient will be evaluated for further management at [facility]. 1555: I updated the patient on his test results and transfer plan. The patient verbalizes understanding. 1600: Ordered Ganciclovir Sodium 225 mg/Sodium Chloride 104.5 ml @ 104.5 mls/hr IV. 1700: Pt meds given and Pt updated [address] Nguyen. Pt resting comfortably Medical Decision Differential diagnosis includes etiologies such as sepsis, UTI, pneumonia, metabolic, electrolyte abnormalities, cardiac sources, intracerebral event, toxicologic, neurologic, as well as others were entertained. Patient is a 67-year-old male with a heart transplant 2 years ago taking tacrolimus who is not taking CellCept in the past week although is supposed to be taking this in combination with his valagan which he has not taken in the past month. He presents the ER for diffuse myalgias and now is complaining of blurry vision. He notes the blurry vision is only present when looking out of both eyes. He is otherwise neurologically intact. CT head was negative. He declines a headache. He declines any chest pain or shortness of breath. CBC shows anemia with a hemoglobin of 10. Creatinine is 1.8 and is improved from his baseline. Troponin was elevated at 0.051 but this is decreased from his last visit. INR was subtherapeutic at 1.7. Tacrolimus was pending. 2 separate conversations with the transfer center at [facility]. Patient was accepted. They did recommend initially holding any antivirals awaiting further ID recommendation. I was able to discuss with her ID who recommended ganciclovir as we do not have their recommended valgan. Patient was initially given a bolus normal saline. EKG was unchanged from his previous. Patient is resting comfortably in the ER. He was signed out to [facility] at 5:55PM awaiting transfer after 7:15 PM by our medics. Medication Reconcilliation Current Medication List: was personally reviewed by me Blood Pressure Screening Patient's blood pressure: Normal blood pressure Blood pressure disposition: Did not require urgent referral Consults Time Called: 1158 Consulting Physician: [facility] Cardioth[facility] Transplant [facility] Returned Call: 1209 I discussed the patient's case with the [facility] Cardi[facility]plant [facility]. The patient will be transferred to [facility] by ground. 1540: I spoke with the [facility] Cardioth[facility] Transplant [facility] again. They recommend the patient be given his normal dose of oral Valacyclovir. Additional Consults: Time Called: 1625 Consulted Physician: Dr. Camilo - Infectious Disease Returned Call: 1630 Additional Comments: I reviewed the patient's case with Leslee Bey. He recommends the patient be given Ganciclovir. Impression Primary Impression: Heart transplanted Additional Impressions: CMV (cytomegalovirus infection) status positive Arthralgia Elevated troponin Anemia Scribe Attestation The scribe's documentation has been prepared under my direction and personally reviewed by me in its entirety. I confirm that the note above accurately reflects all work, treatment, procedures, and medical decision making performed by me. Departure Information Dispostion Transfer Acute Care Facility ([facility] by ground) Referrals Chavez Enciso, D.O. (PCP) Patient Instructions [facility] Problem Qualifiers Additional Impressions: CMV (cytomegalovirus infection) status positive Cytomegaloviral disease type: congenital cytomegalovirus Qualified Codes: P35.1 - Congenital cytomegalovirus infection Arthralgia Joint pain location: unspecified Qualified Codes: M25.50 - Pain in unspecified joint Anemia Anemia type: unspecified type Qualified Codes: D64.9 - Anemia, unspecified
[2018-01-25] MEDS ORDERED: WARFARIN SOD 2.5 MG TAB PO SCH (17:30)
[2018-01-25] MEDS ORDERED: TACROLIMUS 1 MG CAP PO SCH (17:30)
[2018-01-25] MEDS ORDERED: MYCOPHENOLATE MOFETIL 250 MG CAP (CELLCEPT) PO SCH (17:30)
[2018-01-25] MEDS ORDERED: FERROUS SULFATE 325 MG TAB PO SCH (18:00)
[2018-01-25] MEDS ORDERED: HYDROmorphone INJ 2 MG/ML SYR/VIAL IV STA (18:53)
--- NOTE | 2018-01-25 18:56 | EMERGENCY ROOM VISIT NOTE ---
ED Visit Note First contact with patient: 17:53 I assumed care at the change of shift, Dr. Alves had been the physician prior to me. The patient is scheduled to be transferred to [place]. He was awaiting the ambulance transport. I did check on him, he had eaten dinner, he was complaining of some lower back pain and did ask for a dose of pain medication for the ambulance ride. I felt this was reasonable. He was ordered for 0.5 mg of IV Dilaudid. The patient states that he otherwise feels well, he is not short of breath, no chest pain.
[2018-01-25 20:44] VITALS: BP 115/79; PULSE 103; O2SAT 98
[2018-01-27 05:43] LABS: FK506 TACROLIMUS HIGHLY SENS 6.1 MCG/L (5-20)
== END 2018-01-25 20:45 | disposition short-term general hospital (02) ==
LOC: C.EDB 11:14 → C.EDC 20:45
DX: Z94.1 Heart transplant status (principal); P35.1 Congenital cytomegalovirus infection; M25.50 Pain in unspecified joint; D64.9 Anemia, unspecified; R79.89 Other specified abnormal findings of blood chemistry; I48.91 Unspecified atrial fibrillation; N18.3 Chronic kidney disease, stage 3 (moderate); Z86.718 Personal history of other venous thrombosis and embolism; E03.9 Hypothyroidism, unspecified; Z86.711 Personal history of pulmonary embolism; Z79.01 Long term (current) use of anticoagulants; Z79.52 Long term (current) use of systemic steroids; Z79.899 Other long term (current) drug therapy; Z88.5 Allergy status to narcotic agent